=== PATIENT | male | born 2005 | race Caucasian/White ===

== ENCOUNTER 2023-12-01 11:26 | Emergency (ER) | payer OTHER, SELFPAY ==
[2023-12-01 11:35] VITALS: BP 129/97; PULSE 85; TEMP 36.6; O2SAT 100; BMI 23.0
--- NOTE | 2023-12-01 11:38 | ED.EAR1 ---
HPI - Ear Problem General Chief complaint: Ear Stated complaint: HEADACHE Time Seen by Provider: 12/01/23 11:37 Related Data Home Medications ?Medication ?Instructions ?Recorded ?Confirmed No Known Home Medications 12/01/23 12/01/23 Allergies Allergy/AdvReac Type Severity Reaction Status Date / Time No Known Drug Allergies Allergy Verified 12/01/23 11:35 Discharge Plan Discharge Stand Alone Forms: Portal Instructions Chief Complaint: Ear Clinical Impression: Scalp pain Patient Disposition: Home, Self-Care Time of Disposition Decision: 12:09 Prescriptions / Home Meds: No Action No Known Home Medications Print Language: Belarusian Additional Instructions: Follow-up with neurologist if the symptoms persist Referrals: VIVI WEINBERG [Primary Care Provider] - 1 week
--- NOTE | 2023-12-01 12:10 | ED_ITS ---
HPI HPI - General Adult General Chief complaint: Ear Stated complaint: HEADACHE Time Seen by Provider: 12/01/23 11:37 Source: patient History of Present Illness HPI narrative: This patient is here complaining of discomfort behind his ear in the upper temporal scalp area. He says been experiencing this for at least a week or so. It is not a continuous discomfort. It is not a headache he says the discomfort is on the scalp. He says when he gets these attacks when he touches his skin is extremely sensitive. These attacks come and go they last a short time. Sometimes he takes an anti-inflammatory for it. Past medical history he does have migraine headaches and has seen a neurologist for these. He actually has a neurologist at the [facility]. He has had several CT scans of his brain before all of which are normal. He does not notice any of this symptomatology anyplace else on his scalp trunk torso. He does not have any neck pain associated with it no fever. Has no history of diabetes or other neurological disorders. He does indicate that he has had COVID in the past. He also has irritable bowel syndrome. He was worked up for syncopal attacks and was felt to be vasovagal reactions. He is not on any ongoing manage case's. He said he had a lot of earaches when he was a child. Does not have any drainage or discharge from the ear. There is no tinnitus. He has no vertigo. No diplopia dysarthria or dysphagia. Does not actually get a migraine headache with these. Has not noticed any skin lesions in the area. No history of mastoid disease or recent dental problems or procedures. Does not have a sore throat. He is otherwise healthy and not on any medications. Related Data Home Medications ?Medication ?Instructions ?Recorded ?Confirmed No Known Home Medications 12/01/23 12/01/23 Allergies Allergy/AdvReac Type Severity Reaction Status Date / Time No Known Drug Allergies Allergy Verified 12/01/23 11:35 Opioid HPI Opioid Management Most Recent Opioid Data: No Data to Display Exam Narrative Exam Narrative: Awake alert very pleasant no distress whatsoever vital signs are noted and essentially normal. Overall inspection his hygiene is very good skin is warm and dry mucous memories are moist and pink. There is no scleral icterus or evidence of anemia. HEENT examination shows facial skin to be completely normal. There is no conjunctivitis. Oral cavity shows all dentition to be in good repair there is no tenderness to percussion of any of the teeth. The uvula palate and lips and buccal mucosa are all normal. Both ears were carefully examined x 2 both TMs are completely normal. Ear canals are not erythematous warm red swollen or tender. Examination of the mastoid area discloses no sensitivity or tenderness or pain with percussion over the mastoid area. The scalp area and skin were closely examined with good illumination and there is absolutely no skin lesions in the area. There is no hypnesthesia's of the area at this time. There is no evidence of shingles or zoster or vesicles in the ear area or the nasal area. Hearing is intact. Cranial nerves II to XII are carefully examined and are normal. The neck is soft and supple there is no meningeal irritation. Constitutional Vital Signs, click to edit/add: Last Vital Signs Temp 97.9 F 12/01/23 11:35 Pulse 85 12/01/23 11:35 Resp 18 12/01/23 11:35 BP 129/97 H 12/01/23 11:35 Pulse Ox 100 12/01/23 11:35 O2 Del Method Room Air 12/01/23 11:35 Course Vital Signs Vital signs: Vital Signs Temperature 97.9 F 12/01/23 11:35 Pulse Rate 85 12/01/23 11:35 Respiratory Rate 18 12/01/23 11:35 Blood Pressure 129/97 H 12/01/23 11:35 Pulse Oximetry 100 12/01/23 11:35 Oxygen Delivery Method Room Air 12/01/23 11:35 Temperature 97.9 F 12/01/23 11:35 Pulse Rate 85 12/01/23 11:35 Respiratory Rate 18 12/01/23 11:35 Blood Pressure 129/97 H 12/01/23 11:35 Pulse Oximetry 100 12/01/23 11:35 Oxygen Delivery Method Room Air 12/01/23 11:35 Medical Decision Making MDM Narrative Medical decision making narrative: This patient presents with transient brief alternating hypnesthesia's of the scalp area on the right side. He did not does not describe these as a headache. He has no other neurological symptoms. He has had multiple CAT scans of his head done while working him up for other medical problems. He does have a practicing neurologist at the [facility]. Clinical examination is normal. There is no indication of mastoiditis, otitis skin lesions or any type of dermatological disorder. He does not describe any neurological symptoms during these episodes just has skin sensitivity. We talked extensively about possible differential diagnosis but I do not believe there is an emergency medical condition at this time and he has previously been imaged. We agree that he can follow-up with his neurologist as an outpatient Discharge Plan Discharge Stand Alone Forms: Portal Instructions Chief Complaint: Ear Clinical Impression: Scalp pain Patient Disposition: Home, Self-Care Time of Disposition Decision: 12:09 Prescriptions / Home Meds: No Action No Known Home Medications Print Language: Faroese Additional Instructions: Follow-up with neurologist if the symptoms persist Referrals: VIVI WEINBERG [Primary Care Provider] - 1 week
== END 2023-12-01 12:18 | disposition home or self-care (01) ==
PROVIDERS: Emergency Provider Emergency Medicine Emergency Medical Services; PCP Pediatrics
DX: R51.9 Headache, unspecified (principal); Z86.16 Personal history of COVID-19
CPT/HCPCS: 99281

== ENCOUNTER 2024-08-30 23:15 | Emergency (ER) | payer MEDICAID, SELFPAY ==
[2024-08-30 23:31] VITALS: BP 158/89; PULSE 81; TEMP 36.7; O2SAT 98; BMI 23.6
[2024-08-31] MEDS: 0.9 % SODIUM CHLORIDE 1,000 ML 1000 ML IV (00:13)
[2024-08-31 00:14] LABS: Basophils Percent Auto 0.5 % (0.2-2.0); Eosinophils Absolute Auto 0.1 10^3/uL (0.0-0.7); Eosinophils Percent Auto 1.6 % (0.9-7.0); Hematocrit 43.9 % (42.0-54.0); Hemoglobin 15.9 g/dL (14.0-18.0); Immature Granulocytes Abs Auto 0.01 10^3/uL (0.00-0.03); Immature Granulocytes Pct Auto 0.1 % (0.0-0.5); Lymphocytes Absolute Auto 3.5 10^3/uL (1.2-3.8); Mean Corpuscular HGB Conc 36.2 g/dL (29.9-35.2); Mean Corpuscular Hemoglobin 30.1 pg (25.9-34.0); Mean Corpuscular Volume 83.1 fL (80.0-94.0); Mean Platelet Volume 9.4 fL (9.5-13.5); Monocytes Absolute Auto 0.7 10^3/uL (0.3-0.8); Monocytes Percent Auto 9.2 % (1.7-12.0); Neutrophils Absolute Auto 3.5 10^3/uL (1.4-6.5); Neutrophils Percent Auto 44.6 % (43.0-75.0); Platelet Count 340 10^3/uL (150-450); Red Blood Count 5.28 10^6/uL (4.70-6.10); Red Cell Distribution Width 11.9 % (11.0-15.0); White Blood Count 7.9 10^3/uL (4.0-11.0)
[2024-08-31] MEDS: DIPHENHYDRAMINE HCL 50 MG/ML VIAL IVP (00:15)
[2024-08-31] MEDS: METOCLOPRAMIDE HCL 10 MG/2 ML VIAL IVP (00:17)
[2024-08-31] MEDS: KETOROLAC TROMETHAMINE 30 MG/ML VIAL 15 MG IVP (00:19)
[2024-08-31 00:30] LABS: Alanine Aminotransferase 26 U/L (16-63); Albumin Globulin Ratio 1.2; Albumin Level 4.5 g/dL (3.4-5.0); Alkaline Phosphatase 93 U/L (46-116); Anion Gap 11.7; Aspartate Amino Transferase 17 U/L (15-37); BUN Creatinine Ratio 15.7; Bilirubin Total 0.6 mg/dL (0.2-1.0); Calcium 9.4 mg/dL (8.5-10.1); Carbon Dioxide 29.6 mmol/L (21.0-32.0); Chloride 100 mmol/L (98-107); Estimated GFR (African America >60 (>=60 mL/min/1.73m^2); Estimated GFR (Non-African Ame >60 (>=60 mL/min/1.73m^2); Globulin 3.8 g/dL; Glucose 100 mg/dL (74-106); Potassium 3.3 mmol/L (3.5-5.1); Sodium 138 mmol/L (136-145); Total Protein 8.3 g/dL (6.4-8.2)
--- NOTE | 2024-08-31 01:40 | ED_ITS ---
HPI HPI - General Adult General Chief complaint: Headache Stated complaint: HEAD PAIN Time Seen by Provider: 08/30/24 23:43 Source: patient Mode of arrival: walk-in Limitations: no limitations Related Data Previous Rx's ?Medication ?Instructions ?Recorded ondansetron 4 mg disintegrating 4 mg PO Q6H PRN nausea and 08/31/24 tablet vomiting #10 tabs sumatriptan succinate 25 mg tablet See Rx Instructions PO .COMPLEX 08/31/24 (Imitrex) #10 tabs Allergies Allergy/AdvReac Type Severity Reaction Status Date / Time No Known Drug Allergies Allergy Verified 08/30/24 23:35 Opioid HPI Opioid Management Most Recent Opioid Data: Last Pain Scale 2 Today, 02:28 Last ED Pain Assessment 08/30/24, 23:39 Last MAR Pain Assessment Today, 00:19 PFSH PFSH Social History Little interest or pleasure in doing things: not at all Feeling down, depressed, or hopeless: not at all Exam Constitutional Vital Signs, click to edit/add: Last Vital Signs Temp 98.0 F 08/30/24 23:31 Pulse 86 08/31/24 02:29 Resp 16 08/31/24 02:29 BP 145/77 H 08/31/24 02:29 Pulse Ox 98 08/31/24 02:29 O2 Del Method Room Air 08/31/24 02:29 Course Reevaluation(s) Reevaluation #1: Headache reevaluated. Patient states at this time his pain is a 3-4 out of 10. Magnesium 2 g added. Time: 01:40 Reevaluation #2: Patient indicates that the headache is now a 1-2 out of 10. He feels like this is unacceptable little to go home with. He has been on Imitrex in the past and is requesting a prescription. I told them that I would be happy to do that we will give him a referral to primary care physicians. Time: 02:54 Vital Signs Vital signs: Vital Signs Temperature 98.0 F 08/30/24 23:31 Pulse Rate 81 08/30/24 23:31 Respiratory Rate 18 08/30/24 23:31 Blood Pressure 158/89 H 08/30/24 23:31 Pulse Oximetry 98 08/30/24 23:31 Oxygen Delivery Method Room Air 08/30/24 23:31 Temperature 98.0 F 08/30/24 23:31 Pulse Rate 86 08/31/24 02:29 Respiratory Rate 16 08/31/24 02:29 Blood Pressure 145/77 H 08/31/24 02:29 Pulse Oximetry 98 08/31/24 02:29 Oxygen Delivery Method Room Air 08/31/24 02:29 Medical Decision Making MDM Narrative Medical decision making narrative: Patient is a 19-year-old male with an intractable migraine presenting to the emergency department for evaluation. Patient is neurovascularly intact. No neurodeficits. But in intractable pain. Differential Diagnosis Differential Diagnosis: Status migraine, migraine, tension headache, dehydration, electrolyte abnor Medical Records Medical records reviewed: Yes I reviewed the patient's medical records Lab Data Lab results reviewed: Yes I reviewed the patient's lab results Lab results narrative: Patient has no evidence of anemia or leukocytosis. The patient has mild hyponatremia at 3.3. Electrolytes competence of mental panel are otherwise unremarkable. Labs: Lab Results 08/31/24 Range/Units 00:01 WBC 7.9 (4.0-11.0) 10^3/uL RBC 5.28 (4.70-6.10) 10^6/uL Hgb 15.9 (14.0-18.0) g/dL Hct 43.9 (42.0-54.0) % MCV 83.1 (80.0-94.0) fL MCH 30.1 (25.9-34.0) pg MCHC 36.2 H (29.9-35.2) g/dL RDW 11.9 (11.0-15.0) % Plt Count 340 (150-450) 10^3/uL MPV 9.4 L (9.5-13.5) fL Neut % (Auto) 44.6 (43.0-75.0) % Lymph % (Auto) 44.0 (20.5-60.0) % [place] % (Auto) 9.2 (1.7-12.0) % Eos % (Auto) 1.6 (0.9-7.0) % Baso % (Auto) 0.5 (0.2-2.0) % Neut # (Auto) 3.5 (1.4-6.5) 10^3/uL Lymph # (Auto) 3.5 (1.2-3.8) 10^3/uL [place] # (Auto) 0.7 (0.3-0.8) 10^3/uL Eos # (Auto) 0.1 (0.0-0.7) 10^3/uL Baso # (Auto) 0.0 (0.0-0.1) 10^3/uL Abs Immat Gran (auto) 0.01 (0.00-0.03) 10^3/uL Imm/Tot Granulo (auto) 0.1 (0.0-0.5) % Sodium 138 (136-145) mmol/L Potassium 3.3 L (3.5-5.1) mmol/L Chloride 100 (98-107) mmol/L Carbon Dioxide 29.6 (21.0-32.0) mmol/L Anion Gap 11.7 BUN 14.0 (7.0-18.0) mg/dL Creatinine 0.89 (0.70-1.30) mg/dL Est GFR ( Amer) >60 (>=60 mL/min/1.73m^2) Est GFR (Non-Af Amer) >60 (>=60 mL/min/1.73m^2) BUN/Creatinine Ratio 15.7 Glucose 100 (74-106) mg/dL Calcium 9.4 (8.5-10.1) mg/dL Total Bilirubin 0.6 (0.2-1.0) mg/dL AST 17 (15-37) U/L ALT 26 (16-63) U/L Alkaline Phosphatase 93 (46-116) U/L Total Protein 8.3 H (6.4-8.2) g/dL Albumin 4.5 (3.4-5.0) g/dL Globulin 3.8 g/dL Albumin/Globulin Ratio 1.[address] scan - head: Attestation: I have reviewed the pertinent imaging results. Radiologist's impression: CT scan of the brain revealed no acute intracranial process. CTA of the head revealed no hemodynamically significant stenosis or aneurysmal dilation identified within the major vessels of the anterior posterior intracranial circulation. Discharge Plan Discharge Chief Complaint: Headache Clinical Impression: Migraine Patient Disposition: Home, Self-Care Time of Disposition Decision: 02:57 Condition: Good Mode of Transportation: EMS Prescriptions / Home Meds: New ondansetron 4 mg tablet,disintegrating 4 mg PO Q6H PRN (Reason: nausea and vomiting) Qty: 10 0RF sumatriptan succinate [Imitrex] 25 mg tablet See Rx Instructions .ROUTE .COMPLEX Qty: 10 0RF Rx Instructions: take 1 tab at onset of headache; if no relief may repeat 1 tab after at least 2 hrs; max = 4 tabs/24 hr Print Language: Korean Instructions: Migraine Headache (ED) Referrals: Physician,Non-Staff, MD [Primary Care Provider] - 1 week
[2024-08-31] MEDS: MAGNESIUM SULFATE IN WATER 2 GM/50 ML PREMIX IV (02:20)
[2024-08-31 02:29] VITALS: BP 145/77; PULSE 86; O2SAT 98
== END 2024-08-31 03:45 | disposition home or self-care (01) ==
PROVIDERS: Emergency Provider Emergency Medicine
DX: G43.909 Migraine, unspecified, not intractable, without status migrainosus (principal)
CPT/HCPCS: 36415; 70450; 70496; 80053; 85025; 96365; 96375; 99285; J1200; J1885; J2765; J3475; Q9967

== ENCOUNTER 2025-02-03 11:46 | Emergency (ER) | payer MEDICAID, SELFPAY ==
--- OUTSIDE RECORDS SUMMARY | 2025-01-20 08:11 | XMS_ITS | Continuity of Care Document ---
Author Organization [facility] Address [address] [place] [address] Phone Care Team Providers Care Barge Pilot Name Role Phone NO FAMILY, PHYSICIAN Primary Care Provider Unava ilable Rodriguez Lindsey DO Attending Provider [phone] Mary Moise Attending Provider + Care Teams Patient Care Team Team Status: Active Member Role Status Dates Adriana Doherty MD Group Manager Active PHYSICIAN NO FAMILY Primary Care Provider Active Visit Care Team Team Status: Inactive Member Role Status Dates PHYSICIAN NO FAMILY Primary Care Provider Active Start: October 23, 2024 End: October 23, 2024 Rodriguez Lindsey DO Attending Provider Active S tart: October 23, 2024 End: October 23, 2024 Visit Care Team Team Status: Inactive Member Role Status Dates PHYSICIAN NO FAMILY Primary Care Provider Active Start: October 23, 2024 End: October 23, 2024 Rodriguez Lindsey DO Attending Provider Active S tart: October 23, 2024 End: October 23, 2024 Visit Care Team Team Status: Inactive Member Role Status Dates PHYSICIAN NO FAMILY Primary Care Provider Active Start: January 16, 2025 End: January 16, 2025 SUZAN Cali Attending Provider Active Start: January 16, 2025 End: January 16, 2025 Patient Care Team Team Status: Inactive Member Role Status Dates PHYSICIAN NO FAMILY Primary Care Provider Active Start: January 20, 2025 End: January 20, 2025 Mary E Moise , PLANT SENIOR MANAGER-LEATHER COVERER-C Attending Provider Active Start: January 20, 2025 End: January 20, 2025 Chief Complaint and Reason for Visit Chief Complaint Admit Date S52.592A - Other fractures of lower end of left ra October 23, 2024 8:00am XRAYS OUT OF CAST, 3 wks October 23, 2024 12:10pm follow up January 16, 2025 2:30pm ONB INJ PER Giuliana MOISE - [facility] January 20, 2025 11:16am Reason for Visit Admit Date Closed fracture of left distal radius Ju 2024 12:10pm Bilateral occipital neuralgia January 16, 2025 2:30pm Chronic migraine without aur a without status migrainosus, not intractable January 16, 2025 2:30pm Loss of consciousness January 16 2:30pm Bilateral occipital neuralgia January 20, 2025 11:16am Allergies, Adverse Reactions, Alerts Allergen Type Severity Reaction Last Updated Verified Status beef derived (bovine) Allergy Unknown Unknown Reaction January 20, 2025 11:35am Yes Active monosodium glutamate Allergy Unknown migraine January 20, 2025 11:35am Yes Active pork derived (porcine) Allergy Unknown Unknown Reaction January 20, 2025 11:35am Yes Active Milk Containing Products (Dairy) Allergy Unknown Unknown Reaction December 11:35am Yes Active Social History Smoking Status Status Start Date End Date Date of Observa tion Never smoked tobacco (finding) October 02, 2024 1:33pm Observation Status Observation Response Date of Response Legal Sex Male (finding) Sex Assigned At Male 2005 Family History Relationship Condition Age at Onset Recorded Date/T connor mother Aneurysm Unknown family member Adopted Unknown Problems Active Problems Medical Problem Onset Date Status Comments Chronic migraine with aura w ithout status migrainosus, not intractable Unknown Active Chronic migraine without aur a without status migrainosus, not intractable Unknown Active Bilateral occipital neuralgia Unknown Active Palpitations Unknown Active Appetite loss Unknown Active Vasovagal syncope Unknown Active Loss of consciousness Unknown Active Constipation Unknown Active Closed fracture of left distal radius Unknown Act humble Inactive/Resolved Problems Medical Problem Onset Date Status Comments Sprain of shoulder Unknown Resolved Problem L ist clean-up per request of Phys. EHR Cmte Fracture of left wrist Unknown Resolved Closed head injury Unknown Resolved Atypical chest pain Unknown Resolved Viral infection Unknown Resolved Problem List clean-up per request of Phys. EHR Cmte Medications Medication Status Dose Units Route Directions Qty Days St art Date Stop Date End Date Instructions Adherence Sumatriptan Succinate (Imitrex) 25 mg tablet Discont inued 25 MG PO Twice daily as needed for migraine headache 2023 1:00am 2024 1:34p m FreeTextSi tablet at least 2 hours between doses as needed Orally Twice a day; Note: Source Status: Taking; Provider: Bessy Wright ( ) Lactobacill us Combination No.4 (Probiotic) 3 billion cell capsule Discont inued 3000 MMU CELLS PO Daily 2023 1:00am August 17, 2023 1:23p m administer with a meal Lactulose 10 gram/15 mL solution Discont inued 15 ML PO Daily 2023 1:00am 2024 1:33p m FreeTextSi mL as needed Orally Once a day; Note: Source Status: Taking; Refills: 11; Qty: 450 Milliliter; Provider: Rosio Todd Dicyclomine 20 mg tablet Discont inued MG PO 2023 1:00am July 18, 2023 11:38 am FreeTextSi capsules Orally Three times a day; Note: Source Status: Taking; Refills: 3; Qty: 90 Capsule; Provider: Rosio Todd Lubiproston e 8 mcg capsule Discont inued 8 MCG PO Twice daily 2023 1:00am 2023 2:10p m FreeTextSi capsule with food and water Orally Twice a day; Note: Source Status: Taking; Provider: Rosio Todd Pantoprazol e (Protonix) 40 mg tablet,araseli yed release (/EC) Discont inued 40 MG PO Daily 2023 1:00am 2024 1:33p m FreeTextSi tablet 3 MINUETS PRIOR TO FOOD, TWICE A DAY Orally TWICE A DAY; Note: Source Status: Taking; Refills: 5; Provider: Rosio Todd Ondansetron 4 mg tablet,disi ntegrating Discont inued 8 MG PO As Directed as needed for nausea and vomiting 2023 1:00am 2024 1:33p m FreeTextSi tablet on the tongue and allow to dissolve Orally every 8 hours prn nausea; Note: Source Status: Taking; Refills: 0; Qty: 12 tablets; Provider: Sarah Leggett Fluticasone Propionate (Flonase Allergy Relief) 50 mcg/actuati on spray,suspe nsion Discont inued 1 SPRAY INTRAN JAH Daily 2023 1:00am July 18, 2023 11:38 am FreeTextSi spray in each nostril Nasally Once a day; Note: Source Status: Not-Takingund efinedPRN; Refills: 0; Qty: 1 Bottle; Provider: Audra Lane Hyoscyamine Sulfate (Nulev) 0.125 mg tablet,disi ntegrating Discont inued 0.125 MG PO Four times daily as needed for cramping 2023 1:00am 2024 1:33p m Lubiproston e 8 mcg capsule Discont inued 8 MCG PO Twice daily 60 2023 2:09pm August 17, 2023 1:24p m Dicyclomine 20 mg tablet Discont inued 20 MG PO Three times daily July 18, 2023 11:36a m August 17, 2023 1:24p m FreeTextSi capsules Orally Three times a day; Note: Source Status: Taking; Refills: 3; Qty: 90 Capsule; Provider: Rosio Todd Fluticasone Propionate (Flonase Allergy Relief) 50 mcg/actuati on spray,suspe nsion Discont inued 1 SPRAY INTRAN JAH Daily as needed July 18, 2023 11:37a m August 17, 2023 1:24p m FreeTextSi spray in each nostril Nasally Once a day; Note: Source Status: Not-Takingund efinedPRN; Refills: 0; Qty: 1 Bottle; Provider: Audra Lane Dextroamphelida tamine-Amph etamine 10 mg capsule,ext ended release 24hr Discont inued 10 MG PO Daily 2019 1:00am 2023 10:00 am Albuterol Sulfate 90 mcg/actuati on HFA aerosol inhaler Discont inued 2 INH INHALA TION .every 4 hours prn 2019 1:00am 2023 10:01 am administer with spacer Ibuprofen 600 mg tablet Discont inued 600 MG PO Every 6 hours as needed for Pain 2024 1:00am September 30, 2024 4:55p m do not exceed 4 doses in a 24 hour period Hydrocodone -Acetaminop hen 5-325 mg tablet Discont inued 1 TAB PO Q6H as needed for pain 04 02September 30, 2024 October 02, 2024 1:33p m Methocarbam ol 750 mg tablet Discont inued 750 MG PO Three times daily September 30, 2024 12:00a m October 02, 2024 1:33p m Sumatriptan Succinate 50 mg tablet Discont inued 50 MG PO Daily as needed for Migraine Headache 2017 12:00a m [facility] 2023 10:00 am Albuterol Sulfate (Ventolin Hfa) 90 mcg/actuati on HFA aerosol inhaler Discont inued 1 - 2 PUFF INHALA TION EVERY 4-6 HOURS as needed for Shortness Of Breath 2017 12:00a m [facility] 2023 10:01 am Cyclobenzap rine 5 mg tablet Discont inued 5 MG PO Three times daily as needed for muscle spasm 10 2017 12:00a m 2019 7:50p m Diclofenac Sodium (Voltaren) 1 % gel Discont inued 0 .ROUTE .COMPLEX 100 2017 12:00a m 2019 7:50p m 2grams 4 times daily Ibuprofen 800 mg tablet Discont inued 800 MG PO Q6H as needed for pain 2021 1:00am [facility] 2023 10:00 am Dicyclomine 10 mg capsule Discont inued 10 MG PO Three times daily August 17, 2023 12:00a m ry 2024 1:33p m Ondansetron 4 mg tablet,disi ntegrating Active 4 MG PO Every 6 hours as needed October 02, 2024 12:00a m Complies with drug therapy Sumatriptan Succinate 25 mg tablet Active 25 MG PO .COMPLEX October 02, 2024 12:00a m 25 mg orally take 1 tablet by mouth at onset of headache; Complies with drug therapy Procedures Procedure Date Performed Status XR wrist LT min 3V* October 23, 2024 8:00am compl eted Relevant Diagnostic Tests and/or Laboratory Data Diagnostic Imaging Reports Author Tre Morrell [facility] Authored October 23, 2024 4:40 pm Report Dictated Date/Time Dictated By Status Radiology Report October 23, 2024 4:40pm Tre Morrell II MD completed [facility] [address] [place] [address] XRay Report Signed Patient: Greg Moore MR#: [id number] : 2005 Acct:[id number] Age/Sex: 19 / M ADM Date: 5 Loc: [facility] Room: Type: [facility] Attending Dr: Rodriguez Lindsey DO Copies to: Rodriguez Lindsey DO~ Ordering Provider: Rodriguez Lindsey DO Date of Service: 10/23/24 XR/XR wrist LT min 3V*: S52.592A - Other fractures of lower end of left radius, i... XR wrist LT min 3V* 10/23/2024 12:45 PM SIGNS AND SYMPTOMS: ^S52.592A - Other fractures of lower end of left radius, i... ^out of cast PROTOCOL: Frontal, lateral, and oblique radiographs of the left breast COMPARISON: 09/30/2024 FINDINGS: Transversely oriented distal radius and ulna fractures are noted with the ulnar fracture better demonstrated on the current radiographs are presumably secondary to osteopenia and healing response. There is no change in alignment. XR/XR wrist LT min 3V* IMPRESSION: Transversely oriented distal radius and ulna fractures are noted with the ulnar fracture better demonstrated on the current radiographs are presumably secondary to osteopenia and healing response. There is no change in alignment. Impression dictated by: Tre Morrell M.D. 10/23/2024 4:41 PM Dictation Location: [place] [address] Transcribed By: MICHELE 10/23/24 1641 Dictated By: Tre Morrell II, MD 10/23/24 1640 Signed By: <Electronically signed by Tre Morrell II, MD in [place]> 10/23/24 1641 Vital Signs Vital Reading Result Reference Range Collection Date/Time Height 69 [in_i] January 16, 2025 1:16pm Weight 95.25 kg January 16, 2025 1:16pm Heart Rate 104 /min 60-100 January 16, 2025 1:16pm Respiratory rate 16 /min 12-24 December 302024 1:16pm Oxygen saturation by Pulse oximetry 98 % 95-100 January 16, 2025 1:16pm BP Systolic 122 mm[Hg] 100-140 January 16, 2025 1:16pm BP Diastolic 78 mm[Hg] 60-100 January 16, 2025 1:16pm BMI (Body Mass Index) 31.0 kg/m2 2024 1:16pm Height 69 [in_i] January 20, 2025 9:40am Weight 100.35 kg January 20, 2025 9:40am Heart Rate 82 /min 60-100 January 20, 2025 9:40am Oxygen saturation by Pulse oximetry 98 % 95-100 January 20, 2025 9:40am BP Systolic 134 mm[Hg] 100-140 January 20, 2025 9:40am BP Diastolic 88 mm[Hg] 60-100 January 20, 2025 9:40am BMI (Body Mass Index) 32.6 kg/m2 2024 9:40am Advance Directives Advance Directive Response Recorded Date/ Time Advance Directives No May 14, 2024 10:18am Insurance Providers Guarantor Greg Moore Address [address] [place] [phone] Contact Info. Home Phone: Payer Policy Id Subscriber's Name Subscriber Id Effelida ctive Date Expiration Date [facility] Employees [id number] Leesa Moore [id number] Encounters Encounter Location(s) Arrival/Admit Date Discharge/Depart Date Provider(s) Departed Clinical -[facility] Day October 23, 2024 8:00am October 23, 2024 8:01am Rodriguez Lindsey DO Departed Physician/Prov ider Office Visit -[facility] October 23, 2024 12:10pm October 23, 2024 12:52pm Rodriguez Lindsey DO Departed Physician/Prov ider Office Visit -[facility] [place] January 16, 2025 2:30pm January 16, 2025 3:23pm SUZAN Cali Departed Physician/Prov ider Office Visit -[facility] January 20, 2025 11:16am January 20, 2025 12:10pm SUZAN Cali Recent Diagnosis Onset Date Admit Date Closed fracture of left distal radius Unknown October 23, 2024 12:10pm Bilateral occipital neuralgia Unknown Se ptember 2024 2:30pm Chronic migraine without aur a without status migrainosus, not intractable Unknown January 16, 2025 2:30 pm Loss of consciousness Unknown January 16, 2025 2:30pm Bilateral occipital neuralgia Unknown Se ptember 2024 11:16am Assessments Diagnosis Onset Date Resolution Status Admit Date Closed fracture of left dist al radius acute October 23, 2024 12:10pm Bilateral occipital neuralgia acute January 16, 2025 2:30pm Chronic migraine without aur a without status migrainosus, not intractable chronic January 16, 2025 2:30pm Loss of consciousness chronic Sep tember 2024 2:30pm Bilateral occipital neuralgia acute January 20, 2025 11:16am Plan of Treatment Author Rodriguez Lindsey [facility] Authored November 03, 2024 6:45a m Greg returns with left dis roldan radius fracture. At this juncture we have discussed the findings and diagnosis as well as personally reviewed appropriate imaging and performed interpretation of related testing and examination with the patient in office today. Prior medical notes and history have been reviewed. Cast is been removed today. Use of splint. Patient to work on range of motion and increase activities as tolerated. Plan for follow-up in 6 weeks for final check The patient has been involved in our cooperative treatment plan and agrees to move forward with treatment at this time. Cast removed today. Radiographs reviewed with patient and company today. Fracture is showing signs of healing. Patient may progress back to normal activity. Patient has no formal restrictions. Patinet is to follow up in 6 weeks, no xray. Note scribed by VIN Puri, reviewed and amended by myself Rodriguez Lindsey D.O. Author Mary Moise [facility] Authored January 16, 2025 8:28pm The patient reports intermit tent loss of consciousness with loss of postural tone lasting 5-10 seconds on average. His syncopal episodes are not necessarily provoked by orthostatic position changes or exercise. Given the clinical description, I have suspicion for vasovagal syncope. The patient has no definitive family history of epilepsy and no significant risk factors for epilepsy. He denies tongue biting, incontinence, or tonic-clonic activity and denies fatigue/decreased alertness after regaining consciousness. MRI of the brain on 04/18/23 was unremarkable, and routine EEG on 04/10/23 was normal. Ambulatory EEG in May 2023 was normal. Overall, my suspicion for epilepsy is low. The patient states his most recent syncopal episode was on 05/09/24. Before that, it was sometime prior to 05/02/23. PLAN: - Ensure adequate water intake and sodium intake. Try to drink 64 ounces of water per day at minimum - Continue to utilize counterpressure maneuvers such as leg crossing - Avoidance of triggers - If safe to do so, patient to transition to a supine position as soon as feasible should he develop prodromal symptoms of syncope in the future - Follow up with cardiology per their recommendations The patient has a history of migraines. He reports a strong family history of chronic migraine as well. These are very infrequent recently. He states his most recent migraine was in June 2024. PLAN: - Monitor clinically It is my impression that the patient has bilateral occipital neuralgia. He reports symptoms that seem most clinically consistent with this. The patient reports paroxysmal, sharp/shooting pains overlying the greater and lesser occipital nerves recently. Onset was 1 week ago. He has tried [id number] medications and Imitrex without relief. PLAN: - Schedule for bilateral occipital nerve blocks. I counseled the patient on the intended purpose of these and possible adverse effects. He verbalizes understanding wishes to proceed - Consider updated intracranial imaging in the future if symptoms fail to respond to typical treatment options for occipital neuralgia. Deferred today, as the patient's neurologic examination is generally unremarkable Diagnoses and treatment plan discussed. The patient verbalizes understanding and is agreeable to the plan. All questions answered. Future Tests Future scheduled test information is unavailable Pending Tests Pending diagnostic test information is unavailable Future Visits Future appointment information is unavailable Referrals to Other Providers Referral information is unavailable Future Procedures Future procedure information is unavailable Future Medications Future medication information is unavailable Patient Instructions Patient instructions are unavailable
[2025-02-03 11:52] VITALS: BP 160/88; PULSE 85; TEMP 36.6; O2SAT 100; BMI 28.7
--- OUTSIDE RECORDS SUMMARY | 2025-02-03 12:01 | XMS_ITS | Clinical Summary ---
Author Organization [facility] Address [address] [place] [address] Care Team Providers Care Vibration Technician Name Role Phone Jannette Mcdaniel MD Primary Care Provider [phone] Allergies No known active allergies Social History Tobacco Use Types Packs/Day Years Used Date Smoking Tobacco: Never Assessed Sex and Gender Information Value Date Recorded Sex Assigned at Not on file Legal Sex Male 3:26 PM EST Gender Identity Not on file Sexual Orientation Not on file Last Filed Vital Signs Vital Sign Reading Time Taken Comments Blood Pressure 102/64 04/26/2019 3:30 PM EST Pulse 86 04/26/2019 3:30 PM EST Temperature 36.9 C (98.4 F) 04/26/2019 3:30 PM EST Respiratory Rate 16 04/26/2019 3:30 PM EST Oxygen Saturation 99% 04/26/2019 3:30 PM EST Inhaled Oxygen Concentration - - Weight - - Height - - Body Mass Index - - Plan of Treatment Not on file Insurance [facility] SUPERMED PPO [facility] MEDICAID Care Teams Vibration Technician Relationship Specialty Start Date End Date Jannette Mcdaniel MD [address] [place] [address] PCP - General Infectious Diseases 04/26/19
--- OUTSIDE RECORDS SUMMARY | 2025-02-03 12:01 | XMS_ITS | Clinical Summary ---
Author Organization [facility] Address [address] [place] [address] Care Team Providers Care Brand Leader Name Role Phone Rodrigue Kuo MD Primary Care Provider [phone] Allergies No known active allergies Medications Lactobacillus (ACIDOPHILUS PO) Take by mouth Active saccharomyces boulardii (Florastor) 250 MG capsule Take 250 mg by mouth in the morning and 250 mg before bedtime. Active Dermatological Products, Misc. (LEVICYN EX) Apply topically Active pantoprazole (ProtoNix) 40 MG EC tablet Take 40 mg by mouth in the morning. Take before meals. Do not crush, chew, or split.. Active ondansetron ODT (Zofran-ODT) 8 MG disintegrating tablet Take 8 mg by mouth every 8 (eight) hours if needed for nausea or vomiting DISSOLVE 1 TABLET UNDER THE TONGUE EVERY 8 HOURS NEEDED FOR NAUSEA AND VOMITING Active hyoscyamine (Anaspaz,Levsin) 0.125 MG tablet Take 0.125 mg by mouth every 4 (four) hours if needed for cramping DISSOLVE 1 TABLET UNDER THE TONGUE Active dicyclomine (Bentyl) 10 MG capsule Take 10 mg by mouth in the morning and 10 mg in the evening and 10 mg before bedtime. FOR 30 DAYS. Active lubiprostone (Amitiza) 8 MCG capsule Take 8 mcg by mouth in the morning and 8 mcg in the evening. Take with meals. Active Active Problems Problem Noted Date Diagnosed Date Loss of consciousness 01/10/2024 Overview (01/10/2024): The patient reports intermittent loss of consciousness with loss of postural [...] states his most recent syncopal episode was sometime prior to 05/02/23. PLAN: - I educated the patient and his mother on vasovagal syncope in detail - Adequate hydration, avoidance of triggers, and counterpressure maneuvers such as leg crossing discussed - I advised the patient to transition to a supine position as soon as feasible should he develop prodromal symptoms of syncope in the future - Given the recurrent episodes, I counseled the patient on precautions including no driving, no operating heavy machinery, no tub bathing alone and no swimming alone until 3 months episode-free and cleared by neurology AND cardiology. If the patient has no recurrence of syncopal episodes, I would be okay with lifting these restrictions on 08/01/23 from a neurologic standpoint. - I advised the patient that I strongly recommend he refrain from working with heavy machinery, working at heights, or working on ladders in the future due to the potential risk for injury and/or should he experience a syncopal episode while in one of these positions. He verbalizes understanding - Follow up with cardiology per their recommendations Chronic migraine without aur a with status migrainosus, not intractable 01/10/2024 Overview (01/10/2024): It is my impression that the patient has migraines. He reports a strong family history of chronic migraine as well. These are infrequent recently and adequately relieved by Aleve within 1 hour of use. PLAN: - Monitor clinically - Adequate hydration, sleep hygiene, and regular physical activity as tolerated Family history of cerebral aneurysm 01/10/2024 Overview (01/10/2024): Positive family history of ruptured intracranial aneurysm requiring brain surgery in the patient's biological mother. The patient is adopted. MRA of the head on 06/07/23 was unremarkable and identified no aneurysm. Social History Tobacco Use Types Packs/Day Years Used Date Smoking Tobacco: Never Tobacco Cessation:Counseling Given: Not Answered Alcohol Use Standard Drinks/Week Comments Never 0 (1 standard drink = 0.6 oz pur e alcohol) Sex and Gender Information Value Date Recorded Sex Assigned at Not on file Legal Sex Male 8:13 PM EDT Gender Identity Not on file Sexual Orientation Not on file Last Filed Vital Signs Vital Sign Reading Time Taken Comments Blood Pressure 108/66 01/10/2019 12:00 PM EDT Pulse - - Temperature - - Respiratory Rate - - Oxygen Saturation - - Inhaled Oxygen Concentration - - Weight 61.2 kg (135 lb) 01/10/2019 12:00 PM EDT Height 165.1 cm (5' 5 ) 01/10/2019 12:00 PM EDT Body Mass Index 22.47 01/10/2019 12:00 PM EDT Plan of Treatment Health Maintenance Due Date Last Done Comments Influenza Vaccine (#1) 2024 , 02/28/2018, 03/08/2017, Additional history exists Insurance [employer] [place] Member Subscriber Plan / Payer (Ef fective 2022-Present) Name:Greg Moore Relation to Subscriber:Self Name:Greg Moore Payer ID:Not on file Group ID:[id number] Type:Not on file Address: [facility] [address] [place] [id number] Care Teams Brand Leader Relationship Specialty Start Date End Date Rodrigue Kuo MD PCP - General Family Medicine 07/26/23
--- OUTSIDE RECORDS SUMMARY | 2025-02-03 12:01 | XMS_ITS | Clinical Summary ---
Author Organization Verical tem Address [facility] [id number] [address] [place] [address] Care Team Providers Care Computer Discovery Teacher Name Role Phone No Pcp, No Pcp Primary Care Provider Unavailabl e Allergies Active Allergy Reactions Criticality Noted Date Comments Beef Derived (Bovine) Medium 03/08/2018 Other reaction(s): Other: See Comments FROM SKIN TEST. Lactalbumin Other (See Comments) Low 03/08/2018 FROM SKIN TEST. Other reaction(s): Other: See Comments FROM SKIN TEST. Milk Low 03/08/2018 Other reaction(s): Other: See Comments FROM SKIN TEST. Monosodium Glutamate Other (See Comments) High 01/09 MIGRAINES Other reaction(s): Other: See Comments MIGRAINES MIGRAINES Pegademase Bovine Other (See Comments) Medium 03/08/20 18 FROM SKIN TEST. Other reaction(s): Other: See Comments FROM SKIN TEST. Poractant Renaldo Other (See Comments) Medium 03/08/2018 FROM SKIN TEST. Other reaction(s): Other: See Comments FROM SKIN TEST. Pork Derived (Porcine) Medium 03/08/2018 Other reaction(s): Other: See Comments FROM SKIN TEST. Medications ondansetron (ZOFRAN) 8 mg tabletIndications: Gastroesophageal reflux disease, unspecified whether esophagitis present Take 1 tablet (8 mg total) by mouth every 12 (twelve) hours as needed for nausea or vomiting. 20 tablet 1 06/24/19 23 Active Additional Information Patient not taking.Reported on 07/01/2024 hyoscyamine sulfate (LEVSIN) 0.125 mg tablet,disintegrat ingIndications:Irr itable bowel syndrome with diarrhea Place 1 tablet (125 mcg total) under the tongue in the morning and 1 tablet (125 mcg total) at noon and 1 tablet (125 mcg total) in the evening and 1 tablet (125 mcg total) before bedtime. 60 each 1 06/24/19 23 Active Additional Information Patient not taking.Reported on 07/01/2024 lubiprostone (AMITIZA) 8 MCG capsule Take 1 capsule (8 mcg total) by mouth in the morning and 1 capsule (8 mcg total) in the evening. Take with meals. Active naproxen (NAPROSYN) 500 mg tabletIndications: Neck pain Take 1 tablet (500 mg total) by mouth in the morning and 1 tablet (500 mg total) in the evening. Take with meals. 40 tablet 07/02/19 25 Active ondansetron ODT (ZOFRAN ODT) 4 mg disintegrating tablet Dissolve 1 tablet (4 mg total) on tongue every 8 (eight) hours as needed for nausea for up to 10 doses. 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/2019 Overview (12/11/2019): Start Concerta 18mg daily Oppositional defiant disorder 11/05/2019 Overview (12/11/2019): Continue in counseling Other constipation 09/13/2018 Nausea 07/11/2018 Recurrent vomiting 07/11/2018 Chronic generalized abdominal pain 03/21/2018 Abdominal pain, chronic, epigastric 03/07/2018 LVH (left ventricular hypertrophy) 01/09/2018 Palpitation 01/09/2018 De Quervain's tenosynovitis, left 10/09/2017 Chronic wrist pain, left 10/09/2017 Left wrist tendonitis 05/08/2017 Acute post-traumatic headache, not intractable 0 06/23/2016 Migraine without aura and wi thout status migrainosus, not intractable 06/23/2016 Contusion of bone 06/06/2016 Closed fracture of radius 12/02/2015 Immunizations Immunization Administration Dates Next Due DTaP 11/29/2007,09/14/2006 DTaP / Hep B / IPV 03/16/2006,02/02/2004, 004 HPV Quadrivalent 06/10/2015,02/05/2015, 5 Hep A, 2 Dose 10/27/2008,07/17/2008,11/29/2007 Hep B, Adolescent or Pediatric 2003 Hib (PRP-T) 04/03/2006,02/02/2004,01/01/2004 IPV 11/29/2007 Influenza (IM) Preservative Free 016,01/29/2013,03/23/2011,03/08 Influenza Whole 04/03/2006 Influenza, Im Trivalent Preservative 02/05/2015, 07/27/2009 Influenza, Injectable, quadr ivalent (PF) 05/16/2020,02/28/2018,03/08/2017 MMR 11/29/2007 MMRV 04/28/2006 Meningococcal B, Omv 01/13/2020,12/11/2019 Meningococcal Conjugate 12/11/2019,12/04/2014 Meningococcal MCV4P 05/12/2016 Pneumococcal Conjugate 03/16/2006,02/02/2004,06/2003 Tdap 12/04/2014 Varicella 11/29/2007 Family History * Patient is adopted Medical History Relation Name Comments Aneurysm Mother Migraines Mother Relation Name Status Comments Mother Alive Social History Tobacco Use Types Packs/Day Years Used Date Smoking Tobacco: Never Smokeless Tobacco: Former Tobacco Cessation:Counseling Given: Not Answered Comments:vape Alcohol Use Standard Drinks/Week Comments No 0 (1 standard drink = 0.6 oz pur e alcohol) PHQ-2 Answer Date Recorded Total Score 4 12/28/2020 Childcare Answer Date Recorded Childcare Unknown 10/08/2018 Employment Answer Date Recorded Employment Unknown 10/08/2018 Hunger Screening Answer Date Recorded Within the past 12 months we worried whether our food would run out before we got money to buy more. Never True 07/25/2024 Within the past 12 months th e food we bought just didn't last and we didn't have money to get more. Never True 07/25/2024 Purpose - Life Answer Date Recorded Purpose and direction in life Unknown Sex and Gender Information Value Date Recorded Sex Assigned at Not on file Legal Sex Male 1:06 PM EDT Gender Identity Not on file Sexual Orientation Not on file Last Filed Vital Signs Vital Sign Reading Time Taken Comments Blood Pressure 135/88 07/25/2024 9:00 AM EDT Pulse 61 07/25/2024 9:00 AM EDT Temperature 36.6 C (97.9 F) 07/25/2024 7:55 AM EDT Respiratory Rate 16 07/25/2024 9:00 AM EDT Oxygen Saturation 100% 07/25/2024 9:00 AM EDT Inhaled Oxygen Concentration - - Weight 74.8 kg (165 lb) 07/25/2024 7:55 AM EDT Height 175.3 cm (5' 9 ) 07/25/2024 7:55 AM EDT Body Mass Index 24.37 07/25/2024 7:55 AM EDT Plan of Treatment Health Maintenance Due Date Last Done Comments Depression Screening 2015 DTaP,Tdap and Td Vaccines (7 - Td or Tdap) 12/04/2024 12/04/2014, 11/29/2007, 09/14/2006, Additional history exists COVID-19 Vaccine (3 - 2024-2 6 season) 2024 09/21/2020, 08/29/2020 Influenza Vaccine 12/30/2024 05/16/2020, , 03/08/2017, Additional history exists Adult BMI Screening 07/25/2025 07/25/2024 Tobacco Screening 07/25/2025 07/25/2024 Medical Devices Not on file Insurance FOR[facility]LY [facility] MEDICAID FORMERLY [facility] MEDICAID FORMERLY [facility] MEDICAID Care Teams Computer Discovery Teacher Relationship Specialty Start Date End Date No Pcp, [place] [address] PCP - General Family Medicine 07/25/24
--- OUTSIDE RECORDS SUMMARY | 2025-02-03 12:01 | XMS_ITS | Clinical Summary ---
Author Organization [facility] Address [address], [address] [place] [address] Care Team Providers Care Assistant Cook Name Role Phone Jena Marion DO Primary Care Provider + Allergies Active Allergy Reactions Criticality Noted Date Comments Beef-Derived Drug Products Other (See Comments) Medium 03/08/2018 FROM SKIN TEST. Milk-Related Compounds Other (See Comments) Low 11/2017 FROM SKIN TEST. Monosodium Glutamate Other (See Comments) High 01/09 MIGRAINES Pork-Derived Products Other (See Comments) Medium 11/2017 FROM SKIN TEST. Medications omeprazole (PRILOSEC) 20 MG delayed release capsule TAKE 1 TABLET BY MOUTH EVERY DAY 0 8 Active ondansetron (ZOFRAN) 8 MG tablet Take 8 mg by mouth daily PATIENT TO TAKE IN MORNING AFTER BREAKFAST FOR STOMACH UPSET. 8 Active Multiple Vitamin (MVI, CELEBRATE, CHEWABLE TABLET) Take 1 tablet by mouth daily STOPPED TAKING 02/22/2018 APPROXIMATELY. Active NONFORMULARY Take 1 tablet by mouth daily MIGRAVENT. CONTAINS: VITAMIN B2 RIBOFLAVIN 133 MG, MAGNESIUM 57 MG, PROPRIETARY BLEND 101 MG ( PA FREE BUTTERBUR EXTRACT, CQ10, BIOPERINE). Active Active Problems Problem Noted Date Diagnosed Date Abdominal pain, chronic, epigastric 03/07/2018 Chronic generalized abdominal pain Family History * Patient is adopted Medical History Relation Name Comments Other Mother MIGRAINES Relation Name Status Comments Mother Alive Social History Tobacco Use Types Packs/Day Years Used Date Smoking Tobacco: Passive Smo ke Exposure - Never Smoker Smokeless Tobacco: Never Alcohol Use Standard Drinks/Week Comments No 0 (1 standard drink = 0.6 oz pur e alcohol) Sex and Gender Information Value Date Recorded Sex Assigned at Not on file Legal Sex Male 8:27 AM EST Gender Identity Not on file Sexual Orientation Not on file Last Filed Vital Signs Vital Sign Reading Time Taken Comments Blood Pressure 93/40 03/13/2018 8:32 AM EST Pulse 78 03/13/2018 8:32 AM EST Temperature 36 C (96.8 F) 03/13/2018 8:32 AM EST Respiratory Rate 16 03/13/2018 8:32 AM EST Oxygen Saturation 100% 03/13/2018 8:32 AM EST Inhaled Oxygen Concentration - - Weight 61.7 kg (136 lb) 03/13/2018 6:36 AM EST Height 162.6 cm (5' 4 ) 03/13/2018 6:36 AM EST Body Mass Index 23.34 03/13/2018 6:36 AM EST Plan of Treatment Not on file Insurance [employer] Care Teams Assistant Cook Relationship Specialty Start Date End Date Jena Marion DO PCP - General Pediatrics 03/05/18
--- OUTSIDE RECORDS SUMMARY | 2025-02-03 12:01 | XMS_ITS | Encounter Summary ---
Author Organization [employer] s tem Address [facility] [id number] [address] [place] [address] Care Team Providers Care Retention Specialist Name Role Phone No Pcp, No Pcp Primary Care Provider Unavailabl e Encounter Details Date Type Department Care Team (Late st Contact Info) Description 06/28/2022 Telephone [facility] [address] [phone] Aminah Jose, RN Social History Tobacco Use Types Packs/Day Years Used Date Smoking Tobacco: Never Smokeless Tobacco: Current Comments:vape Alcohol Use Standard Drinks/Week Comments No 0 (1 standard drink = 0.6 oz pur e alcohol) PHQ-2 Answer Date Recorded Total Score 4 12/28/2020 Childcare Answer Date Recorded Childcare Unknown 10/08/2018 Employment Answer Date Recorded Employment Unknown 10/08/2018 Purpose - Life Answer Date Recorded Purpose and direction in life Unknown Sex and Gender Information Value Date Recorded Sex Assigned at Not on file Legal Sex Male 1:06 PM EDT Gender Identity Not on file Sexual Orientation Not on file documented as of this encounter Miscellaneous Notes * Telephone Encounter - Aminah Jose RN - 06/28/2022 8:49 AM EST Greg called to say that 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 Also He is still having a lot of abdomen pain. States it made him pass out this morning. I recommended he go to ER if that continued. * Telephone Encounter - Jena So DO - 06/28/2022 8:49 AM EST Patient has been on omeprazole in the past per Peds GI. Please clarify with the pharmacist there level of concern (cross reaction anaphylaxis with PPI and pork allergy is very rare, and patient has never had this while taking omeprazole). * Telephone Encounter - Aminah Jose RN - 06/28/2022 8:49 AM EST Spoke with pharmacist and He states he is not sure what the concerns were with the other pharmacistbut he is going to fill the prescription for Greg and I called Greg to inform him he can go getthat prescription from [facility]. He verb understanding documented in this encounter Plan of Treatment Not on file documented as of this encounter Visit Diagnoses Not on filedocumented in this encounter Additional Health Concerns Assessment Noted Time PHQ-9 Depression Total Score: 4 12/29/19 21 3:07 PM EDT A Body Mass Index follow-up plan has been documented for the patient 12/28/2020 6:01 PM EDT documented as of this encounter Care Teams Retention Specialist Relationship Specialty Start Date End Date No Pcp, [place] [address] PCP - General Family Medicine 07/25/24 documented as of this encounter
--- OUTSIDE RECORDS SUMMARY | 2025-02-03 12:01 | XMS_ITS | Encounter Summary ---
Author Organization [employer] Address [facility] [place]-[id number] [address] [place] [address] Care Team Providers Care Alliances Consultant Name Role Phone No Pcp, No Pcp Primary Care Provider Unavailabl e Reason for Visit * Reason Onset Date Comments NEEDS BRACE FOR WRESTLING 05/11/2020 Encounter Details Date Type Department Care Team (Late st Contact Info) Description 05/11/2020 Telephone [facility] [address] [place] [phone] Jorge Luis Wise DO NEEDS BRACE FOR WRESTLING Social History Tobacco Use Types Packs/Day Years Used Date Smoking Tobacco: Never Smokeless Tobacco: Never Alcohol Use Standard Drinks/Week Comments No 0 (1 standard drink = 0.6 oz pur e alcohol) Childcare Answer Date Recorded Childcare Unknown 10/08/2018 Employment Answer Date Recorded Employment Unknown 10/08/2018 Purpose - Life Answer Date Recorded Purpose and direction in life Unknown Sex and Gender Information Value Date Recorded Sex Assigned at Not on file Legal Sex Male 1:06 PM EDT Gender Identity Not on file Sexual Orientation Not on file COVID-19 Exposure Response Date Recorded In the last month, have you been in contact with someone who was confirmed or suspected to have Coronavirus / COVID-19? No / Unsure 05/11/2020 4:00 PM EST documented as of this encounter Miscellaneous Notes * Telephone Encounter - Dorcas Lima - 05/11/2020 4:36 PM EST Patient's Father walked right back into the office after the visit today and asked for a prescription for a wrestling brace. Please contact the Dad about this. documented in this encounter Plan of Treatment Not on file documented as of this encounter Visit Diagnoses Not on filedocumented in this encounter Additional Health Concerns Infection Onset Date Last Indicated Resolved Time MRSA Comment:MRSE Staph Aureus Forehead wound 05/16/2012 Infection converted via [employer] utility from [employer] system information 05/18/2012 05/18/201211/30 11:13 PM EDT COVID-19 Positive 11/09/2021 11/09/2021 11/30/2021 11:13 PM EDT documented as of this encounter Care Teams Alliances Consultant Relationship Specialty Start Date End Date No Pcp, [place] [address] PCP - General Family Medicine 07/25/24 documented as of this encounter
--- OUTSIDE RECORDS SUMMARY | 2025-02-03 12:01 | XMS_ITS | Encounter Summary ---
Author Organization [facility] [employer] Address [facility] [id number] [address] [place] [address] Care Team Providers Care Carding Machine Operator Name Role Phone No Pcp, No Pcp Primary Care Provider Unavailabl e Reason for Visit * Reason Comments Med Refill Encounter Details Date Type Department Care Team (Late st Contact Info) Description 03/13/2018 Refill [facility] [address] [place] [phone] Jannette Mcdaniel MD [address] [place] [address] Social History Tobacco Use Types Packs/Day Years [...] encounter Miscellaneous Notes * Telephone Encounter - Jannette Mcdaniel MD - 03/13/2018 2:00 AM EST JOSH Schneider documented in this encounter Plan of Treatment Not on file documented as of this encounter Visit Diagnoses Not on filedocumented in this encounter Additional Health Concerns Infection Onset Date Last Indicated Resolved Time MRSA Comment:LUCIANA Staph Aureus Forehead wound 05/16/2012 Infection converted via [employer] utility from [employer] system information 05/18/2012 05/18/201211/30 11:13 PM EDT COVID-19 Positive 11/09/2021 11/09/2021 11/30/2021 11:13 PM EDT documented as of this encounter Care Teams Carding Machine Operator Relationship Specialty Start Date End Date No Pcp, [place] [address] PCP - General Family Medicine 07/25/24 documented as of this encounter
--- OUTSIDE RECORDS SUMMARY | 2025-02-03 12:01 | XMS_ITS | Encounter Summary ---
Author Organization [employer] Address [facility] [id number] [address] [place] [address] Care Team Providers Care Paper Production Engineer Name Role Phone No Pcp, No Pcp Primary Care Provider Unavailabl e Encounter Details Date Type Department Care Team (Late st Contact Info) Description 01/23/2023 Telephone [facility] [place] [facility] [address] [phone] Ceci Davenport CMA Social History Tobacco Use Types Packs/Day Years [...] got money to buy more. Never True 01/23/2023 Within the past 12 months th e food we bought just didn't last and we didn't have money to get more. Never True 01/23/2023 Purpose - Life Answer Date Recorded Purpose and direction in life Unknown Sex and Gender Information Value Date Recorded Sex Assigned at Not on file Legal Sex Male 1:06 PM EDT Gender Identity Not on file Sexual Orientation Not on file documented as of this encounter Miscellaneous Notes * Telephone Encounter - Ceci Davenport CMA - 01/23/2023 11:51 AM EDT [phone] Greg is looking for a recommendation for an adult doctor. Please advise. * Telephone Encounter - Jena So DO - 01/23/2023 11:[address] [place] ([facility]). * Telephone Encounter - Ceci Davenport CMA - 01/23/2023 11:51 AM EDT Left voicemail and relayed message documented in this encounter Plan of Treatment Not on file documented as of this encounter Visit Diagnoses Not on filedocumented in this encounter Additional Health Concerns Assessment Noted Time PHQ-9 Depression Total Score: 4 12/29/19 21 3:07 PM EDT A Body Mass Index follow-up plan has been documented for the patient 12/28/2020 6:01 PM EDT documented as of this encounter Care Teams Paper Production Engineer Relationship Specialty Start Date End Date No Pcp, [place] [address] PCP - General Family Medicine 07/25/24 documented as of this encounter
--- OUTSIDE RECORDS SUMMARY | 2025-02-03 12:01 | XMS_ITS | Encounter Summary ---
Author Organization [employer] tem Address [facility] [place] [id number] [address] [place] [address] Care Team Providers Care Telephonic Nurse Name Role Phone No Pcp, No Pcp Primary Care Provider Unavailabl e Encounter Details Date Type Department Care Team (Late st Contact Info) Description 11/16/2020 Telephone [facility] [address] [place] [phone] Abdiel Welsh, ZAMZAM Social History Tobacco Use Types Packs/Day Years [...] have Coronavirus / COVID-19? No / Unsure 11/09/2020 3:37 PM EDT documented as of this encounter Miscellaneous Notes * Telephone Encounter - Abdiel Welsh CMA - 11/16/2020 9:51 AM EDT Aaron called in reference to his son today. His son is having complaints of pain behind his knee cap. He had an injection last week. Was off work all week but today is his first day back. He works [employer] for the summer. His father reports he is having pain with lifting and pivoting on thatknee. He has been icing and elevating for the past week but since going back to work today he has noticed this pain. Not sure how long he should wait or if he should still be taking it easy for now. Please advise. His father would like a call back. Thank you * Telephone Encounter - Edwar Wynn MD - 11/16/2020 9:51 AM EDT Can have one more week off work. * Telephone Encounter - VIN Dean - 11/16/2020 9:51 AM EDT Spoke with Father and he stated the injection did not help Greg and made it worse and is seeing P/T this Monday. Please advise documented in this encounter Plan of Treatment Not on file documented as of this encounter Visit Diagnoses Not on filedocumented in this encounter Additional Health Concerns Infection Onset Date Last Indicated Resolved Time MRSA Comment:MRSE Staph Aureus Forehead wound 05/16/2012 Infection converted via [employer] from [employer] system information 05/18/2012 05/18/201211/30 11:13 PM EDT COVID-19 Positive 11/09/2021 11/09/2021 11/30/2021 11:13 PM EDT documented as of this encounter Care Teams Telephonic Nurse Relationship Specialty Start Date End Date No Pcp, No Pcp DARIEN Verma [address] PCP - General Family Medicine 07/25/24 documented as of this encounter
--- OUTSIDE RECORDS SUMMARY | 2025-02-03 12:01 | XMS_ITS | Encounter Summary ---
Author Organization [facility] [email or web address] Address [facility] [id number] [address] [place] [address] Care Team Providers Care Turning And Beading Machine Operator Name Role Phone No Pcp, No Pcp Primary Care Provider Unavailabl e Encounter Details Date Type Department Care Team (Late st Contact Info) Description 06/02/2021 Orders Only [facility] [address] [place] [phone] Ref Prov, [place] [address] Social History Tobacco Use Types Packs/Day Years [...] have Coronavirus / COVID-19? No / Unsure 06/02/2021 1:14 PM EST documented as of this encounter Plan of Treatment Not on file documented as of this encounter Procedures Procedure Name Priority Date/Time Associated Diagnosis Comments XR SHOULDER LT MIN 2 VWS Routine 05/28/2021 documented in this encounter Results * X-ray shoulder left minimum 2 views (05/28/2021) Anatomical Region Laterality Modality MSK, Upper Extremities, Shoulder Left Computed Radiography us Not In System Ref Prov IMG DIAGNOSTIC IMAGING OR DERABLES Final Result documented in this encounter Visit Diagnoses Not on filedocumented in this encounter Additional Health Concerns Infection Onset Date Last Indicated Resolved Time COVID-19 Positive 11/09/2021 11/09/2021 11/30/2021 11:13 PM EDT Assessment Noted Time PHQ-9 Depression Total Score: 4 12/29/19 21 3:07 PM EDT A Body Mass Index follow-up plan has been documented for the patient 12/28/2020 6:01 PM EDT documented as of this encounter Care Teams Turning And Beading Machine Operator Relationship Specialty Start Date End Date No Pcp, No Pcp DARIEN Verma [address] PCP - General Family Medicine 07/25/24 documented as of this encounter
--- OUTSIDE RECORDS SUMMARY | 2025-02-03 12:01 | XMS_ITS | Encounter Summary ---
Author Organization [facility] Address [address] [place] [address] Phone Care Team Providers Care Cad Developer Name Role Phone Unavailable Primary Care Provider Unavailabl e Encounter Details Date Type Department Care Team (Late st Contact Info) Description 06/09/2023 Orders Only [facility] [address] [place] [phone] Scanning, Generic Provider Social History Tobacco Use Types Packs/Day Years Used Date Smoking Tobacco: Never Assessed Sex and Gender Information Value Date Recorded Sex Assigned at Not on file Legal Sex Male 12:34 PM EST Gender Identity Not on file Sexual Orientation Not on file documented as of this encounter Plan of Treatment Not on file documented as of this encounter Procedures Procedure Name Priority Date/Time Associated Diagnosis Comments HOLTER AND CARDIAC EVENT MONITOR - ONBASE SCAN 06/09/2023 documented in this encounter Results * HOLTER AND CARDIAC EVENT MONITOR - ONBASE SCAN (06/09/2023) Narrative 06/09/2023 Ordered by an unspecified provider. us Generic Provider Scanning CV CARDIAC SERVICES OR OCEDURES Final Result documented in this encounter Visit Diagnoses Not on filedocumented in this encounter
--- OUTSIDE RECORDS SUMMARY | 2025-02-03 12:01 | XMS_ITS | Clinical Summary ---
Author Organization [facility] Address [address] [place] [address] Care Team Providers Care Travel Rn Name Role Phone Jannette Mcdaniel MD Primary Care Provider [phone] Allergies No known active allergies Medications cyproheptadine (PERIACTIN) 4 mg tablet TAKE 1 TABLET BY MOUTH TWICE A DAY NEEDED FOR HEADACHES 1 7 Active CALCIUM CARBONATE (CALCIUM 300 ORAL) Active multivitamin tablet Take 1 tablet by mouth once daily. Active NAPROXEN SODIUM (ALEVE ORAL) Active Active Problems Problem Noted Date Diagnosed Date Left wrist tendonitis 05/08/2017 Social History Tobacco Use Types Packs/Day Years Used Date Smoking Tobacco: Never Smokeless Tobacco: Never Sex and Gender Information Value Date Recorded Sex Assigned at Not on file Legal Sex Male 9:58 AM EDT Gender Identity Not on file Sexual Orientation Not on file Last Filed Vital Signs Vital Sign Reading Time Taken Comments Blood Pressure 131/62 05/08/2017 8:21 AM EST Pulse 87 05/08/2017 8:21 AM EST Temperature - - Respiratory Rate - - Oxygen Saturation - - Inhaled Oxygen Concentration - - Weight 52.6 kg (116 lb) 05/08/2017 8:21 AM EST Height 154.9 cm (5' 1 ) 05/08/2017 8:21 AM EST Body Mass Index 21.92 05/08/2017 8:21 AM EST Plan of Treatment Health Maintenance Due Date Last Done Comments Hepatitis C Screening 2003 Human Papillomavirus HPV Vac cine (1 - Male 3-dose series) 07/01/2018 DTaP,Tdap,and Td Vaccines (1 - Tdap) 07/01/2022 Hepatitis B Vaccine ages 19 years and older (1 of 3 - 19+ 3-dose series) 07/01/2022 COVID-19 Vaccine (1 - 2024-2 6 season) 2024 Influenza Vaccine (#1) 2024 Respiratory Syncytial Virus (RSV) or ages 60 years and older (1 - 1-dose 75+ series) 07/01/2078 Pneumococcal Combined Aged Out No jez loreta eligible based on patient's age to complete this topic Respiratory Syncytial Virus (RSV) ages 0 thru 19 months Aged Out No longer eligible based on patient's age to complete this topic Insurance [facility] [employer] [place] [employer] Care Teams Travel Rn Relationship Specialty Start Date End Date Jannette Mcdaniel MD [address] [place] [address] PCP - General Internal Medicine/Pediatrics 11/03/16
--- OUTSIDE RECORDS SUMMARY | 2025-02-03 12:01 | XMS_ITS | Clinical Summary ---
Author Organization [facility] Address [address] [place] [address] Care Team Providers Care Foreign Collection Clerk Name Role Phone Jena Marion Primary Care Pr ovider Allergies Active Allergy Reactions Criticality Noted Date Comments Beef Derived (Bovine) Other: See Comments Medium 03/08 FROM SKIN TEST. Lactalbumin Other: See Comments Low 03/08/2018 FROM SKIN TEST. Milk Other: See Comments Low 03/08/2018 FROM SKIN TEST. Monosodium Glutamate Other: See Comments High 2017 MIGRAINES MIGRAINES Pegademase Bovine Other: See Comments Medium 8 FROM SKIN TEST. Poractant Renaldo Other: See Comments Medium 03/08/2018 FROM SKIN TEST. Pork Derived (Porcine) Other: See Comments Medium 11/2017 FROM SKIN TEST. Medications diphenhydrAMINE (BENADRYL) 25 mg capsule Take 1 capsule by mouth daily at bedtime. For nausea/vomiting 20 capsule 07/10/19 Active Additional Information Patient not taking.Reported on 09/12/2022 albuterol HFA (PROVENTIL HFA, VENTOLIN HFA) 90 mcg/actuation inhaler Inhale 2 Puffs as instructed as needed. 06/25/19 Active omeprazole (PRILOSEC) 20 mg capsule Take 1 capsule by mouth twice daily. 07/12/19 Active Additional Information Patient not taking.Reported on 09/12/2022 polyethylene glycol 3350 (MIRALAX, GLYCOLAX) 17 gram/dose powderIndications: Abdominal cramping Take 17 g by mouth once daily. 1 Bottle 2 09/11/19 19 Active diclofenac sodium (VOLTAREN) 1 % topical gel Apply 2 g to affected area. 01/19/20 19 Active hyoscyamine sublingual (LEVSIN/SL) 0.125 mg sublIndications:Ab dominal cramping Dissolve 1 tablet under the tongue every 4 hours as needed (for cramping abdominal pain). Dissolve under tongue. 120 tablet 3 01/26/20 19 Active SUMAtriptan (IMITREX) 50 mg tablet Start at onset of headache. May repeat after 2 hours. 9 tablet 3 01/26/20 19 Active fluticasone (FLONASE) 50 mcg/actuation nasal spray Use 1 [place] in the nose. 01/28/20 21 Active ondansetron (ZOFRAN) 8 mg tablet TAKE 1 TABLET BY MOUTH EVERY 12 HOURS NEEDED FOR NAUSEA OR VOMITING. 06/24/19 23 Active hyoscyamine sulfate 0.[address] 1 TABLET (125 MCG) UNDER THE TONGUE IN THE MORNING, AT NOON, IN THE EVENING, & BEFORE BEDTIME. 06/24/19 23 Active ondansetron orally disintegrating (ZOFRAN ODT) 8 mg disintegrating tabletIndications: Recurrent vomiting Take 1 tablet by mouth every 8 hours as needed for nausea/vomiting . 60 tablet 2 09/03/19 23 Active hyoscyamine sublingual (LEVSIN/SL) 0.125 mgIndications:Diar jose, unspecified type,Abdominal cramping Dissolve 1 tablet under the tongue every 4 hours as needed. 60 tablet 2 09/03/19 23 Active dicyclomine (BENTYL) 20 mg tablet Take 1 tablet by mouth three times daily. 90 tablet 1 10/18/19 23 Active Active Problems Problem Noted Date Diagnosed Date Trauma 03/03/2020 Psychophysiological insomnia 02/04/2020 Overview (02/04/2020): Start melatonin 3mg or 5mg as needed for difficulty falling asleep Attention deficit hyperactiv ity disorder (ADHD), predominantly inattentive type 11/05/2019 Overview (02/04/2020): Continue Concerta 36mg daily Oppositional defiant disorder 11/05/2019 Overview (12/24/2019): Consider restarting counseling Other constipation 09/13/2018 Nausea 07/11/2018 Non-intractable cyclical vomiting with nausea Acute post-traumatic headache, not intractable 0 06/23/2016 Migraine without aura and wi thout status migrainosus, not intractable 06/23/2016 Contusion of bone 06/06/2016 Closed fracture of radius 12/02/2015 Recurrent vomiting Migraines Adopted Family History * Patient is adopted Medical History Relation Comments Migraines Sister Relation Status Comments Sister Alive Social History Tobacco Use Types Packs/Day Years Used Date Smoking Tobacco: Never Smokeless Tobacco: Never Tobacco Cessation:Counseling Given: Not Answered Alcohol Use Standard Drinks/Week Comments Never 0 (1 standard drink = 0.6 oz pur e alcohol) PHQ-2 Answer Date Recorded PHQ-2 score 0 03/25/2020 Area Deprivation Index Answer Date Myles rded National Score (1-100), lower number is lower ri sk 83 09/02/2022 State Score (1-10), lower number is lower risk 7 09/02/2022 Data from: https://www.neighborhoodatlas.medicine.[facility].edu/. Last address used for calculation [address] 09/02/2022 Sex and Gender Information Value Date Recorded Sex Assigned at Not on file Legal Sex Male 10:05 AM EDT Gender Identity Not on file Sexual Orientation Not on file Last Filed Vital Signs Vital Sign Reading Time Taken Comments Blood Pressure 105/64 09/12/2022 7:41 AM EDT Pulse 58 09/12/2022 7:41 AM EDT Temperature 36.6 C (97.8 F) 09/12/2022 7:13 AM EDT Respiratory Rate 18 09/12/2022 7:41 AM EDT Oxygen Saturation 100% 09/12/2022 7:41 AM EDT Inhaled Oxygen Concentration - - Weight 83.9 kg (185 lb) 09/12/2022 6:43 AM EDT Height 177.8 cm (5' 10 ) 09/12/2022 6:43 AM EDT Body Mass Index 26.54 09/12/2022 6:43 AM EDT Plan of Treatment Health Maintenance Due Date Last Done Comments Peds To Adult Transition Ini tial Discussion 2015 Peds To Adult Transition Kathryn ual Assessment 07/01/2017 Anxiety Screening 07/01/2021 Depression Screening 07/01/2021 HIV Screening 07/01/2021 Hepatitis C Screening 07/01/2021 DTaP,Tdap,Td Vaccine (7 - Td or Tdap) 12/04/2024 12/04/2014, 11/29/2007, 09/14/2006, Additional history exists Covid-19 Vaccine (2024-2 6 season) 2024 09/21/2020, 08/29/2020 Influenza Vaccine (#1) 2024 , 02/28/2018, 03/08/2017, Additional history exists Hepatitis B Vaccine Completed 03/16/2006, 02/02/2004, 01/01/2004, Additional history exists HPV Vaccine Completed 06/10/2015, 11/2014, 12/04/2014 Meningococcal B Vaccine Completed 01/13/2020, 12/10 [facility] [employer] MEDICA[place] Care Teams Foreign Collection Clerk Relationship Specialty Start Date End Date Jena Marion DO PCP - General Pediatrics 09/12/22
--- OUTSIDE RECORDS SUMMARY | 2025-02-03 12:01 | XMS_ITS | Encounter Summary ---
Author Organization [facility] Address [id number] [address] [place] [address] Care Team Providers Care Cementer Name Role Phone No Pcp, No Pcp Primary Care Provider Unavailabl e Encounter Details Date Type Department Care Team (Late st Contact Info) Description 12/28/2020 Documentation [facility] [address] [place] [phone] Beth Beach CMA Social History Tobacco Use Types Packs/Day [...] have Coronavirus / COVID-19? No / Unsure 12/28/2020 2:50 PM EDT documented as of this encounter Plan of [...] documented as of this encounter Care Teams Cementer Relationship Specialty Start Date End Date No Pcp, No Pcp DARI[place] [address] PCP - General Family Medicine 07/25/24 documented as of this encounter
--- OUTSIDE RECORDS SUMMARY | 2025-02-03 12:01 | XMS_ITS | Encounter Summary ---
Author Organization [facility] Address [id number] [address] [place] [address] Care Team Providers Care Veneer Redrier Name Role Phone No Pcp, No Pcp Primary Care Provider Unavailabl e Encounter Details Date Type Department Care Team (Late st Contact Info) Description 05/18/2022 [facility] [address] [place] [phone] So Damico CMA Social History Tobacco Use Types Packs/Day [...] have Coronavirus / COVID-19? No / Unsure 05/16/2022 12:22 AM EST documented as of this encounter Miscellaneous Notes * Telephone Encounter - So Damico CMA - 05/18/2022 11:55 AM EST Mom called about seeing if you would see Greg for a physical and stomach issues or if there is a family Dr that you recommend. * Telephone Encounter - Jena Marion DO - 05/18/2022 11:55 AM EST If patient is still in school, I can see him in the office. He has followed with peds GI in the past for chronic abdominal pain, but likely has aged-out. If needed, a new referral can be placed to adult GI. Also, if patient would prefer assessment by an adult doctor, Dr. Kuo is taking new patients. This is an option if patient would like to start the process of transitioning now. * Telephone Encounter - So Damico CMA - 05/18/2022 11:55 AM EST Spoke with foster mom and Greg is still in school. She is going to have him call the office to schedule and appt either with us or Dr Kuo. Gave Dr Kuo's number to foster mom for Greg. documented in this encounter Plan of Treatment Not on file documented as of this encounter Visit Diagnoses Not on filedocumented in this encounter Additional Health Concerns Assessment Noted Time PHQ-9 Depression Total Score: 4 12/29/19 21 3:07 PM EDT A Body Mass Index follow-up plan has been documented for the patient 12/28/2020 6:01 PM EDT documented as of this encounter Care Teams Veneer Redrier Relationship Specialty Start Date End Date No Pcp, [place] [address] PCP - General Family Medicine 07/25/24 documented as of this encounter
--- OUTSIDE RECORDS SUMMARY | 2025-02-03 12:01 | XMS_ITS | Encounter Summary ---
Author Organization [facility] Address [address] [place] [address] Care Team Providers Care Life Care Planner Name Role Phone Jannette Mcdaniel MD Primary Care Provider [phone] Jena Marion DO Primary Care Pr ovider Source Comments In the event this information is protected by the Federal Confidentiality of Alcohol and Drug AbusePatient Records regulations: The Federal rules restrict any use of the information to criminally investigate or prosecute any alcohol or drug abuse patient.[facility] Encounter Details Date Type Department Care Team (Late st Contact Info) Description 07/09/2020 Patient Msg PSYC CHILD [facility] [address] [address] [place] [address] [place] [address] [place] [address] Therapy Options Social History Tobacco Use Types Packs/Day Years Used Date Smoking Tobacco: Never Smokeless Tobacco: Never PHQ-2 Answer Date Recorded PHQ-2 score 0 03/25/2020 Area Deprivation Index Answer Date Myles rded National Score (1-100), lower number is lower ri sk Not on file 04/09/2020 State Score (1-10), lower number is lower risk N ot on file 04/09/2020 Data from: https://www.neighborhoodatlas.medicine.[facility]/. Last address used for calculation Not on file 04/09/2020 Sex and Gender Information Value Date Recorded Sex Assigned at Not on file Legal Sex Male 10:05 AM EDT Gender Identity Not on file Sexual Orientation Not on file COVID-19 Exposure Response Date Recorded In the last month, have you been in contact with someone who was confirmed or suspected to have Coronavirus / COVID-19? No / Unsure 2020 8:52 AM EST documented as of this encounter Functional Status * Are you deaf or do you have serious difficulty hearing? Answer Date of Assessment Author No 03/04/2020 6:43 AM Ngoc Haddad RN * Are you blind or do you have serious difficulty seeing, even when wearing glasses? Answer Date of Assessment Author No 03/04/2020 6:43 AM Ngoc Haddad RN * Do you have serious difficulty walking or climbing stairs? Answer Date of Assessment Author No 03/04/2020 6:43 AM Ngoc Haddad RN * Do you have difficulty dressing or bathing? Answer Date of Assessment Author No 03/04/2020 6:43 AM Ngoc Haddad RN * Because of a physical, mental, or emotional condition, do you have difficulty doing errands alone such as visiting a doctor's office or shopping? Answer Date of Assessment Author No 03/04/2020 6:43 AM Ngoc Haddad RN documented as of this encounter Mental Status * Because of a physical, mental, or emotional condition, do you have serious difficulty concentrating, remembering, or making decisions? Answer Entry Date Author No 03/04/2020 6:43 AM Ngoc Haddad RN documented in this encounter Plan of Treatment Not on file documented as of this encounter Visit Diagnoses Not on filedocumented in this encounter Care Teams Life Care Planner Relationship Specialty Start Date End Date Jannette Mcdaniel MD PCP - General Pediatrics 11/13/15 09/11/22 Jena Marion DO PCP - General Pediatrics 09/12/22 documented as of this encounter
--- OUTSIDE RECORDS SUMMARY | 2025-02-03 12:01 | XMS_ITS | Encounter Summary ---
Author Organization [facility] Address [address] [place] [address] Care Team Providers Care Automobile Body Worker Name Role Phone Jannette Mcdaniel MD Primary Care Provider [phone] Jena Marion DO Primary Care Pr ovider Source Comments In the event this information is protected by the Federal Confidentiality of Alcohol and Drug AbusePatient Records regulations: The Federal rules restrict any use of the information to criminally investigate or prosecute any alcohol or drug abuse patient.[facility] Reason for Visit * Reason Comments Radiology MRI Left wrist MRI Encounter Details Date Type Department Care Team (Late st Contact Info) Description 06/28/2016 Radiology MRI Q [address] [address] Jannette Mcdaniel MD [address] [place] [address] Radiology MRI (Left wrist MRI) Social History Tobacco Use Types Packs/Day Years [...] Onset Date Last Indicated Resolved Time COVID-19 Rule-Out 03/02/2020 03/02/2020 03/03/2020 8:54 PM EST documented as of this encounter Care Teams Automobile Body Worker Relationship Specialty Start Date End Date Jannette Mcdaniel MD PCP - General Pediatrics 11/13/15 09/11/22 Jena Marion DO PCP - General Pediatrics 09/12/22 documented as of this encounter
--- OUTSIDE RECORDS SUMMARY | 2025-02-03 12:01 | XMS_ITS | Encounter Summary ---
Author Organization [facility] Address [address] [place] [address] Phone Care Team Providers Care Medical Assistant Ob Gyn Name Role Phone Unavailable Primary Care Provider Unavailabl e Encounter Details Date Type Department Care Team (Late st Contact Info) Description 06/09/2023 Orders Only [facility] [address] [place] [phone] Scanning, Generic Provider Social History Tobacco Use [...] us Generic Provider Scanning [facility] [place] OCEDURES Final Result documented in this encounter Visit Diagnoses Not on filedocumented in this encounter
--- OUTSIDE RECORDS SUMMARY | 2025-02-03 12:01 | XMS_ITS | Encounter Summary ---
Author Organization [facility] Address [id number] [address] [place] [address] Care Team Providers Care Extension Course Coordinator Name Role Phone No Pcp, No Pcp Primary Care Provider Unavailabl e Reason for Visit * Reason Comments Med Change Request Encounter Details Date Type Department Care Team (Late st Contact Info) Description 09/08/2021 Refill [facility] [address] [place] [phone] Jena So, DO [address] [place] [address] Generalized anxiety disorder Social History Tobacco Use Types Packs/Day Years [...] Exposure Response Date Recorded In the last 10 days, have yo u been in contact with someone who was confirmed or suspected to have Coronavirus/COVID-19? No / Unsure 09/08/2021 3:26 PM EDT documented as of this encounter Plan of Treatment Not on file documented as of this encounter Visit Diagnoses Diagnosis Generalized anxiety disorder documented in this encounter Additional Health Concerns Infection Onset Date Last Indicated Resolved Time COVID-19 Positive 11/09/2021 11/09/2021 11/30/2021 11:13 PM EDT Assessment Noted Time PHQ-9 Depression Total Score: 4 12/29/19 21 3:07 PM EDT A Body Mass Index follow-up plan has been documented for the patient 12/28/2020 6:01 PM EDT documented as of this encounter Care Teams Extension Course Coordinator Relationship Specialty Start Date End Date No Pcp, [place] [address] PCP - General Family Medicine 07/25/24 documented as of this encounter
--- OUTSIDE RECORDS SUMMARY | 2025-02-03 12:01 | XMS_ITS | Clinical Summary ---
Author Organization [facility] Address [address] [place] [address] Phone Care Team Providers Care Worship Director Name Role Phone Unavailable Primary Care Provider Unavailabl e Social History Tobacco Use Types Packs/Day Years Used Date Smoking Tobacco: Never Assessed Sex and Gender Information Value Date Recorded Sex Assigned at Not on file Legal Sex Male 12:34 PM EST Gender Identity Not on file Sexual Orientation Not on file Last Filed Vital Signs Vital Sign Reading Time Taken Comments Blood Pressure 128/55 01/27/2021 5:09 PM EDT Pulse 91 01/27/2021 5:09 PM EDT Temperature 2.5 C (36.5 F) 01/27/2021 5:09 PM EDT Respiratory Rate 20 01/27/2021 5:09 PM EDT Oxygen Saturation 96% 01/27/2021 5:09 PM EDT Inhaled Oxygen Concentration - - Weight 83.3 kg (183 lb 9.6 oz) 01/27/2021 5:09 P M EDT Height - - Body Mass Index - - Plan of Treatment Health Maintenance Due Date Last Done Comments HIV Screening 2003 Lipid Panel 2003 Yearly Adult Physical 2003 MMR Vaccines (1 of 1 - Stand nikki series) 07/01/2004 Hearing Screening (#1) 2007 DTaP/Tdap/Td Vaccines (1 - Tdap) 07/01/2010 HPV Vaccines (1 - Male 3-dos e series) 07/01/2018 Meningococcal B Vaccine (1 o f 2 - Standard) 2019 Hepatitis C Screening 07/01/2021 Hepatitis B Vaccines (1 of 3 - 19+ 3-dose series) 07/01/2022 COVID-19 Vaccine ( - 2023-2 5 season) 2024 Influenza Vaccine (#1) 2024 Zoster Vaccines (1 of 2) 07/01/2053 HIB Vaccines Aged Out No longer eligi ble based on patient's age to complete this topic Hepatitis A Vaccines Aged Out No long er eligible based on patient's age to complete this topic IPV Vaccines Aged Out No longer eligi ble based on patient's age to complete this topic Meningococcal Vaccine Aged Out No jez loreta eligible based on patient's age to complete this topic Pneumococcal Vaccine: Pediat rics and At-Risk Adult Patients Aged Out No longer maddi gible based on patient's age to complete this topic Rotavirus Vaccines Aged Out No longer eligible based on patient's age to complete this topic Insurance [facility] MED [facility] MED Member Subscriber Plan / Payer (Ef fective 2023-Present) Name:Greg Moore Relation to Subscriber:Child Address: [address] [place] [address] Payer ID:Not on file Type:Not on file Address: [address] [place] [id number]
--- OUTSIDE RECORDS SUMMARY | 2025-02-03 12:01 | XMS_ITS | Encounter Summary ---
Author Organization [employer] [facility] tem Address [id number] [address] [place] [address] Care Team Providers Care End User Support Specialist Name Role Phone No Pcp, No Pcp Primary Care Provider Unavailabl e Encounter Details Date Type Department Care Team (Late st Contact Info) Description 03/03/2020 [facility]phone [facility] [address] [place] [phone] Beth Beach CMA Social History Tobacco Use Types Packs/Day Years Used Date Smoking Tobacco: Never Smokeless Tobacco: Never Alcohol Use Standard Drinks/Week Comments No 0 (1 standard drink = 0.6 oz pur e alcohol) Childcare Answer Date Recorded Childcare Unknown 10/08/2018 Employment Answer Date Recorded Employment Unknown 10/08/2018 Sex and Gender Information Value Date Recorded Sex Assigned at Not on file Legal Sex Male 1:06 PM EDT Gender Identity Not on file Sexual Orientation Not on file COVID-19 Exposure Response Date Recorded In the last month, have you been in contact with someone who was confirmed or suspected to have Coronavirus / COVID-19? No / Unsure 03/03/2020 9:06 AM EST documented as of this encounter Miscellaneous Notes * Telephone Encounter - Beth Beach CMA - 03/03/2020 8:58 AM EST [facility] to call office back to schedule an appointment for patient Beth Beach CMA 03/03/20 0859 documented in this encounter Plan of Treatment Not on file documented as of this encounter Visit Diagnoses Not on filedocumented in this encounter Additional Health Concerns Infection Onset Date Last Indicated Resolved Time MRSA Comment:MRSE Staph Aureus Forehead wound 05/16/2012 Infection converted via [employer] from [employer] system information 05/18/2012 05/18/201211/30 11:13 PM EDT COVID-19 Positive 11/09/2021 11/09/2021 11/30/2021 11:13 PM EDT documented as of this encounter Care Teams End User Support Specialist Relationship Specialty Start Date End Date No Pcp, [place] [address] PCP - General Family Medicine 07/25/24 documented as of this encounter
--- OUTSIDE RECORDS SUMMARY | 2025-02-03 12:01 | XMS_ITS | Encounter Summary ---
Author Organization [employer] Sys tem Address [id number] [address] [place] [address] Care Team Providers Care Finishing Room Supervisor Name Role Phone No Pcp, No Pcp Primary Care Provider Unavailabl e Reason for Visit * Reason Comments Med Refill Encounter Details Date Type Department Care Team (Late st Contact Info) Description 02/09/2020 Refill [facility] [address] [place] [address] Jorge Luis Wise DO Subacromial bursitis of right shoulder joint Social History Tobacco Use Types Packs/Day Years [...] have Coronavirus / COVID-19? No / Unsure 01/13/2020 10:56 AM EDT documented as of this encounter Plan of Treatment Not on file documented as of this encounter Visit Diagnoses Diagnosis Subacromial bursitis of right shoulder joint documented in this encounter Additional Health Concerns Infection Onset Date Last Indicated Resolved Time MRSA Comment:MRSE Staph Aureus Forehead wound 05/16/2012 Infection converted via Epic utility from [employer] system information 05/18/2012 05/18/201211/30 11:13 PM EDT COVID-19 Positive 11/09/2021 11/09/2021 11/30/2021 11:13 PM EDT documented as of this encounter Care Teams Finishing Room Supervisor Relationship Specialty Start Date End Date No Pcp, [place] [id number] PCP - General Family Medicine 07/25/24 documented as of this encounter
--- OUTSIDE RECORDS SUMMARY | 2025-02-03 12:01 | XMS_ITS | Encounter Summary ---
Author Organization [employer] s tem Address [id number] [address] [place] [address] Care Team Providers Care Commercial Baking Teacher Name Role Phone No Pcp, No Pcp Primary Care Provider Unavailabl e Encounter Details Date Type Department Care Team (Late st Contact Info) Description 08/16/2019 Telephone [facility] [address] [place] [id number] Lenin Orozco, MANAGER [place] Social History Tobacco Use Types Packs/Day Years [...] Aureus Forehead wound 05/16/2012 Infection converted via [facility] utility from [employer] system information 05/18/2012 05/18/201211/30 11:13 PM EDT COVID-19 Positive 11/09/2021 11/09/2021 11/30/2021 11:13 PM EDT documented as of this encounter Care Teams Commercial Baking Teacher Relationship Specialty Start Date End Date No Pcp, [place] [address] PCP - General Family Medicine 07/25/24 documented as of this encounter
--- OUTSIDE RECORDS SUMMARY | 2025-02-03 12:01 | XMS_ITS | Encounter Summary ---
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 [address] [facility] [address] [place] [address] Nisreen Hamilton Type I or II open fracture of distal end of right radius Social History Tobacco Use Types Packs/Day Years Used Date Smoking Tobacco: Never Assessed Sex and Gender Information Value Date Recorded Sex Assigned at Not on file Legal Sex Male 9:58 AM EDT Gender Identity Not on file Sexual Orientation Not on file documented as of this encounter Plan of Treatment Not on file documented as of this encounter Visit Diagnoses Diagnosis Type I or II open fracture of distal end of right radius documented in this encounter Care Teams Cost And Risk Analysis Manager Relationship Specialty Start Date End Date Phys, Not On File PCP - General 10/31/16 11/02/16 Jannette Mcdaniel MD [address] [place], [place] [id number] PCP - General Internal Medicine/Pediatrics 11/03/16 documented as of this encounter
--- OUTSIDE RECORDS SUMMARY | 2025-02-03 12:01 | XMS_ITS | Encounter Summary ---
Author Organization [facility] [employer] s tem Address [id number] [address] [place] [address] Care Team Providers Care Ethylbenzene Converter Helper Name Role Phone No Pcp, No Pcp Primary Care Provider Unavailabl e Encounter Details Date Type Department Care Team (Late st Contact Info) Description 06/17/2021 Documentation [facility] [address] [place] [phone] Beth Beach CMA Social History Tobacco Use [...] have Coronavirus / COVID-19? No / Unsure 06/14/2021 2:56 PM EST documented as of this encounter [...] documented as of this encounter Care Teams Ethylbenzene Converter Helper Relationship Specialty Start Date End Date No Pcp, No Pcp DARI[place] [id number] PCP - General Family Medicine 07/25/24 documented as of this encounter
--- OUTSIDE RECORDS SUMMARY | 2025-02-03 12:04 | XMS_ITS | CCD ---
Author Organization [facility]ini[facility] Care Team Providers Care Cto Name Role Phone HAN KNOWLES Unavailable Unavailable HAN KNOWLES Unavailable Unavailable CHUDZINSKI, VIVI C Unavailable Unavailabl e Tovar Jannette Primary Care Provider [phone] TOVAR JANNETTE Primary Care Unavailable SANDY PADGETT Attending Unav ailable SANDY PADGETT Admitting Unav ailable Unknown, Referring Provider Unavailable Unav ailable Unavailable Unavailable Tovar Jannette Primary Care Provider Sanam ARMENTA, Vivi C Primary Care Provider JENNIFER TURK Attending Unavailable TOVAR, JANNETTE Primary Care Unavailable JENNIFER TURK Referring Unavailable CHUDZINSKI, VIVI C Primary Care Unavailabl Liban Sigala Attending Unavailable Johan Avelar Unavailable DO Hector Costa Attending Provider [phone] NO FAMILY, PHYSICIAN Primary Care Provider Unava ilable Adriana Doherty Unavailable SUZAN Casiano Attending Provider MD Adriana Doherty Attending Provider [phone] NO FAMILY, PHYSICIAN Primary Care Provider Unava ilSUZAN Moreland Attending Provider MD Adriana Doherty Attending Provider [phone] Sanam ARMENTA Vivi Gerri Primary Care Pr ovider NO FAMILY, PHYSICIAN Primary Care Provider Unava iladriana Romano MD, Stefany Schneider Emergency Provider [phone] KEELY WYNN Attending Unavailable NO PCP, NO PCP Primary Care Unavailable MANI VALDES Referring Unavailable NO PCP, NO PCP Primary Care Unavailable No Pcp, No Pcp Primary Care Provider Unavailaracelis marrero NO PCP, NO PCP Primary Care Unavailable BOO LUND Attending Unavailable NO PCP, NO PCP Primary Care Unavailable JEAN ROMO Attending Unavailable NO FAMILY, PHYSICIAN Primary Care Provider Unava ilEric Holloway PA-C Emergency Provider Rodriguez Lindsey DO Attending Provider [phone] Eric Aguila Admitting Unavailable NO FAMILY, PHYSICIAN Primary Care Unavailable Eric Aguila Attending Unavailable NO FAMILY, PHYSICIAN Primary Care Unavailable Stefany Romano Attending Unavailable Stefany Romano Admitting Unavailable NO FAMILY, PHYSICIAN Primary Care Unavailable Rodriguez Lindsey Attending Unavailable Rodriguez Lindsey Admitting Unavailable NO FAMILY, PHYSICIAN Primary Care Provider Unava ilable Rodriguez Lindsey DO Attending Provider [phone] Mary Reyna Attending Provider Allergies Allergy Classification Reported Allergen(s) Allergy Type Date of Onset Reaction(s) Facility (20 sources) beef allergenic extract; Translations: [BEEF DERIVED (BOVINE)] Drug Allergy 8 Other: See Comments [facility] (11 sources) cow milk allergenic extract; Translations: [MILK] Drug Allergy 8 Other: See Comments [facility] (20 sources) Glutamate; Translations: [MONOSODIUM GLUTAMATE] Drug Allergy 8 Other: See Comments, Other (See Comments) [facility] (11 sources) Lactalbumin; Translations: [LACTALBUMIN] Drug Allergy 8 Other: See Comments, Other (See Comments) [facility] (11 sources) pegademase bovine; Translations: [PEGADEMASE BOVINE] Drug Allergy 8 Other: See Comments, Other (See Comments) [facility] (11 sources) Poractant elena; Translations: [PORACTANT ELENA] Drug Allergy 8 Other: See Comments, Other (See Comments) [facility] (20 sources) pork allergenic extract; Translations: [PORK DERIVED (PORCINE)] Drug Allergy 8 Other: See Comments [facility] (10 sources) MSG Propensity to adverse reactions migraine [place] [employer] Other (4 sources) Porcine derived substance (substance) Drug allergy Unknown [employer] Other (4 sources) Beef derivative (FN) Drug allergy Unknown [facility] [employer] Other (2 sources) Milk Digestant Drug allergy 4 Unknown, Unknown Reaction [facility] (11 sources) Milk Containing Products (Dairy); Translations: [Milk Containing Products (Dairy)] Allergy to substance 4 Unknown Reaction [facility] (1 source) monosodium glutamate Drug allergy (disorder) 5 [facility] (1 source) pork derived (porcine) Drug allergy (disorder) 5 [facility] (1 source) beef derived (bovine) Drug allergy (disorder) 5 [facility] Medications Current Medications Medication Drug Class(es) Dates Sig (Normalized) Sig (Original) diclofenac sodium 0.01 mg/mg topical gel (19 sources) Nonsteroidal Anti-inflammatory Drug Start: 01-18-2019 diclofenac sodium (VOLTAREN) 1 % topical gel Apply 2 g to affected area. 01/18/2019 Active Start: 01-18-2018 End: 2019 Diclofenac Sodium (Voltaren) 1 % gel Discontinued 0 .ROUTE .COMPLEX 100 January 18, 2018 12:00am 2019 7:50pm 2grams 4 times daily Comment on above: Apply 2 g to affecte d area. diphenhydrAMINE hydrochloride 25 mg oral capsule (6 sources) Histamine-1 Receptor Antagonist Start: 019 take 1 capsule by mouth once daily at bedtime for nausea diphenhydrAMINE (BENADRYL) 25 mg capsule Take 1 capsule by mouth daily at bedtime. For nausea/vomiting 20 capsule 07/09/2018 Active Comment on above: Take 1 capsule by mo uth daily at bedtime. For nausea/vomiting famotidine 40 mg oral tablet (3 sources) Histamine-2 Receptor Antagonist Start: 023 Famotidine 40 MG 1 tablet 30min prior to morning and evening meals Orally Twice a day for 30 days Jan, Active naproxen 500 mg oral tablet (1 source) Nonsteroidal Anti-inflammatory Drug Start: 025 take 1 tablet by mouth in the morning, then take 1 tablet by mouth at mealtime naproxen (NAPROSYN) 500 mg tablet Indications: Neck pain Take 1 tablet (500 mg total) by mouth in the morning and 1 tablet (500 mg total) in the evening. Take with meals. 40 tablet 07/01/2024 Active omeprazole 20 mg delayed release oral capsule (8 sources) Proton Pump Inhibitor Start: 019 take 1 capsule by mouth twice daily omeprazole (PRILOSEC) 20 mg capsule Take 1 capsule by mouth twice daily. 07/11/2018 Active Start: 07-04-2018 take 1 capsule by [facility] once daily Omeprazole 20 MG Oral Capsule Delayed Release TAKE 1 CAPSULE Daily Quantity: 30 Refills: 3 Ordered: 04-Jul-2018 Diana Baum MD Start : 04-Jul-2018 Active Comment on above: Take 1 capsule by [facility] twice daily. ondansetron 4 mg disintegrating oral tablet (20 sources) Serotonin-3 Receptor Antagonist Start: take 1 tablet by mouth every six hours as needed Ondansetron 4 mg tablet,disintegrati ng Active 4 MG PO Every 6 hours as needed October 02, 2024 12:00am Complies with drug therapy Start: 06-16-2023 End: 05-17-2024 take 1 tablet by mouth every eight hours as needed for nausea Ondansetron 4 mg tablet,disintegrating Discontinued 8 MG PO As Directed as needed for nausea and vomiting June 16, 2023 1:00am May 17, 2024 1:33pm FreeTextSi tablet on the tongue and allow to dissolve Orally every 8 hours prn nausea; Note: Source Status: Taking; Refills: 0; Qty: 12 tablets; Provider: Sarah Leggett Start: 11-24-2022 take 1 tablet by manju three times daily as needed Zofran ODT 4 MG 1 tablet on the tongue and allow to dissolve Orally THREE TIMES A DAY NEEDED for 30 days Oct, Active Start: 11-21-2022 take 1 tablet by manju th every eight hours as needed for nausea Ondansetron 4 MG 1 tablet on the tongue and allow to dissolve Orally every 8 hours prn nausea for 5 days Oct, Active Start: 09-02-2022 take 1 tablet by manju th every eight hours as needed for vomiting and vomiting ondansetron orally disintegrating (ZOFRAN ODT) 8 mg disintegrating tablet Indications: Recurrent vomiting Take 1 tablet by mouth every 8 hours as needed for nausea/vomiting. 60 tablet 2 09/02/2022 Active Start: 06-24-2022 take 1 tablet by manju th every twelve hours as needed for nausea and vomiting and gastroesophageal reflux disease and gastroesophageal reflux disease ondansetron (ZOFRAN) 8 mg tablet Indications: Gastroesophageal reflux disease, unspecified whether esophagitis present Take 1 tablet (8 mg total) by mouth every 12 (twelve) hours as needed for nausea or vomiting. 20 tablet 1 06/24/2022 Active Start: 06-24-2022 take 1 tablet by manju th every twelve hours as needed for nausea ondansetron (ZOFRAN) 8 mg tablet TAKE 1 TABLET BY MOUTH EVERY 12 HOURS NEEDED FOR NAUSEA OR VOMITING. 06/24/2022 Active Start: 01-27-2021 Ondansetron 4 MG Oral Tablet Disintegrating Take one tablet every 6-8 hours as needed for nausea and vomiting Quantity: 9 Refills: 0 Ordered: 27-Jan-2021 Lisa Monreal Start : 27-Jan-2021 Active Zofran 4 MG 1 ta blet Orally NEEDED Active Zofran prn Activ e Zofran Active Comment on above: TAKE 1 TABLET BY MANJU TH EVERY 12 HOURS NEEDED FOR NAUSEA OR VOMITING. Take 1 tablet by manju th every 8 hours as needed for nausea/vomiting. polyethylene glycol 3350 16609 mg powder for oral solution (6 sources) Osmotic Laxative Start: 09-10-2018 polyethylene glycol 3350 (MIRALAX, GLYCOLAX) 17 gram/dose powder Indications: Abdominal cramping Take 17 g by mouth once daily. 1 Bottle 2 09/10/2018 Active Comment on above: Take 17 g by mouth o nce daily. Probiotic - (1 source) Probiotic - as d irected Orally daily Active SUMAtriptan 25 mg oral tablet (20 sources) Serotonin-1b and Serotonin-1d Receptor Agonist Start: 10-02-2024 Sumatriptan Succinate 25 mg tablet Active 25 MG PO .COMPLEX October 02, 2024 12:00am 25 mg orally take 1 tablet by mouth at onset of headache; Complies with drug therapy Start: 06-16-2023 End: 05-17-2024 take 1 tablet by mouth twice daily as needed for headache, then take 1 tablet by mouth twice daily as needed for headache Sumatriptan Succinate (Imitrex) 25 mg tablet Discontinued 25 MG PO Twice daily as needed for migraine headache June 16, 2023 1:00am May 17, 2024 1:34pm FreeTextSi tablet at least 2 hours between doses as needed Orally Twice a day; Note: Source Status: Taking; Provider: Bessy Wright ( ) Start: 01-25-2019 SUMAtriptan (I MITREX) 50 mg tablet Start at onset of headache. May repeat after 2 hours. 9 tablet 3 01/25/2019 Active Start: 01-18-2018 End: 06-16-2023 take 1 tablet by mouth once daily as needed for headache Sumatriptan Succinate 50 mg tablet Discontinued 50 MG PO Daily as needed for Migraine Headache January 18, 2018 12:00am June 16, 2023 10:00am take 1 tablet by manju th every two hours as needed, then take 1 tablet by mouth twice daily as needed Imitrex 25 MG 1 tablet at least 2 hours between doses as needed Orally Twice a day Active Comment on above: Start at onset of he adache. May repeat after 2 hours. Completed/Discontinued Medications Medication Drug Class(es) Dates Sig (Normalized) Sig (Original) acetaminophen 325 mg / HYDROcodone bitartrate 5 mg oral tablet (6 sources) Opioid Agonist Start: 09-30-2024 End: 10-02-2024 take 1 tablet by mouth every six hours as needed for pain Hydrocodone-Acetam inophen 5-325 mg tablet Discontinued 1 TAB PO Q6H as needed for pain 12 3 September 30, 2024 October 02, 2024 1:33pm [id number] 200 actuat albuterol 0.09 mg/actuat metered dose inhaler (20 sources) beta2-Adrenergic Agonist Start: 2019 End: 06-16-2023 Albuterol Sulfate 90 mcg/actuation HFA aerosol inhaler Discontinued 2 INH INHALATION .every 4 hours prn 2019 1:00am June 16, 2023 10:01am administer with spacer Start: 06-25-2018 albuterol HFA (PROVENTIL HFA, VENTOLIN HFA) 90 mcg/actuation inhaler Inhale 2 Puffs as instructed as needed. 06/25/2018 Active Start: 01-18-2018 End: 06-16-2023 take 1 puff(s) by inhalation every four to six hours as needed Albuterol Sulfate (Ventolin Hfa) 90 mcg/actuation HFA aerosol inhaler Discontinued 1 - 2 PUFF INHALATION EVERY 4-6 HOURS as needed for Shortness Of Breath January 18, 2018 12:00am June 16, 2023 10:01am Comment on above: Inhale 2 Puffs as in structed as needed. Albuterol Sulfate (Ventolin Hfa) 90 mcg/actuation HFA aerosol inhaler (9 sources) Start: End: take 1 puff(s) by inhalation every four to six hours as needed Albuterol Sulfate (Ventolin Hfa) 90 mcg/actuation HFA aerosol inhaler Discontinued 1 - 2 PUFF INHALATION EVERY 4-6 HOURS as needed for Shortness Of Breath January 18, 2018 12:00am June 16, 2023 10:01am Start: 01-18-2018 End: 06-16-2023 take 1 puff(s) by inhalation every four to six hours as needed Albuterol Sulfate (Ventolin Hfa) 90 mcg/actuation HFA aerosol inhaler Discontinued 1 - 2 PUFF INHALATION EVERY 4-6 HOURS as needed for Shortness Of Breath January 17, 2018 11:00pm June 16, 2023 9:01am Start: 01-18-2018 End: 06-16-2023 take 1 puff(s) by inhalation every four to six hours Albuterol Sulfate (Ventolin Hfa) 90 mcg/actuation HFA aerosol inhaler Discontinued 1 - 2 PUFF INHALATION EVERY 4-6 HOURS January 18, 2018 12:00am June 16, 2023 10:01am Start: 01-18-2018 take 1 puff(s) by in halation every four to six hours Albuterol Sulfate (Ventolin Hfa) 90 mcg/actuation HFA aerosol inhaler Active 1 - 2 PUFF INHALATION EVERY 4-6 HOURS January 17, 2018 11:00pm amoxicillin 875 mg oral tablet (10 sources) Penicillin-class Antibacterial Start: 02-26-2019 take 1 tablet by mouth every twelve hours Amoxicillin 875 MG 1 tablet Orally every 12 hrs for 10 day(s) Jan, Not-Taking/PRN 24 hr amphetamine aspartate 2.5 mg / amphetamine sulfate 2.5 mg / dextroamphetamine saccharate 2.5 mg / dextroamphetamine sulfate 2.5 mg extended release oral capsule (13 sources) Central Nervous System Stimulant Start: 2019 End: 06-16-2023 take 1 capsule by mouth once daily Dextroamphetamine-A mphetamine 10 mg capsule,extended release 24hr Discontinued 10 MG PO Daily 2019 1:00am June 16, 2023 10:00am cetirizine hydrochloride 10 mg oral tablet (1 source) Histamine-1 Receptor Antagonist End: 09-02-2022 take 1 tablet by mouth once daily at bedtime cetirizine (ZYRTEC) 10 mg tablet Take 10 mg by mouth daily at bedtime. 0 09/02/2022 Discontinued Comment on above: Take 10 mg by mouth daily at bedtime. COMPOUNDED PRESCRIPTION (1 source) End: 09-02-2022 COMPOUNDED PRESCRIPTION Indications: Migraine without aura and without status migrainosus, not intractable once daily. Migravent 0 09/02/2022 Discontinued Comment on above: once daily. Migraven t cyclobenzaprine hydrochloride 5 mg oral tablet (13 sources) Muscle Relaxant Start: 01-18-2018 End: 2019 take 1 tablet by mouth three times daily as needed for muscle spasms Cyclobenzaprine 5 mg tablet Discontinued 5 MG PO Three times daily as needed for muscle spasm January 18, 2018 12:00am 2019 7:50pm cyproheptadine hydrochloride 4 mg oral tablet (2 sources) Start: 07-04-2018 take 1 tablet by mouth at bedtime Cyproheptadine HCl - 4 MG Oral Tablet TAKE 1 TABLET AT BEDTIME. Quantity: 30 Refills: 3 Ordered: 04-Jul-2018 Diana Baum MD Start : 04-Jul-2018 Active dicyclomine hydrochloride 10 mg oral capsule (20 sources) Anticholinergic Start: 08-17-2023 End: 05-17-2024 take 1 capsule by mouth three times daily Dicyclomine 10 mg capsule Discontinued 10 MG PO Three times daily August 17, 2023 12:00am May 17, 2024 1:33pm Start: 06-16-2023 End: 08-17-2023 take 1 capsule by mouth three times daily Dicyclomine 20 mg tablet Discontinued 20 MG PO Three times daily July 18, 2023 11:36am August 17, 2023 1:24pm FreeText[employer] capsules Orally Three times a day; Note: Source Status: Taking; Refills: 3; Qty: 90 Capsule; Provider: Rosio Todd Start: 12-05-2022 take 1 tablet by manju every eight hours Dicyclomine HCl 20 MG 1 capsules Orally Three times a day for 30 days Nov, Active Start: 12-05-2022 take 1 capsule by mo [facility] every eight hours Dicyclomine HCl 10 MG 1 capsules Orally Three times a day for 30 days Nov, Active Start: 10-17-2022 take 1 tablet by manju three times daily dicyclomine (BENTYL) 20 mg tablet Take 1 tablet by mouth three times daily. 90 tablet 1 10/17/2022 Active Comment on above: Take 1 tablet by manju three times daily. fexofenadine hydrochloride 180 mg oral tablet (12 sources) Histamine-1 Receptor Antagonist Start: take 1 tablet by mouth once daily as needed Fexofenadine HCl - 180 MG Oral Tablet TAKE 1 TABLET DAILY NEEDED. Quantity: 14 Refills: 0 Ordered: 27-Jan-2021 Lisa Monreal Start : 27-Jan-2021 Active Elizabeth Not-Taki ng/PRN Elizabeth Not-Taki ng fluticasone propionate 0.05 mg/actuat metered dose nasal spray (20 sources) Corticosteroid Start: 06-16-2023 End: 08-17-2023 take 1 spray(s) nasal route once daily as needed Fluticasone Propionate (Flonase Allergy Relief) 50 mcg/actuation spray,suspension Discontinued 1 SPRAY INTRANASAL Daily as needed July 18, 2023 11:37am August 17, 2023 1:24pm FreeTextSi spray in each nostril Nasally Once a day; Note: Source Status: Not-TakingundefinedPRN; Refills: 0; Qty: 1 Bottle; Provider: Audra Lane Start: 01-27-2021 fluticasone (F LONASE) 50 mcg/actuation nasal spray Use 1 [place] in the nose. 01/27/2021 Active Start: 01-27-2021 take 2 spray(s) nasa l route once daily Fluticasone Propionate 50 MCG/ACT Nasal Suspension USE 2 SPRAYS IN EACH NOSTRIL ONCE DAILY Quantity: 1 Refills: 0 Ordered: 27-Jan-2021 Mamadou JOEGinaJACQUILisa Start : 27-Jan-2021 Active Start: 02-06-2019 take 1 spray(s) nasa l route once daily as needed Flonase Allergy Relief 50 MCG/ACT 1 spray in each nostril Nasally Once a day for 30 day(s) Jan, Not-Taking/PRN Start: 02-06-2019 take 1 spray(s) nasa l route once daily Flonase Allergy Relief 50 MCG/ACT 1 spray in each nostril Nasally Once a day for 30 day(s) Jan, Not-Taking Comment on above: Use 1 [place] in the n ose. hyoscyamine sulfate 0.125 mg disintegrating oral tablet (20 sources) Start: 06-24-2022 End: 05-17-2024 take 1 tablet by mouth four times daily as needed Hyoscyamine Sulfate (Nulev) 0.125 mg tablet,disintegrating Discontinued 0.125 MG PO Four times daily as needed for cramping June 16, 2023 1:00am May 17, 2024 1:33pm Start: 06-24-2022 hyoscyamine flores lfate (LEVSIN) 0.125 mg tablet,disintegrating Indications: Irritable bowel syndrome with diarrhea Place 1 tablet (125 mcg total) under the tongue in the morning and 1 tablet (125 mcg total) at noon and 1 tablet (125 mcg total) in the evening and 1 tablet (125 mcg total) before bedtime. 60 each 1 06/24/2022 Active Start: 06-24-2022 End: 09-02-2022 hyoscyamine sulfate 0.[address] 1 TABLET (125 MCG) UNDER THE TONGUE IN THE MORNING, AT NOON, IN THE EVENING, & BEFORE BEDTIME. 0 06/24/2022 Active Start: 01-25-2019 take 1 tablet under the tongue every four hours as needed hyoscyamine sublingual (LEVSIN/SL) 0.125 mg Indications: Diarrhea, unspecified type , Abdominal cramping Dissolve 1 tablet under the tongue every 4 hours as needed. 60 tablet 2 09/02/2022 Active take 1 tablet by manju th every four hours Levsin 0.125 MG 1 tablet as needed Orall y every 4 hrs Active Comment on above: Dissolve 1 tablet un estefani the tongue every 4 hours as needed (for cramping abdominal pain). Dissolve under tongue. PLACE 1 TABLET (125 MCG) UNDER THE TONGUE IN THE MORNING, AT NOON, IN THE EVENING, & BEFORE BEDTIME. Dissolve 1 tablet un estefani the tongue every 4 hours as needed. Take 0.125 mg by manju th every 4 hours. ibuprofen 600 mg oral tablet (20 sources) Nonsteroidal Anti-inflammatory Drug Start: End: take 4 tablets by mouth every twenty-four hours for pain Ibuprofen 600 mg tablet Discontinued 600 MG PO Every 6 hours as needed for Pain May 17, 2024 1:00am September 30, 2024 4:55pm do not exceed 4 doses in a 24 hour period Start: 05-28-2021 End: 06-16-2023 take 1 tablet by mouth every six hours as needed for pain Ibuprofen 800 mg tablet Discontinued 800 MG PO Q6H as needed for pain May 28, 2021 1:00am June 16, 2023 10:00am Lactobacillus Combination No.4 (Probiotic) 3 billion cell capsule (10 sources) Start: 06-16-2023 End: 08-17-2023 take 3 capsules by mouth once daily Lactobacillus Combination No.4 (Probiotic) 3 billion cell capsule Discontinued 3000 MMU CELLS PO Daily June 16, 2023 1:00am August 17, 2023 1:23pm administer with a meal Start: 06-16-2023 End: 08-17-2023 take 3 capsules by mouth once daily Lactobacillus Combination No.4 (Probiotic) 3 billion cell capsule Discontinued 3000 MMU CELLS PO Daily June 16, 2023 12:00am August 17, 2023 12:23pm administer with a meal Start: 06-16-2023 take 3 capsules by m outh once daily Lactobacillus Combination No.4 (Probiotic) 3 billion cell capsule Active 3000 MMU CELLS PO Daily June 16, 2023 1:00am administer with a meal lactulose 667 mg/ml oral solution (17 sources) Osmotic Laxative Start: 06-16-2023 End: 05-17-2024 take 15 mL by mouth once daily as needed Lactulose 10 gram/15 mL solution Discontinued 15 ML PO Daily June 16, 2023 1:00am May 17, 2024 1:33pm FreeTextSi mL as needed Orally Once a day; Note: Source Status: Taking; Refills: 11; Qty: 450 Milliliter; Provider: Rosio Todd Start: 12-15-2022 take 15 mL by mouth once daily as needed Lactulose 10 GM/15ML 15 mL as needed Orally Once a day for 30 days Nov, Active Start: 12-15-2022 take 15 mL by mouth once daily as needed Lactulose 10 GM/15ML 15 mL as needed Orally Once a day for 30 days Nov, Active lubiprostone 0.008 mg oral capsule (20 sources) Chloride Channel Activator Start: 06-28-2023 End: 08-17-2023 take 1 capsule by mouth twice daily Lubiprostone 8 mcg capsule Discontinued 8 MCG PO Twice daily 60 June 28, 2023 2:09pm August 17, 2023 1:24pm Start: 06-28-2023 End: 08-17-2023 take 1 capsule by mouth twice daily Lubiprostone 8 mcg capsule Discontinued 8 MCG PO Twice daily 60 June 28, 2023 1:09pm August 17, 2023 12:24pm Start: 06-28-2023 take 8 ug by mouth twice daily Lubiprostone Active 8 MCG PO Twice daily 60 June 28, 2023 2:09pm Start: 06-16-2023 End: 06-28-2023 take 1 capsule by mouth twice daily at mealtime Lubiprostone 8 mcg capsule Discontinued 8 MCG PO Twice daily June 16, 2023 1:00am June 28, 2023 2:10pm FreeTextSi capsule with food and water Orally Twice a day; Note: Source Status: Taking; Provider: Rosio Todd Start: 06-16-2023 End: 06-28-2023 take 1 capsule by mouth twice daily at mealtime Lubiprostone 8 mcg capsule Discontinued 8 MCG PO Twice daily June 16, 2023 12:00am June 28, 2023 1:10pm FreeTextSi capsule with food and water Orally Twice a day; Note: Source Status: Taking; Provider: Rosio Todd Start: 06-16-2023 End: 06-28-2023 take 1 capsule by mouth twice daily at mealtime Lubiprostone Discontinued 8 MCG PO Twice daily June 16, 2023 1:00am June 28, 2023 2:10pm FreeTextSi capsule with food and water Orally Twice a day; Note: Source Status: Taking; Provider: Rosio Todd Start: 11-24-2022 End: 08-17-2023 take 1 capsule by mouth twice daily Lubiprostone 8 mcg capsule Discontinued 8 MCG PO Twice daily 60 June 28, 2023 2:09pm August 17, 2023 1:24pm Start: 11-24-2022 take 1 capsule by mo [facility] twice daily at mealtime Amitiza 8 MCG 1 capsule with food and water Orally Twice a day for 30 day(s) Oct, Active methocarbamol 750 mg oral tablet (6 sources) Muscle Relaxant Start: 09-30-2024 End: 10-02-2024 take 1 tablet by mouth three times daily Methocarbamol 750 mg tablet Discontinued 750 MG PO Three times daily September 30, 2024 12:00am October 02, 2024 1:33pm bx rating 24 hr methylphenidate hydrochloride 54 mg extended release oral tablet (3 sources) Central Nervous System Stimulant Start: 03-29-2021 End: 09-02-2022 take 1 tablet by mouth once daily methylphenidate ER 54 mg tablet Indications: Attention-deficit hyperactivity disorder, predominantly inattentive type Take 1 tablet by mouth once daily for 30 days. Do not start before May 28, 2021. 30 tablet 0 05/28/2021 09/02/2022 Discontinued Comment on above: Take 1 tablet by manju once daily for 30 days. Take 1 tablet by manju once daily for 30 days. Do not start before April 28, 2021. Take 1 tablet by manju th once daily for 30 days. Do not start before May 28, 2021. multivitamin tablet (1 source) End: 09-02-2022 take 1 tablet by mouth once daily multivitamin tablet Take 1 tablet by mouth once daily. 0 09/02/2022 Discontinued Comment on above: Take 1 tablet by manju th once daily. 24 hr nicotine 0.583 mg/hr transdermal system (2 sources) Cholinergic Nicotinic Agonist Start: 08-19-2020 End: 09-02-2022 apply 1 dose transdermal route every twenty-four hours nicotine (NICODERM) 14 mg/24 hr Apply 1 Patch as directed every 24 hours. 28 Patch 11 08/19/2020 09/02/2022 Discontinued Start: 08-19-2020 End: 09-02-2022 take 2 mg by mouth every two hours as needed nicotine polacrilex (NICORETTE) 2 mg gum Take 1 Each by mouth every 2 hours as needed. 100 Each 11 08/19/2020 09/02/2022 Discontinued Comment on above: Apply 1 Patch as dir ected every 24 hours. Take 1 Each by mouth every 2 hours as needed. pantoprazole 40 mg delayed release oral tablet (20 sources) Proton Pump Inhibitor Start: 06-16-2023 End: 05-17-2024 Pantoprazole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 mg/dL Normal 0.3-1.2 [facility] Comment on above: Performed By: #### C BCA, CMP, 5643-2, LIVR, 55069-5 #### [facility] ([id number]) [address] [place] [address] 14678 Calcium [Mass/Vol] 9.3 mg/dL Normal 8.5-10.5 [facility] Comment on above: Performed By: #### C BCA, CMP, 5643-2, LIVR, 11168-4 #### [facility] ([id number]) [address] [place] [address] 93683 Chloride [Moles/Vol] 104 mmol/L Normal 98-109 [facility] Comment on above: Performed By: #### C BCA, CMP, 5643-2, LIVR, #### [facility] ([id number]) [address] [place] [address] 33022 CO2 [Moles/Vol] 25 mmol/L Normal 22-32 [facility] Comment on above: Performed By: #### C BCA, CMP, 5643-2, LIVR, 99956-7 #### [facility] ([id number]) [address] [place] [address] 26675 Creatinine [Mass/Vol] 0.71 mg/dL Normal 0.70-1.20 [facility] Comment on above: Result Comment: METH OD TRACEABLE TO IDMS STANDARD Performed By: #### C BCA, CMP, 5643-2, LIVR, 84188-6 #### [facility] ([id number]) [address] [place] [address] 91897 eGFR (CKD-EPI) NON-RACE DEPENDENT >90 Normal >59 [facility] Comment on above: Result Comment: Reported eGFR is based on the CKD-EPI 2020 equation that does not use a race coefficient. Performed By: #### C BCA, CMP, 5643-2, LIVR, 15858-5 #### [facility] ([id number]) [address] [place] [address] 00221 Glucose [Mass/Vol] 106 mg/dL High 65-99 [facility] Comment on above: Performed By: #### C BCA, CMP, 5643-2, LIVR, 66544-5 #### [facility] ([id number]) [address] [place] [address] 47134 Potassium [Moles/Vol] 3.0 mmol/L Low 3.5-5.0 [facility] Comment on above: Performed By: #### C BCA, CMP, 5643-2, LIVR, 80758-3 #### [facility] ([id number]) [address] [place] [address] 50160 Protein [Mass/Vol] 8.3 g/dL High 6.0-8.0 [facility] Comment on above: Performed By: #### C BCA, CMP, 5643-2, LIVR, 62481-6 #### [facility] ([id number]) [address] [place] [address] [place] [address] Sodium [Moles/Vol] 135 mmol/L Normal 134-146 [facility] Comment on above: Performed By: #### C BCA, CMP, 5643-2, LIVR, 87884-5 #### [facility] ([id number]) [address] [place] [address] 91230 Urea nitrogen [Mass/Vol] 14 mg/dL Normal 5-23 [facility] Comment on above: Performed By: #### C BCA, CMP, 5643-2, LIVR, 31229-3 #### [facility] ([id number]) [address] [place] [address] 06340 LIPASEon 07-25-2024 Lipase [Catalytic activity/Vol] 22 U/L Normal 17-40 [facility] Comment on above: Performed By: #### C BCA, CMP, 5643-2, LIVR, 92522-5 #### [facility] ([id number]) [address] [place] [address] 53456 Troponin I.cardiac High sens itivity method [Mass/Vol]on 07-25-2024 1 HOUR TROP I, HIGH SENSITIVITY 2 ng/L Normal <21 [facility] Comment on above: Performed By: #### C BCA, CMP, 5643-2, LIVR, 03261-7 #### [facility] ([id number]) [address] [place] [address] 18645 TROPONIN I, HIGH SENSITIVITY <2 Normal <21 [facility] Comment on above: Performed By: #### C BCA, CMP, 5643-2, LIVR, 80952-8 #### [facility] ([id number]) [address] [place] [address] 58414 XR CHEST 1 VWon 07-25-2024 XR CHEST 1 VW XR CHEST 1 VW XR CHEST 1 VW HISTORY: Chest pain COMPARISON: Chest radiograph 01/23/2023 TECHNIQUE: Frontal view of the chest obtained. FINDINGS: Trachea is midline. The cardiomediastinal silhouette is within normal limits. Pulmonary vasculature is unremarkable. No focal consolidations. No large pleural effusions. No evidence of pneumothorax. IMPRESSION: * No radiographic evidence of acute cardiopulmonary process. Approved by Resident Joao Garces MD on 07/25/2024 8:42 AM I, Julia España MD have personally reviewed the image(s) and agree with and/or edited the report Finalized by Julia España MD on 07/25/2024 8:54 AM Normal [facility] XR Cervical spine Viewson XR SPINE CERVICAL 3 VWS OR LESS: 07/01/2024 PROVIDED HISTORY: * 19 years old Male * Neck pain COMPARISON: None. TECHNIQUE: Three views of the cervical spine were obtained. Findings: The cervical spine is visualized from the craniocervical junction to the cervicothoracic junction. Vertebral body heights are relatively preserved. The intervertebral disc spaces are relatively preserved. The dens is intact, with limited evaluation of the tip due to superimposition of structures. Alignment of the lateral masses appears to be within normal limits. There is no acute fracture or subluxation. Prevertebral soft tissues are within normal limits. Impression: No acute osseous abnormality. Finalized by Hawa Burr MD on 07/01/2024 9:17 AM [facility] Hawa Burr MD - 07/01/2024 XR SPINE CERVICAL 3 VWS OR LESS: 07/01/2024 PROVIDED HISTORY: * 19 years old Male * Neck pain COMPARISON: None. TECHNIQUE: Three views of the cervical spine were obtained. Findings: The cervical spine is visualized from the craniocervical junction to the cervicothoracic junction. Vertebral body heights are relatively preserved. The intervertebral disc spaces are relatively preserved. The dens is intact, with limited evaluation of the tip due to superimposition of structures. Alignment of the lateral masses appears to be within normal limits. There is no acute fracture or subluxation. Prevertebral soft tissues are within normal limits. Impression: No acute osseous abnormality. Finalized by Hawa Burr MD on 07/01/2024 9:17 AM [facility] Radiology Study observation (narrative) [facility] XR Cervical spine ViewsOrder ed By: Hawa Burr on 07-01-2024 [facility] Work Phone: XR SPINE CERVICAL 3 VWS OR L ESSon 07-01-2024 XR SPINE CERVICAL 3 VWS OR LESS XR SPINE CERVICAL 3 VWS OR LESS XR SPINE CERVICAL 3 VWS OR LESS: 07/01/2024 PROVIDED HISTORY: * 19 years old Male * Neck pain COMPARISON: None. TECHNIQUE: Three views of the cervical spine were obtained. Findings: The cervical spine is visualized from the craniocervical junction to the cervicothoracic junction. Vertebral body heights are relatively preserved. The intervertebral disc spaces are relatively preserved. The dens is intact, with limited evaluation of the tip due to superimposition of structures. Alignment of the lateral masses appears to be within normal limits. There is no acute fracture or subluxation. Prevertebral soft tissues are within normal limits. Impression: No acute osseous abnormality. Finalized by Hawa Burr MD on 07/01/2024 9:17 AM Normal [facility] Basic Metabolic Panelon 05-01 Anion gap [Moles/Vol] 12.7 mmol/L Normal 6.0-15.0 e [facility] Comment on above: Performed By: #### C BC, CK, BMP, HS TROP #### [facility] [address] [place] [address] [place] Calcium [Mass/Vol] 10.6 mg/dL High 8.6-10.3 [facility] Comment on above: Performed By: #### C BC, CK, BMP, HS TROP #### [facility] [address] [place] [id number] [place] Chloride [Moles/Vol] 100 mmol/L Normal 98-107 [facility] Comment on above: Performed By: #### C BC, CK, BMP, HS TROP #### [facility] [address] [place] [id number] [place] CO2 [Moles/Vol] 28.8 mmol/L Normal 21.0-31.0 [facility] Comment on above: Performed By: #### C BC, CK, BMP, HS TROP #### [address] Creatinine [Mass/Vol] 0.85 mg/dL Normal 0.70-1.30 [facility] Comment on above: Performed By: #### C BC, CK, BMP, HS TROP #### [address] Creatinine Clr Calc Pharmacy 143.14 Normal [facility] Comment on above: Result Comment: PERF ORMED BY: [place] [address] PATHOLOGIST [employer]SEM[employer]Y LEADER BETITO MEDINA M.D. Performed By: #### C BC, CK, BMP, HS TROP #### [address] GFR/1.73 sq M.predicted MDRD (S/P/Bld) [Vol rate/Area] mL/min/{1.73_m2} Normal [facility] Comment on above: Performed By: #### C BC, CK, BMP, HS TROP #### [address] Glucose [Mass/Vol] 102 mg/dL High 70-100 [facility] Comment on above: Result Comment: [place] Glucose Reference Range is dependent on time and content of last meal. Glucose of more than 200 mg/dL in a nonstressed, ambulatory subject supports the diagnosis of Diabetes Mellitus. ADA recommended reference range Performed By: #### C BC, CK, BMP, HS TROP #### [address] Potassium [Moles/Vol] 3.5 mmol/L Normal 3.5-5.1 [facility] Comment on above: Performed By: #### C BC, CK, BMP, HS TROP #### [address] Sodium [Moles/Vol] 138 mmol/L Normal 136-145 [facility] Comment on above: Performed By: #### C BC, CK, BMP, HS TROP #### [address] Urea nitrogen [Mass/Vol] 12 mg/dL Normal 7-25 [facility] Comment on above: Performed By: #### C BC, CK, BMP, HS TROP #### [facility] [address] Basophils Auto (Bld) [#/Vol] Ordered By: Stefany Romano on 05-17-2024 Basophils (Bld) [#/Vol] Automated basophil count 0.0-0.2 [facility] Basophils/100 WBC Auto (Bld) Ordered By: Stefany Romano on 05-17-2024 Basophils/100 WBC (Bld) Automated basophil % . [facility] Calcium [Mass/volume] in Ser um or PlasmaOrdered By: Stefany Romano on 05-17-2024 Calcium [Mass/Vol] Calcium [Mass/volume ] in Serum or Plasma High 8.6-10.3 [facility] Carbon dioxide, total [Moles /volume] in Serum or PlasmaOrdered By: Stefany Romano on 05-17-2024 CO2 [Moles/Vol] Carbon dioxide, tota l [Moles/volume] in Serum or Plasma 21.0-31.0 [facility] Chloride [Moles/volume] in S ayaz or PlasmaOrdered By: Stefany Romano on 05-17-2024 Chloride [Moles/Vol] Chloride [Moles/vol ume] in Serum or Plasma 98-107 [facility] Complete Blood Count Auto Di ffon 05-17-2024 Basophils (Bld) [#/Vol] 0.0 10*3/uL Normal 0.0-0.2 [facility] Comment on above: Result Comment: PERF ORMED BY: [place] [address] PATHOLOGIST ASSEMBLY LEADER BETITO MEDINA M.D. Performed By: #### C BC, CK, BMP, HS TROP #### [address] Basophils/100 WBC (Bld) 0.5 % Normal . [facility] Comment on above: Performed By: #### C BC, CK, BMP, HS TROP #### [address] Eosinophils (Bld) [#/Vol] 0.1 10*3/uL Normal 0.0-0.45 [facility] Comment on above: Performed By: #### C BC, CK, BMP, HS TROP #### [address] Eosinophils/100 WBC (Bld) 1.1 % Normal . [facility] Comment on above: Performed By: #### C BC, CK, BMP, HS TROP #### [address] Erythrocyte distribution width (RBC) [Ratio] 13.5 % Normal 12.0-14.8 [facility] Comment on above: Performed By: #### C BC, CK, BMP, HS TROP #### [address] Hematocrit (Bld) [Volume fraction] 45.6 % Normal 38.8-50.0 [facility] Comment on above: Performed By: #### C BC, CK, BMP, HS TROP #### [address] Hemoglobin (Bld) [Mass/Vol] 15.7 g/dL Normal 13.0-17.0 [facility] Comment on above: Performed By: #### C BC, CK, BMP, HS TROP #### [place] [address] [place] Lymphocytes (Bld) [#/Vol] 2.0 10*3/uL Normal 1.00-4.8 [facility] Comment on above: Performed By: #### C BC, CK, BMP, HS TROP #### [place] [address] [place] Lymphocytes/100 WBC (Bld) 29.9 % Normal . [facility] Comment on above: Performed By: #### C BC, CK, BMP, HS TROP #### [address] MCH (RBC) [Entitic mass] 29.3 pg Normal 27.5-35.2 [facility] Comment on above: Performed By: #### C BC, CK, BMP, HS TROP #### [address] MCV (RBC) [Entitic vol] 84.8 fL Normal 83.5-101 [facility] Comment on above: Performed By: #### C BC, CK, BMP, HS TROP #### [address] Mean Corpuscular HGB Conc 34.5 g/dL Normal 32.5-35.6 [facility] Comment on above: Performed By: #### C BC, CK, BMP, HS TROP #### [address] Monocytes (Bld) [#/Vol] 0.5 10*3/uL Normal 0.0-0.8 [facility] Comment on above: Performed By: #### C BC, CK, BMP, HS TROP #### [address] Monocytes/100 WBC (Bld) 15.21 % Normal 0.00-20.00 [facility] Comment on above: Performed By: #### C BC, CK, BMP, HS TROP #### [address] Monocytes/100 WBC (Bld) 7.7 % Normal . [facility] Comment on above: Performed By: #### C BC, CK, BMP, HS TROP #### [address] Neutrophils (Bld) [#/Vol] 4.0 10*3/uL Normal 1.8-7.7 [facility] Comment on above: Performed By: #### C BC, CK, BMP, HS TROP #### [address] Neutrophils/100 WBC (Bld) 60.8 % Normal . [facility] Comment on above: Performed By: #### C BC, CK, BMP, HS TROP #### [address] [place] [address] [place] NRBC% 0.1 /100{WBC} Normal 0-0.5 [facility] Comment on above: Performed By: #### C BC, CK, BMP, HS TROP #### [address] Platelet mean volume (Bld) [Entitic vol] 7.6 fL Normal 6.6-10.1 [facility] Comment on above: Performed By: #### C BC, CK, BMP, HS TROP #### [address] Platelets (Bld) [#/Vol] 366 10*3/uL Normal 150-450 [facility] Comment on above: Performed By: #### C BC, CK, BMP, HS TROP #### [address] RBC (Bld) [#/Vol] 5.37 10*6/uL Normal 3.90-5.60 [facility] Comment on above: Performed By: #### C BC, CK, BMP, HS TROP #### [address] WBC (Bld) [#/Vol] 6.6 10*3/uL Normal 4.1-10.5 [facility] Comment on above: Performed By: #### C BC, CK, BMP, HS TROP #### [address] Creatine Kinaseon 05-17-2024 CK [Catalytic activity/Vol] 104 U/L Normal 30-223 [facility] Comment on above: Performed By: #### C BC, CK, BMP, HS TROP #### [address] Creatine kinase [Enzymatic a ctivity/volume] in Serum or PlasmaOrdered By: Stefany Romano on 05-17-2024 CK [Catalytic activity/Vol] Creatine kinase [Enzymatic activity/volume] in Serum or Plasma 30-223 [facility] Creatinine [Mass/volume] in Serum or PlasmaOrdered By: Stefany Romano on 05-17-2024 Creatinine [Mass/Vol] Creatinine [Mass/v olume] in Serum or Plasma 0.70-1.30 [facility] ECG 12 lead ECGon 05-17-2024 [address] [facility] Main [place] [id number] Electrocardiograph Report Signed Patient: Neftaly Morales MR#: [id number] [id number] : 2005 Acct:[id number] Age/Sex: 18 / M ADM Date: 05/17/24 Loc: ER Room: Type: [facility] ER Attending Dr: Ordering Provider: Stefany Romano MD Date of Service: 05/17/24 ECG/ECG 12 lead ECG: Chest Pain Copies to: Test Reason : Blood Pressure : 145/81 mmHG Vent. Rate : 75 BPM Atrial Rate : 75 BPM P-R Int : 156 ms QRS Dur : 80 ms QT Int : 356 ms P-R-T Axes : 81 74 63 degrees QTcB Int : 397 ms Sinus rhythm with marked sinus arrhythmia Otherwise normal ECG No previous ECGs available Confirmed by STEFNAY ROMANO MD ([id number]) on 05/17/2024 7:26:53 PM Referred By: Electronically Signed By: STEFANY ROMANO MD Transcribed By: MUS Signed By Stefany Romano MD 05/17/241926 Normal [facility] Eosinophils Auto (Bld) [#/Vo l]Ordered By: Stefany Romano on 05-17-2024 Eosinophils (Bld) [#/Vol] Automated eosinophil count 0.0-0.45 [facility] Eosinophils/100 WBC Auto (Bl d)Ordered By: Stefany Romano on 05-17-2024 Eosinophils/100 WBC (Bld) Automated eosinophil % . [facility] Erythrocyte distribution wid th Auto (RBC) [Ratio]Ordered By: Stefany Romano on 05-17-2024 Erythrocyte distribution width (RBC) [Ratio] Erythrocyte distribution width [Ratio] by Automated count 12.0-14.8 [facility] Glucose [Mass/volume] in Ser um or PlasmaOrdered By: Stefany Romano on 05-17-2024 Glucose [Mass/Vol] Glucose [Mass/volume ] in Serum or Plasma High 70-100 [facility] Comment on above: ADA recommended refe rence rangeRandom Glucose Reference Range is dependent on time and content of last meal. Glucose of more than 200 mg/dL in a nonstressed, ambulatory subject supports the diagnosis of Diabetes Mellitus. Hematocrit Auto (Bld) [Volum e fraction]Ordered By: Stefany Romano on 05-17-2024 Hematocrit (Bld) [Volume fraction] Hematocrit [Volume Fraction] of Blood by Automated count 38.8-50.0 [facility] Hemoglobin [Mass/volume] in BloodOrdered By: Stefany Romano on 05-17-2024 Hemoglobin (Bld) [Mass/Vol] Hemoglobin [Mass/volume] in Blood 13.0-17.0 [facility] Leukocytes [#/volume] correc ricky for nucleated erythrocytes in Blood by Automated counOrdered By: Stefany Romano on 05-17-2024 WBC corrected for nucl RBC Auto (Bld) [#/Vol] Leukocytes [#/volume] corrected for nucleated erythrocytes in Blood by Automated coun 4.1-10.5 [facility] Lymphocytes Auto (Bld) [#/Vo l]Ordered By: Stefany Romano on 05-17-2024 Lymphocytes (Bld) [#/Vol] Lymphocytes [#/volume] in Blood by Automated count 1.00-4.8 [facility] Lymphocytes/100 WBC Auto (Bl d)Ordered By: Stefany Romano on 05-17-2024 Lymphocytes/100 WBC (Bld) Lymphocytes/100 leukocytes in Blood by Automated count . [facility] MCH Auto (RBC) [Entitic mass ]Ordered By: Stefany Romano on 05-17-2024 MCH (RBC) [Entitic mass] MCH [Entitic mass] by Automated count 27.5-35.2 [facility] MCHC Auto (RBC) [Mass/Vol]Or dered By: Stefany Romano on 05-17-2024 MCHC (RBC) [Mass/Vol] MCHC [Mass/volume] by Automated count 32.5-35.6 [facility] MCV Auto (RBC) [Entitic vol] Ordered By: Stefany Romano on 05-17-2024 MCV (RBC) [Entitic vol] MCV [Entitic volume] by Automated count 83.5-101 [facility] Monocyte distribution width [Entitic volume] in Blood by AutomatedOrdered By: Stefany Romano on 05-17-2024 Monocyte distribution width Auto (Bld) [Entitic vol] Monocyte distribution width [Entitic volume] in Blood by Automated 0.00-20.00 [facility] Monocytes Auto (Bld) [#/Vol] Ordered By: Stefany Romano on 05-17-2024 Monocytes (Bld) [#/Vol] Automated blood monocyte count 0.0-0.8 [facility] Monocytes/100 WBC Auto (Bld) Ordered By: Stefany Romano on 05-17-2024 Monocytes/100 WBC (Bld) Automated monocyte % . [facility] Neutrophils Auto (Bld) [#/Vo l]Ordered By: Stefany Romano on 05-17-2024 Neutrophils (Bld) [#/Vol] Neutrophils [#/volume] in Blood by Automated count 1.8-7.7 [facility] Neutrophils/100 WBC Auto (Bl d)Ordered By: Stefany Romano on 05-17-2024 Neutrophils/100 WBC (Bld) Automated neutrophil % . [facility] No Panel InformationOrdered By: Stefany Romano on 05-17-2024 Estimated GFR (CKD-EPI) > 60.0 mL/Min [facility] Creatinine Clearance (Chem 143.14 [facility] Nucleated erythrocytes [Pres ence] in Blood by Automated countOrdered By: Stefany Romano on 05-17-2024 Nucleated RBC Auto Ql (Bld) Nucleated erythrocytes [Presence] in Blood by Automated count 0-0.5 [facility] Platelet mean volume Auto (B ld) [Entitic vol]Ordered By: Stefany Romano on 05-17-2024 Platelet mean volume (Bld) [Entitic vol] Platelet mean volume [Entitic volume] in Blood by Automated count 6.6-10.1 [facility] Platelets Auto (Bld) [#/Vol] Ordered By: Stefany Romano on 05-17-2024 Platelets (Bld) [#/Vol] Platelets [#/volume] in Blood by Automated count 150-450 [facility] Potassium [Moles/volume] in Serum or PlasmaOrdered By: Stefany Romano on 05-17-2024 Potassium [Moles/Vol] Potassium [Moles/v olume] in Serum or Plasma 3.5-5.1 [facility] RBC Auto (Bld) [#/Vol]Ordere d By: Stefany Romano on 05-17-2024 RBC (Bld) [#/Vol] Erythrocytes [#/volu me] in Blood by Automated count 3.90-5.60 [facility] Serum or plasma anion gap de terminationOrdered By: Stefany Romano on 05-17-2024 Anion gap [Moles/Vol] Serum or plasma an ion gap determination 6.0-15.0 [facility] Sodium [Moles/volume] in Ser um or PlasmaOrdered By: Stefany Romano on 05-17-2024 Sodium [Moles/Vol] Sodium [Moles/volume ] in Serum or Plasma 136-145 [facility] Troponin I High Sensitivityo n 05-17-2024 Troponin I High Sensitivity <3 Normal 0-20 [facility] Comment on above: Result Comment: The Troponin units of report have been changed to meet the Chest Pain Accreditation requirement, element EC5.M1l2. Troponin units are changed from pg/ml to ng/L. Also, the decimal is removed and results are in whole numbers. PERFORMED BY: [place] [address] PATHOLOGIST ASSEMBLY LEADER BETITO MEDINA M.D. Performed By: #### C BC, CK, BMP, HS TROP #### [address] Troponin I.cardiac [Mass/vol ume] in Serum or Plasma by Detection limit <= 0.01 ng/Ordered By: Stefany Romano on 05-17-2024 Troponin I.cardiac DL <= 0.01 ng/mL [Mass/Vol] Troponin I.cardiac [Mass/volume] in Serum or Plasma by Detection limit <= 0.01 ng/ 0-20 [facility] Comment on above: The Troponin units o f report have been changed to meet the Chest Pain Accreditation requirement, element EC5.M1l2. Troponin units are changed from pg/ml to ng/L. Also, the decimal is removed and results are in whole numbers. Urea nitrogen [Mass/volume] in Serum or PlasmaOrdered By: Stefany Romano on 05-17-2024 Urea nitrogen [Mass/Vol] Urea nitrogen [Mass/volume] in Serum or Plasma 7-25 [facility] WBC Auto (Bld) [#/Vol]Ordere d By: Stefany Romano on 05-17-2024 WBC (Bld) [#/Vol] Leukocytes [#/volume ] in Blood by Automated count 4.1-10.5 [facility] X-ray reportOrdered By: Vicente Vale on 05-17-[address] [facility] Main [place] [id number] XRay Report Signed Patient: Neftaly Morales MR#: [id number] : 2005 Acct:[id number] Age/Sex: 18 / M ADM Date: 5 Loc: ER Room: Type: PRE ER Attending Dr: Copies to: Stefany Romano MD~ Ordering Provider: Stefany Romano MD Date of Service: 05/17/24 XR/XR chest 1V portable: Chest Pain SINGLE VIEW CHEST CLINICAL HISTORY: Left-sided chest pain. COMPARISON: Chest 2019 FINDINGS: Heart normal in size. Lungs are clear. No free air. Holter monitor is in place. XR/XR chest 1V portable IMPRESSION: NO ACUTE FINDINGS Impression dictated by: Rob Vale Jr., DJerardoOJerardo05/17/2024 12:43 PM Dictation Location: [place] [address] Transcribed By: [facility] 05/17/24 1243 Dictated By: Rob Vale Jr, DO 05/17/24 1243 Signed By: 05/17/24 1243 [facility] XR chest 1V portableon 05-[address] [facility] Main [address] [address] XRay Report Signed Patient: Neftaly Morales MR#: [id number] : 2005 Acct:[id number] Age/Sex: 18 / M ADM Date: 05/17/24 Loc: ER Room: Type: PRE ER Attending Dr: Copies to: Stefany Romano MD Ordering Provider: Stefany Romano MD Date of Service: 05/17/24 XR/XR chest 1V portable: Chest Pain SINGLE VIEW CHEST CLINICAL HISTORY: Left-sided chest pain. COMPARISON: Chest 2019 FINDINGS: Heart normal in size. Lungs are clear. No free air. Holter monitor is in place. XR/XR chest 1V portable IMPRESSION: NO ACUTE FINDINGS Impression dictated by: Rob Vale Jr., D.O.05/17/2024 12:43 PM Dictation Location: [facility]- Transcribed By: [facility] 05/17/24 1243 Dictated By: Rob Vale Jr, DO 05/17/24 1243 Signed By: 05/17/24 1243 Normal [facility] CBC AND AUTO DIFFon 05-09-19 ABSOLUTE BASOPHIL 0.0 X10E9/L Normal 0.0-0.2 [facility] Comment on above: Performed By: #### C CLEMENTINA CMP, 5643-2, LIVR, 51542-5 #### [facility] ([id number]) [address] [place] [address] 64189 ABSOLUTE NEUTROPHIL 5.4 X10E9/L Normal 1.5-6.6 [facility] Comment on above: Performed By: #### C CLEMENTINA CMP, 5643-2, LIVR, 86416-1 #### [facility] ([id number]) [address] [place] [address] 12653 Basophils/100 WBC (Bld) 0.6 % Normal [facility] Comment on above: Performed By: #### Leonid BCA, CMP, 5643-2, LIVR, 15919-1 #### [facility] ([id number]) [address] [place] [address] 66799 Eosinophils (Bld) [#/Vol] 0.1 10*3/uL Normal 0.0-0.4 [facility] Comment on above: Performed By: #### C BCA, CMP, 5643-2, LIVR, 14648-7 #### [facility] ([id number]) [address] [place] [address] 24163 Eosinophils/100 WBC (Bld) 1.2 % Normal [facility] Comment on above: Performed By: #### Leonid MCRAE CMP, 5643-2, LIVR, 63572-0 #### [facility] ([id number]) [address] [place] [address] 44687 Erythrocyte distribution width (RBC) [Ratio] 13.3 % Normal 11.5-15.0 [facility] Comment on above: Performed By: #### Leonid MCRAE CMP, 5643-2, LIVR, #### [facility] ([id number]) [address] [place] [address] 47435 Hematocrit (Bld) [Volume fraction] 41.8 % Normal 39-49 [facility] Comment on above: Performed By: #### Leonid MCRAE CMP, 5643-2, LIVR, #### [facility] ([id number]) [address] [place] [address] 09064 Hemoglobin (Bld) [Mass/Vol] 15.0 g/dL Normal 13.0-17.0 [facility] Comment on above: Performed By: #### Leonid MCRAE CMP, 5643-2, LIVR, 08408-8 #### [facility] ([id number]) [address] [place] [address] 28852 Lymphocytes (Bld) [#/Vol] 1.8 10*3/uL Normal 1.0-3.5 [facility] Comment on above: Performed By: #### Leonid MCRAE, CMP, 5643-2, LIVR, 55435-8 #### [facility] ([id number]) [address] [place] [address] 46092 Lymphocytes/100 WBC (Bld) 22.8 % Normal [facility] Comment on above: Performed By: #### Leonid MCRAE CMP, 5643-2, LIVR, #### [facility] ([id number]) [address] [place] [address] 08221 MCH (RBC) [Entitic mass] 29.9 pg Normal 27-34 [facility] Comment on above: Performed By: #### C BCA, CMP, 5643-2, LIVR, #### [facility] ([id number]) [address] [place] [address] 75666 MCHC (RBC) [Mass/Vol] 35.8 g/dL Normal 32-36 [facility] Comment on above: Performed By: #### Leonid BCA, CMP, 5643-2, LIVR, #### [facility] ([id number]) [address] [place] [address] 77788 MCV (RBC) [Entitic vol] 84 fL Normal 80-100 [facility] Comment on above: Performed By: #### Leonid BCA, CMP, 5643-2, LIVR, #### [facility] ([id number]) [address] [place] [address] 78749 Monocytes (Bld) [#/Vol] 0.6 10*3/uL Normal 0-0.9 [facility] Comment on above: Performed By: #### Leonid BCA, CMP, 5643-2, LIVR, #### [facility] ([id number]) [address] [place] [address] 73080 Monocytes/100 WBC (Bld) 7.4 % Normal [facility] Comment on above: Performed By: #### Leonid BCA, CMP, 5643-2, LIVR, #### [facility] ([id number]) [address] [place] [address] 18332 Neutrophils/100 WBC (Bld) 68.0 % Normal [facility] Comment on above: Performed By: #### Leonid BCA, CMP, 5643-2, LIVR, #### [facility] ([id number]) [address] [place] [address] 20478 Platelet mean volume (Bld) [Entitic vol] 7.2 fL Normal 7-12 [facility] Comment on above: Performed By: #### C BCA, CMP, 5643-2, LIVR, 33574-7 #### [facility] ([id number]) [address] [place] [address] 19814 Platelets (Bld) [#/Vol] 376 10*3/uL Normal 150-450 [facility] Comment on above: Performed By: #### C BCA, CMP, 5643-2, LIVR, 30285-8 #### [facility] ([id number]) [address] [place] [address] 04236 RBC COUNT 5.01 X10E12/L Normal 4.10-5.70 [facility] Comment on above: Performed By: #### C BCA, CMP, 5643-2, LIVR, 35917-7 #### [facility] ([id number]) [address] [place] [address] 43684 WBC (Bld) [#/Vol] 7.9 10*3/uL Normal 4.0-11.0 [facility] Comment on above: Performed By: #### C BCA, CMP, 5643-2, LIVR, 07569-6 #### [facility] ([id number]) [address] [place] [address] 73647 COMPREHENSIVE METABOLIC PANE Boaz 05-09-2024 Albumin [Mass/Vol] 4.8 g/dL Normal 3.2-5.3 [facility] Comment on above: Performed By: #### C BCA, CMP, 5643-2, LIVR, 46374-9 #### [facility] ([id number]) [address] [place] [address] 05112 ALP [Catalytic activity/Vol] 66 U/L Normal 39-130 [facility] Comment on above: Performed By: #### C BCA, CMP, 5643-2, LIVR, 98224-7 #### [facility] ([id number]) [address] [place] [address] 25080 ALT [Catalytic activity/Vol] 24 U/L Normal 0-40 [facility] Comment on above: Performed By: #### C BCA, CMP, 5643-2, LIVR, #### [facility] ([id number]) [address] [place] [address] 13618 Anion gap [Moles/Vol] 8 mmol/L Normal 5-15 [facility] Comment on above: Performed By: #### C BCA, CMP, 5643-2, LIVR, #### [facility] ([id number]) [address] [place] [address] 47859 AST [Catalytic activity/Vol] 22 U/L Normal 0-41 [facility] Comment on above: Performed By: #### C BCA, CMP, 5643-2, LIVR, 55422-8 #### [facility] ([id number]) [address] [place] [address] 87082 Bilirubin [Mass/Vol] 0.9 mg/dL Normal 0.3-1.2 [facility] Comment on above: Performed By: #### C BCA, CMP, 5643-2, LIVR, #### [facility] ([id number]) [address] [place] [address] 45616 Calcium [Mass/Vol] 9.6 mg/dL Normal 8.5-10.5 [facility] Comment on above: Performed By: #### C BCA, CMP, 5643-2, LIVR, #### [facility] ([id number]) [address] [place] [address] 58157 Chloride [Moles/Vol] 101 mmol/L Normal 98-109 [facility] Comment on above: Performed By: #### C LORNA MCRAE, 5643-2, LIVR, 35820-9 #### [facility] ([id number]) [address] [place] [address] 37978 CO2 [Moles/Vol] 28 mmol/L Normal 22-32 [facility] Comment on above: Performed By: #### C CLEMENTINA CMP, 5643-2, LIVR, 67621-1 #### [facility] ([id number]) [address] [place] [address] 51757 Creatinine [Mass/Vol] 0.94 mg/dL Normal 0.70-1.20 [facility] Comment on above: Result Comment: METH OD TRACEABLE TO IDMS STANDARD Performed By: #### C LORNA MCRAE, 5643-2, LIVR, 54905-6 #### [facility] ([id number]) [address] [place] [address] 19441 eGFR (CKD-EPI) NON-RACE DEPENDENT >90 Normal >59 [facility] Comment on above: Result Comment: Reported eGFR is based on the CKD-EPI 2020 equation that does not use a race coefficient. Performed By: #### C LORNA MCRAE, 5643-2, LIVR, 22343-8 #### [facility] ([id number]) [address] [place] [address] 82693 Glucose [Mass/Vol] 124 mg/dL High 65-99 [facility] Comment on above: Performed By: #### C CLEMENTINA, CMP, 5643-2, LIVR, 07292-6 #### [facility] ([id number]) [address] [place] [address] 80012 Potassium [Moles/Vol] 3.9 mmol/L Normal 3.5-5.0 [facility] Comment on above: Performed By: #### C BCA, CMP, 5643-2, LIVR, 86230-1 #### [facility] ([id number]) [address] [place] [address] Protein [Mass/Vol] 7.5 g/dL Normal 6.0-8.0 [facility] Comment on above: Performed By: #### C BCA, CMP, 5643-2, LIVR, 55704-1 #### [facility] ([id number]) [address] [place] [address] 03547 Sodium [Moles/Vol] 137 mmol/L Normal 134-146 [facility] Comment on above: Performed By: #### C BCA, CMP, 5643-2, LIVR, 10953-2 #### [facility] ([id number]) [address] [place] [address] 18865 Urea nitrogen [Mass/Vol] 16 mg/dL Normal 5-23 [facility] Comment on above: Performed By: #### C BCA, CMP, 5643-2, LIVR, 77188-3 #### [facility] ([id number]) [address] [place] [address] BRAIN WO CONTon CT BRAIN WO CONT CT BRAIN WO CONT STUDY: CT HEAD WITHOUT CONTRAST CLINICAL HISTORY: Pt states he felt a pop behind his right ear and then passed out. States he was told he hit the back of his head and had a seizure. Pt states he has a slight headache now. Denies dizziness and blurred vision. COMPARISON: Head CT dated 01/23/2023. TECHNIQUE: Multidetector axial images are obtained through the head. Automated exposure control was utilized. FINDINGS: No acute intracranial hemorrhage, midline shift or mass effect. Ventricular and cistern spaces are normal and symmetric. Wallace and white matter differentiation is well preserved. No intra or extra-axial fluid collections or mass occupying lesions. Bilateral cerebellopontine angles are grossly unremarkable. Visualized orbital contents are normal. Study reviewed in bone windows shows no abnormalities. All visualized sinuses are normally aerated. Bilateral temporomandibular joints are normally aligned. IMPRESSION: No evidence of an acute intracranial process. All CT scans at this facility use dose modulation, iterative reconstruction, and/or weight based dosing when appropriate to reduce radiation dose to as low as reasonably achievable. Finalized by Allyssa Calvin MD on 05/09/2024 10:50 PM Normal [facility] DRUG SCREEN, URINEon 025 AMPHETAMINE/METHAMP Negative Normal NEG [facility] Comment on above: Result Comment: AMPH /METH screening cut off = 1000 ng/mL Performed By: #### D FLORES #### [facility] ([id number]) [address] [place] [address] 23438 BARBITURATES Negative Normal NEG [facility] Comment on above: Result Comment: Rossy iturates screening cut off value = 200 ng/mL Performed By: #### D FLORES #### [facility] ([id number]) [address] [place] [address] 04879 BENZODIAZEPINES Negative Normal NEG [facility] Comment on above: Result Comment: Alexander odiazepines screening cut off value = 200 ng/mL Performed By: #### D FLORES #### [facility] ([id number]) [address] [place] [address] 97119 CANNABINOIDS Positive Abnormal NEG [facility] Comment on above: Result Comment: Conf irmation available upon request. Cannabinoids/THC screening cut off value = 50 ng/mL Performed By: #### D FLORES #### [facility] ([id number]) [address] [place] [address] 18565 COCAINE METABOLITE Negative Normal NEG [facility] Comment on above: Result Comment: Coca ine screening cut off value = 300 ng/mL Performed By: #### D FLORES #### [facility] ([id number]) [address] [place] [address] 34318 ECSTASY Negative Normal NEG [facility] Comment on above: Result Comment: Ecst asy screening cut off value = 500 ng/mL This report is intended for use in clinical monitoring or management of patients. Performed By: #### D FLORES #### [facility] ([id number]) [address] [place] [address] 29525 METHADONE Negative Normal NEG [facility] Comment on above: Result Comment: Meth adone screening cut off value = 300 ng/mL. Performed By: #### D FLORES #### [facility] ([id number]) [address] [place] [address] 96620 OPIATES Negative Normal NEG [facility] Comment on above: Result Comment: Opia abimbola screening cut off value = 300 ng/mL NOTE: This test is used for the detection of codeine, hydrocodone (>1000 ng/mL), morphine and hydromorphone (>900 ng/mL) in urine. Performed By: #### D FLORES #### [facility] ([id number]) [address] [place] [address] 87165 OXYCODONE Negative Normal NEG [facility] Comment on above: Result Comment: Oxyc odone screening cut off value = 300 ng/mL NOTE: This test is used for the detection of oxycodone and oxymorphone in urine. Performed By: #### D FLORES #### [facility] ([id number]) [address] [place] [address] 14643 PHENCYCLIDINE Negative Normal NEG [facility] Comment on above: Result Comment: Phen cyclidine screening cut off value = 25 ng/mL Performed By: #### D FLORES #### [facility] ([id number]) [address] [place] [address] 66712 ETHANOLon 05-09-2024 Ethanol [Mass/Vol] mg/dL Normal 0.00-0.08 [facility] Comment on above: Result Comment: This report is intended for use in clinical monitoring or management of patients. Performed By: #### C BCA, CMP, 5643-2, LIVR, 55509-8 #### [facility] ([id number]) [address] [place] [address] 88942 LIVER PANELon 05-09-2024 Bilirubin.indirect [Mass/Vol] mg/dL Normal 0.0-0.4 [facility] Comment on above: Performed By: #### C CLEMENTINA, LORNA, 5643-2, LIVR, 47890-0 #### [facility] ([id number]) [address] [place] [address] 58292 MAGNESIUMon 05-09-2024 Magnesium [Mass/Vol] 2.2 mg/dL Normal 1.8-2.6 [facility] Comment on above: Performed By: #### C CLEMENTINA, LORNA, 5643-2, LIVR, 83769-5 #### [facility] ([id number]) [address] [place] [address] 43121 URN MACROSCOPIC NURon 2024 BILIRUBIN MERRY Small Abnormal NEG [facility] Comment on above: Performed By: #### N UM #### [facility] ([id number]) [address] [place] [address] 65687 BLOOD/HGB MERRY Trace Abnormal NEG [facility] Comment on above: Performed By: #### N UM #### [facility] ([id number]) [address] [place] [address] 13553 GLUCOSE MERRY Negative Normal NEG [facility] Comment on above: Performed By: #### N UM #### [facility] ([id number]) [address] [place] [address] [place] [address] KETONES MERRY 15 mg/dL Abnormal NEG [facility] Comment on above: Performed By: #### N UM #### [facility] ([id number]) [address] [place] [address] [place] [address] LEUKOCYTE ESTERASE MERRY Negative Normal NEG [facility] Comment on above: Performed By: #### N UM #### [facility] ([id number]) [address] [place] [address] 88400 NITRITE MERRY Negative Normal NEG [facility] Comment on above: Performed By: #### N UM #### [facility] ([id number]) [address] [place] [address] 54498 PH MERRY 7.5 Normal 5.0-8.5 [facility] Comment on above: Performed By: #### N UM #### [facility] ([id number]) [address] [place] [address] 61813 PROTEIN MERRY 100 mg/dL Abnormal NEG [facility] Comment on above: Performed By: #### N UM #### [facility] ([id number]) [address] [place] [address] 51150 SPECIFIC GRAVITY MERRY >=1.030 Normal 1.003-1.035 [facility] Comment on above: Performed By: #### N UM #### [facility] ([id number]) [address] [place] [address] 95673 UROBILINOGEN MERRY 0.2 eu/dL Normal <1.1 [facility] Comment on above: Performed By: #### N UM #### [facility] ([id number]) [address] [place] [address] 22813 Sherry 11-03-2022 SEVERO Telephone (GSTNOR) ----- NEFTALY MORALES ([id number]) 1 M Date Time Provider Department 11/03/22 JENNIFER TURK During your visit today, we recorded the following information about you: Shraddha Serna Sec 11/03/2022 9:41 AM Signed Results of 11/02/ abdominal x-ray you ordered on patient can be found in Care Everywhere. It was performed at [facility]. Shraddha Turk PA-C 11/03/2022 9:47 AM Signed Please let patient know his abdominal x-ray is showing moderate stool within colon consistent with constipation. Recommend continuing with Miralax and can add a stool softener nightly. Recommend high fiber diet, 64 oz of water daily Monica Gomez Ma 11/03/2022 10:27 AM Signed Pt notified Monica Gomez Ma Allergies As of Date: 11/03/2022 Noted Allergy Reaction MONOSODIUM GLUTAMATE 01/09/2018 14 - Other: See Comments Comments: MIGRAINES MIGRAINES BEEF DERIVED (BOVINE) 03/08/2018 14 - Other: See Comments Comments: FROM SKIN TEST. PEGADEMASE BOVINE 03/08/2018 14 - Other: See Comments Comments: FROM SKIN TEST. PORACTANT ELENA 03/08/2018 14 - Other: See Comments Comments: FROM SKIN TEST. PORK DERIVED (PORCINE) 03/08/2018 14 - Other: See Comments Comments: FROM SKIN TEST. LACTALBUMIN 03/08/2018 14 - Other: See Comments Comments: FROM SKIN TEST. MILK 03/08/2018 14 - Other: See Comments Comments: FROM SKIN TEST. Date Reviewed: 09/12/2022 Reviewed by: Casandra Reyes RN - Fully Assessed Reason for Visit: Results [95] Prescriptions as of 11/03/2022 - dicyclomine (BENTYL) 20 mg tablet Take 1 tablet by mouth three times daily. - fluticasone (FLONASE) 50 mcg/actuation nasal spray Use 1 [place] in the nose. - ondansetron (ZOFRAN) 8 mg tablet TAKE 1 TABLET BY MOUTH EVERY 12 HOURS NEEDED FOR NAUSEA OR VOMITING. - hyoscyamine sulfate 0.[address] 1 TABLET (125 MCG) UNDER THE TONGUE IN THE MORNING, AT NOON, IN THE EVENING, AND BEFORE BEDTIME. - ondansetron orally disintegrating (ZOFRAN ODT) 8 mg disintegrating tablet Take 1 tablet by mouth every 8 hours as needed for nausea/vomiting. - hyoscyamine sublingual (LEVSIN/SL) 0.125 mg Dissolve 1 tablet under the tongue every 4 hours as needed. - diclofenac sodium (VOLTAREN) 1 % topical gel Apply 2 g to affected area. - hyoscyamine sublingual (LEVSIN/SL) 0.125 mg subl Dissolve 1 tablet under the tongue every 4 hours as needed (for cramping abdominal pain). Dissolve under tongue. - SUMAtriptan (IMITREX) 50 mg tablet Start at onset of headache. May repeat after 2 hours. - polyethylene glycol 3350 (MIRALAX, GLYCOLAX) 17 gram/dose powder Take 17 g by mouth once daily. - albuterol HFA (PROVENTIL HFA, VENTOLIN HFA) 90 mcg/actuation inhaler Inhale 2 Puffs as instructed as needed. - omeprazole (PRILOSEC) 20 mg capsule Take 1 capsule by mouth twice daily. - diphenhydrAMINE (BENADRYL) 25 mg capsule Take 1 capsule by mouth daily at bedtime. For nausea/vomiting Facility-Administered Medications as of 11/03/2022 - lidocaine (PF) 10 mg/mL (1 %) 1-2 mg injection (XYLOCAINE) - NaCl 0.9% iv infusion Problem List As Of Date 11/03/2022 Noted Resolved Closed fracture of radius [S52.90XA] 12/02/2015 Contusion of bone [T14.8XXA] 06/06/2016 Acute post-traumatic headache, not intractable *06/23/2016 Migraine without aura and without status migrai*06/23/2016 Nausea [R11.0] 07/11/2018 Non-intractable cyclical vomiting with nausea [*07/11/2018 Recurrent vomiting [R11.10] Migraines [G43.909] Adopted [Z02.82] Other constipation [K59.09] 09/13/2018 Attention deficit hyperactivity disorder (ADHD)*11/05/2019 Oppositional defiant disorder [F91.3] 11/05/2019 Psychophysiological insomnia [F51.04] 02/04/2020 Trauma [T14.90XA] 03/03/2020 Encounter Status:Closed by JENNIFER TURK on 11/03/22 [facility] Sherry 10-25-2022 SEVERO Telephone (GSTNOR) ----- KEENANRONALD MultaniCHAVA Rothman ([id number]) 1 M Date Time Provider Department 10/25/22 JENNIFER TURK During your visit today, we recorded the following information about you: Monica Todd Richardmanpreetjacqui Latif 10/25/2022 4:01 PM Signed Pt left a message wanting his XR order sent to somewhere closer to him. [facility] advised to let us know where he wants to go so we can fax the order. Monica Gomez Ma Monica Todd Richardmanpreetjacqui Latif 10/25/2022 4:14 PM Signed Per pt request faxed XR order to [facility] [phone] and [phone] Monica Salvador Peyton Bernadette Latif 10/27/2022 2:12 PM Signed Pt called back and stated that the XR order needs faxed to [phone]. Faxed order Monica Gomez Ma Allergies As of Date: 10/25/2022 Noted Allergy Reaction MONOSODIUM GLUTAMATE 01/09/2018 14 - Other: See Comments Comments: MIGRAINES MIGRAINES BEEF DERIVED (BOVINE) 03/08/2018 14 - Other: See Comments Comments: FROM SKIN TEST. PEGADEMASE BOVINE 03/08/2018 14 - Other: See Comments Comments: FROM SKIN TEST. PORACTANT ELENA 03/08/2018 14 - Other: See Comments Comments: FROM SKIN TEST. PORK DERIVED (PORCINE) 03/08/2018 14 - Other: See Comments Comments: FROM SKIN TEST. LACTALBUMIN 03/08/2018 14 - Other: See Comments Comments: FROM SKIN TEST. MILK 03/08/2018 14 - Other: See Comments Comments: FROM SKIN TEST. Date Reviewed: 09/12/2022 Reviewed by: Casandra Reyes RN - Fully Assessed Reason for Visit: Orders [[id number]] Prescriptions as of 10/27/2022 - dicyclomine (BENTYL) 20 mg tablet Take 1 tablet by mouth three times daily. - fluticasone (FLONASE) 50 mcg/actuation nasal spray Use 1 [place] in the nose. - ondansetron (ZOFRAN) 8 mg tablet TAKE 1 TABLET BY MOUTH EVERY 12 HOURS NEEDED FOR NAUSEA OR VOMITING. - hyoscyamine sulfate 0.[address] 1 TABLET (125 MCG) UNDER THE TONGUE IN THE MORNING, AT NOON, IN THE EVENING, AND BEFORE BEDTIME. - ondansetron orally disintegrating (ZOFRAN ODT) 8 mg disintegrating tablet Take 1 tablet by mouth every 8 hours as needed for nausea/vomiting. - hyoscyamine sublingual (LEVSIN/SL) 0.125 mg Dissolve 1 tablet under the tongue every 4 hours as needed. - diclofenac sodium (VOLTAREN) 1 % topical gel Apply 2 g to affected area. - hyoscyamine sublingual (LEVSIN/SL) 0.125 mg subl Dissolve 1 tablet under the tongue every 4 hours as needed (for cramping abdominal pain). Dissolve under tongue. - SUMAtriptan (IMITREX) 50 mg tablet Start at onset of headache. May repeat after 2 hours. - polyethylene glycol 3350 (MIRALAX, GLYCOLAX) 17 gram/dose powder Take 17 g by mouth once daily. - albuterol HFA (PROVENTIL HFA, VENTOLIN HFA) 90 mcg/actuation inhaler Inhale 2 Puffs as instructed as needed. - omeprazole (PRILOSEC) 20 mg capsule Take 1 capsule by mouth twice daily. - diphenhydrAMINE (BENADRYL) 25 mg capsule Take 1 capsule by mouth daily at bedtime. For nausea/vomiting Facility-Administered Medications as of 10/27/2022 - lidocaine (PF) 10 mg/mL (1 %) 1-2 mg injection (XYLOCAINE) - NaCl 0.9% iv infusion Problem List As Of Date 10/25/2022 Noted Resolved Closed fracture of radius [S52.90XA] 12/02/2015 Contusion of bone [T14.8XXA] 06/06/2016 Acute post-traumatic headache, not intractable *06/23/2016 Migraine without aura and without status migrai*06/23/2016 Nausea [R11.0] 07/11/2018 Non-intractable cyclical vomiting with nausea [*07/11/2018 Recurrent vomiting [R11.10] Migraines [G43.909] Adopted [Z02.82] Other constipation [K59.09] 09/13/2018 Attention deficit hyperactivity disorder (ADHD)*11/05/2019 Oppositional defiant disorder [F91.3] 11/05/2019 Psychophysiological insomnia [F51.04] 02/04/2020 Trauma [T14.90XA] 03/03/2020 Encounter Status:Closed by MONICA GOMEZ MA on 10/25/22 [facility] Tele[facility] (GST[facility]) ----- NEFTALY MORALES ([id number]) 1 Date Time Provider Department 10/17/22 JENNIFER TURK During your visit today, we recorded the following information about you: Monica Gomez Ma 10/17/2022 11:55 AM Signed Pt states his abdominal cramping is getting worse. Medication is not helping. He scheduled a follow up but it's not until 12/27/22. Monica Turk PA-C 10/17/2022 12:46 PM Signed Will try Bentyl 20 mg PRN TID. Script sent. Patient needs to keep close food diary to pinpoint triggers. Monica Gomez Ma 10/17/2022 1:09 PM Signed LMTRC Monica Gomez Ma 10/17/2022 1:31 PM Signed Pt notified. He also stated that when he vomits it's white and foamy. And he doesn't have BM's daily but when he does it's sometimes hard and sometimes loose. He doesn't think his bowels are moving well and that's what causes the cramping and then he vomits. He was taking Miralax once daily but wasn't helping. Should he take Miralax BID? Monica Turk PA-C 10/17/2022 1:34 PM Signed We can get an x-ray of his belly to look for a stool burden. We may need to switch him entirely to something else besides Miralax. X-ray ordered. Jennifer Turk PA-C 10/17/2022 1:35 PM Signed Addended by: JENNIFER TURK on: 10/17/2022 01:35 PM Modules accepted: Orders Monica Gomez Ma 10/17/2022 2:00 PM Signed Pt notified Monica Gomez Ma Allergies As of Date: 10/17/2022 Noted Allergy Reaction MONOSODIUM GLUTAMATE 01/09/2018 14 - Other: See Comments Comments: MIGRAINES MIGRAINES BEEF DERIVED (BOVINE) 03/08/2018 14 - Other: See Comments Comments: FROM SKIN TEST. PEGADEMASE BOVINE 03/08/2018 14 - Other: See Comments Comments: FROM SKIN TEST. PORACTANT ELENA 03/08/2018 14 - Other: See Comments Comments: FROM SKIN TEST. PORK DERIVED (PORCINE) 03/08/2018 14 - Other: See Comments Comments: FROM SKIN TEST. LACTALBUMIN 03/08/2018 14 - Other: See Comments Comments: FROM SKIN TEST. MILK 03/08/2018 14 - Other: See Comments Comments: FROM SKIN TEST. Date Reviewed: 09/12/2022 Reviewed by: Casandra Reyes RN - Fully Assessed Reason for Visit: Patient Update [1234] Primary Visit Diagnosis:Alternating constipation and diarrhea [R19.8] Other Visit Diagnosis:Abdominal cramping [R10.9] Order(s):dicyclomine (BENTYL) 20 mg tabletTake 1 tablet by mouth three times daily.Disp: 90 tabletRfl: 1 XR ABDOMEN 2V ROUTINE SUPINE W UPRIGHT/DECUB/CTL [[id number]] Order #: [id number] FUTURE Prescriptions as of 10/17/2022 - dicyclomine (BENTYL) 20 mg tablet Take 1 tablet by mouth three times daily. - fluticasone (FLONASE) 50 mcg/actuation nasal spray Use 1 [place] in the nose. - ondansetron (ZOFRAN) 8 mg tablet TAKE 1 TABLET BY MOUTH EVERY 12 HOURS NEEDED FOR NAUSEA OR VOMITING. - hyoscyamine sulfate 0.[address] 1 TABLET (125 MCG) UNDER THE TONGUE IN THE MORNING, AT NOON, IN THE EVENING, AND BEFORE BEDTIME. - ondansetron orally disintegrating (ZOFRAN ODT) 8 mg disintegrating tablet Take 1 tablet by mouth every 8 hours as needed for nausea/vomiting. - hyoscyamine sublingual (LEVSIN/SL) 0.125 mg Dissolve 1 tablet under the tongue every 4 hours as needed. - diclofenac sodium (VOLTAREN) 1 % topical gel Apply 2 g to affected area. - hyoscyamine sublingual (LEVSIN/SL) 0.125 mg subl Dissolve 1 tablet under the tongue every 4 hours as needed (for cramping abdominal pain). Dissolve under tongue. - SUMAtriptan (IMITREX) 50 mg tablet Start at onset of headache. May repeat after 2 hours. - polyethylene glycol 3350 (MIRALAX, GLYCOLAX) 17 gram/dose powder Take 17 g by mouth once daily. - albuterol HFA (PROVENTIL HFA, VENTOLIN HFA) 90 mcg/actuation inhaler Inhale 2 Puffs as instructed as needed. - omeprazole (PRILOSEC) 20 mg capsule Take 1 capsule by mouth twice daily. - diphenhydrAMINE (BENADRYL) 25 mg capsule Take 1 capsule by mouth daily at bedtime. For nausea/vomiting Facility-Administered Medications as of 10/17/2022 - lidocaine (PF) 10 mg/mL (1 %) 1-2 mg injection (XYLOCAINE) - NaCl 0.9% iv infusion Problem List As Of Date 10/17/2022 Noted Resolved Closed fracture of radius [S52.90XA] 12/02/2015 Contusion of bone [T14.8XXA] 06/06/2016 Acute post-traumatic headache, not intractable *06/23/2016 Migraine without aura and without status migrai*06/23/2016 Nausea [R11.0] 07/11/2018 Non-intractable cyclical vomiting with nausea [*07/11/2018 Recurrent vomiting [R11.10] Migraines [G43.909] Adopted [Z02.82] Other constipation [K59.09] 09/13/2018 Attention deficit hyperactivity disorder (ADHD)*11/05/2019 Oppositional defiant disorder [F91.3] 11/05/2019 Psychophysiological insomnia [F51.04] 02/04/2020 Trauma [T14.90XA] 03/03/2020 Prescriptions ordered this encounter Disp Refills Start End DICYCLOMINE 20 MG TABLET 90 t* 1 10/17/2022 Route: (more content not included)... [facility]GST[facility] ----- NEFTALY MORALES ([id number]) 1 M Date Time Provider Department 10/12/22 JENNIFER TURK During your visit today, we recorded the following information about you: Monica Todd Richardmanpreetjacqui Latif 10/12/2022 1:59 PM Signed Pt states that he is still vomiting at least 1-2 times a week. He has been sick the past couple of days. He states he is on the verge of losing his job. His employer stated that he would have to have a form filled out (90 day medical form) by his doctor in order to not receive any points at work. Asked pt to fax the form over to us and we would let him know. Monica Turk PA-C 10/12/2022 2:05 PM Signed He should also have a follow up, I do not see anything in the system. Monica Gomez Ma 10/12/2022 4:05 PM Signed Pt notified he needs a follow up appt. Transferred to scheduling Monica Gomez Ma Monica Todd Bernadette Latif 10/12/2022 4:21 PM Signed Pt scheduled a follow up appt. He is also asking if he can have a work excuse for being sick on Monday, Monday and today. Pt states if he can't get an excuse for these days he is fired from his job. He is also having the 90 day medical form faxed to us tomorrow to look over and fill out if possible. Monica Peyton Bernadette Turk PA-C 10/13/2022 6:55 AM Signed Yes, that is fine. Monica Howardjacqui Latif 10/13/2022 8:27 AM Signed Letter ready. Waiting on patient to call with the fax number to send to his employer. Monica Todd Bernadette Latif Allergies As of Date: 10/12/2022 Noted Allergy Reaction MONOSODIUM GLUTAMATE 01/09/2018 14 - Other: See Comments Comments: MIGRAINES MIGRAINES BEEF DERIVED (BOVINE) 03/08/2018 14 - Other: See Comments Comments: FROM SKIN TEST. PEGADEMASE BOVINE 03/08/2018 14 - Other: See Comments Comments: FROM SKIN TEST. PORACTANT ELENA 03/08/2018 14 - Other: See Comments Comments: FROM SKIN TEST. PORK DERIVED (PORCINE) 03/08/2018 14 - Other: See Comments Comments: FROM SKIN TEST. LACTALBUMIN 03/08/2018 14 - Other: See Comments Comments: FROM SKIN TEST. MILK 03/08/2018 14 - Other: See Comments Comments: FROM SKIN TEST. Date Reviewed: 09/12/2022 Reviewed by: Casandra Reyes RN - Fully Assessed Reason for Visit: Patient Question [1827] Prescriptions as of 10/13/2022 - fluticasone (FLONASE) 50 mcg/actuation nasal spray Use 1 [place] in the nose. - ondansetron (ZOFRAN) 8 mg tablet TAKE 1 TABLET BY MOUTH EVERY 12 HOURS NEEDED FOR NAUSEA OR VOMITING. - hyoscyamine sulfate 0.[address] 1 TABLET (125 MCG) UNDER THE TONGUE IN THE MORNING, AT NOON, IN THE EVENING, AND BEFORE BEDTIME. - ondansetron orally disintegrating (ZOFRAN ODT) 8 mg disintegrating tablet Take 1 tablet by mouth every 8 hours as needed for nausea/vomiting. - hyoscyamine sublingual (LEVSIN/SL) 0.125 mg Dissolve 1 tablet under the tongue every 4 hours as needed. - diclofenac sodium (VOLTAREN) 1 % topical gel Apply 2 g to affected area. - hyoscyamine sublingual (LEVSIN/SL) 0.125 mg subl Dissolve 1 tablet under the tongue every 4 hours as needed (for cramping abdominal pain). Dissolve under tongue. - SUMAtriptan (IMITREX) 50 mg tablet Start at onset of headache. May repeat after 2 hours. - polyethylene glycol 3350 (MIRALAX, GLYCOLAX) 17 gram/dose powder Take 17 g by mouth once daily. - albuterol HFA (PROVENTIL HFA, VENTOLIN HFA) 90 mcg/actuation inhaler Inhale 2 Puffs as instructed as needed. - omeprazole (PRILOSEC) 20 mg capsule Take 1 capsule by mouth twice daily. - diphenhydrAMINE (BENADRYL) 25 mg capsule Take 1 capsule by mouth daily at bedtime. For nausea/vomiting Facility-Administered Medications as of 10/13/2022 - lidocaine (PF) 10 mg/mL (1 %) 1-2 mg injection (XYLOCAINE) - NaCl 0.9% iv infusion Problem List As Of Date 10/12/2022 Noted Resolved Closed fracture of radius [S52.90XA] 12/02/2015 Contusion of bone [T14.8XXA] 06/06/2016 Acute post-traumatic headache, not intractable *06/23/2016 Migraine without aura and without status migrai*06/23/2016 Nausea [R11.0] 07/11/2018 Non-intractable cyclical vomiting with nausea [*07/11/2018 Recurrent vomiting [R11.10] Migraines [G43.909] Adopted [Z02.82] Other constipation [K59.09] 09/13/2018 Attention deficit hyperactivity disorder (ADHD)*11/05/2019 Oppositional defiant disorder [F91.3] 11/05/2019 Psychophysiological insomnia [F51.04] 02/04/2020 Trauma [T14.90XA] 03/03/2020 Letter Text Encounter Status:Closed by MONICA GOMEZ MA on 10/12/22 [facility] 09-14-2022 JACQUI Telephone (GSTNOR) ----- NEFTALY MORALES ([id number]) 1 M Date Time Provider Department 09/14/22 JENNIFER TURK During your visit today, we recorded the following information about you: Monica Gomez Salomon 09/14/2022 9:51 AM Signed ----- Message from Jennifer Turk PA-C sent at 09/14/2022 9:42 AM EDT ----- Please let patient know that his EGD biopsies are negative. Would like him to continue on his Omeprazole and Zofran. Monica Howardjacqui Latif 09/14/2022 9:52 AM Signed LMTRC Monica M Richardmanpreetjacqui Latif Monica Gomez Salomon 09/14/2022 9:59 AM Signed Pt notified Monica Todd Richardmanpreetjacqui Latif Allergies As of Date: 09/14/2022 Noted Allergy Reaction MONOSODIUM GLUTAMATE 01/09/2018 14 - Other: See Comments Comments: MIGRAINES MIGRAINES BEEF DERIVED (BOVINE) 03/08/2018 14 - Other: See Comments Comments: FROM SKIN TEST. PEGADEMASE BOVINE 03/08/2018 14 - Other: See Comments Comments: FROM SKIN TEST. PORACTANT ELENA 03/08/2018 14 - Other: See Comments Comments: FROM SKIN TEST. PORK DERIVED (PORCINE) 03/08/2018 14 - Other: See Comments Comments: FROM SKIN TEST. LACTALBUMIN 03/08/2018 14 - Other: See Comments Comments: FROM SKIN TEST. MILK 03/08/2018 14 - Other: See Comments Comments: FROM SKIN TEST. Date Reviewed: 09/12/2022 Reviewed by: Casandra Reyes RN - Fully Assessed Reason for Visit: Results [95] Prescriptions as of 09/14/2022 - fluticasone (FLONASE) 50 mcg/actuation nasal spray Use 1 [place] in the nose. - ondansetron (ZOFRAN) 8 mg tablet TAKE 1 TABLET BY MOUTH EVERY 12 HOURS NEEDED FOR NAUSEA OR VOMITING. - hyoscyamine sulfate 0.[address] 1 TABLET (125 MCG) UNDER THE TONGUE IN THE MORNING, AT NOON, IN THE EVENING, AND BEFORE BEDTIME. - ondansetron orally disintegrating (ZOFRAN ODT) 8 mg disintegrating tablet Take 1 tablet by mouth every 8 hours as needed for nausea/vomiting. - hyoscyamine sublingual (LEVSIN/SL) 0.125 mg Dissolve 1 tablet under the tongue every 4 hours as needed. - diclofenac sodium (VOLTAREN) 1 % topical gel Apply 2 g to affected area. - hyoscyamine sublingual (LEVSIN/SL) 0.125 mg subl Dissolve 1 tablet under the tongue every 4 hours as needed (for cramping abdominal pain). Dissolve under tongue. - SUMAtriptan (IMITREX) 50 mg tablet Start at onset of headache. May repeat after 2 hours. - polyethylene glycol 3350 (MIRALAX, GLYCOLAX) 17 gram/dose powder Take 17 g by mouth once daily. - albuterol HFA (PROVENTIL HFA, VENTOLIN HFA) 90 mcg/actuation inhaler Inhale 2 Puffs as instructed as needed. - omeprazole (PRILOSEC) 20 mg capsule Take 1 capsule by mouth twice daily. - diphenhydrAMINE (BENADRYL) 25 mg capsule Take 1 capsule by mouth daily at bedtime. For nausea/vomiting Facility-Administered Medications as of 09/14/2022 - lidocaine (PF) 10 mg/mL (1 %) 1-2 mg injection (XYLOCAINE) - NaCl 0.9% iv infusion Problem List As Of Date 09/14/2022 Noted Resolved Closed fracture of radius [S52.90XA] 12/02/2015 Contusion of bone [T14.8XXA] 06/06/2016 Acute post-traumatic headache, not intractable *06/23/2016 Migraine without aura and without status migrai*06/23/2016 Nausea [R11.0] 07/11/2018 Non-intractable cyclical vomiting with nausea [*07/11/2018 Recurrent vomiting [R11.10] Migraines [G43.909] Adopted [Z02.82] Other constipation [K59.09] 09/13/2018 Attention deficit hyperactivity disorder (ADHD)*11/05/2019 Oppositional defiant disorder [F91.3] 11/05/2019 Psychophysiological insomnia [F51.04] 02/04/2020 Trauma [T14.90XA] 03/03/2020 Encounter Status:Closed by MONICA GOMEZ MA on 09/14/22 Normal [facility] EGD Study observation Lashell bustamante 09-14-2022 [facility] Patient Name: Neftaly Morales Procedure Date: 09/12/2022 6:56 AM Date of : 2005 Admit Type: Outpatient Age: 17 Room: [place] [address] Gender: Male Note Status: [place] Hand Override Attending MD: Liban Simpson MD Procedure: Upper GI endoscopy Indications: Abdominal pain, Dysphagia, Diarrhea Providers: Liban Simpson MD Patient Profile: This is a 17 year old male. Refer to note in patient chart for documentation of history and physical. Referring Physician: Jennifer Turk (Referring MD) Medicines: Monitored Anesthesia Care Complications: No immediate complications. Estimated blood loss: Minimal. Requesting Provider: Procedure: Pre-Anesthesia Assessment: - Prior to the procedure, a History and Physical was performed, and patient medications and allergies were reviewed. The patient's tolerance of previous anesthesia was also reviewed. The risks and benefits of the procedure and the sedation options and risks were discussed with the patient. All questions were answered, and informed consent was obtained. Prior Anticoagulants: The patient has taken no anticoagulant or antiplatelet agents. ASA Grade Assessment: II - A patient with mild systemic disease. After reviewing the risks and benefits, the patient was deemed in satisfactory condition to undergo the procedure. After obtaining informed consent, the endoscope was passed under direct vision. Throughout the procedure, the patient's blood pressure, pulse, and oxygen saturations were monitored continuously. The Endoscope was introduced through the mouth, and advanced to the second part of duodenum. I was present and participated during the entire procedure, including non-barry portions, and during the administration and monitoring of Moderate Sedation. The upper GI endoscopy was accomplished without difficulty. The patient tolerated the procedure well. Moderate Sedation: MAC anesthesia was administered by the anesthesia team. Findings: The Z-line was regular and was found 41 cm from the incisors. Minimal residual food contents in the stomach. The exam of the stomach was otherwise normal. Biopsies were taken with a cold forceps in the stomach for Helicobacter pylori testing. Verification of patient identification for the specimen was done. Estimated blood loss was minimal. A few localized erosions without bleeding were found in the duodenal bulb. Biopsies were taken with a cold forceps for histology. Verification of patient identification for the specimen was done. Estimated blood loss was minimal. The exam of the duodenum was otherwise normal. Biopsies were taken with a cold forceps in the upper third of the esophagus and in the lower third of the esophagus for histology. Verification of patient identification for the specimen was done. Estimated blood loss was minimal. A guidewire was placed and the scope was withdrawn. Dilation was performed in the entire esophagus with a Savary dilator with mild resistance at 18 mm. Impression: - Z-line regular, 41 cm from the incisors. - Minimal residual food contents in the stomach. - Duodenal erosions without bleeding. Biopsied. Rule out celiac, peptic duodenitis - Biopsies were taken with a cold forceps for Helicobacter pylori testing. - Biopsies were taken with a cold forceps for histology in the upper third of the esophagus and in the lower third of the esophagus. Rule out EoE - Dilation performed in the entire esophagus. No disruption with savary 18 mm. Recommendation: - Discharge patient to home (ambulatory). - Advance diet as tolerated. - Continue present medications. - Await pathology r (more content not included)... PROVATION [facility] SURGICAL PATHOLOGYOrdered By : Talat Kam on 09-14-2022 Case Report Surgical Pathology R eport Case: [id number] Authorizing Provider: Liban Simpson MD Collected: 09/12/2022 07:01 AM Ordering Location: Ambulatory Surgery Received: 09/12/2022 10:39 PM Pathologist: Talat Kam MD Specimens: A) - DUODENUM BIOPSY, r/o celiac disease, hx of diarrhea B) - STOMACH BIOPSY, hx. of stomach pain C) - ESOPHAGUS BIOPSY, distal D) - ESOPHAGUS PROXIMAL BIOPSY [facility] FINAL DIAGNOSIS z5lmaYXlAXNwrQXeBTGi NVxhb rVjNBBqrKOyK9BagtowOHkuWZ 3jNS2xrGrdiMMavVBhTWNqLyI wb3ira322iFVdq2iqEHTVaira rMt7aXdsK51qe2C6KgfpT03ru LHoRZV6VBTdDXNiaXFxGKCtOE H2CMMopYPwX6agHPWiFD9ojkt qCSoaQBnmGUFswMK0HYDkaZMv F8EnSLQgEVvfYQDmnkl4KfZbL o7tqGYxtUsjBCzwZJGkHMOhHW ffQULuVpLjMZ9vDXZ2e8BcmsE xNBCfoX4fx4p2QKWcazrnziXo w0jiYDPqMXqwTIHum3CoGM92O 65cVEW3oDQmXD3kLKKsY51dYs lvMZ74JWVqyVoinZ7qqOYaJ4c throsvi0lrGCwOOKgSTQgrZDa Wa3iHDRiMKDaH6Mfw7KgM0Lhl WFjIHNwcnVlLlxwYXJccGFyIE MwDVMJhH5tSCYxPNZttW5yw5s 3KGThgmieeyDby1ydLCD7wpLq SjEmhDWla3Rfh7v4zGNncjKbc SjxbTBnQ9UaiZTxWQYum0ejQ1 rkILOuBM4uKWHnKHRexbloszN uw8tjRN1iDJL7pMKpsmVoNK6k DMtgVIW2wI5kdD6hqHDcZKMcd jDMEbCuUOlurSWpZDJkh5JlTQ j1glkpUjnexDD7VejqEEPbWO1 zAIByQYQKnGJipM30cuKphRSf o1Yrs5r1yCLgweUutQxsoUNrT 2UajLRiSCPgz7fbY8reMNVoMW 4uRENyXKFwnpnxatYgp9etNR7 oWET2tDKycbXbYC0oKLOvq1iz g9VdxVvoHrAxf38zmMDiaHDdf h4yxFMiAFQkziAGKeQnIQQntS blUDaoUQYhiPzlA4RiZTIcnL5 tp7e2RELogrtkqsUwf3tvALNr wXNxp7DcGY29J48dXID2mFUpZ C0lKIJvI84aWnnsYQ65GEVdxN crgL6pzDUzA2mnzostgi9vzTP gVNPfRIWriPFkTx9yMVZsGNYp Y1Hoy3ZfSL7pqE8dnPwpxWwlG POwq3OeLProzUupWttbKIY7 [facility] Description e9xohVGaDASkaPWVEDYc MDRcY H7onQswqTr2yXbtLGSghpS3qG AsBEhoh0trCOR0h5asnsCEFnj eSXCmDXdxWZStmgimAjD5FXtr DYClxbvaKOg0YOleFCWnlIB6X QOjdOMbC1NlEJGyGY3sjpd1BB B6QCriMVHkDvP7CNWnTwXfUtp uPMf7BFGlupP5Yww8TEBmXZNu zKYzt2E0TXqprcoiJPUqfPTbD 666KVfpm6JyyHXlYYivbEIjSR YHKagdUkgajOwpw3HwiOXvVPa lFCEkHOLjTLrghvzuLAb6LKIi JZdfdSKkEC6kaLlaNlxzpMpam 2VjdCBcXGlkIDUxMDAyIFxcZG NpUA6DAnYhFOOpLMr7LHMeFmS 3CXv5OOJNYqKyJgSzAqLbHcIe SMHzCUw4UGv2WKkPWvCyERU0U Md4MhF6PiM1PZpuAuMuKUUvZb BcXGYgQXJpYWwgXFxmbCBcXG5 ttLjveHOcshPQFwPIIG3TNI6T MGFNDV9VR9zmfEJbIT2TTJWuy UIOHLO7BB8qMQYPHjrasKRaJE BtjFykLUiplX1eAH5CKZh7xyA wRJCcCfFdTpMlIVr4BZQpmQ2k Mf6awRCqnD0pZHPfMN15lVTfj RfoHUWzECSzdiAiGaQ7DJ0bAV TjTyDgoEjzv2WkMSTbX9OkV1S 1oV8xBUQmHNNbNCY8AXEaFdA2 CYSeBgIibN2wCR99XFeqeOIxw XKehHU6HIQhzX5nx03eQROdb3 CnqRUmPv5BWLByoDZWWMR7LZ2 gVDa4UGmiOOLvC7WtG7MpgcCo rXRnSJZsajFus7hcRUH1AFJdn DZwgJBgXpMrIqlyEUY8YICgBP usNL1Ta9wxRXDjbHQoCYH5DNu ngVQsYMYiJBUlLTzqSgNwH8IQ QWNaNhO1IHvfHAIoUHf0SHp2Q X9SHcHpMXFoBBKyNcHdPCJwEX x8EGrnZZ6XDRNjSfY9LmjaSRm 5WAR2JLNhWJqziRAeZKmxXvRR vhdqlRPiWVGfYKwwzrZ4NYAvV CmgETLkOUStxNkmpE9fRs8mK6 KRIYSVZCQBPZ1MF8xppVEdFN3 ZCJLmoGQIJXB2AS0sHYIHApvm hLOdFNIphRymQHjbwN3yAU6KM Tj2tkTuTZLkAiZbLkHhYVt3VM SmiB7aXx2qzCUbfT2bGOQdMB5 6qQRhaPloASOuEHLihlZsZcJ6 GA9jCIZoOtRfjKqng7EvBTPuP 0IvL7D8kS8vOSOyMORgDFQ3ES ZpKeN5NITeGdKyeD4hUX29CHp kqNAoqOKbyYL0CVSwgW4ym49z DLAhr6JpyIHyIf2KDNOtkACNQ IZ0TH2wMWm5DHwgQBKmS3DpV1 HeqkGypSBeRYIlurHbu2ggVGV 0AXVvdYQiqTQhQkRvRwleIPH2 JPUmYGhvDJ2Hc4dgVRPvyWEkC JG2NWxazAImCXWiWMBmBBexAr IhB3SJTXBlAaH2WMnmTAOiQYt 9NRw9GY5NKvQpYWAzWOKbCvIe KlAoPQc1DEkzXQ6PBWJdDrN4S hb7FwF7FYN8UXOqSAxpmXWaIO xcZiBBcmlhbCBcXGZsIFxcbmN 8HXHrFNvjYMHmHYKfiEgucF5b Uf4lRRJVSJbGT4YBTCJLC9DVG VfaZCOcFGooPPHhL25su1STm5 OlEG3PKTi3fdRssafriL8bHAH vivRyZNmabVArV1thBuLiVXXP XKIvhPNnYIZdhrRtc7WpEQfcq jKjtrBbfcVzyVihU1Nnc2NipU NaPSJit0V7YXCbr8H9AHKxDVW cnFZvhoguWR8iLTcxCL0qOPjk FW2qQVHyZgVDw7XxgDc4ZJH5E a7qoIWlCMFyqrLjntRyN3Gcw5 X4cZRvJBesONQcH12wj3QGq9D eZQHwu1syxYgvh5UxfMXxJFgv TVNeqQPrSDeawC2oGdNxs4sey Om8HOwdhnP9DMPpvl2hkGdoyS 9eJKi4QKyzOMOhW7CqY2BsNRz kDVY6JQYgVgQvPCWoHOOSTcIv JzWkBZw3SQFtQJAaMFu6YOgmL 0JBPONaYQTqBnSuUdS4YbW4TC v1YJJKHi7zRVHeTGg2FvH5CYC eOVF3SyDhEZw6FWBzNUcdDCAt iHZuMAhvXfoeXXulU30jeYpva F2wDmWpXzrreWTknfBGDyENE4 9QSEFHVVMgUFJPWElNQUwgQkl PUFNZXHBhciANClxlcGljTmVz dERvYzEgDQpcbHRycGFyXGxpb jBccmluMCANClxsdHJjaFxmcz LwDLZlL2QxkuIuGYqlEUSyoy2 yyFpiDQLfIKXcyLe7lZPwKNGd iIVoOSChs7XqgRAbEIMud5F4X LTzq3T8NNHyX8jlKAxpeUjcVp J7hsCmEoQloWKlIeXsyMAtAgT gY28nRDLhrLBduRfga6ApsSr1 tWDlYCswUF1tNPKeTUDvBWV5V O4cSAObcgTWAtsaGDMnVGjATi fhGEC4XRN9OVSjCTCwDWm9ZUO pBH6vhXBfIE7RABLhviPMKncd y8VsAJI3RY9iziX3iQ3yLXGja wRmjp2wYFLtyQUVjAK6PKocyb RcJ9vhxdfjYGD7AMXeKMZ3E6d dAVXPfmWxATJQlBN1FQncycEm QC7IGKG2GDb2KEIhkeDEGsekp IgzVpYfvANdPzFqpbA7ULEzdP TvEEX6RZ6hJAQkkapbLHNqSSC hALQ7HMjipC67lGUkAPEdUWLl sFLknHbxaRRusaSLVolisH0fC lRfy1vvfUg8OTZKJfjigKDlxs zciaP7VQLpb7otrHofd4ZbmSC gXW2deSjxjU5oEoEfRmWKXu9= [facility] p8qxkSSpEIUioFQxSqGp MDAwX DXnq1gaDGKxjZEjTvKjKwVjSa LuYzqdxZZrWMDqZjVyl0mse22 1aLQrn2isALTlMfE5dSPkGMWk mIZcX767MURrBPhpm5tbj7OfI FGxaZXgq1M5VNLRgbfxcHk5jP duN36bh8R1MszdS5kcKEDiZJZ uI0RmUF8oHNMkSjj1RPI7XND9 WCAsCWCyT5ArCQ8rUBWxqCPoR Rl7g6teeSxyLCLdEKJ5g6jyJD lctrYcKT0huu7uvUs0b0diupD uWMBuVASlmWDGRTUgS2TngBuw Bc5vuIo7lPscSekdVMO7Hnb3S A7yug39pek5bRbaTJUqtysyJa F5JTabSNJhctlzXAe4NDsqIJL yfWO8GOZbwGUrC6UnDMBkCW0w bnb6VDP7SMxgKVZhKeM7HTUyy HAaQBVuaGqiHXmbl653EMR2Uv DvJI1bD0Qgw1C4iX0bmJWkZHM oxAQqOlOcCEDgpw5txWFiQMqu d3QjXXB3xsK0fAYkcHJsZIZcK T10Qknxe7NoDjdws1WqY62iiZ Q1SKene8zsIJ9dGgB9tiRnKTn ox3lyfJ9ySqH7LKhdYJ4oZX7a AZEyhP9tuevtAKNhArBuxqwlF UPakQozziZsXe6ezDmqKVJ6GT yeT5acsI6jQxM1IAhmM3vepI2 eFXo5KZuhcRW6RHXwzN3sLW1a saxrb2zdTPxhCDbfHLFyshF5c bD1NOAlqJKeU6WyiV6rOOQfFP 3osnmad4jsLCW9XIqqKBIyOZG 2MlAoDGAxl4Upjev7RuPgr4Bp eOZlXZjuU97tk398TFZpqlCkM 1xwbGFpblxwbGFpblxmMFxmcz U0SXVpJUNuUJuhWFCcDOGiUzG cbGFuZzEwMzNcaGljaFxmMVxk TsRoUXQmVVtsH6rfYlBoZvBnB iHLsKJfjg7wyDmbHFakrQFuaI IvwSW1aA6kVVHiyiSpdb0oLUA otNBDaEJ5IJoyxuVwO5pocgcm GCtumFxokmIkfNLKz7XcrGFbn DdjZsw9FOMSSRnduZBvBOANML vpEPE3JxcuuWSvPTJsFTDBQOS 0NDEyNCAgICBDTElBIyAzNkQw IbX1XIMbMTAtvvyrKIOlnGNjD ZfylTKbumniZLjzytP9XRBzKI luXGYxXGZzMjJcbGFuZzEwMzN caGljaFxmMVxkYmNoXGYxXGxv Y2geTpHzO0JqQTOxKyIdtTBaF 7ggTJXvi7IyeT6mpTBqcEqvyT 3sMlGdPjHcVclfGG0kEZLmB8q qnJKqOSXkBKIsY3nzSmIpwJ2e jYnfAGdlboRtTGThupUxxT3kM lYPkVAmvyODWlGCz9R3VVUgPU 2vQC6foOEaeZ== [facility] ANES POSTPROC EVALon 023 ANES POSTPROC EVAL HNO ID: [id number] Author: Citlali Simental APRN.MATERIAL STRESS TESTER Service: ? Author Type: Nurse Freight Coordinator Type: Anesthesia Postprocedure Evaluation Filed: 09/12/2022 7:16 AM Note Text: POST ANESTHESIA EVALUATION NOTE : 2005 Procedure Summary Date: 09/12/22 Room / Location: Ambulatory Surgery Anesthesia Start: 656 Anesthesia Stop: 715 Procedure: EGD DIAGNOSTIC Diagnosis: Dysphagia, unspecified type Recurrent vomiting (Abdominal pain) (Dysphagia) (OTHER) Scheduled Providers: Liban Simpson MD Responsible Provider: Citlali Simental APRN.MATERIAL STRESS TESTER Anesthesia Type: MAC ASA Status: 1 Anesthesia Type: MAC Last Vitals Vitals Value Taken Time BP 118/63 09/12/22 0713 Temp 36.6 ?C (97.8 ?F) 09/12/22 0713 Pulse 68 09/12/22 0713 Resp 16 09/12/22 0713 SpO2 97 % 09/12/22712 Post Anesthesia Patient Status Patient Evaluation: PACU. PACU/ICU Patient Condition: stable. Anticipated Disposition: phase 2 then home. Neurological Status: sleepy but arousable. Pulmonary Status: breathing comfortably on room air Airway Control: returned to baseline unsupported. Cardiovascular Status: stable. Pain Management: clinically adequate - multimodal analgesia pain management approach Postoperative Hydration: acceptable. Intraoperative Events: no significant anesthesia events Post Operative Nausea/Vomiting Status: no significant post operative nausea or vomiting Recommendation: continue current plan of care. Anesthesia Observations No Documentation SIGNATURE: Citlali Simental APRN.MATERIAL STRESS TESTER PATIENT NAME: Neftaly Morales DATE: September 12, 2022 TIME: 7:16 AM CSN: [id number] [facility] ANES PRE-OPon 09-12-2022 ANES PRE-OP HNO ID: [id number] Author: Citlali Simental APRN.MATERIAL STRESS TESTER Service: ? Author Type: Nurse Freight Coordinator Type: Anesthesia Preprocedure Evaluation Filed: 09/12/2022 6:56 AM Note Text: ANESTHESIOLOGY DAY OF SURGERY NOTE : 2005 Procedure Information Date/Time: 09/12/22 0700 Scheduled providers: Liban Simpson MD Procedure: EGD DIAGNOSTIC Location: Ambulatory Surgery Estimated body mass index is 26.54 kg/m? as calculated from the following: Height as of this encounter: 177.8 cm (5' 10 ). Weight as of this encounter: 83.9 kg (185 lb). Most recent hematocrit and potassium results: Hematocrit 43.9 03/03/2020 Potassium 4.1 03/03/2020 Relevant Problems CARDIO (+) Migraine without aura and without status migrainosus, not intractable (+) Migraines NEURO-PSYCH (+) Acute post-traumatic headache, not intractable (+) Migraine without aura and without status migrainosus, not intractable (+) Migraines I - PHYSICAL EVALUATION AIRWAY Patient intubated: No. Tracheostomy tube not present Mallampati: I. TM distance: >3 FB. Neck ROM: full ROM without neurological symptoms. Mouth opening: adequate. Short neck: no. Thick neck: no Neal present: no DENTAL Dental findings: teeth intact. Additional exam findings: no II - ANESTHESIA PLAN ASA Score: 1 Anesthetic Plan: MAC The patient is not a current smoker. NPO Status: adequate Beta [place] Monitoring Plan Monitoring plan: standard ASA. Post Procedure Analgesic Plan Postoperative analgesic plan: parenteral or oral opioids and multimodal analgesia. Informed Consent Anesthetic risks, benefits, alternatives, personnel and consent discussed: yes. Patient / Responsible Constitution Party agrees to proceed: yes Patient / Surrogate agrees to blood products: blood products not planned Significant changes in the patient condition since the History and Physical, not otherwise documented in primary service progress note: no. Vitals Value Taken Time BP 139/85 09/12/22 0643 Pulse 71 09/12/22 0643 Resp 18 09/12/2243 Temp 36.3 ?C (97.3 ?F) 09/12/22 0643 SpO2 100 % 09/12/22642 Outpatient Medications as of 09/12/2022 Medication Sig - fluticasone (FLONASE) 50 mcg/actuation nasal spray Use 1 [place] in the nose. - ondansetron (ZOFRAN) 8 mg tablet TAKE 1 TABLET BY MOUTH EVERY 12 HOURS NEEDED FOR NAUSEA OR VOMITING. - hyoscyamine sulfate 0.[address] 1 TABLET (125 MCG) UNDER THE TONGUE IN THE MORNING, AT NOON, IN THE EVENING, AND BEFORE BEDTIME. - ondansetron orally disintegrating (ZOFRAN ODT) 8 mg disintegrating tablet Take 1 tablet by mouth every 8 hours as needed for nausea/vomiting. - hyoscyamine sublingual (LEVSIN/SL) 0.125 mg Dissolve 1 tablet under the tongue every 4 hours as needed. - diclofenac sodium (VOLTAREN) 1 % topical gel Apply 2 g to affected area. (Patient not taking: Reported on 09/02/2022) - hyoscyamine sublingual (LEVSIN/SL) 0.125 mg subl Dissolve 1 tablet under the tongue every 4 hours as needed (for cramping abdominal pain). Dissolve under tongue. - SUMAtriptan (IMITREX) 50 mg tablet Start at onset of headache. May repeat after 2 hours. - polyethylene glycol 3350 (MIRALAX, GLYCOLAX) 17 gram/dose powder Take 17 g by mouth once daily. - albuterol HFA (PROVENTIL HFA, VENTOLIN HFA) 90 mcg/actuation inhaler Inhale 2 Puffs as instructed as needed. - omeprazole (PRILOSEC) 20 mg capsule Take 1 capsule by mouth twice daily. (Patient not taking: No sig reported) - diphenhydrAMINE (BENADRYL) 25 mg capsule Take 1 capsule by mouth daily at bedtime. For nausea/vomiting (Patient not taking: No sig reported) Facility-Administered Medications as of 09/12/2022 Medication Dose Route Frequency - lidocaine (PF) 10 mg/mL (1 %) 1-2 mg injection (XYLOCAINE) 0.1-0.2 mL INTRADERMAL PRN - NaCl 0.9% iv infusion 30 mL/hr INTRAVENOUS CONTINUOUS I have interviewed and examined the patient. I have reviewed the medical record and/or the pre-anesthesia evaluation, pertinent labs, and test results. This contains updated information obtained within 48 hours of Surgery/Procedure. SIGNATURE: Citlali Simental APRN.MATERIAL STRESS TESTER PATIENT NAME: Neftaly Morales DATE: September 12, 2022 TIME: 6:56 AM CSN: [id number] Normal [facility] EGD Study observation Narrat iveon 09-12-2022 Radiology Study observation (narrative) [facility] HISTORY PHYSICALon HISTORY PHYSICAL HNO ID: [id number] Author: Liban Simpson MD Service: Gastroenterology Author Type: Physician Type: HANDP Filed: 09/12/2022 9:07 AM Note Text: HISTORY AND PHYSICAL Neftaly Morales, 17 year old male Current history and physical on file: Yes Is a new History and Physical required for today's visit? Yes Indication for procedure: Abdominal pain, dysphagia, diarrhea PROCEDURE(S) SCHEDULED FOR: EGD (Esophagogastroduodenosco py) with or without biopsies, removal of polyps or lesions, dilation ( any means), treatment of bleeding ( any means), Barrx treatment of Dario's Esophagus, image tube placement or cryo therapy treatment based on clinical findings. BASELINE BEHAVIOR: Calm BASELINE ORIENTATION: A AND O x3 All medications and allergies reviewed: Yes Skin Assessment: Warm dry mucus membranes pink Airway/Respiratory Assessment: Airway: visualization of the uvula- Yes Mouth: opening greater than 2 fingerbreadths- Yes Neck: full range of motion- Yes Breath sounds clear/equal- Yes Cardiac Assessment: Regular rate and rhythm without murmur Abdominal Assessment: Abdomen soft, non-tender, no masses or organomegaly. Sedation Plan: MAC Additional Comments: None Liban Simpson MD [facility] SURGICAL PATHOLOGYon 023 CASE REPORT [facility] Comment on above: Order Comment: Speci anand Type: TISSUE SPECIMENOrdering Facility: [facility] Address: [address] [place] [address] Result Comment: Surg ical Pathology Report Case: [id number] Authorizing Provider: Liban Simpson MD Collected: 09/12/2022 07:01 AM Ordering Location: Ambulatory Surgery Received: 09/12/2022 10:39 PM Pathologist: Talat Kam MD Specimens: A) - DUODENUM BIOPSY, r/o celiac disease, hx of diarrhea B) - STOMACH BIOPSY, hx. of stomach pain C) - ESOPHAGUS BIOPSY, distal D) - ESOPHAGUS PROXIMAL BIOPSY Performed By: #### S ####[facility]ORATORYCLIA [id number] [address] LABCLIA [id number] [address] FINAL DIAGNOSIS Normal [facility] Comment on above: Order Comment: Abhilash michel Type: TISSUE SPECIMENOrdering Facility: [facility] Address: [address] [place], [place] [id number] Result Comment: A. D uodenum, biopsy: - Small bowel mucosa with no significant pathologic changes. - No evidence of celiac sprue. B. Stomach, biopsy: - Fundic mucosa with no significant pathologic changes. - No evidence of H. pylori. C. Distal esophagus, biopsy: - Squamous mucosa with no significant pathologic changes. - No evidence of eosinophilic esophagitis. D. Proximal esophagus, biopsy: - Squamous mucosa with no significant pathologic changes. - No evidence of eosinophilic esophagitis. Performed By: #### S ####[facility] LABORATORYCLIA [id number] [address] LABCLIA [id number] [address] FINAL PERFORMING LAB Normal [facility] Comment on above: Order Comment: Speci men Type: TISSUE SPECIMENOrdering Facility: [facility] Address: [address] [id number] Result Comment: Diag nostic interpretation performed at [facility], [address] [facility], [place] [address] CLIA# [id number] Hasher Operator: Emy Emanuel M.D. Performed By: #### S ####[facility] LABORATORYCLIA [id number] [address] LABCLIA [id number] [place] [address] [place] GROSS DESCRIPTION Normal [facility] Comment on above: Order Comment: Speci men Type: TISSUE SPECIMENOrdering Facility: [facility] Address: [address] [address] Result Comment: A. D UODENUM BIOPSY Received in formalin are multiple pieces of pacheco, soft tissue aggregating to 1.0 x 0.2 x 0.2 cm. Totally submitted in one cassette. B. STOMACH BIOPSY Received in formalin are multiple pieces of pacheco, soft tissue aggregating to 0.9 x 0.2 x 0.2 cm. Totally submitted in one cassette. C. ESOPHAGUS BIOPSY Received in formalin is one piece of pacheco, soft tissue measuring 0.3 x 0.2 x 0.2 cm. Totally submitted in one cassette. D. ESOPHAGUS PROXIMAL BIOPSY Received in formalin are multiple pieces of pacheco, soft tissue aggregating to 0.5 x 0.2 x 0.2 cm. Totally submitted in one cassette. EJL September 13, 2022 9:50 AM Gross examination performed at [facility], [address] [place] [address] Performed By: #### S ####[facility] LABORATORYCLIA [id number] [address] LABCLIA [id number] [place] [address] [place] Upper GI endoscopyon 05-15-2 023 Upper GI endoscopy [facility] Patient Name: Neftaly Morales Procedure Date: 09/12/2022 6:56 AM Date of : 2005 Admit Type: Outpatient Age: 17 Room: [facility] 1 Gender: Male Note Status: [place] Hand Override Attending MD: Liban Simpson MD Procedure: Upper GI endoscopy Indications: Abdominal pain, Dysphagia, Diarrhea Providers: Liban Simpson MD Patient Profile: This is a 17 year old male. Refer to note in patient chart for documentation of history and physical. Referring Physician: Jennifer Turk (Referring MD) Medicines: Monitored Anesthesia Care Complications: No immediate complications. Estimated blood loss: Minimal. Requesting Provider: Procedure: Pre-Anesthesia Assessment: - Prior to the procedure, a History and Physical was performed, and patient medications and allergies were reviewed. The patient's tolerance of previous anesthesia was also reviewed. The risks and benefits of the procedure and the sedation options and risks were discussed with the patient. All questions were answered, and informed consent was obtained. Prior Anticoagulants: The patient has taken no anticoagulant or antiplatelet agents. ASA Grade Assessment: II - A patient with mild systemic disease. After reviewing the risks and benefits, the patient was deemed in satisfactory condition to undergo the procedure. After obtaining informed consent, the endoscope was passed under direct vision. Throughout the procedure, the patient's blood pressure, pulse, and oxygen saturations were monitored continuously. The Endoscope was introduced through the mouth, and advanced to the second part of duodenum. I was present and participated during the entire procedure, including non-barry portions, and during the administration and monitoring of Moderate Sedation. The upper GI endoscopy was accomplished without difficulty. The patient tolerated the procedure well. Moderate Sedation: MAC anesthesia was administered by the anesthesia team. Findings: The Z-line was regular and was found 41 cm from the incisors. Minimal residual food contents in the stomach. The exam of the stomach was otherwise normal. Biopsies were taken with a cold forceps in the stomach for Helicobacter pylori testing. Verification of patient identification for the specimen was done. Estimated blood loss was minimal. A few localized erosions without bleeding were found in the duodenal bulb. Biopsies were taken with a cold forceps for histology. Verification of patient identification for the specimen was done. Estimated blood loss was minimal. The exam of the duodenum was otherwise normal. Biopsies were taken with a cold forceps in the upper third of the esophagus and in the lower third of the esophagus for histology. Verification of patient identification for the specimen was done. Estimated blood loss was minimal. A guidewire was placed and the scope was withdrawn. Dilation was performed in the entire esophagus with a Savary dilator with mild resistance at 18 mm. Impression: - Z-line regular, 41 cm from the incisors. - Minimal residual food contents in the stomach. - Duodenal erosions without bleeding. Biopsied. Rule out celiac, peptic duodenitis - Biopsies were taken with a cold forceps for Helicobacter pylori testing. - Biopsies were taken with a cold forceps for histology in the upper third of the esophagus and in the lower third of the esophagus. Rule out EoE - Dilation performed in the entire esophagus. No disruption with savary 18 mm. Recommendation: - Discharge patient to home (ambulatory). - Advance diet as tolerated. - Continue present medications. - Await pathology results. - Avoid NSAIDs - Return to referring physician. - Patient has a contact number available for emergencies. The signs and symptoms of potential delayed complications were discussed with the patient. Return to normal activities tomorrow. Written discharge instructions were provided to the patient. Procedure Code(s): --- Professional --- 57495, Esophagogastroduodenoscop y, flexible, transoral; with insertion of guide wire followed by passage of dilator(s) through esophagus over guide wire 15221, 59, Esophagogastroduodenoscop y, flexible, transoral; with biopsy, single or multiple CPT copyright 2020 [employer]. All rights reserved. The codes documented in this report are preliminary and upon summer nanny review may be revised to meet current compliance requirements. Attending Participation: I personally performed the entire procedure. Scope In: 7:00:15 AM Scope Out: 7:08:09 AM MD Liban Ferro MD 09/12/2022 7:15:51 AM This report has been signed electronically by Liban Simpson MD Number of Addenda: 0 Note Initiated On: 09/12/2022 6:56 AM Estimated Blood Loss: Estimated blood loss was minimal. Normal [facility] CNCOon 09-02-2022 CNCO Letter Text Normal [facility] CNOVon 09-02-2022 CNOV Office Visit ([facility] ) ----- NEFTALY MORALES ([id number]) 1 M Date Time Provider Department 09/02/22 3:00 PM JENNIFER TURK During your visit today, we recorded the following information about you: Pulse Blood pressure Weight Height 67/minute 120/78 85.5 kg 1.778 m Jennifer Turk PA-C 09/02/2022 3:41 PM Signed CHIEF COMPLAINT: Patient presents with: Nausea AND Vomiting This consult was requested by No ref. provider found for an opinion regarding nausea, vomiting. My final recommendations will be communicated to the requesting health care provider by way of the shared medical record for internal providers or letter via the [employer] for external providers. HPI: Neftaly Morales is a 17 year old male who presents for Nausea AND Vomiting. PMHx of asthma, migraines Patient tells me that he has been dealing with vomiting for about once a week. Feels like MSG and cheese trigger symptoms. Tries to avoid these. Had EGD/colonoscopy in 2018. Was given Levsin which some relief. Trying to eat small meals. He is missing work because of the vomiting. Getting abdominal cramping after vomiting. Notes that he is having some trouble swallowing with solid foods. Feels it sticking in his chest. Weight is down. Was recommended to take allergy medications daily. Has had significant joint pains, rashes. No smoking or alcohol use. Adopted. Record Review: [facility] / Outside records reviewed. PAST MEDICAL HISTORY Diagnosis Date Adopted Asthma Lead poisoning resolved Migraines Recurrent vomiting PAST SURGICAL HISTORY Procedure Laterality Date COLONOSCOPY 03/13/2018 EGD W/O BRSH SPEC VARICIES INJ 03/13/2018 Allergies: ALLERGIES Allergen Reactions Monosodium Glutamate Other: See Comments MIGRAINES MIGRAINES Beef Derived (Bovin* Other: See Comments FROM SKIN TEST. Pegademase Bovine Other: See Comments FROM SKIN TEST. Poractant Elena Other: See Comments FROM SKIN TEST. Pork Derived (Porci* Other: See Comments FROM SKIN TEST. Lactalbumin Other: See Comments FROM SKIN TEST. Milk Other: See Comments FROM SKIN TEST. Medications: fluticasone (FLONASE) 50 mcg/actuation nasal spray Use 1 [place] in the nose. ondansetron (ZOFRAN) 8 mg tablet TAKE 1 TABLET BY MOUTH EVERY 12 HOURS NEEDED FOR NAUSEA OR VOMITING. hyoscyamine sulfate 0.[address] 1 TABLET (125 MCG) UNDER THE TONGUE IN THE MORNING, AT NOON, IN THE EVENING, AND BEFORE BEDTIME. hyoscyamine sublingual (LEVSIN/SL) 0.125 mg subl Dissolve 1 tablet under the tongue every 4 hours as needed (for cramping abdominal pain). Dissolve under tongue. SUMAtriptan (IMITREX) 50 mg tablet Start at onset of headache. May repeat after 2 hours. polyethylene glycol 3350 (MIRALAX, GLYCOLAX) 17 gram/dose powder Take 17 g by mouth once daily. albuterol HFA (PROVENTIL HFA, VENTOLIN HFA) 90 mcg/actuation inhaler Inhale 2 Puffs as instructed as needed. diclofenac sodium (VOLTAREN) 1 % topical gel Apply 2 g to affected area. (Patient not taking: Reported on 09/02/2022) omeprazole (PRILOSEC) 20 mg capsule Take 1 capsule by mouth twice daily. (Patient not taking: Reported on 09/02/2022) diphenhydrAMINE (BENADRYL) 25 mg capsule Take 1 capsule by mouth daily at bedtime. For nausea/vomiting (Patient not taking: Reported on 09/02/2022) FAMILY HISTORY Adopted: Yes Problem Relation Age of Onset Migraines Sister Employer And Job Title: None on file Years Of Education Completed: Not specified Marital Status: Single Social History Tobacco Use Smoking status: Never Smokeless tobacco: Never Vaping Use Vaping Use: Never used Substance Use Topics Alcohol use: Never Drug use: Never Review of Systems: Review of Systems Constitutional: Positive for fatigue and unexpected weight change. HENT: Positive for sore throat. Respiratory: Positive for choking. Gastrointestinal: Positive for abdominal pain, diarrhea, nausea and vomiting. All other systems reviewed and are negative. Are you taking any blood thinners? No Physical Examination: BP 120/78 Pulse 67 Ht 5' 10 (1.78m) Wt 188 lb 9.6 oz (85.5kg) BMI 27.06 kg/(m2). Physical Exam Constitutional: Appearance: Normal appearance. HENT: Head: Normocephalic and atraumatic. Eyes: General: No scleral icterus. Extraocular Movements: Extraocular movements intact. Conjunctiva/sclera: Conjunctivae normal. Pupils: Pupils are equal, round, and reactive to light. Cardiovascular: Rate and Rhythm: Normal rate and regular rhythm. Pulses: Normal pulses. Heart sounds: Normal heart sounds. Pulmonary: Effort: Pulmonary effort is normal. Breath sounds: Normal breath sounds. Abdominal: General: Abdomen is flat. Bowel sounds are normal. Palpations: Abdomen is soft. Tenderness: There is no abdominal tenderness. Musculoskeletal: General: Normal range of baldomero (more content not included)... Normal [facility] CORONAVIRUS 2019 BY PCRon SARS-CoV-2 (COVID-19) RNA SALLY+probe Ql (Unsp spec) Not detected Normal Not Detected [facility] Comment on above: Result Comment: . This assay is designed to detect the N, ORF1ab and/or S genes of SARS-CoV-2 via nucleic acid amplification. A Negative (NOT DETECTED) result does not preclude 2019-nCoV infection since the adequacy of sample collection and/or low viral burden may result in presence of viral nucleic acids below the clinical sensitivity of this test method. Negative (NOT DETECTED) result should not be used as the sole basis for treatment or other patient management decisions. Rather negative results should be combined with clinical observations, patient history, and epidemiological information to make patient management decisions. Fact sheet for providers: https://www.fda.gov/media/521283/download Fact sheet for patients: https://www.fda.gov/media/483193/download This test has received FDA Emergency Use Authorization (EUA) and has been verified by [facility] ([facility]). This test is only authorized for the duration of time that circumstances exist to justify the authorization of the emergency use of in vitro diagnostic tests for the detection of SARS-CoV-2 virus and/or diagnosis of COVID-19 infection under section 564(b)(1) of the Act, 21 U.S.C. 360bbb-3(b)(1), unless the authorization is terminated or revoked sooner. [facility] is certified under CLIA-88 as qualified to perform high complexity testing. Testing is performed in the [facility] laboratories [place] [address] [place] [address]. Performed By: #### C OV19 #### [address] [place] [address] Covid 19 Resultson 1 SARS-CoV-2 (COVID-19) RNA SALLY+probe Ql (Unsp spec) Pediatric NEGATIVE COVID-19 Test COVID-19 is a virus. It has been estimated that four out of five patients with COVID-19 will get better at home without the need for medical care. While fewer children/teens have been sick with COVID-19, they can get sick from COVID-19 and give the virus to others. Children/teens who are COVID-19 positive with no symptoms (asymptomatic) can still spread the virus to others. Most children/teens have mild to no symptoms at all. Symptoms of COVID-19 may include cough, fever, nasal congestion, runny nose, shortness of breath, loss of taste or smell, and other flu-like symptoms including chills, body aches, vomiting, diarrhea, sore throat, headache, or poor appetite/feeding. Severe illness is more common in older people and children/teens with other health conditions. These conditions include: Babies less than 1 year of age Asthma Diabetes Metabolic conditions Heart disease Weak immune system Children/teens who have many chronic conditions Dependent on technology support If your child/teens test is negative, they likely do not have COVID-19 at the time of testing. They may still have an illness that can spread to other people (like Flu) and could still be at risk for getting COVID-19. Your child/teen should stay away from other people to limit the spread of illness until their symptoms are improved, and they are fever free for 24 hours without the use of fever reducing medication such as acetaminophen or ibuprofen. If your child/teen isnt feeling better following a negative test result, consult your healthcare provider. No test is 100% accurate, so if your child/teen has been exposed or you are concerned they may have COVID-19, talk to their healthcare provider. Follow any quarantine (HOME ISOLATION) guidelines that have been given by the healthcare provider, school, or health department. Warning Signs! If your child/teen is having any of the following: Trouble breathing Develops new confusion Cannot stay awake Bluish lips or face Severe stomach pain Pain or pressure in the chest that doesnt go away These warning signs are a medical emergency. Call 911 or take your child/teen to the nearest emergency room immediately. Follow Up Follow up with your child/teens healthcare provider by calling the office or scheduling a virtual visit. Basic Needs If your child/teen has a fever, they can be given Acetaminophen (Tylenol), or for children over 6 months of age Ibuprofen (Motrin, Advil), based on recommended dosing. Encourage your child/teen to drink a lot of fluids and rest. Adults can increase a child/teens feeling of safety and comfort by staying calm. Allow child/teen to share their feelings by talking or in different ways such as drawing or writing. Listen to your child/teen to understand their concerns and share ways to keep the child/teen and family safe. Assist your child/teen with staying connected to friends and family virtually. Explain that the current focus is on the health and safety of the child/teen and the family. Let your child/teen know that you will work with the school about school work and any missed activities. Personal Hygiene: Have child/teen wear a mask whenever they are with other people or out in public. According to the CDC, children should mask if they are over 2 years of age, can remove the mask on their own, and do not have medical reasons that they cannot wear a mask. Remind your child/teen that it is very important to cover their mouth and nose with a tissue when coughing or sneezing. Immediately wash hands with soap and water for at least 20 seconds or use an alcohol-based hand covering machine tender that contains at least 60% alcohol. Remind your child/teen to clean their hands often. Additional Resources: [place] Department of Health COVID Hotline: 8-210-2WJPDUG ( ) or www.coronavirus.[place].gov Websites: www.[facility].org or www.cdc.gov Follow My Health/ My UHCARE: For test results, login or sign up at [email or web address] For customer support, call or email [email or web address] m Letter revised 07/21/2020 Electronic Signatures: [employer], [employer] (ADMIN) (Signature pending) Authored Last Updated: 28-Jan-2021 03:26 by Zachary Toledoices (ADMIN) Normal [facility] CORONAVIRUS 2019 BY PCRon DATE OF SYMPTOM ONSET [YYYYMMDD]? 20210126 Normal [facility] Comment on above: Performed By: #### C OV19 #### [facility] [address] [place] [address] Lab Specimen Source Nasal, Nasopharyngeal Normal [facility] Comment on above: Performed By: #### C OV19 #### [facility] [address] [place] [address] Coronavirus 2019 RNA by PCR, Symptomaticon 01-27-2021 Date and time of symptom onset 20210126 1 [facility] Work Phone: Coronavirus 2019 RNA by PCR, Symptomatic Not detected Normal See Below [facility] Work Phone: Comment on above: SOURCE: Nasal, Nasop haryngealReference Range: Not Detected.This assay is designed to detect the N, ORF1ab and/or S genes of SARS-CoV-2 via nucleic acid amplification. A Negative (NOT DETECTED) result does not preclude 2019-nCoV infection since the adequacy of sample collection and/or low viral burden may result in presence of viral nucleic acids below the clinical sensitivity of this test method. Negative (NOT DETECTED) result should not be used as the sole basis for treatment or other patient management decisions. Rather negative results should be combined with clinical observations, patient history, and epidemiological information to make patient management decisions.Fact sheet for providers: https://www.fda.gov/media/338583/downloadFact sheet for patients: https://www.fda.gov/media/716143/downloadThis test has received FDA Emergency Use Authorization (EUA) and has been verified by [facility] ([facility]). This test is only authorized for the duration of time that circumstances exist to justify the authorization of the emergency use of in vitro diagnostic tests for the detection of SARS-CoV-2 virus and/or diagnosis of COVID-19 infection under section 564(b)(1) of the Act, 21 U.S.C. 360bbb-3(b)(1), unless the authorization is terminated or revoked sooner. [facility] is certified under CLIA-88 as qualified to perform high complexity testing. Testing is performed in the [facility] laboratories located at [address] [place] [address]. Office Visit (Urgent Care)on 01-27-2021 Follow-up visit Diagnoses/Problems Assessed Nausea and/or vomiting (787.01) (R11.2) Nasal congestion (478.19) (R09.81) Orders Nasal congestion Start: Fexofenadine HCl - 180 MG Oral Tablet; TAKE 1 TABLET DAILY NEEDED Rx By: Lisa Cedillo; Dispense: 14 Days ; #:14 Tablet; Refill: 0;For: Nasal congestion; PETERSON = N; Sent To: [facility] Start: Fluticasone Propionate 50 MCG/ACT Nasal Suspension; USE 2 SPRAYS IN EACH NOSTRIL ONCE DAILY Rx By: Lisa Cedillo; Dispense: 0 Days ; #:1 X 15.8 ML Bottle; Refill: 0;For: Nasal congestion; PETERSON = N; Sent To: [facility] Start: Ondansetron 4 MG Oral Tablet Disintegrating; Take one tablet every 6-8 hours as needed for nausea and vomiting Rx By: Lisa Cedillo; Dispense: 0 Days ; #:9 Tablet; Refill: 0;For: Nasal congestion; PETERSON = N; Sent To: [facility] Nausea and/or vomiting Coronavirus 2019 RNA by PCR, Symptomatic; Status:In Progress - Specimen/Data Collected; Done: 27Jan2021 Perform:Lab Services - Lab To Draw (Non-Blood Test); Due:[id number];Ordered; For:Nausea and/or vomiting; Ordered By:Lisa Cedillo; RESIDENT IN CONGREGATE CARE SETTING? : No ICU? : No HOSPITALIZED (OR PLANNED TO BE ADMITTED)? : No EMPLOYED IN HEALTHCARE? : No FIRST COVID NASAL SWAB TEST? : Yes Symptom 1 : Nausea/Vomiting DATE OF SYMPTOM ONSET? : [id number] IS THE PATIENT SYMPTOMATIC DEFINED BY THE CDC (FEVER>100, NEW WORSENING COUGH OR SHORTNESS OF BREATH, NEW LOSS OF TASTE OR SMELL, SORE THROAT, DIARRHEA, BODY ACHES/MALAISE, HEADACHE, NAUSEA/VOMITING, OR RUNNY NOSE/CONGESTION)? : Yes Patient Discussion/Summary You were seen today for congestion and nausea. Drink plenty of fluids to avoid dehydration. Drink fluids with electrolytes like Gatorade or Pedialyte. Follow a bland diet for the next 24-48 hours. The BRAT diet: bananas, rice, applesauce, and toast. If you are tolerating a bland diet for 24 hours, you can advance your diet as tolerated. Avoid fatty, greasy and spicy foods. Take the anti nausea medication as prescribed. Start using a humidifier in your bedroom at night when sleeping. This helps with coughing and congestion. Drink lots of fluids. Warm tea with honey is soothing to the throat and helps with coughing. They'll help thin the mucus, reducing the blockage in your sinuses. Rest. Elevate your head with an extra pillow while sleeping to prevent mucus from blocking your throat. Tylenol or ibuprofen as needed for fever or pain. Please follow up with your doctor if you are not feeling better in 4-5 days. Now that you have been tested, please stay at your home until your results are released. You are considered positive until you get your Covid test results. Please continue to wear your mask at all times including while at home around your family. If your test for COVID-19 is positive, you will be contacted directly and will be notified of the next steps. All negative results will be released to your Personal Health Record. For additional questions or concerns regarding testing or results, please contact your provider. Your results will also be released within 48 - 72 hours to your [facility] Personal Health Record (PHR), our secure online health management tool. If you already have a PHR, log in at Talknote. For instructions to sign up online, visit [email or web address]. Unfortunately we are unable to help with the Follow [employer] application so please call or email Follow [employer] at: For questions, please call , Monday - Monday, 8 a.m. - 8 p.m., or email [email or web address]. Additional information about COVID-19: [facility]: [email or web address] [facility] Department of Health: Coronavirus.[place].gov or 8-727-3SZN-ODH Centers for Disease Control and Prevention: CDC.gov/Coronavirus/2019- nCoV According to CDC guidelines you should self-quarantine at home. This means yourself from other people at home and no going out in public. Do not go to work or school. If you must be in the same vehicle or room as another person, you MUST wear a mask and try to maintain a 6 foot distance. Use a separate bedroom and bathroom if possible. Wash your hands frequently and do not share dishes, drinking glasses, utensils, towels, bedding or any other items with anyone in the house. Treatment of Symptoms: Tylenol or Motrin for fevers and pain. Drink plenty of fluids to stay well hydrated and rest. You can self-prone (lay on your stomach) if you are having shortness of breath and/or coughing. You may have been prescribed a medicine to help with your coughing or you can take over the counter Robitussin DM). If you need to use a nebulizer for asthma treatments, please do it in an area where the air will not be recycled back into the house such as a porch, patio or garage. When to go to the ER: New onset of shortness of breath, worsening shortness of breath, change in mental status and/or confusion and dizziness. Disinfecting: Make sure (more content not included)... Normal [facility] Tobacco Screening.on 021 Fall risk assessment a) No falls within the last year [facility] Work Phone: Heart Rate Normal [facility] Work Phone: Tobacco use status [facility] b) No [facility] Work Phone: Tobacco Screening. Normal [facility] Work Phone: Tobacco Screening. Adult [facility] Work Phone: ALLIED HEALTHon 03-25-2020 [facility] HNO ID: [id number] Author: Ally MelendezRtKristal Araujo Service: Radiology Author Type: Athletics Teacher Type: Allied Health Filed: 03/25/2020 8:46 AM Note Text: Radiology Service Progress Note PATIENT NAME: Neftaly Morales DATE OF SERVICE: March 25, 2020 TIME: 8:45 AM PATIENT IDENTITY VERIFICATION COMPLETED USING TWO (2) IDENTIFIERS: Name and Date of confirmed by patient verbally. FALL SCREENING: Has the patient had 2 falls in the last year or 1 fall with injury or currently using an Ambulatory Assistive Device (Walker, Cane, Wheelchair, Crutches, etc.)? Inpatient: Screened on floor PATIENT GENDER DATA: Male PATIENT RELEVANT IMPLANT DATA REVIEWED: Not Applicable RADIOLOGY DEPARTMENT: General X-ray: Exam(s) Completed: Spine X-Ray(s): Cervical AP / LAT / FLEX-EXT PERIPHERAL IV DATA: Not applicable SIGNED BY: RT Jamar March 25, 2020 8:45 AM [facility] 03-25-2020 [facility] Office Visit (NSFRVW ) ----- NEFTALY MORALES ([id number]) 1 M Date Time Provider Department 03/25/20 8:00 AM SUMEET PATEL NSFRVW During your visit today, we recorded the following information about you: Temperature Pulse Blood pressure Weight 97 degrees 83/minute 108/60 72.1 kg Height 1.676 m Sumeet Patel MD 03/25/2020 8:18 AM Signed SPINE SURGERY ESTABLISHED DATE OF SERVICE: 03/25/2020 DATE OF LAST VISIT: Visit date not found SUBJECTIVE: HPI:Neftaly Morales is a 14 year old male presenting with father. Mr. Morales was evaluated as a hospital inpatient on 03/02/2020. He was admitted due to a flexion injury sustained while wrestling where he said he felt a pop with subsequent numbness and weakness to his left side. On admission to the hospital, his weakness was improving. An MRI of the cervical spine was completed showing potential interspinous ligament strain. Exam at this time noted some slight weakness (4+/5) in dorsiflexion, plantarflexion, music coordinator strength and hand intrinsics. He was treated with methylprednisolone and kept in a collar when out of bed. Today, he has discontinued his cervical collar. He is currently not in school, they return on 03/31/2020. He denies pain with range of motion, denies numbness or tingling in the hands or upper extremities. PAIN EVALUATION No data found in the last 1 encounters. AMBULATORY STATUS: Independent Community Distances ANTIPLATELET OR ANTICOAGULATION STATUS: No PREVIOUS CONSERVATIVE TREATMENTS: Lisandra Rothman REVIEW OF SYSTEMS: GENERAL: No weight loss or malaise MUSCULOSKELETAL: Negative for joint pain, swelling or muscle pain NEURO: No history of headaches, syncope, paralysis, seizures or tremors MEDICATIONS: methylphenidate ER 36 mg tablet Take 1 tablet by mouth once daily for 30 days. [START ON 04/17/2020] methylphenidate ER 36 mg tablet Take 1 tablet by mouth once daily for 30 days. Do not start before April 17, 2020. [START ON 05/17/2020] methylphenidate ER 36 mg tablet Take 1 tablet by mouth once daily for 30 days. Do not start before May 17, 2020. diclofenac sodium (VOLTAREN) 1 % topical gel Apply 2 g to affected area. hyoscyamine sublingual (LEVSIN/SL) 0.125 mg subl Dissolve 1 tablet under the tongue every 4 hours as needed (for cramping abdominal pain). Dissolve under tongue. SUMAtriptan (IMITREX) 50 mg tablet Start at onset of headache. May repeat after 2 hours. cetirizine (ZYRTEC) 10 mg tablet Take 10 mg by mouth daily at bedtime. polyethylene glycol 3350 (MIRALAX, GLYCOLAX) 17 gram/dose powder Take 17 g by mouth once daily. multivitamin tablet Take 1 tablet by mouth once daily. albuterol HFA (VENTOLIN HFA) 90 mcg/actuation inhaler Inhale 2 Puffs as instructed as needed. omeprazole (PRILOSEC) 20 mg capsule Take 1 capsule by mouth twice daily. diphenhydrAMINE (BENADRYL) 25 mg capsule Take 1 capsule by mouth daily at bedtime. For nausea/vomiting COMPOUNDED PRESCRIPTION once daily. Migravent VENTOLIN HFA 90 mcg/actuation inhaler INHALE 2 PUFFS EVERY 4 HOURS NEEDED FOR COUGH/WHEEZING Patient Entered Questionnaires Spine Questions 03/25/2020 Pain Location: Neck Pain Duration: 1-3 months Symptoms from neck/cervical spine: Yes Employment Status: Student Involved in law suit/legal claim: No Neck Questionnaires 03/25/2020 Benzel Modified FLORENCIA Score 18 (A lower score indicates increased pain and issues.) PROMIS Score Percentiles Physical Health 03/25/2020 Physical Function Percentile 97 Sleep Percentile 92 Fatigue Percentile 73 Pain Interference Percentile 50 Social Health 03/25/2020 Social Role Satisfaction Percentile 50 Percentiles provide an indication of how the patient's score ranks in relation to the general population. Higher percentile rankings indicate better function/quality of life. 50th percentile is the average of the general population and indicates half of respondents had a worse score. Depression Screening: PHQ-9 03/25/2020 Score 0 PHQ-9 Self-harm Question 03/25/2020 Thoughts that you would be better off , or of hurting yourself in some way 0 PHQ-9 Self-Harm (Item 9) response options: 0 Not at all 1 Several days 2 More than half the days 3 Nearly every day PHQ-9 Levels: 0-4 No to mild depression 5-9 Mild depression 10-14 Moderate depression 15-19 Moderately severe depression 20-27 Severe depression OBJECTIVE: PHYSICAL EXAM: BP 108/60 Pulse 83 Temp 97 Ht 5' 6 (1.68m) Wt 159 lb (72.1kg) SpO2 93% BMI 25.68 kg/(m2). GENERAL APPEARANCE: Well nourished, well developed, and no apparent distress. NEURO PSYCH: Patient oriented to person, place, and time. Mood pleasant. Benign affect. MUSCULOSKELETAL VISUAL INSPECTION CERVICAL: WNL THORACIC: WNL LUMBAR: WNL MOTOR: 5/5 in all muscle groups. SENSORY: Normal sensory exam GAIT: Normal. NEURO TESTS: Cranial Nerves: Normal mood and affect. CNII-XII grossly intact. DATA REVIEW:Diagnostic tests reviewed for today's visit, films/specimens were personally reviewed by me: [facility] records reviewed Imaging and outside records reviewed ASSESSMENT/PLAN (S14.109D) Spinal cord injury to cervical region without bone injury, subsequent encounter ([facility]) (primary encounter diagnosis) Mr. Morales is asymptomatic at this time. He denies pain in the neck, denies numbness or weakness in the upper or lower extremities. He has no difficulty with ambulation. We will get a flexion/extension x-ray today. He can continue to stay out of the [place] collar. He is planning on going ahead with wrestling. He has been doing some isometric exercises without pain. Some mild pain in the piriformis with bench pressing. Advised to continue building activity slowly. Neftaly Morales will continue with medical management of his/her condition. 1. Imaging: Cervical X-Ray 2. Follow up: PRN I reviewed the information obtained and documented by the physician sales operations assistant. I examined the patient and evaluated all available films and pertinent documents. We discussed the case and I agree with the plans as outlined in this note. Gina Landers PA-C SIGNATURE: Sumeet Patel MD PATIENT NAME: Neftaly Morales DATE: March 25, 2020 TIME: 7:23 AM PAGER: Referring Provider: JANNETTE TOVAR [[id number]] Allergies As of Date: 03/25/2020 Noted Allergy Reaction MONOSODIUM GLUTAMATE 01/09/2018 14 - Other: See Comments Comments: MIGRAINES MIGRAINES BEEF DERIVED (BOVINE) 03/08/2018 14 - Other: See Comments Comments: FROM SKIN TEST. PEGADEMASE BOVINE 03/08/2018 14 - Other: See Comments Comments: FROM SKIN TEST. PORACTANT ELENA 03/08/2018 14 - Other: See Comments Comments: FROM SKIN TEST. PORK DERIVED (PORCINE) 03/08/2018 14 - Other: See Comments Comments: FROM SKIN TEST. LACTALBUMIN 03/08/2018 14 - Other: See Comments Comments: FROM SKIN TEST. MILK 03/08/2018 14 - Other: See Comments Comments: FROM SKIN TEST. Date Reviewed: 03/25/2020 Reviewed by: Gina Agustin - Fully Assessed Reason for Visit: Post Op [174] Primary Visit Diagnosis:Spinal cord injury to cervical region without bone injury, subsequent encounter ([facility]) [S14.109D] Order(s):XR CERV OTHER 4V AP/LAT/FLX/EXT [[id number]] Order #: [id number] FUTURE Prescriptions as of 03/25/2020 Sig: METHYLPHENIDATE ER 36 MG TABL* Take 1 tablet by mouth once d* METHYLPHENIDATE ER 36 MG TABL* Take 1 tablet by mouth once d* METHYLPHENIDATE ER 36 MG TABL* Take 1 tablet by mouth once d* DICLOFENAC 1 % TOPICAL GEL Apply 2 g to affected area. HYOSCYAMINE 0.125 MG SUBLINGU* Dissolve 1 tablet under the t* SUMATRIPTAN 50 MG TABLET Start at onset of headache. * CETIRIZINE 10 MG TABLET Take 10 mg by mouth daily at * POLYETHYLENE GLYCOL 3350 17 G* Take 17 g by mouth once daily. MULTIVITAMIN TABLET Take 1 tablet by mouth once d* ALBUTEROL SULFATE HFA 90 MCG/* Inhale 2 Puffs as instructed * OMEPRAZOLE 20 MG CAPSULE,JOAN* Take 1 capsule by mouth twice* DIPHENHYDRAMINE 25 MG CAPSULE Take 1 capsule by mouth daily* COMPOUNDED PRESCRIPTION once daily. Migravent VENTOLIN HFA 90 MCG/ACTUATION* INHALE 2 PUFFS EVERY 4 HOURS * Problem List As Of Date 03/25/2020 Noted Resolved Closed fracture of radius [S52.90XA] 12/02/2015 Contusion of bone [T14.8XXA] 06/06/2016 Acute post-traumatic headache, not intractable *06/23/2016 Migraine without aura and without status migrai*06/23/2016 Nausea [R11.0] 07/11/2018 Non-intractable cyclical vomiting with nausea [*07/11/2018 Recurrent vomiting [R11.10] Migraines [G43.909] Adopted [Z02.82] Other constipation [K59.09] 09/13/2018 Attention deficit hyperactivity disorder (ADHD)*11/05/2019 More... Oppositional defiant disorder [F91.3] 11/05/2019 More... Psychophysiological insomnia [F51.04] 02/04/2020 More... Trauma [T14.90XA] 03/03/2020 Encounter Status:Closed by SUMEET PATEL MD on 03/25/20 [facility] PROGRESSon 03-25-2020 PROGRESS HNO ID: [id number] Author: Sumeet Patel MD Service: ? Author Type: Physician Type: Progress Notes Filed: 03/25/2020 8:18 AM Note Text: SPINE SURGERY ESTABLISHED DATE OF SERVICE: 03/25/2020 DATE OF LAST VISIT: Visit date not found SUBJECTIVE: HPI:Neftaly Morales is a 14 year old male presenting with father. Mr. Morales was evaluated as a hospital inpatient on 03/02/2020. He was admitted due to a flexion injury sustained while wrestling where he said he felt a pop with subsequent numbness and weakness to his left side. On admission to the hospital, his weakness was improving. An MRI of the cervical spine was completed showing potential interspinous ligament strain. Exam at this time noted some slight weakness (4+/5) in dorsiflexion, plantarflexion, music coordinator strength and hand intrinsics. He was treated with methylprednisolone and kept in a collar when out of bed. Today, he has discontinued his cervical collar. He is currently not in school, they return on 03/31/2020. He denies pain with range of motion, denies numbness or tingling in the hands or upper extremities. PAIN EVALUATION No data found in the last 1 encounters. AMBULATORY STATUS: Independent Community Distances ANTIPLATELET OR ANTICOAGULATION STATUS: No PREVIOUS CONSERVATIVE TREATMENTS: Lisandra Rothman REVIEW OF SYSTEMS: GENERAL: No weight loss or malaise MUSCULOSKELETAL: Negative for joint pain, swelling or muscle pain NEURO: No history of headaches, syncope, paralysis, seizures or tremors MEDICATIONS: methylphenidate ER 36 mg tablet Take 1 tablet by mouth once daily for 30 days. [START ON 04/17/2020] methylphenidate ER 36 mg tablet Take 1 tablet by mouth once daily for 30 days. Do not start before April 17, 2020. [START ON 05/17/2020] methylphenidate ER 36 mg tablet Take 1 tablet by mouth once daily for 30 days. Do not start before May 17, 2020. diclofenac sodium (VOLTAREN) 1 % topical gel Apply 2 g to affected area. hyoscyamine sublingual (LEVSIN/SL) 0.125 mg subl Dissolve 1 tablet under the tongue every 4 hours as needed (for cramping abdominal pain). Dissolve under tongue. SUMAtriptan (IMITREX) 50 mg tablet Start at onset of headache. May repeat after 2 hours. cetirizine (ZYRTEC) 10 mg tablet Take 10 mg by mouth daily at bedtime. polyethylene glycol 3350 (MIRALAX, GLYCOLAX) 17 gram/dose powder Take 17 g by mouth once daily. multivitamin tablet Take 1 tablet by mouth once daily. albuterol HFA (VENTOLIN HFA) 90 mcg/actuation inhaler Inhale 2 Puffs as instructed as needed. omeprazole (PRILOSEC) 20 mg capsule Take 1 capsule by mouth twice daily. diphenhydrAMINE (BENADRYL) 25 mg capsule Take 1 capsule by mouth daily at bedtime. For nausea/vomiting COMPOUNDED PRESCRIPTION once daily. Migravent VENTOLIN HFA 90 mcg/actuation inhaler INHALE 2 PUFFS EVERY 4 HOURS NEEDED FOR COUGH/WHEEZING Patient Entered Questionnaires Spine Questions 03/25/2020 Pain Location: Neck Pain Duration: 1-3 months Symptoms from neck/cervical spine: Yes Employment Status: Student Involved in law suit/legal claim: No Neck Questionnaires 03/25/2020 Benzel Modified FLORENCIA Score 18 (A lower score indicates increased pain and issues.) PROMIS Score Percentiles Physical Health 03/25/2020 Physical Function Percentile 97 Sleep Percentile 92 Fatigue Percentile 73 Pain Interference Percentile 50 Social Health 03/25/2020 Social Role Satisfaction Percentile 50 Percentiles provide an indication of how the patient's score ranks in relation to the general population. Higher percentile rankings indicate better function/quality of life. 50th percentile is the average of the general population and indicates half of respondents had a worse score. Depression Screening: PHQ-9 03/25/2020 Score 0 PHQ-9 Self-harm Question 03/25/2020 Thoughts that you would be better off , or of hurting yourself in some way 0 PHQ-9 Self-Harm (Item 9) response options: 0 Not at all 1 Several days 2 More than half the days 3 Nearly every day PHQ-9 Levels: 0-4 No to mild depression 5-9 Mild depression 10-14 Moderate depression 15-19 Moderately severe depression 20-27 Severe depression OBJECTIVE: PHYSICAL EXAM: BP 108/60 Pulse 83 Temp 97 Ht 5' 6 (1.68m) Wt 159 lb (72.1kg) SpO2 93% BMI 25.68 kg/(m2). GENERAL APPEARANCE: Well nourished, well developed, and no apparent distress. NEURO PSYCH: Patient oriented to person, place, and time. Mood pleasant. Benign affect. MUSCULOSKELETAL VISUAL INSPECTION CERVICAL: WNL THORACIC: WNL LUMBAR: WNL MOTOR: 5/5 in all muscle groups. SENSORY: Normal sensory exam GAIT: Normal. NEURO TESTS: Cranial Nerves: Normal mood and affect. CNII-XII grossly intact. DATA REVIEW:Diagnostic tests reviewed for today's visit, films/specimens were personally reviewed by me: [facility] records reviewed Imaging and outside records reviewed ASSESSMENT/PLAN (S14.109D) Spinal cord injury to cervical region without bone injury, subsequent encounter ([facility]) (primary encounter diagnosis) Mr. Morales is asymptomatic at this time. He denies pain in the neck, denies numbness or weakness in the upper or lower extremities. He has no difficulty with ambulation. We will get a flexion/extension x-ray today. He can continue to stay out of the [place] J collar. He is planning on going ahead with wrestling. He has been doing some isometric exercises without pain. Some mild pain in the piriformis with bench pressing. Advised to continue building activity slowly. Neftaly Morales will continue with medical management of his/her condition. 1. Imaging: Cervical X-Ray 2. Follow up: PRN I reviewed the information obtained and documented by the physician sales operations assistant. I examined the patient and evaluated all available films and pertinent documents. We discussed the case and I agree with the plans as outlined in this note. Gina Landers PA-C SIGNATURE: Sumeet Patel MD PATIENT NAME: Neftaly Morales DATE: March 25, 2020 TIME: 7:23 AM PAGER: [facility] XR CERVICAL 4V AP/LAT/FLX/EX Ton 03-25-2020 XR CERVICAL 4V AP/LAT/FLX/EXT * * *Final Report* * * DATE OF EXAM: Mar 25 2020 8:41AM FVX [id number] - XR CERVICAL 4V AP/LAT/FLX/EXT / PROCEDURE REASON: * * * * Physician Interpretation * * * * TECHNIQUE: XR CERVICAL 4V AP/LAT/FLX/EXT HISTORY: 14 years Male with neck pain COMPARISON: None RESULT: Counting reference: Craniocervical junction. Anatomic Variants: None. There is straightening of the cervical lordosis, likely due to muscle spasm. The vertebral body heights and intervertebral disc spaces are normal. Normal atlantoaxial interval on the lateral view. No instability on flexion and extension views. No abnormal paraspinal soft tissue masses. The visualized ribs and lungs are unremarkable. IMPRESSION: Straightening of cervical lordosis. No acute osseous abnormality. Battery Vent Plug Inserter: SAROJ Transcribe Date/Time: Mar 25 2020 9:03A Dictated by : BRIA BANGURA MD This examination was interpreted and the report reviewed and electronically signed by: BRIA BANGURA MD on Mar 25 2020 9:05AM EST [id number] Normal [facility] PROGRESSon 03-04-2020 PROGRESS HNO ID: [id number] Author: Jason Padilla Service: Trauma Author Type: Resident Type: Progress Notes Filed: 03/04/2020 6:22 PM Note Text: TRAUMA PROGRESS NOTE SERVICE DATE: 03/04/2020 SERVICE TIME: 5:41 AM Subjective HISTORY (LAST 24 HOURS): no issues overnight, regaining sensation and strength PERTINENT ROS: Neck tenderness, loss of sensation mostly LUE but improving Current Facility-Administered Medications Medication Dose Route Frequency - lidocaine 4 % topical cream (LMX) TOPICAL PRN - acetaminophen 1,000 mg tab(s) (TYLENOL) 15 mg/kg/dose ORAL q 6 H PRN Objective ASSESSMENT: BP 129/51 Pulse 86 Temp (Src) 97.7 (Oral) Resp 16 Ht 5' 8 (1.73m) Wt 149 lb 14.6 oz (68.0kg) SpO2 99% BMI 22.80 kg/(m2). O2 Therapy: Room Air Neuro: Alert AND Oriented x 3, GCS 15, Cranial Nerves II-XII Intact, Moves All Extremities, Strength Symmetrical, decreased sensation L upper extremity HEENT: Head: No lacerations or abrasions, no bony step offs, midface stable to palpation, Eyes: PERRL, conjunctiva/corneas without lesions, EOM intact, Ears: Canals without blood or CSF drainage, TMs clear, external ears without lacerations, Nose: Septum midline, no crepitus with motion, Throat: Oral mucosa without lacerations, teeth in place, tongue without lacerations, united ke[place]ow[place]-j collar present Neck: No lacerations/wounds, No JVD, Trachea midline Repiratory:No abrasions or contusions, No crepitus, No TTP, Equal Excursion Cardiovascular: hemodynamically stable Abdomen: Non-distended, Non-tenderness or peritoneal signs Pelvic/Perineal: Pelvis stable to palpation Back/Spine: No external injury noted Extremities: Arm/Shoulder normal bilaterally, Forearm/Elbow right normal and left decreased sensation but improving, Hand/Wrist right normal and left decreased sensation but improving, Thigh/Hip normal bilaterally, Leg/Knee normal bilaterally, Foot/Ankle normal bilaterally DATA: CXR:no new imaging Labs: Recent Labs 03/03/20 0839 03/02/20 1715 WBC 5.32 8.51 HB 15.1 15.5 HCT 43.9 45.1 PLT 370 421* NA 138 139 K 4.1 3.9 CHLOR 102 99 CO2 22* 26 CREAT 0.85 1.22 BUN 14 14 GLUC 145* 97 TPROT 7.6 8.3 ALB 4.3 4.9 CA 9.6 10.6* ALKPHOS 182 192 TBILI 1.1 0.4 AST 25 28 ALT 22 25 LIPASE -- 11* APTT -- 23.3 INR -- 1.0 Assessment/Plan ACTIVE PROBLEM LIST Closed Fracture of Radius Contusion of Bone Acute Post-Traumatic Headache, Not Intractable Migraine Without Aura and Without Status Migrainosus, Not Intractable Nausea Non-Intractable Cyclical Vomiting With Nausea Recurrent Vomiting Migraines Adopted Other Constipation Attention Deficit Hyperactivity Disorder (Adhd), Predominantly Inattentive Type Oppositional Defiant Disorder Psychophysiological Insomnia Trauma Medication and Non-Pharmacologic VTE Prophylaxis/Anticoagulant s 03/03/20 0045 activity - mobilize patient (sd,ne) VTE Prophylaxis: VTE prophylaxis appropriate SIGNATURE: Jason Padilla MD, PhD PATIENT NAME: Neftaly Moarles DATE: March 04, 2020 TIME: 5:41 AM PAGER/CONTACT #: Normal [facility] CBC and Differentialon 03-03 Abs Baso 0.00 k/uL Normal <0.11 [facility] Comment on above: Performed By: #### C VARINDER CBCDIF ####[facility] [place], [place] [phone] Abs Alger 0.00 k/uL Normal <0.87 [facility] Comment on above: Performed By: #### C VARINDER CBCDIF ####[place] [id number] [place], [place] [phone] Abs Neut 4.36 k/uL Normal 1.45-7.50 [facility] Comment on above: Performed By: #### C MP, CBCDIF ####[place] [phone] ANC(includeSEG+BAND) 4.36 k/uL Normal [facility] Comment on above: Performed By: #### C MP, CBCDIF ####[place] [phone] Basophils/100 WBC (Bld) 0.0 % Normal [facility] Comment on above: Performed By: #### C MP, CBCDIF ####[place] [phone] DTYPE Manual Diff Normal [facility] Comment on above: Performed By: #### C MP, CBCDIF ####[place] [phone] Eosinophils (Bld) [#/Vol] 0.00 10*3/uL Normal <0.46 [facility] Comment on above: Performed By: #### C MP, CBCDIF ####[place] [phone] Eosinophils/100 WBC (Bld) 0.0 % Normal [facility] Comment on above: Performed By: #### C MP, CBCDIF ####[place] [phone] Erythrocyte distribution width (RBC) [Ratio] 12.9 % Normal 11.5-15.0 [facility] Comment on above: Performed By: #### C MP, CBCDIF ####[place] [phone] Hematocrit (Bld) [Volume fraction] 43.9 % Normal 39.0-51.0 [facility] Comment on above: Performed By: #### C MP, CBCDIF ####[place] [phone] Hemoglobin (Bld) [Mass/Vol] 15.1 g/dL Normal 13.0-17.0 [facility] Comment on above: Performed By: #### C MP, CBCDIF ####[address] [phone] Lymphocytes (Bld) [#/Vol] 0.96 10*3/uL Low 1.00-4.00 [facility] Comment on above: Performed By: #### C MP, CBCDIF ####[place] [phone] Lymphocytes/100 WBC (Bld) 18.0 % Normal [facility] Comment on above: Performed By: #### C MP, CBCDIF ####[place] [phone] MCH (RBC) [Entitic mass] 28.9 pG Normal 26.0-34.0 [facility] Comment on above: Performed By: #### C MP, CBCDIF ####[place] [phone] MCHC (RBC) [Mass/Vol] 34.4 g/dL Normal 30.5-36.0 [facility] Comment on above: Performed By: #### C MP, CBCDIF ####[place] [phone] MCV (RBC) [Entitic vol] 83.9 fL Normal 80.0-100.0 [facility] Comment on above: Performed By: #### C MP, CBCDIF ####[place] [phone] Monocytes/100 WBC (Bld) 0.0 % Normal [facility] Comment on above: Performed By: #### C MP, CBCDIF ####[place] [phone] Neutrophils/100 WBC (Bld) 82.0 % Normal [facility] Comment on above: Performed By: #### C MP, CBCDIF ####[place] [phone] Platelet mean volume (Bld) [Entitic vol] 9.0 fL Normal 9.0-12.7 [facility] Comment on above: Performed By: #### C MP, CBCDIF ####[place] [phone] Platelets (Bld) [#/Vol] Platelet estimate adequate Normal [facility] Comment on above: Performed By: #### C MP, CBCDIF ####[place] [phone] Platelets (Bld) [#/Vol] 370 10*3/uL Normal 150-400 [facility] Comment on above: Performed By: #### C MP, CBCDIF ####[place] [phone] RBC (Bld) [#/Vol] 5.23 10*6/uL Normal 4.20-6.00 [facility] Comment on above: Performed By: #### C MP, CBCDIF ####[place] [phone] Red Cell Morph SEE COMMENT Normal [facility] Comment on above: Result Comment: Unre markable Performed By: #### C MP, CBCDIF ####[place] [phone] WBC (Bld) [#/Vol] 5.32 10*3/uL Normal 3.70-11.00 [facility] Comment on above: Performed By: #### C MP, CBCDIF ####[place] [phone] CONSULTon 03-03-2020 CONSULT HNO ID: [id number] Author: Sumeet Patel MD Service: Neurosurgery Author Type: Physician Type: Consults Filed: 03/02/2020 11:29 PM Note Text: Neurosurgery Consult Note 03/02/2020 11:22 PM Primary Care Physician: Sam Strauss MD Reason of The Consult: Numbness and weakness after trauma ------ Chief Complaint: Trauma History of present illness: This is a 14 year old M with pmh of asthma who presents with after a wrestling where he had his head flexed and felt a pop and soon after numbness and weakness mostly on left. He feels strength improving. CT negative for fracture, MRI spine showing potential interspinous ligament strain. ASA/Plavix/Coumadin: None Objective: Awake and oriented x3 PERRL EOMI FS Motor: UE D 5/5, B 5/5, T 5/5, G 4+/5, HI 4+/5 LE HF 5/5, KE 5/5, DF 4+/5, PF 4+/5 Reflexes 2+ 03/02/20 2030 03/02/20 2227 03/02/20 2230 03/02/20 2300 BP: 125/54 127/61 127/65 Pulse: 77 76 78 Resp: 20 18 18 Temp: SpO2: 100% 98% 97% 98% Weight: Height: ------- Significant labs: BMP: Na: 139, K: 3.9, BUN: 14, Cr: 1.22, Gluc: 97 CBC: WBC: 8.5, HANDH: 15.5AND45.1, Plt: 421 Imaging: CT negative for fracture, MRI spine showing potential interspinous ligament strain. Past Medical History PAST MEDICAL HISTORY Diagnosis Date - Adopted - Asthma - Lead poisoning resolved - Migraines - Recurrent vomiting Past Surgical History No past surgical history on file. Social History: Social History Tobacco Use - Smoking status: Never Smoker - Smokeless tobacco: Never Used Substance Use Topics - Alcohol use: Not on file - Drug use: Not on file Medications: Prior to Admission: (Not in a hospital admission) Inpatient Medications Current Facility-Administered Medications Medication Dose Route Frequency - methylPREDNISolone sodium succinate 2,000 mg in NaCl 0.9% 100 mL (SOLU-Medrol) 2,000 mg INTRAVENOUS ONCE - melatonin 10 mg tab(s) 10 mg ORAL ONCE - [START ON 03/03/2020] methylPREDNISolone sodium succinate 8,445.6 mg in NaCl 0.9% 1,000 mL (SOLU-Medrol) 5.4 mg/kg/hr INTRAVENOUS CONTINUOUS Current Allergies: Allergies As of Date: 03/02/2020 Allergen Noted Reaction MONOSODIUM GLUTAMATE 01/09/2018 Other: See Comments BEEF DERIVED (BOVINE) 03/08/2018 Other: See Comments PEGADEMASE BOVINE 03/08/2018 Other: See Comments PORACTANT ELENA 03/08/2018 Other: See Comments PORK DERIVED (PORCINE) 03/08/2018 Other: See Comments LACTALBUMIN 03/08/2018 Other: See Comments MILK 03/08/2018 Other: See Comments Fully Assessed 02/04/2020 ASSESSMENT AND PLAN This is a 14 year old M who presents with Spinal cord injury without radiographic abnormality (SCIWORA) Symptoms mostly numbness and slight weakness (ZOIE D) Plan: 1. Since he is young without other trauma and within 8 hours from injury will do NASCIS protocol steroid administration 2. Admit for observation 3. No surgical intervention 4. Keep in collar for now 03/02/2020 11:22 PM Sumeet Patel MD Neurosurgery [facility] CONSULT [place] 03-03-2020 CONSULT THOM[place]ON PUTNAMO ID: [id number] Author: Cyn (Pa) Strine Service: Neurosurgery Author Type: Physician Blind Aide Type: Consult Progress Note Filed: 03/03/2020 11:06 AM Note Text: PROGRESS NOTE NEUROSURGERY SERVICE DATE: 03/03/2020 SERVICE TIME: 0850 Subjective INTERVAL HPI Weakness and numbness improving, but still has some numbness. Denies any neck or upper extremity pain. Current Facility-Administered Medications Medication Dose Route Frequency - methylPREDNISolone sodium succinate 8,445.6 mg in NaCl 0.9% 1,000 mL (SOLU-Medrol) 5.4 mg/kg/hr INTRAVENOUS CONTINUOUS - lidocaine 4 % topical cream (LMX) TOPICAL PRN - NaCl 0.9% iv infusion 75 mL/hr INTRAVENOUS CONTINUOUS - acetaminophen 1,000 mg tab(s) (TYLENOL) 15 mg/kg/dose ORAL q 6 H PRN Objective Well developed, well nourished Appears comfortable AANDOx3 Cervical collar in place Sensation decreased in LUE diffusely to LT compared to RUE Strength 5/5 except left triceps 4/5 VITAL SIGNS 24 HOUR REVIEW: Patient Vitals for the past 24 hrs: BP Temp Temp src Pulse Resp SpO2 Height Weight 03/03/20 0813 133/63 36.6 ?C (97.9 ?F) Oral 73 20 99 % ? ? 03/03/20 0415 132/50 36.6 ?C (97.8 ?F) Oral 68 16 98 % ? ? 03/03/20 0210 ? ? ? 72 16 97 % ? ? 03/03/20 0006 134/75 36.4 ?C (97.6 ?F) Oral 70 16 99 % 172.7 cm (5' 8 ) 68 kg (149 lb 14.6 oz) 03/02/20 2330 127/62 ? ? 76 18 99 % ? ? 03/02/20 2300 127/65 ? 98 % ? ? 03/02/200 127/61 ? ? 78 18 97 % ? ? 03/02/202226 125/54 ? ? 76 18 98 % ? ? 03/02/202029 ? ? ? 77 20 100 % ? ? 03/02/201999 129/58 ? ? 85 18 100 % ? ? 03/02/20 1930 128/50 ? ? 81 21 100 % ? ? 03/02/20 1845 138/59 ? ? 90 19 ? ? ? 03/02/20 1830 138/72 ? ? (!) 94 19 100 % ? ? 03/02/20 1815 144/68 ? ? (!) 98 23 100 % ? ? 03/02/20 1800 147/72 ? ? (!) 100 22 ? ? ? 03/02/20 1749 146/76 ? ? (!) 103 23 100 % ? ? 03/02/20 1718 158/78 ? ? (!) 110 19 100 % ? ? 03/02/20 1712 ? 172.7 cm (5' 8 ) 68 kg (150 lb) 03/02/20 171 158/86 ? ? (!) 123 (!) 25 96 % ? ? 03/02/20 170 ? 36.6 ?C (97.9 ?F) ? 03/02/201708 158/86 ? ? (!) 121 21 100 % ? ? LABS: CBC, Coags, BMP, Mg, Phos Recent Labs 03/03/20 0839 03/02/20 1715 WBC 5.32 8.51 HB 15.1 15.5 HCT 43.9 45.1 PLT 370 421* INR -- 1.0 APTT -- 23.3 NA 138 139 K 4.1 3.9 CHLOR 102 99 CO2 22* 26 BUN 14 14 CREAT 0.85 1.22 GLUC 145* 97 CA 9.6 10.6* DATA: Diagnostic tests reviewed for today's visit: Most recent labs and imaging results. Assessment/Plan Active Problems: Trauma POA: Yes MRI c/s with ligamentous strain On NASCIS steroid protocol Plan to continue cervical collar when OOB until follow up with Dr. Patel in 2 weeks-appt requested Avoid contact sports until discussed at followup Medication and Non-Pharmacologic VTE Prophylaxis/Anticoagulant s 03/03/20 0045 activity - mobilize patient (sd,oh) SIGNATURE: Cyn Murphy PA-C PATIENT NAME: Neftaly Morales DATE: March 03, 2020 TIME: 10:55 AM PAGER/CONTACT #: [phone] Normal [facility] Comp Metabolic Panelon 03-03 Albumin [Mass/Vol] 4.3 g/dL Normal 3.5-5.0 [facility] Comment on above: Performed By: #### C MP, CBCDIF ####[address] [phone] ALP [Catalytic activity/Vol] 182 U/L Normal 82-331 [facility] Comment on above: Result Comment: Refe rence ranges were not locally established for this patient's age group. The normal values are based on the following source: [place] REEDER, [place] GARCIA, et al. CLSI based transference of the CALIPER database of pediatric reference intervals from [place] to [place], Ortho, Robin, and Siemens Clinical Chemistry Assays: Direct validation using reference samples from the [facility] cohort. Clin Biochem. Performed By: #### C MP, CBCDIF ####[address] [phone] ALT [Catalytic activity/Vol] 22 U/L Normal 5-50 [facility] Comment on above: Performed By: #### C MP, CBCDIF ####[address] [phone] Anion gap [Moles/Vol] 14 mmol/L Normal 9-18 [facility] Comment on above: Performed By: #### C MP, CBCDIF ####[address] [phone] AST [Catalytic activity/Vol] 25 U/L Normal 7-40 [facility] Comment on above: Performed By: #### C MP, CBCDIF ####[address] [phone] Bilirubin [Mass/Vol] 1.1 mg/dL Normal 0.2-1.3 [facility] Comment on above: Result Comment: (NOT E) Reference ranges for this patient's age group have not been established. These reference ranges reflect verified or established ranges for the adult population. Interpret these ranges with caution using the clinical context and additional reference resources. Performed By: #### C MP, CBCDIF ####[address] [phone] Calcium [Mass/Vol] 9.6 mg/dL Normal 8.5-10.5 [facility] Comment on above: Performed By: #### C MP, CBCDIF ####[place] [phone] Chloride [Moles/Vol] 102 mmol/L Normal 98-110 [facility] Comment on above: Performed By: #### C MP, CBCDIF ####[place] [phone] CO2 [Moles/Vol] 22 mmol/L Low 23-32 [facility] Comment on above: Performed By: #### C MP, CBCDIF ####[place] [phone] Creatinine [Mass/Vol] 0.85 mg/dL Normal 0.40-1.30 [facility] Comment on above: Result Comment: Revi ewed Performed By: #### C MP, CBCDIF ####[place] [phone] Glucose [Mass/Vol] 145 mg/dL High 65-100 [facility] Comment on above: Performed By: #### C MP, CBCDIF ####[place] [phone] Potassium [Moles/Vol] 4.1 mmol/L Normal 3.5-5.0 [facility] Comment on above: Performed By: #### C MP, CBCDIF ####[place] [phone] Protein [Mass/Vol] 7.6 g/dL Normal 6.0-8.4 [facility] Comment on above: Performed By: #### C MP, CBCDIF ####[place] [phone] Sodium [Moles/Vol] 138 mmol/L Normal 135-146 [facility] Comment on above: Performed By: #### C MP, CBCDIF ####[facility] [place], [place] [phone] Urea nitrogen [Mass/Vol] 14 mg/dL Normal 5-20 [facility] Comment on above: Performed By: #### C MP, CBCDIF ####[place] [id number] [place] [phone] Coronavirus 2019on 0 COVID 19 Result GENERATOR REBUILDER Negative Normal Negative for COVID19 (SARS CoV2) by PCR. [facility] Comment on above: Result Comment: This test was developed and its performance characteristics determined by [facility] [place]. This test has been authorized by FDA under an Emergency Use Authorization (EUA). This test has been validated in accordance with the FDA's Guidance Document Policy for Diagnostics Testing in Laboratories Certified to Perform High Complexity Testing under CLIA prior to Emergency use Authorization for Coronavirus Disease 2019 during the Public Health Emergency issued on June 29, 2019. Performed By: #### C OVID #### [place] [phone] [place] [address] COVID 19 Source GENERATOR REBUILDER Nasopharyngeal Swab Normal [facility] Comment on above: Performed By: #### C OVID #### [place] [phone] [place] [address] ED NOTEon 03-03-2020 ED NOTE HNO ID: [id number] Author: Delphine MelendezRnShannan Young RN Service: ? Author Type: Registered Nurse Type: ED Notes Filed: 03/02/2020 10:48 PM Note Text: [place] obtain and walked to lab Normal [facility] NURSING PROGon 03-03-2020 NURSING PROG HNO ID: [id number] Author: Gail MelendezRn) ZAMZAM [place] Service: Pediatrics Author Type: Registered Nurse Type: Nursing Progress Note Filed: 03/03/2020 3:07 AM Note Text: Nursing Progress Note Patient Name: Neftaly Morales Patient Location: [place] [id number] - Transfer Note: Patient transferred into room/unit PEDS 445-03 from ED in stable condition. Actions taken: No futher actions taken at this time. Will continue to monitor and check with patient. This note was completed by: Gail [place] RN [facility] PROGRESSon 03-03-2020 PROGRESS HNO ID: [id number] Author: Jason Padilla Service: Trauma Author Type: Resident Type: Progress Notes Filed: 03/03/2020 11:00 AM Note Text: TRAUMA TERTIARY SURVEY SERVICE DATE: 03/03/2020 SERVICE TIME: 10:54 AM ASSESSMENT/PLAN: 14yo otherwise healthy male who underwent a wrestling injury on 03/02/2020 with decreased sensation in his LLE and LUE with weakness. Imaging was consistent with ligamentous edema of his C4-6. Currently receiving 24h IV steroids per neurosurgery recommendations -likely ok to d/c home tomorrow -will need recs for homegoing collar and when he can return to school and sports -continue IV steroids, appreciate neurosurgery help -mIVF NS 75cc/hr -regular diet -tylenol and lidocaine cream for pain Plan to be discussed with Dr. Austin TERTIARY SURVEY SUBJECTIVE: improving neck and shoulder pain. ?Improving sensation BP 132/50 Pulse 68 Temp (Src) 97.8 (Oral) Resp 16 Ht 5' 8 (1.73m) Wt 149 lb 14.6 oz (68.0kg) SpO2 98% BMI 22.80 kg/(m2). O2 Therapy: Room Air GCS: 15 NEURO: 5/5 strength dorsi/plantarflexion. Symmetric sensation in lower extremities. 4/5 music coordinator strength L hand, 5/5 right hand. Decreased sensation LUE to mid-arm HEENT: In c-collar, otherwise normal, no c-spine tenderness NECK: as above RESPIRATORY: Negative CARDIOVASCULAR: Negative ABDOMEN: Negative PELVIC/PERINEAL: Negative BACK/SPINE: Negative EXTREMITIES: Negative except as above MEDICATIONS: Current Facility-Administered Medications Medication Dose Route Frequency - methylPREDNISolone sodium succinate 8,445.6 mg in NaCl 0.9% 1,000 mL (SOLU-Medrol) 5.4 mg/kg/hr INTRAVENOUS CONTINUOUS - lidocaine 4 % topical cream (LMX) TOPICAL PRN - NaCl 0.9% iv infusion 75 mL/hr INTRAVENOUS CONTINUOUS - acetaminophen 1,000 mg tab(s) (TYLENOL) 15 mg/kg/dose ORAL q 6 H PRN SIGNATURE: Jason Padilla MD PATIENT NAME: Neftaly Morales DATE: March 03, 2020 TIME: 5:37 AM PAGER/CONTACT #: [facility] 03-02-2020 [facility] HNO ID: [id number] Author: Kristal Oliva (Tech) Service: Radiology Author Type: Athletics Teacher Type: [facility] Filed: 03/02/2020 9:56 PM Note Text: Radiology Service Progress Note PATIENT NAME: Neftaly Morales DATE OF SERVICE: March 02, 2020 TIME: 9:56 PM PATIENT IDENTITY VERIFICATION COMPLETED USING TWO (2) IDENTIFIERS: Name and Date of confirmed by patient verbally and Name and Date of confirmed by identification band. FALL SCREENING: Has the patient had 2 falls in the last year or 1 fall with injury or currently using an Ambulatory Assistive Device (Walker, Cane, Wheelchair, Crutches, etc.)? Emergency Room Patient: Screened in ED PATIENT GENDER DATA: Male PATIENT RELEVANT IMPLANT DATA REVIEWED: Yes RADIOLOGY DEPARTMENT: MR; Exam(s) Completed: Spine: Cervical spine and Thoracic spine PERIPHERAL IV DATA: Not applicable SIGNED BY: Kristal Oliva March 02, 2020 9:56 PM [facility] HNO ID: [id number] Author: Kristal Villarreal (Rt) Service: Radiology Author Type: Athletics Teacher Type: [facility] [email or web address] Filed: 03/02/2020 5:32 PM Note Text: Radiology Service Progress Note PATIENT NAME: Neftaly Morales DATE OF SERVICE: March 02, 2020 TIME: 5:32 PM PATIENT IDENTITY VERIFICATION COMPLETED USING TWO (2) IDENTIFIERS: Name and Date of confirmed by patient verbally and Name and Date of confirmed by identification band. FALL SCREENING: Has the patient had 2 falls in the last year or 1 fall with injury or currently using an Ambulatory Assistive Device (Walker, Cane, Wheelchair, Crutches, etc.)? Emergency Room Patient: Screened in ED PATIENT GENDER DATA: Male PATIENT RELEVANT IMPLANT DATA REVIEWED: Not Applicable RADIOLOGY DEPARTMENT: General X-ray: Exam(s) Completed: Chest X-Ray PERIPHERAL IV DATA: Not applicable SIGNED BY: Jese Pacheco, RT March 02, 2020 5:32 PM Normal [facility] APTTon 03-02-2020 aPTT Coag (Bld) [Time] 23.3 s Normal 23.0-32.4 [facility] Comment on above: Result Comment: Unfr actionated Heparin Therapeutic Ranges: Standard Heparin Nomogram: 53 to 78 seconds (anti-Xa level of 0.3 to 0.7 U/ml) Low Dose/ACS Nomogram: 49 to 67 seconds (anti-Xa level of 0.2 to 0.5 U/ml) Stroke Treatment Nomogram: 49 to 67 seconds (anti-Xa level of 0.2 to 0.5 U/ml) Note: The APTT therapeutic range has been determined for the current lot of laboratory APTT reagent in use throughout the [facility]. Performed By: #### C BC, ALCO, PT, PTT, CMP, LIPA ####[place] [phone] CBCon 03-02-2020 Absolute nRBC <0.01 Normal <0.01 [facility] Comment on above: Performed By: #### C BC, ALCO, PT, PTT, CMP, LIPA #### [place] [phone] Erythrocyte distribution width (RBC) [Ratio] 13.0 % Normal 11.5-15.0 [facility] Comment on above: Performed By: #### C BC, ALCO, PT, PTT, CMP, LIPA #### [place] [phone] Hematocrit (Bld) [Volume fraction] 45.1 % Normal 39.0-51.0 [facility] Comment on above: Performed By: #### C BC, ALCO, PT, PTT, CMP, LIPA #### [place] [phone] Hemoglobin (Bld) [Mass/Vol] 15.5 g/dL Normal 13.0-17.0 [facility] Comment on above: Performed By: #### C BC, ALCO, PT, PTT, CMP, LIPA #### [place] [phone] MCH (RBC) [Entitic mass] 28.8 pG Normal 26.0-34.0 [facility] Comment on above: Performed By: #### C BC, ALCO, PT, PTT, CMP, LIPA #### [place] [phone] MCHC (RBC) [Mass/Vol] 34.4 g/dL Normal 30.5-36.0 [facility] Comment on above: Performed By: #### C BC, ALCO, PT, PTT, CMP, LIPA #### [place] [phone] MCV (RBC) [Entitic vol] 83.8 fL Normal 80.0-100.0 [facility] Comment on above: Performed By: #### C BC, ALCO, PT, PTT, CMP, LIPA #### [place] [phone] Platelet mean volume (Bld) [Entitic vol] 9.0 fL Normal 9.0-12.7 [facility] Comment on above: Performed By: #### C BC, ALCO, PT, PTT, CMP, LIPA #### [place] [phone] Platelets (Bld) [#/Vol] 421 10*3/uL High 150-400 [facility] Comment on above: Performed By: #### C BC, ALCO, PT, PTT, CMP, LIPA #### [place] [phone] RBC (Bld) [#/Vol] 5.38 10*6/uL Normal 4.20-6.00 [facility] Comment on above: Performed By: #### C BC, ALCO, PT, PTT, CMP, LIPA #### [address] [place] [address] WBC (Bld) [#/Vol] 8.51 10*3/uL Normal 3.70-11.00 [facility] Comment on above: Performed By: #### C BC, ALCO, PT, PTT, CMP, LIPA #### [facility] [address] [place] [address] CT BRAIN WO IVCONon 03-02-[address] BRAIN WO IVCON * * *Final Report* * * * * * SEE BOTTOM OF REPORT FOR ADDENDED TEXT * * * DATE OF EXAM: Mar 02 2020 5:42PM [facility] 0504 - CT BRAIN WO IVCON / PROCEDURE REASON: Head trauma, headache * * * * Physician Interpretation * * * * * * * * * * * * ORIGINAL REPORT * * * * * * * * CT BRAIN WO IVCON, CT T-SPINE W RECON DATA -NB, CT CERVICAL SPINE WO IVCON HISTORY: Head trauma, headache (accession [id number]), T-spine fx, traumatic (accession [id number]), C-spine fx, traumatic (accession [id number]) TECHNIQUE: CT head and cervical spine without contrast, and multiplanar reformatted images of the thoracic spine from the concurrent CT chest data set. M: CTBWO_3 MQ: CTCTWO_3 CT Dose-Length Product (DLP): 1333 mGy*cm CT Dose Reduction Employed: No dose reduction techniques were required COMPARISON: CT chest 03/02/2020 RESULT: BRAIN: Post-operative change: None. Acute change: No evidence of an acute intracranial process. Hemorrhage: No evidence of acute intracranial hemorrhage. Mass Lesion / Mass Effect: No evidence of an intracranial mass or extraaxial fluid collection. No significant mass effect. Chronic change: None apparent. Parenchyma: No significant parenchymal volume loss. Ventricles: Normal caliber and morphology. Other: The calvarium, skull base, imaged paranasal sinuses, mastoids, orbits and extracranial soft tissues are unremarkable. CERVICAL SPINE: Counting reference: Craniocervical junction. Anatomic Variants: None. Alignment: Straightening of the cervical lordosis, a component of which is likely positional. Craniocervical junction: Craniocervical junction is normal. Bone marrow / fracture: No evidence of a lytic or blastic process in the visualized spine. No evidence of acute or chronic fracture. Cervical soft tissues: The cervical prevertebral and paraspinal soft tissues planes are maintained. Canal and foramina: No significant canal or foraminal stenosis. THORACIC SPINE: Counting reference: Lumbosacral junction. For the purposes of this report, L4-5 is considered the level of the iliac crest and there are 5 lumbar-type vertebrae. Anatomic Variants: None. Alignment: Alignment is anatomic. Bone marrow / fracture: No evidence of a lytic or blastic process in the visualized spine. No evidence of acute or chronic fracture. Thoracic soft tissues: The thoracic paraspinal soft tissues planes are maintained. See separately dictated report for detailed intrathoracic findings. Thoracic canal and foramina: No significant canal or foraminal stenosis. Filling Separator (topogram) images: No additional findings. IMPRESSION: No acute intracranial findings. No acute cervicothoracic spine fracture, traumatic malalignment, or significant degenerative changes. See separately dictated report for detailed intrathoracic findings. Cervical Anatomic Variant: None. Assume 7 cervical vertebrae with counting from the craniocervical junction. Thoracic/Lumbar Anatomic Variant: None. L4-5 is considered the level of the iliac crest and assume there are 5 lumbar-type vertebrae. * * * * * * * * ADDENDUM #1 * * * * * * * * On further review, note of multilevel subtle irregularity including the anterior superior endplates of C3, C4, C5 and C6, and minimal irregularity along the anterior inferior endplates of C3 and C4. Findings are of uncertain significance and acuity. If there is concern for tiny avulsion fracture (in view of the reported history of trauma), findings may be further evaluated with MRI to assess for associated osseous and/or soft tissue edema. Additionally, shallow disc bulging noted at C4-5. Findings were discussed with Dr. Strauss at 1815. Battery Vent Plug Inserter: PSCB Transcribe Date/Time: Mar 02 2020 6:12P Dictated by : BROCK HAYS MD This examination was interpreted and the report reviewed and electronically signed by: BROCK HAYS MD on Mar 02 2020 5:50PM EST This document has been addended by: BROCK HAYS MD on Mar 02 2020 6:16PM EST [id number] [facility] CT CERVICAL SPINE WO IVCONon 03-02-2020 CT CERVICAL SPINE WO IVCON * * *Final Report* * * * * * SEE BOTTOM OF REPORT FOR ADDENDED TEXT * * * DATE OF EXAM: Mar 02 2020 5:42PM [facility] 0505 - CT CERVICAL SPINE WO IVCON / PROCEDURE REASON: C-spine fx, traumatic * * * * Physician Interpretation * * * * * * * * * * * * ORIGINAL REPORT * * * * * * * * CT BRAIN WO IVCON, CT T-SPINE W RECON DATA -NB, CT CERVICAL SPINE WO IVCON HISTORY: Head trauma, headache (accession [id number]), T-spine fx, traumatic (accession [id number]), C-spine fx, traumatic (accession [id number]) TECHNIQUE: CT head and cervical spine without contrast, and multiplanar reformatted images of the thoracic spine from the concurrent CT chest data set. M: CTBWO_3 MQ: CTCTWO_3 CT Dose-Length Product (DLP): 1333 mGy*cm CT Dose Reduction Employed: No dose reduction techniques were required COMPARISON: CT chest 03/02/2020 RESULT: BRAIN: Post-operative change: None. Acute change: No evidence of an acute intracranial process. Hemorrhage: No evidence of acute intracranial hemorrhage. Mass Lesion / Mass Effect: No evidence of an intracranial mass or extraaxial fluid collection. No significant mass effect. Chronic change: None apparent. Parenchyma: No significant parenchymal volume loss. Ventricles: Normal caliber and morphology. Other: The calvarium, skull base, imaged paranasal sinuses, mastoids, orbits and extracranial soft tissues are unremarkable. CERVICAL SPINE: Counting reference: Craniocervical junction. Anatomic Variants: None. Alignment: Straightening of the cervical lordosis, a component of which is likely positional. Craniocervical junction: Craniocervical junction is normal. Bone marrow / fracture: No evidence of a lytic or blastic process in the visualized spine. No evidence of acute or chronic fracture. Cervical soft tissues: The cervical prevertebral and paraspinal soft tissues planes are maintained. Canal and foramina: No significant canal or foraminal stenosis. THORACIC SPINE: Counting reference: Lumbosacral junction. For the purposes of this report, L4-5 is considered the level of the iliac crest and there are 5 lumbar-type vertebrae. Anatomic Variants: None. Alignment: Alignment is anatomic. Bone marrow / fracture: No evidence of a lytic or blastic process in the visualized spine. No evidence of acute or chronic fracture. Thoracic soft tissues: The thoracic paraspinal soft tissues planes are maintained. See separately dictated report for detailed intrathoracic findings. Thoracic canal and foramina: No significant canal or foraminal stenosis. Filling Separator (topogram) images: No additional findings. IMPRESSION: No acute intracranial findings. No acute cervicothoracic spine fracture, traumatic malalignment, or significant degenerative changes. See separately dictated report for detailed intrathoracic findings. Cervical Anatomic Variant: None. Assume 7 cervical vertebrae with counting from the craniocervical junction. Thoracic/Lumbar Anatomic Variant: None. L4-5 is considered the level of the iliac crest and assume there are 5 lumbar-type vertebrae. * * * * * * * * ADDENDUM #1 * * * * * * * * On further review, note of multilevel subtle irregularity including the anterior superior endplates of C3, C4, C5 and C6, and minimal irregularity along the anterior inferior endplates of C3 and C4. Findings are of uncertain significance and acuity. If there is concern for tiny avulsion fracture (in view of the reported history of trauma), findings may be further evaluated with MRI to assess for associated osseous and/or soft tissue edema. Additionally, shallow disc bulging noted at C4-5. Findings were discussed with Dr. Strauss at 1815. Battery Vent Plug Inserter: SAROJ Transcribe Date/Time: Mar 02 2020 6:12P Dictated by : BROCK HAYS MD This examination was interpreted and the report reviewed and electronically signed by: BROCK HAYS MD on Mar 02 2020 5:50PM EST This document has been addended by: BROCK HAYS MD on Mar 02 2020 6:16PM EST [id number] Normal [facility] CT CHEST WO IVCONon 03-02-20 CT CHEST WO IVCON * * *Final Report* * * DATE OF EXAM: Mar 02 2020 5:42PM [facility]VC 0541 - CT CHEST WO IVCON / PROCEDURE REASON: Chest trauma, blunt * * * * Physician Interpretation * * * * EXAMINATION: CHEST CT WITHOUT CONTRAST CLINICAL HISTORY: Chest trauma, blunt Technique: Spiral CT acquisition of the chest from the thoracic inlet to the upper abdomen without contrast. MQ: CTCWO_6 CT Dose-Length Product: 1333 mGy*cm for CT chest, cervical spine, dorsal spine and brain CT Dose Reduction Employed: No dose reduction techniques were required Comparison: Same day chest radiograph RESULT: Limitations: None. Lines, tubes, and devices: None. Lung parenchyma and airways: No consolidation. No suspicious pulmonary nodule. The central airways are patent. Pleural space: No pleural effusion. No pleural thickening. Lower neck, lymph nodes, and mediastinum: The imaged thyroid gland is normal. There are calcified left hilar, periaortic and retrocaval lymph nodes. No lymphadenopathy in the supraclavicular, axillary, mediastinal, or hilar regions. Heart, pericardium, and thoracic vessels: The thoracic aorta and main pulmonary artery are normal in caliber. The cardiac chambers are normal in size. Small elliptical area of air density is seen in the left lower neck, measures 0.8 cm (3:8). No subcutaneous emphysema. Bones and soft tissues: No destructive bone lesion. Chest wall is unremarkable. Schmorl's nodules are present in the mid and lower thoracic vertebrae. Upper abdomen: Tiny calcification in the retroperitoneal region likely due to partially calcified lymph node (3:103). Filling Separator (topogram) images: Unremarkable. IMPRESSION: Small elliptical area of gas in the left lower neck. Etiology is uncertain, might be related to gas in the small amount of air in the left internal jugular vein. No acute intrathoracic findings. Multiple calcified mediastinal, hilar and possibly retroperitoneal lymph nodes, likely related to previous granulomatous disease. Battery Vent Plug Inserter: SAROJ Transcribe Date/Time: Mar 02 2020 5:53P Dictated by : BRIA BANGURA MD This examination was interpreted and the report reviewed and electronically signed by: BRIA BANGURA MD on Mar 02 2020 6:06PM EST [id number] Normal [facility] CT T-SPINE W RECON DATA -NBo n 03-02-2020 CT T-SPINE W RECON DATA -NB * * *Final Report* * * * * * SEE BOTTOM OF REPORT FOR ADDENDED TEXT * * * DATE OF EXAM: Mar 02 2020 5:42PM [facility]VC 0485 - CT T-SPINE W RECON DATA -NB / PROCEDURE REASON: T-spine fx, traumatic * * * * Physician Interpretation * * * * * * * * * * * * ORIGINAL REPORT * * * * * * * * CT BRAIN WO IVCON, CT T-SPINE W RECON DATA -NB, CT CERVICAL SPINE WO IVCON HISTORY: Head trauma, headache (accession [id number]), T-spine fx, traumatic (accession [id number]), C-spine fx, traumatic (accession [id number]) TECHNIQUE: CT head and cervical spine without contrast, and multiplanar reformatted images of the thoracic spine from the concurrent CT chest data set. M: CTBWO_3 MQ: CTCTWO_3 CT Dose-Length Product (DLP): 1333 mGy*cm CT Dose Reduction Employed: No dose reduction techniques were required COMPARISON: CT chest 03/02/2020 RESULT: BRAIN: Post-operative change: None. Acute change: No evidence of an acute intracranial process. Hemorrhage: No evidence of acute intracranial hemorrhage. Mass Lesion / Mass Effect: No evidence of an intracranial mass or extraaxial fluid collection. No significant mass effect. Chronic change: None apparent. Parenchyma: No significant parenchymal volume loss. Ventricles: Normal caliber and morphology. Other: The calvarium, skull base, imaged paranasal sinuses, mastoids, orbits and extracranial soft tissues are unremarkable. CERVICAL SPINE: Counting reference: Craniocervical junction. Anatomic Variants: None. Alignment: Straightening of the cervical lordosis, a component of which is likely positional. Craniocervical junction: Craniocervical junction is normal. Bone marrow / fracture: No evidence of a lytic or blastic process in the visualized spine. No evidence of acute or chronic fracture. Cervical soft tissues: The cervical prevertebral and paraspinal soft tissues planes are maintained. Canal and foramina: No significant canal or foraminal stenosis. THORACIC SPINE: Counting reference: Lumbosacral junction. For the purposes of this report, L4-5 is considered the level of the iliac crest and there are 5 lumbar-type vertebrae. Anatomic Variants: None. Alignment: Alignment is anatomic. Bone marrow / fracture: No evidence of a lytic or blastic process in the visualized spine. No evidence of acute or chronic fracture. Thoracic soft tissues: The thoracic paraspinal soft tissues planes are maintained. See separately dictated report for detailed intrathoracic findings. Thoracic canal and foramina: No significant canal or foraminal stenosis. Filling Separator (topogram) images: No additional findings. IMPRESSION: No acute intracranial findings. No acute cervicothoracic spine fracture, traumatic malalignment, or significant degenerative changes. See separately dictated report for detailed intrathoracic findings. Cervical Anatomic Variant: None. Assume 7 cervical vertebrae with counting from the craniocervical junction. Thoracic/Lumbar Anatomic Variant: None. L4-5 is considered the level of the iliac crest and assume there are 5 lumbar-type vertebrae. * * * * * * * * ADDENDUM #1 * * * * * * * * On further review, note of multilevel subtle irregularity including the anterior superior endplates of C3, C4, C5 and C6, and minimal irregularity along the anterior inferior endplates of C3 and C4. Findings are of uncertain significance and acuity. If there is concern for tiny avulsion fracture (in view of the reported history of trauma), findings may be further evaluated with MRI to assess for associated osseous and/or soft tissue edema. Additionally, shallow disc bulging noted at C4-5. Findings were discussed with Dr. Strauss at 1815. Battery Vent Plug Inserter: SAROJ Transcribe Date/Time: Mar 02 2020 6:12P Dictated by : BROCK HAYS MD This examination was interpreted and the report reviewed and electronically signed by: BROCK HAYS MD on Mar 02 2020 5:50PM EST This document has been addended by: BROCK HAYS MD on Mar 02 2020 6:16PM EST [id number] Normal [facility] Comp Metabolic Panelon 03-02 Albumin [Mass/Vol] 4.9 g/dL Normal 3.5-5.0 [facility] Comment on above: Performed By: #### C BC, ALCO, PT, PTT, CMP, LIPA ####[facility] [place], [place] [phone] ALP [Catalytic activity/Vol] 192 U/L Normal 82-331 [facility] Comment on above: Result Comment: Refe rence ranges were not locally established for this patient's age group. The normal values are based on the following source: [place] MP, Robles GARCIA, et al. CLSI based transference of the CALIPER database of pediatric reference intervals from [place] to [place], Ortho, Robin, and Siemens Clinical Chemistry Assays: Direct validation using reference samples from the [facility] cohort. Clin Biochem. Performed By: #### C BC, ALCO, PT, PTT, CMP, LIPA ####[address] [phone] ALT [Catalytic activity/Vol] 25 U/L Normal 5-50 [facility] Comment on above: Performed By: #### C BC, ALCO, PT, PTT, CMP, LIPA ####[address] [phone] Anion gap [Moles/Vol] 14 mmol/L Normal 9-18 [facility] Comment on above: Performed By: #### C BC, ALCO, PT, PTT, CMP, LIPA ####[address] [phone] AST [Catalytic activity/Vol] 28 U/L Normal 7-40 [facility] Comment on above: Performed By: #### C BC, ALCO, PT, PTT, CMP, LIPA ####[place] [phone] Bilirubin [Mass/Vol] 0.4 mg/dL Normal 0.2-1.3 [facility] Comment on above: Result Comment: (NOT E) Reference ranges for this patient's age group have not been established. These reference ranges reflect verified or established ranges for the adult population. Interpret these ranges with caution using the clinical context and additional reference resources. Performed By: #### C BC, ALCO, PT, PTT, CMP, LIPA ####[address] [phone] Calcium [Mass/Vol] 10.6 mg/dL High 8.5-10.5 [facility] Comment on above: Performed By: #### C BC, ALCO, PT, PTT, CMP, LIPA ####[address] [phone] Chloride [Moles/Vol] 99 mmol/L Normal 98-110 [facility] Comment on above: Performed By: #### C BC, ALCO, PT, PTT, CMP, LIPA ####[place] [phone] CO2 [Moles/Vol] 26 mmol/L Normal 23-32 [facility] Comment on above: Performed By: #### C BC, ALCO, PT, PTT, CMP, LIPA ####[place] [phone] Creatinine [Mass/Vol] 1.22 mg/dL Normal 0.40-1.30 [facility] Comment on above: Performed By: #### C BC, ALCO, PT, PTT, CMP, LIPA ####[place] [phone] Glucose [Mass/Vol] 97 mg/dL Normal 65-100 [facility] Comment on above: Performed By: #### C BC, ALCO, PT, PTT, CMP, LIPA ####[place] [phone] Potassium [Moles/Vol] 3.9 mmol/L Normal 3.5-5.0 [facility] Comment on above: Performed By: #### C BC, ALCO, PT, PTT, CMP, LIPA ####[place] [phone] Protein [Mass/Vol] 8.3 g/dL Normal 6.0-8.4 [facility] Comment on above: Performed By: #### C BC, ALCO, PT, PTT, CMP, LIPA ####[place] [phone] Sodium [Moles/Vol] 139 mmol/L Normal 135-146 [facility] Comment on above: Performed By: #### C BC, ALCO, PT, PTT, CMP, LIPA ####[place] [phone] Urea nitrogen [Mass/Vol] 14 mg/dL Normal 5-20 [facility] Comment on above: Performed By: #### C BC, ALCO, PT, PTT, CMP, LIPA ####[facility] [place], [place] [phone] ED NOTEon 03-02-2020 ED NOTE HNO ID: [id number] Author: Rob MelendezRn) ZAMZAM Kurtz Service: ? Author Type: Registered Nurse Type: ED Notes Filed: 03/02/2020 6:22 PM Note Text: Spoke with MRI. Pt on table. Pt to be next. [facility] ED NOTE HNO ID: [id number] Author: Rob MelendezRn) ZAMZAM Kurtz Service: ? Author Type: Registered Nurse Type: ED Notes Filed: 03/02/2020 6:21 PM Note Text: [facility] ED NOTE HNO ID: [id number] Author: Rob Costello) ZAMZAM Kurtz Service: ? Author Type: Registered Nurse Type: ED Notes Filed: 03/02/2020 6:19 PM Note Text: MRI questionaire completed and faxed. [facility] ED NOTE HNO ID: [id number] Author: Rob MelendezRn) ZAMZAM Kurtz Service: ? Author Type: Registered Nurse Type: ED Notes Filed: 03/02/2020 5:55 PM Note Text: Pt aware of POC. Urinal provided. [facility] ED NOTE HNO ID: [id number] Author: Rob MelendezRnShannan Kurtz RN Service: ? Author Type: Registered Nurse Type: ED Notes Filed: 03/02/2020 5:53 PM Note Text: Father at bedside. [facility] ED NOTE HNO ID: [id number] Author: Rob Costello) ZAMZAM Kurtz Service: ? Author Type: Registered Nurse Type: ED Notes Filed: 03/02/2020 5:48 PM Note Text: Assumed care of pt. [facility] ED NOTE HNO ID: [id number] Author: Callie MelendezRnShannan Walton RN Service: ? Author Type: Registered Nurse Type: ED Notes Filed: 03/02/2020 5:35 PM Note Text: Bed: 55-ED Expected date: Expected time: Means of arrival: Comments: Hold for trauma [facility] ED NOTE HNO ID: [id number] Author: Dorcas MelendezRnShannan Palacios RN Service: ? Author Type: Registered Nurse Type: ED Notes Filed: 03/02/2020 5:24 PM Note Text: ECG complete. [facility] ED NOTE HNO ID: [id number] Author: Dorcas MelendezRnShannan Palacios RN Service: ? Author Type: Registered Nurse Type: ED Notes Filed: 03/02/2020 5:18 PM Note Text: Labs collected and walked. [facility] ED NOTE HNO ID: [id number] Author: Dorcas Palacios RN Service: ? Author Type: Registered Nurse Type: ED Notes Filed: 03/02/2020 5:17 PM Note Text: X ray at bedside. [facility] ED NOTE HNO ID: [id number] Author: Callie MelendezRnShannan Walton RN Service: ? Author Type: Registered Nurse Type: ED Notes Filed: 03/02/2020 5:05 PM Note Text: Bed: 01-ED Expected date: Expected time: Means of arrival: Comments: trauma [facility] ED PROV NOTEon 03-02-2020 ED PROV NOTE HNO ID: [id number] Author: Sam Strauss MD Service: Emergency Medicine Author Type: Physician Type: ED Provider Notes Filed: 03/02/2020 10:55 PM Note Text: ED Provider Note Patient Name: Neftaly Morales SERVICE DATE: 03/02/20 History Patient presents with: Trauma II: Wrestling accident today. Hip to posterior neck. Patient presents as a level 2 trauma. Patient was wrestling this afternoon. He lunged for the opponent's legs, he struck the top of his head against the opponent and his neck was flexed forward. Patient states he felt a pop in his neck. Patient was able to continue the match, however afterwards he had pain in his neck and tingling to his arms and legs. Patient states the tingling has slowly been improving since the injury occurred just prior to arrival. EMS placed the patient in a c-collar, they report the patient was holding his head in a flexed position. Patient states pain is mild to moderate constant aching pain to his neck and upper back. Patient states he continues to have tingling to the bilateral upper extremities, left worse than right. Patient denies any chest pain, abdominal pain, headache, facial injury, or lower extremity pain. History provided by: Patient and EMS personnel PAST MEDICAL HISTORY Diagnosis Date - Adopted - Asthma - Lead poisoning resolved - Migraines - Recurrent vomiting No past surgical history on file. FAMILY HISTORY Adopted: Yes Problem Relation Age of Onset - Migraines Sister Social History Tobacco Use - Smoking status: Never Smoker - Smokeless tobacco: Never Used Substance and Sexual Activity - Alcohol use: Not on file - Drug use: Not on file - Sexual activity: Not on file ALLERGIES Allergen Reactions - Monosodium Glutamate Other: See Comments MIGRAINES MIGRAINES - Beef Derived (Bovin* Other: See Comments FROM SKIN TEST. - Pegademase Bovine Other: See Comments FROM SKIN TEST. - Poractant Elena Other: See Comments FROM SKIN TEST. - Pork Derived (Porci* Other: See Comments FROM SKIN TEST. - Lactalbumin Other: See Comments FROM SKIN TEST. - Milk Other: See Comments FROM SKIN TEST. Review of Systems Constitutional: Negative. HENT: Negative. Eyes: Negative. Respiratory: Negative. Cardiovascular: Negative. Gastrointestinal: Negative. Genitourinary: Negative. Musculoskeletal: Positive for back pain and neck pain. Skin: Negative. Neurological: Positive for numbness. Negative for dizziness, weakness and headaches. Physical Exam BP 158/78 Pulse 110 Temp 97.9 Resp 19 Ht 5' 8 (1.73m) Wt 150 lb (68.0kg) SpO2 100% BMI 22.81 kg/(m2). Physical Exam Vitals signs and nursing note reviewed. Constitutional: General: He is not in acute distress. Appearance: He is well-developed. HENT: Head: Normocephalic and atraumatic. Eyes: Conjunctiva/sclera: Conjunctivae normal. Pupils: Pupils are equal, round, and reactive to light. Neck: Comments: Cervical collar in place, patient is holding neck slightly flexed. Patient has folded towel and cervical blocks behind his head to support on arrival. Patient has midline cervical spine tenderness and upper thoracic tenderness Cardiovascular: Rate and Rhythm: Normal rate and regular rhythm. Heart sounds: Normal heart sounds. Pulmonary: Effort: Pulmonary effort is normal. No respiratory distress. Breath sounds: Normal breath sounds. No wheezing or rales. Abdominal: General: There is no distension. Palpations: Abdomen is soft. Tenderness: There is no abdominal tenderness. There is no guarding or rebound. Musculoskeletal: Normal range of motion. General: No tenderness (No calf tenderness). Arms: Skin: General: Skin is warm and dry. Findings: No rash. Neurological: Mental Status: He is alert and oriented to person, place, and time. GCS: GCS eye subscore is 4. GCS verbal subscore is 5. GCS motor subscore is 6. Comments: Patient has diminished sensation to the left upper extremity throughout. Patient reports intact and symmetric sensation of the bilateral lower extremities. Patient has 4/5 bilateral hand grasp strength. Patient has 3/5 strength in plantar and dorsiflexion of the foot Psychiatric: Behavior: Behavior normal. Diagnostic Testing ED Labs Ordered and Reviewed CBC + PLT (AK,AV,EU,FV,HL,SANDI,MM,SP) - Abnormal; Notable for the following components: Result Value Ref Range Platelet Count 421 (*) 150 - 400 k/uL All other components within normal limits COMPREHENSIVE METABOLIC PANEL (AK,AV,EU,FV,HL,SANDI,MM,SP) - Abnormal; Notable for the following components: Calcium 10.6 (*) 8.5 - 10.5 mg/dL All other components within normal limits LIPASE BLOOD (AK,AV,EU,FV,HL,SANDI,MM,SP) - Abnormal; Notable for the following components: Lipase 11 (*) 16 - 61 U/L All other components within normal limits ALCOHOL / ETHANOL BLOOD (AK,AV,EU,FV,HL,SANDI,MM,SP) PROTHROMBIN TIME / PT (AK,AV,EU,FV,HL,SANDI,MM,SP) ACTIVATED PTT (AK,AV,EU,FV,HL,SANDI,MM,SP) URINE DRUG SCREEN (AK,AV,EU,FV,HL,SANDI,MM,SP) TYPE + SCREEN (AK,AV,EU,FV,HL,SANDI,MM,SP) 2019 CORONAVIRUS Procedures ED Course / Clinical Impression ED Course as of Mar 02 2255 Sam Strauss's Documentation Mon Mar 02, [id number] Sinus tachycardia, rate 111, normal axis, normal intervals, benign early repolarization pattern is noted, no other significant ST or T wave abnormalities are noted. No STEMI. EKG Clinical Impressions as of Mar 02 2255 Injury to ligament of cervical spine, initial encounter MDM / Disposition / Plan Course: Vital signs were reviewed. Triage records were reviewed. Medical records were reviewed. Nursing notes were reviewed and incorporated. Intravenous fluids were given. Labs reviewed and interpreted CBC - No evidence of significant anemia, infection, or thrombocytopenia. CMP - No evidence of significant hepatic or biliary dysfunction. No evidence of significant renal dysfunction or significant electrolyte abnormalities. Ordered and reviewed images independently, findings include: CT C-spine - No acute intracranial findings. ? No acute cervicothoracic spine fracture, traumatic malalignment, or significant degenerative changes. ? See separately dictated report for detailed intrathoracic findings. ? Cervical Anatomic Variant: None. Assume 7 cervical vertebrae with counting from the craniocervical junction. ? Thoracic/Lumbar Anatomic Variant: None. L4-5 is considered the level of the iliac crest and assume there are 5 lumbar-type vertebrae. * * * * * * * * ADDENDUM #1 * * * * * * * * On further review, note of multilevel subtle irregularity including the anterior superior endplates of C3, C4, C5 and C6, and minimal irregularity along the anterior inferior endplates of C3 and C4. Findings are of uncertain significance and acuity. If there is concern for tiny avulsion fracture (in view of the reported history of trauma), findings may be further evaluated with MRI to assess for associated osseous and/or soft tissue edema. ? Additionally, shallow disc bulging noted at C4-5. ? Findings were discussed with Dr. Strauss at 1815. ? ? Discussed with neuroradiology MRI cervical/thoracic - Suggestion of trace interspinous edema at C4-5 and C5-6 which may reflect underlying ligamentous strain. No acute cervicothoracic spine findings otherwise. Cervical Anatomic Variant: ?None. Assume 7 cervical vertebrae with counting from the craniocervical junction. Thoracic/Lumbar Anatomic Variant: None. L4-5 is considered the level of the iliac crest and assume there are 5 lumbar-type vertebrae. Patient reevaluated at bedside, he reports that his paresthesias are improving, however he has persistent mild paresthesia of the left upper extremity. Patient has persistent mild diminished sensation to the left upper extremity. Case was discussed with neurosurgery Dr. Patel, recommends high-dose Solu-Medrol regimen, 30 mg/kg bolus over 15 minutes followed by 5.4 mg/kg/h for the next 23 hours starting 1 hour after the initial bolus Case discussed with trauma surgery team, patient will be admitted to the trauma surgery service. Father reports the patient normally takes 10 mg of melatonin at bedtime to help him sleep. This was ordered. Medical Decision Making: Patient presents after he had a hyperflexion injury during wrestling. Patient presents with neck pain, he also reports paresthesias to the bilateral upper and lower extremities, most significant in the left upper extremity. On exam patient has weakness to the bilateral upper extremities and bilateral lower extremities, left upper extremity slightly worse than right. CT imaging demonstrates some abnormalities to the endplates concerning for possible injury, MRI was ordered and demonstrates ligamentous edema, there is no significant edema or change to the spinal cord. Case was discussed with neurosurgery, patient symptoms are improving slightly, however he has persistent paresthesia and persistent weakness, most significant in the left upper extremity and with flexion and extension of the elbows bilaterally. Neurosurgery recommends high-dose steroid regimen (see above), this was initiated, patient will be admitted to the trauma surgery service on the pediatric floor for continued monitoring and further treatment. Patient otherwise remained stable in the ED and is stable for admission to a regular nursing floor. Consent: A procedure or transfusion was performed - No SIGNATURE: MD Sam Frausto MD 03/02/20 2255 Normal [facility] Ethanolon 03-02-2020 Ethanol [Mass/Vol] mg/dL Normal <11 [facility] Comment on above: Performed By: #### C BC, ALCO, PT, PTT, CMP, LIPA ####[facility] [place], [place] [phone] HISTORY PHYSICALon 0 HISTORY PHYSICAL HNO ID: [id number] Author: Cruz (Heidy) Saira Miller Service: Trauma Author Type: Resident Type: HANDP Filed: 03/03/2020 12:03 AM Note Text: ----- Attestation signed by Marlys Austin at 03/03/2020 1:14 PM I have seen and examined the patient with the house staff this AM at 8. Agree with barry components of their note, care plan and decision making for the day discussed. Appreciate NS input and recs. Neuro deficits all resolved per pt and feels better w minimal pain. Dispo planning per neurosurg Marlys Austin MD March 03, 2020 1:13 PM ----- TRAUMA HANDP [facility] ARRIVAL DATE: 03/02/2020 ARRIVAL TIME: 1705 CATEGORY: Level 2 INJURY DATE: 03/02/2020 INJURY TIME: ~1600 Subjective This is a 14 year old White male with no major PMHx. GCS at Scene was 15. He was at wrestling practice today, shot into his partner, hit his head against his partner's hip and felt a pop. Says he has numbness and tingling and decreased sensation bilaterally in his upper extremities. Decreased strength 3/5 in dorsal and plantarflexion, music coordinator strength 4/5. Decreased sensation L>R in upper extremities. HPI/CHIEF COMPLAINT: OTHER MECHANISMS: Sporting Injury wrestling BRIEF DESCRIPTION OF INJURIES: Decreased strength 3/5 in dorsal and plantarflexion, music coordinator strength 4/5. Decreased sensation L>R in upper extremities. LAST FLUIDS/MEAL: 1500 CODE STATUS: Not discussed ALLERGIES Allergen Reactions - Monosodium Glutamate Other: See Comments MIGRAINES MIGRAINES - Beef Derived (Bovin* Other: See Comments FROM SKIN TEST. - Pegademase Bovine Other: See Comments FROM SKIN TEST. - Poractant Elena Other: See Comments FROM SKIN TEST. - Pork Derived (Porci* Other: See Comments FROM SKIN TEST. - Lactalbumin Other: See Comments FROM SKIN TEST. - Milk Other: See Comments FROM SKIN TEST. (Not in a hospital admission) DATE OF LAST TETANUS: unknown There is no immunization history on file for this patient. PAST MEDICAL HISTORY Diagnosis Date - Adopted - Asthma - Lead poisoning resolved - Migraines - Recurrent vomiting No past surgical history on file. Social History Tobacco Use - Smoking status: Never Smoker - Smokeless tobacco: Never Used Substance Use Topics - Alcohol use: Not on file - Drug use: Not on file FAMILY HISTORY Adopted: Yes Problem Relation Age of Onset - Migraines Sister ROS: Is the patient having any pain? Neck, back Constitutional: Negative Eye/Ear/Nose: Negative Respiratory: Negative Cardiovascular: Negative GI/Liver/Biliary: Negative Genitourinary: Negative Psychiatric: Negative Neurologic: decreased sensation upper extremities bilaterally Musculoskeletal: neck/back pain Integument: Negative Endocrine: Negative Heme/Lymph: Negative Objective PRIMARY SURVEY AIRWAY: Patent BREATHING: Breath sounds equal CIRCULATION: PT/DP 2+, Radials 2+, Femoral 2+, Carotid 2+ DISABILITY: Eye: 4=Spontaneous Verbal: 5=Oriented and Converses Motor: 6=Obeys Commands Total GCS: 15=4 Resp Rate: 10 to 29=4 Syst BP: > than 89=4 REVISED TRAUMA SCORE: 12 EXPOSE / ENVIRONMENT: Warm Blankets PROCEDURES: continued c-spine SECONDARY SURVEY VITALS: 03/02/20 1709 03/02/20 1711 03/02/20 1712 03/02/20 1718 BP: 158/86 158/78 Pulse: (!) 123 (!) 110 Resp: (!) 25 19 Temp: 36.6 ?C (97.9 ?F) SpO2: 96% 100% Weight: 68 kg (150 lb) Height: 172.7 cm (5' 8 ) NEURO: Alert AND Oriented x 3, GCS 15, Cranial Nerves II-XII Intact, Moves All Extremities, decreased sensation L>R, dorsiflexion/plantarflexi on 3/5, music coordinator strength 4/5 bilaterally HEENT: Head: No lacerations or abrasions, no bony step offs, midface stable to palpation, Eyes: PERRL, conjunctiva/corneas without lesions, EOM intact, Ears: Canals without blood or CSF drainage, TMs clear, external ears without lacerations, Nose: Septum midline, no crepitus with motion, Throat: Oral mucosa without lacerations, teeth in place, tongue without lacerations NECK: No lacerations/wounds, No JVD, Trachea midline, c-spine tenderness RESPIRATORY: No abrasions or contusions, No crepitus, No TTP, Equal Excursion CARDIOVASCULAR: Heart rate regular ABDOMEN: Non-distended, No scars or lacerations, Non-tenderness or peritoneal signs, No masses or organomegaly PELVIC/PERINEAL: Pelvis stable to palpation BACK/SPINE: No step off or deformity noted, No external injury noted, thoracic spine tenderness EXTREMITIES: Arm/Shoulder normal bilaterally, Forearm/Elbow normal bilaterally, Hand/Wrist bilateral music coordinator strength 4/5, decreased sensation L>R, Thigh/Hip normal bilaterally, Leg/Knee normal bilaterally, Foot/Ankle bilateral dorsiflexion/plantarflexi on 3/5, decreased sensation bilaterally L>R RADIOLOGICAL/OTHER TEST DATA: CT Brain, CT spine, Chest CXR PRIOR TO ARRIVAL: No Loss of Consciousness Cervical Collar IMAGES CXR - no acute imaging CT Brain - no acute abnormalities CT spine - On further review, note of multilevel subtle irregularity including the anterior superior endplates of C3, C4, C5 and C6, and minimal irregularity along the anterior inferior endplates of C3 and C4. Findings are of uncertain significance and acuity. If there is concern for tiny avulsion fracture (in view of the reported history of trauma), findings may be further evaluated with MRI to assess for associated osseous and/or soft tissue edema. Additionally, shallow disc bulging noted at C4-5. CT Chest - no acute imaging MRI spine - Suggestion of trace interspinous edema at C4-5 and C5-6 which may reflect underlying ligamentous strain. LABS: CBC, Coags, BMP, Mg, Phos Recent Labs 03/02/20 1715 WBC 8.51 HB 15.5 HCT 45.1 PLT 421* Assessment/Plan DIAGNOSES: Ligamentous edema Medication and Non-Pharmacologic VTE Prophylaxis/Anticoagulant s VTE Prophylaxis: VTE prophylaxis appropriate TREATMENT/EVALUATION PLANS: Admit to trauma High-dose Solu-Medrol regimen, 30 mg/kg bolus over 15 minutes followed by 5.4 mg/kg/h for the next 23 hours starting 1 hour after the initial bolus ED DISPOSITION: To RNF FINAL INJURIES: New injuries were identified on physical exam and review of radiological studies. The Senior/Chief Resident/Attending Physician have been informed and the above plan made for injury care and disposition. Plan of care discussed with Staff Trauma Surgeon: Dr. Austin SENIOR RESIDENT NOTE: ATTENDING NOTE: SIGNATURE: Jason Padilla MD, PhD PATIENT NAME: Neftaly Morales DATE: March 02, 2020 TIME: 5:46 PM PAGER/CONTACT #: Normal [facility] Lipaseon 03-02-2020 Lipase [Catalytic activity/Vol] 11 U/L Low 16-61 [facility] Comment on above: Performed By: #### C BC, ALCO, PT, PTT, CMP, LIPA ####[facility] [place], [place] [phone] MRI CERVICAL SPINE WO IVCONo n 03-02-2020 MRI CERVICAL SPINE WO IVCON * * *Final Report* * * DATE OF EXAM: Mar 02 2020 9:55PM FVM [id number] - MRI CERVICAL SPINE WO IVCON / PROCEDURE REASON: Spinal cord injury * * * * Physician Interpretation * * * * MRI CERVICAL SPINE WO IVCON, MRI THORACIC SPINE WO IVCON HISTORY: Spinal cord injury - Spinal stenosis, spondylolisthesis, torticollis, radiculopathy, trauma TECHNIQUE: MRI cervicothoracic spine routine protocols without contrast. MQ: MRCTWOW_3 COMPARISON: CT brain and cervicothoracic spine 03/02/2020 RESULT: Counting reference: Craniocervical and lumbosacral junctions. For the purposes of this report, L4-5 is considered the level of the iliac crest and there are 5 lumbar-type vertebrae. Anatomic Variants: None. Alignment: Straightening of the cervical lordosis and thoracic kyphosis. Craniocervical junction: Craniocervical junction is normal. Cord: The cord is within normal limits of signal intensity and morphology. The conus terminates at L1. Bone marrow signal/fracture: No evidence of confluent abnormal marrow replacement or an acute fracture. Soft tissues: Suggestion of trace interspinous edema at C4-5 and C5-6 which may reflect underlying ligamentous strain. Findings may also reflect component of artifact. Canal and foramina: Shallow disc bulging at C4-5, C5-6 and C6-7 with superimposed shallow left paracentral disc protrusion at C5-6, with resultant partial effacement of the ventral thecal sac without cord contact at each level. No significant cervicothoracic canal or foraminal stenosis otherwise. IMPRESSION: Suggestion of trace interspinous edema at C4-5 and C5-6 which may reflect underlying ligamentous strain. No acute cervicothoracic spine findings otherwise. Cervical Anatomic Variant: None. Assume 7 cervical vertebrae with counting from the craniocervical junction. Thoracic/Lumbar Anatomic Variant: None. L4-5 is considered the level of the iliac crest and assume there are 5 lumbar-type vertebrae. Battery Vent Plug Inserter: PSCB Transcribe Date/Time: Mar 02 2020 9:59P Dictated by : BROCK HAYS MD This examination was interpreted and the report reviewed and electronically signed by: BROCK HAYS MD on Mar 02 2020 10:13PM EST [id number] Normal [facility] MRI THORACIC SPINE WO IVCONo n 03-02-2020 MRI THORACIC SPINE WO IVCON * * *Final Report* * * DATE OF EXAM: Mar 02 2020 9:55PM FVM [id number] - MRI THORACIC SPINE WO IVCON / PROCEDURE REASON: Spinal cord injury * * * * Physician Interpretation * * * * MRI CERVICAL SPINE WO IVCON, MRI THORACIC SPINE WO IVCON HISTORY: Spinal cord injury - Spinal stenosis, spondylolisthesis, torticollis, radiculopathy, trauma TECHNIQUE: MRI cervicothoracic spine routine protocols without contrast. MQ: MRCTWOW_3 COMPARISON: CT brain and cervicothoracic spine 03/02/2020 RESULT: Counting reference: Craniocervical and lumbosacral junctions. For the purposes of this report, L4-5 is considered the level of the iliac crest and there are 5 lumbar-type vertebrae. Anatomic Variants: None. Alignment: Straightening of the cervical lordosis and thoracic kyphosis. Craniocervical junction: Craniocervical junction is normal. Cord: The cord is within normal limits of signal intensity and morphology. The conus terminates at L1. Bone marrow signal/fracture: No evidence of confluent abnormal marrow replacement or an acute fracture. Soft tissues: Suggestion of trace interspinous edema at C4-5 and C5-6 which may reflect underlying ligamentous strain. Findings may also reflect component of artifact. Canal and foramina: Shallow disc bulging at C4-5, C5-6 and C6-7 with superimposed shallow left paracentral disc protrusion at C5-6, with resultant partial effacement of the ventral thecal sac without cord contact at each level. No significant cervicothoracic canal or foraminal stenosis otherwise. IMPRESSION: Suggestion of trace interspinous edema at C4-5 and C5-6 which may reflect underlying ligamentous strain. No acute cervicothoracic spine findings otherwise. Cervical Anatomic Variant: None. Assume 7 cervical vertebrae with counting from the craniocervical junction. Thoracic/Lumbar Anatomic Variant: None. L4-5 is considered the level of the iliac crest and assume there are 5 lumbar-type vertebrae. Battery Vent Plug Inserter: PSCJames Transcribe Date/Time: Mar 02 2020 9:59P Dictated by : BROCK HAYS MD This examination was interpreted and the report reviewed and electronically signed by: BROCK HAYS MD on Mar 02 2020 10:13PM EST [id number] Normal [facility] Protimeon 03-02-2020 PT Coag (PPP) [Time] 10.8 s Normal 9.7-13.0 [facility] Comment on above: Performed By: #### C BC, ALCO, PT, PTT, CMP, LIPA ####[facility] [place], [place] [phone] PT Coag (PPP) [Time] 1.0 s Normal 0.9-1.3 [facility] Comment on above: Result Comment: Cece min K Antagonist (VKA) Therapeutic Range: INR 2 to 3 (Target INR of 2.5) Note: For patients treated with VKA drugs, such as warfarin, the [employer] 2012 Guideline recommends a therapeutic INR range of 2 to 3 (target INR of 2.5). This recommendation includes high-risk patients with antiphospholipid syndrome with previous arterial or venous thromboembolism, current-generation mechanical or bioprosthetic aortic heart valve replacement. Note: Patients with mechanical aortic valve replacement and additional risk factors for thromboembolic events (atrial fibrillation, previous thromboembolism, LV dysfunction, hypercoagulable conditions) or an older generation mechanical AVR (i.e., ball in-Cage) or any mechanical MVR should have a INR therapeutic range of 2.5 to 3.5 (target INR of 3). Vasu GH, et al. Chest 2012, 141:7S-47S Rk RA, et al. JAC 2017, 70: 252-289 Performed By: #### C BC, ALCO, PT, PTT, CMP, LIPA ####[facility] [place], [place] [phone] Type and Screenon 03-02-2020 ABO/RH(D) Positive Normal [facility] Comment on above: Performed By: #### T SCR ####[place] [id number] [place], [place] [phone] XR CHEST 1V FRONTAL PORTon 1 05-02-2019 XR CHEST 1V FRONTAL PORT * * *Final Report* * * DATE OF EXAM: Mar 02 2020 5:33PM [id number] - XR CHEST 1V FRONTAL PORT / PROCEDURE REASON: Chest trauma, blunt * * * * Physician Interpretation * * * * EXAMINATION: XR CHEST 1V FRONTAL PORT Clinical History: Trauma II, wrestling accident Chest trauma, blunt M: [id number] Comparison: None RESULT: see impression. IMPRESSION: Lines, tubes, and devices: None. Lungs and pleura: The lungs and pleura are clear. Cardiomediastinal silhouette: The cardiomediastinal contours are within normal limits. Other: The thoracic musculoskeletal structures and upper abdomen are within normal limits. . Battery Vent Plug Inserter: SAROJ Transcribe Date/Time: Mar 02 2020 6:05P Dictated by : ALIYA BRIONES MD This examination was interpreted and the report reviewed and electronically signed by: ALIYA BRIONES MD on Mar 02 2020 6:06PM EST [id number] Normal [facility] LACERATION REPAIRon 04-26-20 19 Daniella sadler CNP 04/26/2019 4:33 PM Wound extent: Lac Repair Date/Time: 04/26/2019 4:32 PM Performed by: Daniella Carlin CNP Authorized by: Sandy Padgett DO Verbal consent: obtained Consent given by: parent Body area: head/neck Location details: right eyebrow Laceration length: 1 cm Foreign bodies: no foreign bodies Tendon involvement: none Nerve involvement: none Vascular damage: no Repair type: simple Amount of cleaning: standard no vascular damage Debridement: none Degree of undermining: none Skin closure: glue Approximation: close Approximation difficulty: simple Patient tolerance: Patient tolerated the procedure well with no immediate complications [facility] BASIC METABOLIC PANELon 03-02 Anion gap [Moles/Vol] 11 mmol/L Normal 10 - 30 [facility] Comment on above: Performed By: #### B #### [address] [address] Calcium [Mass/Vol] 9.3 mg/dL Normal 8.5 - 10.7 [facility] Comment on above: Performed By: #### B MP #### [address] [address] Chloride [Moles/Vol] 102 mmol/L Normal 98 - 107 [facility] Comment on above: Performed By: #### B MP #### [address] [address] Creatinine [Mass/Vol] 0.81 mg/dL Normal 0.60 - 1.10 [facility] Comment on above: Performed By: #### B MP #### [address] [address] Glucose [Mass/Vol] 75 mg/dL Normal 74 - 99 [facility] Comment on above: Performed By: #### B MP #### [address] [address] HCO3 (Bld) [Moles/Vol] 30 mmol/L High 18 - 27 [facility] Comment on above: Performed By: #### B MP #### [address] [address] Potassium [Moles/Vol] 3.8 mmol/L Normal 3.5 - 5.3 [facility] Comment on above: Performed By: #### B MP #### [address] [address] Sodium [Moles/Vol] 139 mmol/L Normal 136 - 145 [facility] Comment on above: Performed By: #### B MP #### [address] [address] Urea nitrogen [Mass/Vol] 13 mg/dL Normal 6 - 23 [facility] Comment on above: Performed By: #### B MP #### [address] [address] CBC AND DIFFERENTIALon 03-25 % AUTOMATED IMMATURE GRAN 0.2 % Normal 0.0 - 1.0 [facility] Comment on above: Result Comment: Perc ent differential counts (%) should be interpreted in the context of the absolute cell counts (cells/L). Performed By: #### C BCDF #### [address] [address] Basophils (Bld) [#/Vol] 0.02 10*3/uL Normal 0.00 - 0.10 [facility] Comment on above: Performed By: #### C BCDF #### [address] [address] Basophils/100 WBC (Bld) 0.4 % Normal 0.0 - 1.0 [facility] Comment on above: Performed By: #### C BCDF #### [address] [address] Eosinophils (Bld) [#/Vol] 0.15 10*3/uL Normal 0.00 - 0.70 [facility] Comment on above: Performed By: #### C BCDF #### [address] [address] Eosinophils/100 WBC (Bld) 3.0 % Normal 0.0 - 5.0 [facility] Comment on above: Performed By: #### C BCDF #### [address] [address] Erythrocyte distribution width (RBC) [Ratio] 12.8 % Normal 11.5 - 14.5 [facility] Comment on above: Performed By: #### C BCDF #### [address] [address] Hematocrit (Bld) [Volume fraction] 44.1 % Normal 37.0 - 49.0 [facility] Comment on above: Performed By: #### C BCDF #### [address] [address] Hemoglobin (Bld) [Mass/Vol] 14.7 g/dL Normal 13.0 - 16.0 [facility] Comment on above: Performed By: #### C BCDF #### [address] [address] Lymphocytes (Bld) [#/Vol] 1.85 10*3/uL Normal 1.80 - 4.80 [facility] Comment on above: Performed By: #### C BCDF #### [address] [address] Lymphocytes/100 WBC (Bld) 37.2 % Normal 28.0 - 48.0 [facility] Comment on above: Performed By: #### C BCDF #### [address] [address] MCHC (RBC) [Mass/Vol] 33.3 g/dL Normal 31.0 - 37.0 [facility] Comment on above: Performed By: #### C BCDF #### [address] [address] MCV (RBC) [Entitic vol] 86 fL Normal 78 - 102 [facility] Comment on above: Performed By: #### C BCDF #### [address] [address] Monocytes (Bld) [#/Vol] 0.33 10*3/uL Normal 0.10 - 1.00 [facility] Comment on above: Performed By: #### C BCDF #### [address] [address] Monocytes/100 WBC (Bld) 6.6 % Normal 3.0 - 9.0 [facility] Comment on above: Performed By: #### C BCDF #### [address] [address] Neutrophils (Bld) [#/Vol] 2.61 10*3/uL Normal 1.20 - 7.70 [facility] Comment on above: Performed By: #### C BCDF #### [address] [address] Neutrophils/100 WBC (Bld) 52.6 % Normal 33.0 - 69.0 [facility] Comment on above: Performed By: #### C BCDF #### [address] [address] Platelets (Bld) [#/Vol] 321 10*3/uL Normal 150 - 400 [facility] Comment on above: Performed By: #### C BCDF #### [address] [address] RBC (Bld) [#/Vol] 5.14 x10E12/L Normal 4.50 - 5.30 [facility] Comment on above: Performed By: #### C BCDF #### [address] [address] WBC (Bld) [#/Vol] 5.0 10*3/uL Normal 4.5 - 13.5 [facility] Comment on above: Performed By: #### C BCDF #### [address] [address] HETEROPHILE ANTIBODYon 03-25 HETEROPHILE ANTIBODY Negative Normal NEGATIVE [facility] Comment on above: Performed By: #### H ETER #### [address] [address] Provider Note - ED v2on 03-02 Provider Note - ED v2 Provider Note - ED v2: Chart Review: ED NOTES ED NOTES: Pt brought in per mother with/ c/o N/V/D x 3 days, vague LUQ pain, + h/o recent Alger infection with/ enlarged spleen. neg fever. HISTORY OF PRESENTING ILLNESS NEFTALY is a 13 year old Male and was seen by me at 25-Mar-2019 12:41 for a chief complaint of vomiting . The historian is the mother. Triage Information: Most recent Vital Sign Value Date Temp (F): 97.5 03-25-2019 12:20 Temp (C): 36.4 03-25-2019 12:20 Heart Rate (beats/min): 68 03-25-2019 12:20 Respirations (breaths/min): 20 03-25-2019 12:20 SpO2 (%): 100 03-25-2019 12:20 Presenting Symptoms: vomiting. Located in the: left upper quadrant area. The quality is aching. The context is Unknown. The duration of the abdominal pain is 3 day(s). The timing is gradual onset. Pertinent History is (recent Alger). PAST MEDICAL HISTORY ATTESTATION: I have reviewed and confirmed nurse's/medic's notes for patient's medications, allergies, medical history, and surgical history ALLERGIES/INTOLERANCES: Allergy Allergen: NKDA Type: Reaction: Allergen: MSG Type: Food Reaction: Other HEALTH HISTORY: No documented data. OUTPATIENT MEDICATIONS: Home Medications Review Status for Reconciliation: Not Done Med Status: Patient Currently Takes Medications Drug Name: Zofran 4 mg oral tablet Instructions: 1 tab(s) orally every 6 hours as needed for nausea and vomiting SIGNIFICANT EVENTS: No documented data. REVIEW OF SYSTEMS CONSTITUTIONAL: Negative for: chills, fever and weakness EYES: Negative for: redness ENMT Nose: Negative for: congestion and discharge Throat/Neck: Negative for: neck pain RESPIRATORY: Negative for: cough and dyspnea GASTROINTESTINAL: POSITIVE for: abdominal pain, diarrhea, nausea and vomiting; GENITOURINARY: Negative for: dysuria; MUSCULOSKELETAL: Negative for: back pain NEUROLOGICAL: Negative for: altered mental status; PSYCHIATRIC: Negative for: anxiety PHYSICAL EXAM CONSTITUTIONAL: Appearance: well appearing Development: well developed Distress: MILD Manner: appropriate for situation Mentation: awake, alert and oriented to person, place, time/situation Mood: appropriate Nourishment: THIN HENMT: Head Examination: atraumatic Face: no signs of abnormality Nose: normal inspection Mouth: normal mouth inspection Throat: normal pharynx EYES: Bilteral Eyes: clear CARDIOVASCULAR: Cardiac Rhythm: regular Cardiac Rate: normal RESPIRATORY: Respiratory Distress: no respiratory distress Breath Sounds: normal breath sounds GASTROINTESTINAL: Abdominal Exam: soft Masses: no mass on examination Bowel Sounds Detail: Bowel Sounds: normal Abdominal Tenderness: LEFT UPPER QUADRANT Abdominal Guarding: no guarding MUSCULOSKELETAL: Musculoskeletal Exam: atraumatic Neck Exam: no deformity, pain or tenderness. no restriction of movement NEUROLOGICAL: Level of Consciousness: alert and follows commands Memory: memory/cognition intact Neck: normal Speech: clear SKIN: Skin Color: normal for race Skin Temperature: warm PSYCHIATRIC: Level of Consciousness: alert and follows commands Mood: appropriate Affect: normal Speech: clear Perception: normal HEME/LYMPH: Cervical Adenopathy: negative RESULTS/VITAL SIGNS RESULTS: Recent Lab Results: I have reviewed these laboratory results: Complete Blood Count + Differential 25-Mar-2019 13:06:00 ResultValue White Blood Cell Count 5.0 Red Blood Cell Count 5.14 HGB 14.7 HCT 44.1 MCV 86 MCHC 33.3 PLT 321 RDW-CV 12.8 Neutrophil % 52.6 Immature Granulocytes % 0.2 Lymphocyte % 37.2 Monocyte % 6.6 Eosinophil % 3.0 Basophil % 0.4 Neutrophil Count 2.61 Lymphocyte Count 1.85 Monocyte Count 0.33 Eosinophil Count 0.15 Basophil Count 0.02 Basic Metabolic Panel 25-Mar-2019 13:06:00 ResultValue Glucose, Serum 75 NA 139 K 3.8 CL 102 Bicarbonate, Serum 30 H Anion Gap, Serum 11 BUN 13 CREAT 0.81 Calcium, Serum 9.3 Heterophile Antibody 25-Mar-2019 13:06:00 ResultValue Heterophile Ab NEGATIVE VITAL SIGNS: T PRBP SpO2O2(LPM) %FiO2 Method 25-Mar-2019 13:33:[id number] 100 room air, no respiratory support 25-Mar-2019 12:20:[id number] 100 room air, no respiratory support MEDICAL DECISION MAKING/ED COURSE MDM/ED COURSE: 1415 Discussed test results with/ pt/mother , advised sx's most likely viral, advised to contact PMD/Milling Supervisor for sports clearance. CLINICAL IMPRESSION Diagnosis/Annotation: ED Dx Name:Viral gastroenteritis Code:A08.4 Dispostion: discharged Type: home ATTESTATION Attestation: This is a shared visit. I have reviewed the LIPs encounter note, approve the LIPs documentation and provide the following additional information from my personal encounter. Shared Visit Documentation: See comments/additional findings below Comments/Additional Findings: This patient was seen by the advanced practice provider. I have seen and examined the patient, agree with the workup, evaluation, management and diagnosis. The care plan has been discussed. CRITICAL CARE TIME Is this a critically ill patient: no Electronic Signatures: Chetan Nixon (PAC) (Signed 25-Mar-2019 14:22) Authored: Provider Note - ED v2 Feng Dumont) (Signed 25-Mar-2019 19:39) Authored: Provider Note - ED v2 Co-Signer: Provider Note - ED v2 Last Updated: 25-Mar-2019 19:39 by Feng Dumont) References: 1. Data Referenced From Triage - ED Peds 25-Mar-2019 12:20 Normal [facility] Risk Screen - PEDS Emergency on 03-25-2019 Risk Screen - PEDS Emergency Preferred Language: Preferred Language: Preferred Language for Discussing Health Care (patient/designee)Divehi Advanced Directives: Advance Directive/DNRnot applicable Learning Assessment (Patient): Patient is Able to be Assessed for Learningyes Educational [id number] grade Factors Influence Readiness to Learnnone, ready to learn Factors Impact Ability to Learnnone Devices/Methods Used to Communicatenone Learning Preferencesskill demonstration, verbal instruction, written material Cultural Considerationsnone Developmental Considerationsnone Confucianism Considerationsnone Learning Assessment (Other Learner): Other learner availableyes Other Learner is Able to be Assessed for Learningyes Learnermother Factors Influencing Readiness to Learnnone, ready to learn Factors that Impact Ability to Learnnone Devices/Methods Used to Communicatenone Learning Preferencesverbal instruction, written material Cultural Considerationsnone Developmental Considerationsnone Confucianism Considerationsnone Family Violence PEDS: Family Violence Screen (Patient < 8 yo, screen parent only. Patient 8 yo and older, screen both parent and child.): Do you feel UNSAFE going back to the place where you liveno Clinician Assessment: Are there any apparent signs of injuries/behaviors that could be related to abuse/neglectno Ask parent or guardian: Are there times when you, your child(dusty), or any member of your household feel unsafe, harmed, or threatened around persons with whom you know or liveno Have YOU threatened or abused anyone physically, emotionally, or sexuallyno Fall: Pediatric Humpty Dumpty: Humpty Dumpty Risk Assessment: Humpty Dumpty Risk Assessment: Falls Precautions per Humpty Dumpty Screening ToolPatient location auto qualifies him/her for HIGH RISK Humpty Dumpty Educationteaching provided Teaching ProvidedAmbulatory Falls Prevention Plan reviewed Respiratory / Cough /TB: ED / TB / Cough / Respiratory Screen: Do you have a coughno Smoking/Social History (Required 13 years or older): Smoking Status: never smoker Admission Risk Screen: Significant IndicatorsComplete Electronic Signatures: Alison Robles (ZAMZAM) (Signed 25-Mar-2019 12:27) Authored: Preferred Language, Advanced Directives, Learning Assessment (Patient), Learning Asessment (Other Learner), Family Violence PEDS, Fall: Pediatric Humpty Dumpty, Respiratory / Cough /TB, Smoking/Social History (Required 13 years or older) Last Updated: 25-Mar-2019 12:27 by Alison Robles (RN) Normal [facility] Triage - ED Pedson 9 Triage - ED Peds Triage: Chart Review: CHIEF COMPLAINT NEFTALY MORALES is a 13 year old Male patient with a chief complaint of vomiting. Onset of the Complaint: 23-Mar-2019 Triage Date/Time: 25-Mar-2019 12:20 Vital Signs: Temperature: 97.5F ( 36.4C) Temperature Location: temporal Heart Rate: 68 Respiratory Rate: 20 Pulse Oximetry: 100% on room air, no respiratory support Weight: 61.818 kilogram(s) Weight Method Used: actual (measured) Pain Scale: VAS (8 yrs & older) Cough Lasting Greater than 2 Weeks: no Patient has Homicidal Thoughts: no Medications Given at Home: Levsin Acuity Level: 3 Primary Medical Doctor: Jannette Uribe Complaint Code ([facility] [place] ONLY): N/A [facility] Symptoms Are POSITIVE For: diarrhea, nausea and vomiting. Symptoms Are Negative For: anorexia, constipation, diaphoresis, distention, fever and rectal blood. RISK SCREEN [place] Suicide Risk Screen Risk Screen Not Applicable/Able to Answer: able to be screened In the Past Month: Have you wished you were or could go to sleep and not wake up no Have you had any actual thoughts of killing yourself no Lifetime: Have you ever done, started to or prepared to do anything to end your life no Past Medical History: Past Medical History Reviewedyes Electronic Signatures: Gina Renee (ZAMZAM) (Signed 25-Mar-2019 13:05) Authored: Triage Alison Robles) (Signed 25-Mar-2019 12:24) Authored: Triage, Past Medical History Last Updated: 25-Mar-2019 13:05 by Gina Renee) Normal [facility] CNOVon 01-25-2019 CNOV Office Visit ([facility] ) ----- NEFTALY MORALES ([id number]) 1 M Date Time Provider Department 01/25/19 8:00 AM [facility] During your visit today, we recorded the following information about you: Temperature Pulse Blood pressure Weight 98.6 degrees 80/minute 110/56 64.7 kg Height 1.66 m Stan Chavez MD 01/25/2019 4:39 PM Signed Prior Clinic Visit: 09/10/18 Background History: Neftaly Morales is a 13 year old male being seen today in pediatric GI clinic secondary to issues with with recurrent emesis, nausea and abdominal pain with previous extensive work up by [facility] bar pilot. He initially had 2 episodes each preceded by a viral infection. His episodes were of director of event management vomiting which resolved by the early afternoon. 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 After the last visit we recommended stopping PPI therapy and using Levsin PRN along with Miralax therapy for constipation. He presents to follow up at this time. He presents to follow up with mother and father who help to provide the history today. Interval History: Since the last visit he is doing very well with no active GI symptoms of concern. He has excellent energy growth and weight. He is wrestling and using NSAID's topical and oral only PRN on rare occassions. He continues on 1 cap Miralax daily with soft semi-formed stools 3 x per day with no red flag symptoms. There are no rashes, joint edema, and pain is only present with overexertion related to wrestling. He is otherwise well and denies abdominal pain, N/V, reflux symptoms. He has not used Levsin since October and has on hand PRN only. He continues to stay off PPI therapy since after the last visit and is doing well with no concerns. He is in 9th grade and likes school. Medications: SUMAtriptan (IMITREX) 50 mg tablet Start at onset of headache. May repeat after 2 hours. polyethylene glycol 3350 (MIRALAX, GLYCOLAX) 17 gram/dose powder Take 17 g by mouth once daily. 1 cap multivitamin tablet Take 1 tablet by mouth once daily. albuterol HFA (VENTOLIN HFA) 90 mcg/actuation inhaler Inhale 2 Puffs as instructed as needed. omeprazole (PRILOSEC) 20 mg capsule Take 1 capsule by mouth twice daily. Off medication since August hyoscyamine sublingual (LEVSIN/SL) 0.125 mg subl Dissolve 1 tablet under the tongue every 4 hours as needed (for cramping abdominal pain). Dissolve under tongue. Not used for some time last possible use was in October. diphenhydrAMINE (BENADRYL) 25 mg capsule Take 1 capsule by mouth daily at bedtime. For nausea/vomiting COMPOUNDED PRESCRIPTION once daily. Migravent VENTOLIN HFA 90 mcg/actuation inhaler INHALE 2 PUFFS EVERY 4 HOURS NEEDED FOR COUGH/WHEEZING Review Of Systems: Constitutional:- No significant change in weight, no fatigue. ENDO:- no diabetes or thyroid disease CVS:- No history of heart disease, No history of heart murmurs RESP:- no wheezing, frequent cough or shortness of breath GI:- per HPI NEURO:-Normal growth and development. :-negative dysuria Integumentary:- Negative for lesions, rash, and itching. Musculoskeletal:- Negative joint pain Psychiatry:-negative for sleep disturbance Hematologic/Lymphatic:-No history of anemia, bruising, bleeding abnormalities. Allergic/Immunologic:-tawana rodriguez allergies REVIEW OF SYSTEMS All other reviewed and negative other than HPI. PAST MEDICAL HISTORY Diagnosis Date - Adopted - Asthma - Lead poisoning resolved - Migraines - Recurrent vomiting Family History Adopted: Yes Problem Relation Age of Onset - Migraines Sister Social , family, surgical, PMH, and allergies reviewed and updated as documented Physical Exam: BP 110/56 (BP Site: Right Arm, BP Position: Sitting, BP Cuff Size: Regular Adult) Pulse 80 Temp 37 ?C (98.6 ?F) (Temporal) Ht 166 cm (5' 5.35 ) Wt 64.7 kg (142 lb 10.2 oz) BMI 23.48 kg/m? General/Constitutional:- alert and active in no apparent distress Head:- Normocephalic Eye:- PERRLA, conjunctiva clear, no icterus Nose/Sinus:- normal MM Oropharynx:- moist mucous membranes and no exudates present Neck/Lymphatic:- supple, no adenopathy Cardiac:- Regular Rate and Rhythm Respiratory:- clear to auscultation Gastrointestinal:- Abdomen is soft, non-tender; BS normal and there are no masses or organomegaly Rectal :- deferred exam Neuro:- Muscle tone normal, Normal age appropriate gait and No involuntary motions. Musculoskeletal :- Extremities with FROM and no problems identified. Extremity:- Normal exam of the extremities. No clubbing, cyanosis, or edema. Skin:-normal color, no jaundice or rash Labs/Radiology: No new Impression: Neftaly Morales is a 13 year old male being seen today in pediatric GI clinic secondary to issues of post-viral gastroparesis and constipation after development of recurrent emesis, nausea and abdominal pain with previous extensive work up by [facility] bar pilot. His initial episodes were of director of event management vomiting which resolved by the early afternoon. As his symptoms had completely resolved by the time of follow up and gastric emptying study performed was normal, his symptoms were consistent with a diagnosis of post viral gastroparesis. After the last visit we recommended stopping PPI therapy and using Levsin PRN along with Miralax therapy for constipation. Since the last visit he is asymptomatic and thriving on 1 cap of Miralax daily for constipation management with no concerns at this time. He has had no return of reflux symptoms since off PPI therapy and only uses Levsin PRN at this time. We are very pleased with Neftaly's progress at this time and would like him to continue Miralax therapy as needed for constipation management, which was reviewed in detail with family. We discussed the importance of continued limiting NSAID exposures. As Neftaly is doing so well we will plan to see him in follow up as needed at this point. Family agrees with plans and all questions answered. Plan: 1. Continue Levsin PRN, refill provided 2. Continue Miralax 1 capful daily PRN and attempt weaning of therapy as tolerated which was reviewed today 3. Follow up as needed Jeanette Cedillo MD Pediatric Gastroenterology Fellow Pager [phone] January 25, 2019 11:05 AM Pediatric GI Staff Addendum History reviewed and patient seen by attending staff physician with the resident/fellow at the time of the appointment. Agree with the findings of history and physical exam as stated in resident/fellow note, as well as the assessment and plan of treatment, which were reviewed with the patient and family by the attending physician at the time of the appointment. The resident/fellow note has been reviewed and amended as necessary to reflect the verification of documentation of the attending staff physician, unless otherwise noted here. I spent 30 minutes in the visit, with more than 50% of the total [id number] time of the visit in counseling / coordination of care. Stan Chavez MD Pediatric Gastroenterology Staff January 25, 2019 4:37 PM Pager Number [phone] CC: Jannette Tovar MD [address] [place] [phone] Jeanette Cedillo MD 01/25/2019 8:57 AM Addendum Please use Miralax as needed for soft daily stooling as discussed today. Example of weaning: Every other day 1 cap for 2 weeks and then continue to wean as discussed over the next month. If you need to resume therapy after this one month trial we reviewed the average ranges of daily stooling and how to use the therapy to achieve this. You can use the LEVSIN as needed. Please follow up as needed as discussed. HIGH FIBER FOODS BREADS AND CEREALS: Choose whole grain flours, breads, crackers, cereals, and pastas. Read labels: Be sure wheat bread is made from whole grain flour and not refined flour with added caramel coloring. EXCELLENT SOURCES: All-Bran, Wheat Germ, Bran Flakes, Shredded Wheat, Shredded Wheat N Bran, Bran Chex, [place] Bran , and Cracklin' Oat Bran. GOOD SOURCES: Whole Wheat Bread, Whole Wheat Pastas, Nutri-Grain Wheat and [place], Cherrios, Wheaties and Total. ---- VEGETABLES: All vegetables are good sources of fiber, especially those with seeds, skins, stalks, and stems. EXCELLENT SOURCES: Baked beans, Split peas (or split pea soup), Fresh or canned peas, Turnip greens, Mustard greens, Boiled yams, Broccoli-raw or boiled, Green beans, and [place]. GOOD SOURCES: Mushrooms, Baked potato (higher if you eat the skin), Cabbage, Carrots, Brussel sprouts, Sweet potatoes, Raw tomatoes, Turnips. - FRUITS: All fruits are good sources, especially dried fruits and those with skins. EXCELLENT SOURCES: Prunes and other dried fruits, Blackberries, Raspberries, Grapes, Bananas, Apples and pears with skin. GOOD SOURCES: Apples and pears without skin, Strawberries, Plums, Oranges, and Cherries. NUTS: Do not give nuts to small children who may choke. EXCELLENT SOURCES: Almonds, Coconut, and Peanut butter. Referring Provider: SELF [[id number]] Allergies As of Date: 01/25/2019 Noted Allergy Reaction MONOSODIUM GLUTAMATE 01/09/2018 14 - Other: See Comments Comments: MIGRAINES MIGRAINES BEEF DERIVED (BOVINE) 03/08/2018 14 - Other: See Comments Comments: FROM SKIN TEST. PEGADEMASE BOVINE 03/08/2018 14 - Other: See Comments Comments: FROM SKIN TEST. PORACTANT ELENA 03/08/2018 14 - Other: See Comments Comments: FROM SKIN TEST. PORK DERIVED (PORCINE) 03/08/2018 14 - Other: See Comments Comments: FROM SKIN TEST. LACTALBUMIN 03/08/2018 14 - Other: See Comments Comments: FROM SKIN TEST. MILK 03/08/2018 14 - Other: See Comments Comments: FROM SKIN TEST. Date Reviewed: 01/25/2019 Reviewed by: Ayleen Austin Ma - Fully Assessed Reason for Visit: Follow Up [171] Primary Visit Diagnosis:Abdominal cramping [R10.9] Other Visit Diagnoses:Other constipation [K59.09] Recurrent vomiting [R11.10] Order(s):hyoscyamine sublingual (LEVSIN/SL) 0.125 mg sublDissolve 1 tablet under the tongue every 4 hours as needed (for cramping abdominal pain). Dissolve under tongue.Disp: 120 tabletRfl: 3 Prescriptions as of 01/25/2019 Sig: DICLOFENAC 1 % TOPICAL GEL Apply 2 g to affected area. HYOSCYAMINE 0.125 MG SUBLINGU* Dissolve 1 tablet under the t* SUMATRIPTAN 50 MG TABLET Start at onset of headache. * POLYETHYLENE GLYCOL 3350 17 G* Take 17 g by mouth once daily. ALBUTEROL SULFATE HFA 90 MCG/* Inhale 2 Puffs as instructed * DIPHENHYDRAMINE 25 MG CAPSULE Take 1 capsule by mouth daily* VENTOLIN HFA 90 MCG/ACTUATION* INHALE 2 PUFFS EVERY 4 HOURS * CETIRIZINE 10 MG TABLET Take 10 mg by mouth daily at * MULTIVITAMIN TABLET Take 1 tablet by mouth once d* OMEPRAZOLE 20 MG CAPSULE,JOAN* Take 1 capsule by mouth twice* COMPOUNDED PRESCRIPTION once daily. Migravent Problem List As Of Date 01/25/2019 Noted Resolved Closed fracture of radius [S52.90XA] INVALID FOR* Contusion of bone [T14.8XXA] INVALID FOR* Acute post-traumatic headache, not intractable *INVALID FOR* Migraine without aura and without status migrai*INVALID FOR* Nausea [R11.0] INVALID FOR* Non-intractable cyclical vomiting with nausea [*INVALID FOR* Recurrent vomiting [R11.10] Migraines [G43.909] Adopted [Z02.82] Other constipation [K59.09] INVALID FOR* Other instructions from your clinician: Please use Miralax as needed for soft daily stooling as discussed today. Example of weaning: Every other day 1 cap for 2 weeks and then continue to wean as discussed over the next month. If you need to resume therapy after this one month trial we reviewed the average ranges of daily stooling and how to use the therapy to achieve this. You can use the LEVSIN as needed. Please follow up as needed as discussed. HIGH FIBER FOODS BREADS AND CEREALS: Choose whole grain flours, breads, crackers, cereals, and pastas. Read labels: Be sure wheat bread is made from whole grain flour and not refined flour with added caramel coloring. EXCELLENT SOURCES: All-Bran, Wheat Germ, Bran Flakes, Shredded Wheat, Shredded Wheat N Bran, Bran Chex, [place] Bran , and Cracklin' Oat Bran. GOOD SOURCES: Whole Wheat Bread, Whole Wheat Pastas, Nutri-Grain Wheat and [place], Cherrios, Wheaties and Total. ---- VEGETABLES: All vegetables are good sources of fiber, especially those with seeds, skins, stalks, and stems. EXCELLENT SOURCES: Baked beans, Split peas (or split pea soup), Fresh or canned peas, Turnip greens, Mustard greens, Boiled yams, Broccoli-raw or boiled, Green beans, and [place]. GOOD SOURCES: Mushrooms, Baked potato (higher if you eat the skin), Cabbage, Carrots, Brussel sprouts, Sweet potatoes, Raw tomatoes, Turnips. - FRUITS: All fruits are good sources, especially dried fruits and those with skins. EXCELLENT SOURCES: Prunes and other dried fruits, Blackberries, Raspberries, Grapes, Bananas, Apples and pears with skin. GOOD SOURCES: Apples and pears without skin, Strawberries, Plums, Oranges, and Cherries. NUTS: Do not give nuts to small children who may choke. EXCELLENT SOURCES: Almonds, Coconut, and Peanut butter. Prescriptions ordered this encounter Disp Refills Start End HYOSCYAMINE 0.125 MG SUBLINGUAL TABL* 120 * 3 01/25/2019 Route: SUBLINGUAL Sig: Dissolve 1 tablet under the tongue every 4 hours as needed (for cramping abdominal pain). Dissolve under tongue. Medications Discontinued During This Encounter hyoscyamine sublingual (LEVSIN/SL) 0* 120 * 2 07/11/2018 01/25/2019 Route: SUBLINGUAL Sig: Dissolve 1 tablet under the tongue every 4 hours as needed (for cramping abdominal pain). Dissolve under tongue. Disc: Reason for discontinue is not on file. Disposition: Return if symptoms worsen or fail to improve, for post-viral gastropathy. Follow-up and Disposition History Recorded Encounter Status:Closed by STAN BARAJAS MD on 01/25/19 [facility] PROGRESSon 01-25-2019 PROGRESS HNO ID: [id number] Author: Stan Chavez Service: ? Author Type: Physician Type: Progress Notes Filed: 01/25/2019 4:39 PM Note Text: Prior Clinic Visit: 09/10/18 Background History: Neftaly Morales is a 13 year old male being seen today in pediatric GI clinic secondary to issues with with recurrent emesis, nausea and abdominal pain with previous extensive work up by [facility] peds bar pilot. He initially had 2 episodes each preceded by a viral infection. His episodes were of director of event management vomiting which resolved by the early afternoon. 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 After the last visit we recommended stopping PPI therapy and using Levsin PRN along with Miralax therapy for constipation. He presents to follow up at this time. He presents to follow up with mother and father who help to provide the history today. Interval History: Since the last visit he is doing very well with no active GI symptoms of concern. He has excellent energy growth and weight. He is wrestling and using NSAID's topical and oral only PRN on rare occassions. He continues on 1 cap Miralax daily with soft semi-formed stools 3 x per day with no red flag symptoms. There are no rashes, joint edema, and pain is only present with overexertion related to wrestling. He is otherwise well and denies abdominal pain, N/V, reflux symptoms. He has not used Levsin since October and has on hand PRN only. He continues to stay off PPI therapy since after the last visit and is doing well with no concerns. He is in 9th grade and likes school. Medications: SUMAtriptan (IMITREX) 50 mg tablet Start at onset of headache. May repeat after 2 hours. polyethylene glycol 3350 (MIRALAX, GLYCOLAX) 17 gram/dose powder Take 17 g by mouth once daily. 1 cap multivitamin tablet Take 1 tablet by mouth once daily. albuterol HFA (VENTOLIN HFA) 90 mcg/actuation inhaler Inhale 2 Puffs as instructed as needed. omeprazole (PRILOSEC) 20 mg capsule Take 1 capsule by mouth twice daily. Off medication since August hyoscyamine sublingual (LEVSIN/SL) 0.125 mg subl Dissolve 1 tablet under the tongue every 4 hours as needed (for cramping abdominal pain). Dissolve under tongue. Not used for some time last possible use was in October. diphenhydrAMINE (BENADRYL) 25 mg capsule Take 1 capsule by mouth daily at bedtime. For nausea/vomiting COMPOUNDED PRESCRIPTION once daily. Migravent VENTOLIN HFA 90 mcg/actuation inhaler INHALE 2 PUFFS EVERY 4 HOURS NEEDED FOR COUGH/WHEEZING Review Of Systems: Constitutional:- No significant change in weight, no fatigue. ENDO:- no diabetes or thyroid disease CVS:- No history of heart disease, No history of heart murmurs RESP:- no wheezing, frequent cough or shortness of breath GI:- per HPI NEURO:-Normal growth and development. :-negative dysuria Integumentary:- Negative for lesions, rash, and itching. Musculoskeletal:- Negative joint pain Psychiatry:-negative for sleep disturbance Hematologic/Lymphatic:-No history of anemia, bruising, bleeding abnormalities. Allergic/Immunologic:-tawana g allergies REVIEW OF SYSTEMS All other reviewed and negative other than HPI. PAST MEDICAL HISTORY Diagnosis Date - Adopted - Asthma - Lead poisoning resolved - Migraines - Recurrent vomiting Family History Adopted: Yes Problem Relation Age of Onset - Migraines Sister Social , family, surgical, PMH, and allergies reviewed and updated as documented Physical Exam: BP 110/56 (BP Site: Right Arm, BP Position: Sitting, BP Cuff Size: Regular Adult) Pulse 80 Temp 37 ?C (98.6 ?F) (Temporal) Ht 166 cm (5' 5.35 ) Wt 64.7 kg (142 lb 10.2 oz) BMI 23.48 kg/m? General/Constitutional:- alert and active in no apparent distress Head:- Normocephalic Eye:- PERRLA, conjunctiva clear, no icterus Nose/Sinus:- normal MM Oropharynx:- moist mucous membranes and no exudates present Neck/Lymphatic:- supple, no adenopathy Cardiac:- Regular Rate and Rhythm Respiratory:- clear to auscultation Gastrointestinal:- Abdomen is soft, non-tender; BS normal and there are no masses or organomegaly Rectal :- deferred exam Neuro:- Muscle tone normal, Normal age appropriate gait and No involuntary motions. Musculoskeletal :- Extremities with FROM and no problems identified. Extremity:- Normal exam of the extremities. No clubbing, cyanosis, or edema. Skin:-normal color, no jaundice or rash Labs/Radiology: No new Impression: Neftaly Morales is a 13 year old male being seen today in pediatric GI clinic secondary to issues of post-viral gastroparesis and constipation after development of recurrent emesis, nausea and abdominal pain with previous extensive work up by [facility] bar pilot. His initial episodes were of director of event management vomiting which resolved by the early afternoon. As his symptoms had completely resolved by the time of follow up and gastric emptying study performed was normal, his symptoms were consistent with a diagnosis of post viral gastroparesis. After the last visit we recommended stopping PPI therapy and using Levsin PRN along with Miralax therapy for constipation. Since the last visit he is asymptomatic and thriving on 1 cap of Miralax daily for constipation management with no concerns at this time. He has had no return of reflux symptoms since off PPI therapy and only uses Levsin PRN at this time. We are very pleased with Neftaly's progress at this time and would like him to continue Miralax therapy as needed for constipation management, which was reviewed in detail with family. We discussed the importance of continued limiting NSAID exposures. As Neftaly is doing so well we will plan to see him in follow up as needed at this point. Family agrees with plans and all questions answered. Plan: 1. Continue Levsin PRN, refill provided 2. Continue Miralax 1 capful daily PRN and attempt weaning of therapy as tolerated which was reviewed today 3. Follow up as needed Jeanette Cedillo MD Pediatric Gastroenterology Fellow Pager [phone] January 25, 2019 11:05 AM Pediatric GI Staff Addendum History reviewed and patient seen by attending staff physician with the resident/fellow at the time of the appointment. Agree with the findings of history and physical exam as stated in resident/fellow note, as well as the assessment and plan of treatment, which were reviewed with the patient and family by the attending physician at the time of the appointment. The resident/fellow note has been reviewed and amended as necessary to reflect the verification of documentation of the attending staff physician, unless otherwise noted here. I spent 30 minutes in the visit, with more than 50% of the total [id number] time of the visit in counseling / coordination of care. Stan Chavez MD Pediatric Gastroenterology Staff January 25, 2019 4:37 PM Pager Number [phone] CC: Jannette Tovar MD [address] [facility] [id number] [facility] Surgical Pathologyon 018 Surgical Pathology (NOTE)[id number] LABORATORIESCONSULTING PATHOLOGISTS [facility] [id number] [place] [address]. [place] [phone] Fax: SURGICAL PATHOLOGY CONSULTATIONPatient Name: NEFTALY MORALES [facility] Rec: [id number] Number: [id number]: 03/13/2018Received: 03/13/2018Reported: 03/14/2018 12:09-- Diagnosis --1. STOMACH, BIOPSY: - MILD CHRONIC GASTRITIS. - NEGATIVE FOR HELICOBACTER PYLORI.2. ESOPHAGUS, BIOPSY (SQUAMOUS MUCOSA): - NO HISTOLOGIC ABNORMALITY.3. TERMINAL ILEUM, BIOPSY: - NO HISTOLOGIC ABNORMALITY.4. COLON, BIOPSY (RECTUM): - NO HISTOLOGIC ABNORMALITY.5. COLON, BIOPSY (RIGHT): - NO HISTOLOGIC ABNORMALITY.6. COLON, BIOPSY (LEFT): - NO HISTOLOGIC ABNORMALITY.7. DUODENUM, BIOPSY: - NO HISTOLOGIC ABNORMALITY.Daniela Macias M.D.Electronically Signed Out [facility]/03/14/2018Clinical InformationPre-op Diagnosis: ABDOMINAL PAINOperative Findings: GASTRIC; ESOPHAGEAL; TERMINAL ILEUM; RECTUM;RIGHT COLON; LEFT COLON; DUODENUMOperation Performed: EGD BIOPSY, COLONOSCOPY WITH BIOPSY Source of Specimen1: GASTRIC2: ESOPHAGEAL3: TERMINAL ILEUM4: RECTUM5: RIGHT COLON6: LEFT COLON7: DUODENUMGross Description1. NEFTALY MORALES GASTRIC Three pacheco-white tissue fragments from 0.3to 0.4 cm and are 1.0 x 0.3 x 0.1 cm in aggregate. Entirely 1cs. 2. NEFTALY MORALES ESOPHAGEAL Eight pacheco-white tissue fragments from0.2 to 0.5 cm and are 2.4 x 0.3 x 0.1 cm in aggregate. Entirely 1cs. 3. NEFTALY MORALES, TERMINAL ILEUM Four pacheco-white tissue fragmentsfrom 0.2 to 0.4 cm and are 1.1 x 0.3 x 0.1 cm in aggregate. [id number]. 4. NEFTALY MORALES, RECTUM Three pacheco-white tissue fragments from 0.3to 0.6 cm and are 1.0 x 0.3 x 0.1 cm in aggregate. Entirely 1cs. 5. NEFTALY MORALES, RIGHT COLON Three pacheco-white tissue fragments from0.3 to 1.2 cm and are 1.8 x 0.3 x 0.1 cm in aggregate. Entirely 1cs. 6. NEFTALY MORALES, LEFT COLON Two pacheco-white tissue fragments from0.5 to 0.6 cm and are 1.1 x 0.2 x 0.1 cm in aggregate. Entirely 1cs. 7. NEFTALY MORALES, DUODENUM Seven pacheco-white tissue fragments from0.3 to 0.4 cm and are 2.3 x 0.3 x 0.1 cm in aggregate. Entirely 1cs. rh tmMicroscopic Description1. Gastric tissues negative for ulcer, intestinal metaplasia,dysplasia and neoplasm. With the type and degree of inflammationpresent and no definite micro-organisms seen by KEL stain,control-reactive immunohistochemical stain is performed for detectionof Helicobacter and the result is given above.2. Squamous and no glandular mucosa is present. No ulcer,intraepithelial eosinophils, intestinal metaplasia, dysplasia orneoplasm is detected.3. Small intestine mucosa present, negative for villous atrophy,intraepithelial lymphocytosis, ulcer, fissure, granuloma and neoplasm.Lamina propria lymphoid aggregates are consistent with terminalileum.4-6. Two levels examined; colon tissues negative for pseudomembrane,ulcer, fissure, granuloma, significant cryptitis, crypt abscess,mucosal necrosis, crypt architectural distortion, fibrosis,intraepithelial lymphocytosis, dysplasia and malignancy. Features ofmicroscopic (lymphocytic) colitis not detected.7. Small intestine mucosa present, negative for villous atrophy,intraepithelial lymphocytosis, ulcer, fissure, granuloma and neoplasm.Microscopic features of celiac disease are not detected. Normal [facility] Comment on above: Performed By: #### P PPVS ####[place] [id number] [place] [id number] Vital Signs Date Time Vital Sign Value Performing Clinician Facility 01-20-2025 09:40-0400 Body height 175.26 cm PHYSICIAN [facility] 01-20-2025 09:40-0400 Body mass index (BMI) [Ratio] 32.6 kg/m2 PHYSICIAN [facility] 01-20-2025 09:40-0400 Body weight 100.35 kg PHYSICIAN [facility] 01-20-2025 09:40-0400 Diastolic blood pressure 88 mm[Hg] PHYSICIAN [facility] 01-20-2025 09:40-0400 Heart rate 82 /min PHYSICIAN NO [facility] 01-20-2025 09:40-0400 SaO2% (BldA) [Mass fraction] 98 % PHYSICIAN NO [facility] 01-20-2025 09:40-0400 Systolic blood pressure 134 mm[Hg] PHYSICIAN NO [facility] 01-16-2025 13:16-0400 Body height 175.26 cm PHYSICIAN NO [facility] 01-16-2025 13:16-0400 Body mass index (BMI) [Ratio] 31 kg/m2 PHYSICIAN NO [facility] 01-16-2025 13:16-0400 Body weight 95.25 kg PHYSICIAN NO [facility] 01-16-2025 13:16-0400 Diastolic blood pressure 78 mm[Hg] PHYSICIAN NO [facility] 01-16-2025 13:16-0400 Heart rate 104 /min PHYSICIAN NO [facility] 01-16-2025 13:16-0400 Respiratory rate 16 /min PHYSICIAN NO [facility] 01-16-2025 13:16-0400 SaO2% (BldA) [Mass fraction] 98 % PHYSICIAN NO [facility] 01-16-2025 13:16-0400 Systolic blood pressure 122 mm[Hg] PHYSICIAN NO [facility] 10-02-2024 13:35-0400 Body height 175.26 cm PHYSICIAN NO [facility] 10-02-2024 13:35-0400 Body mass index (BMI) [Ratio] 24.3 kg/m2 PHYSICIAN NO [facility] 10-02-2024 13:35-0400 Body weight 74.84 kg PHYSICIAN NO [facility] 09-30-2024 19:25-0400 Diastolic blood pressure 75 mm[Hg] PHYSICIAN NO [facility] 09-30-2024 19:25-0400 Heart rate 88 /min PHYSICIAN NO [facility] 09-30-2024 19:25-0400 Respiratory rate 20 /min PHYSICIAN NO [facility] 09-30-2024 19:25-0400 SaO2% (BldA) [Mass fraction] 97 % PHYSICIAN NO [facility] 09-30-2024 19:25-0400 Systolic blood pressure 144 mm[Hg] PHYSICIAN NO [facility] 09-30-2024 17:00-0400 Body height 175.26 cm PHYSICIAN NO [facility] 09-30-2024 17:00-0400 Body weight 72.57 kg PHYSICIAN NO [facility] 09-30-2024 16:59-0400 Body temperature 97.9 [degF] PHYSICIAN NO [facility] 07-01-2024 08:04-0500 Body height 175.3 cm Keely Wynn MD Work Phone: [facility] 07-01-2024 08:04-0500 Body mass index (BMI) [Ratio] 24.07 kg/m2 Keely Wynn MD Work Phone: [facility] 07-01-2024 08:04-0500 Body weight 73.94 kg Keely Wynn MD Work Phone: [facility] 07-01-2024 08:04-0500 Diastolic blood pressure 77 mm[Hg] Keely Wynn MD Work Phone: [facility] 07-01-2024 08:04-0500 Heart rate 60 /min Keely Wynn MD Work Phone: [facility] 07-01-2024 08:04-0500 Systolic blood pressure 128 mm[Hg] Keely Wynn MD Work Phone: [facility] 06-06-2024 14:50-0500 Body height 177.8 cm PHYSICIAN NO [facility] 06-06-2024 14:50-0500 Body mass index (BMI) [Ratio] 24 kg/m2 PHYSICIAN NO [facility] 06-06-2024 14:50-0500 Body weight 76.2 kg PHYSICIAN NO [facility] 06-06-2024 14:50-0500 Diastolic blood pressure 70 mm[Hg] PHYSICIAN NO [facility] 06-06-2024 14:50-0500 Heart rate 82 /min PHYSICIAN NO [facility] 06-06-2024 14:50-0500 Respiratory rate 18 /min PHYSICIAN NO [facility] 06-06-2024 14:50-0500 SaO2% (BldA) [Mass fraction] 97 % PHYSICIAN NO [facility] 06-06-2024 14:50-0500 Systolic blood pressure 104 mm[Hg] PHYSICIAN NO [facility] 05-17-2024 13:26-0500 Diastolic blood pressure 86 mm[Hg] PHYSICIAN NO [facility] 05-17-2024 13:26-0500 Heart rate 74 /min PHYSICIAN NO [facility] 05-17-2024 13:26-0500 Respiratory rate 18 /min PHYSICIAN NO [facility] 05-17-2024 13:26-0500 SaO2% (BldA) [Mass fraction] 98 % PHYSICIAN NO [facility] 05-17-2024 13:26-0500 Systolic blood pressure 140 mm[Hg] PHYSICIAN NO [facility] 05-17-2024 12:22-0500 Body height 177.8 cm PHYSICIAN NO [facility] 05-17-2024 12:22-0500 Body temperature 97.7 [degF] PHYSICIAN NO [facility] 05-17-2024 12:22-0500 Body weight 73 kg PHYSICIAN NO [facility] 07-18-2023 11:43-0400 Body height 177.8 cm PHYSICIAN NO [facility] 07-18-2023 11:43-0400 Diastolic blood pressure 80 mm[Hg] PHYSICIAN NO [facility] 07-18-2023 11:43-0400 Heart rate 76 /min PHYSICIAN NO [facility] 07-18-2023 11:43-0400 Respiratory rate 18 /min PHYSICIAN NO [facility] 07-18-2023 11:43-0400 SaO2% (BldA) [Mass fraction] 98 % PHYSICIAN NO [facility] 07-18-2023 11:43-0400 Systolic blood pressure 120 mm[Hg] PHYSICIAN NO [facility] 06-09-2023 09:43-0500 Diastolic blood pressure 84 mm[Hg] PHYSICIAN NO [facility] 06-09-2023 09:43-0500 Heart rate 69 /min PHYSICIAN NO [facility] 06-09-2023 09:43-0500 Systolic blood pressure 140 mm[Hg] PHYSICIAN NO [facility] 05-08-2023 09:00-0500 Body height 175.26 cm Adriana Bessy Other [facility] 05-08-2023 09:00-0500 Body mass index (BMI) [Ratio] 24.66 kg/m2 Adriana Bessy Other [facility] Other 05-08-2023 09:00-0500 Body weight 75.75 kg Adriana Bessy Other [facility] Other 05-08-2023 09:00-0500 Body weight 75.74 kg PHYSICIAN NO [facility] 05-08-2023 09:00-0500 Diastolic blood pressure 80 mm[Hg] Adriana Bessy Other [facility] 05-08-2023 09:00-0500 Respiratory rate 16 /min Adriana Bessy Other [facility] Other 05-08-2023 09:00-0500 SaO2% (BldA) [Mass fraction] 98 % Adriana Bessy Other [facility] Other 05-08-2023 09:00-0500 Systolic blood pressure 122 mm[Hg] Adriana Bessy Other [facility] 02-21-2023 09:40-0400 Body weight 77.34 kg Johan Avelar Other [facility] Other 02-21-2023 09:40-0400 Diastolic blood pressure 101 mm[Hg] Johan Avelar Other [facility] Other 02-21-2023 09:40-0400 Systolic blood pressure 135 mm[Hg] Johan Scovanner Other [facility] Other 11-24-2022 10:30-0400 Body height 170.18 cm Johan Scovanner Other [facility] Other 11-24-2022 10:30-0400 Body mass index (BMI) [Ratio] 26.62 kg/m2 Johan Scovanner Other [facility] Other 11-24-2022 10:30-0400 Body weight 77.11 kg Johan Scovanner Other [facility] Other 11-24-2022 10:30-0400 Diastolic blood pressure 80 mm[Hg] Johan Scovanner Other [facility] Other 11-24-2022 10:30-0400 Systolic blood pressure 114 mm[Hg] Johan Scovanner Other [facility] Other 09-12-2022 07:41-0400 Diastolic blood pressure 64 mm[Hg] Liban Simpson MD Work Phone: [facility] 09-12-2022 07:41-0400 Heart rate 58 /min Liban Simpson MD Work Phone: [facility] 09-12-2022 07:41-0400 Respiratory rate 18 /min Liban Simpson MD Work Phone: [facility] 09-12-2022 07:41-0400 SaO2% (BldA) [Mass fraction] 100 % Liban Simpson MD Work Phone: [facility] 09-12-2022 07:41-0400 Systolic blood pressure 105 mm[Hg] Liban Simpson MD Work Phone: [facility] 09-12-2022 07:13-0400 Body temperature 97.81 [degF] Liban Simpson MD Work Phone: [facility] 09-12-2022 06:43-0400 Body height 177.8 cm Liban Simpson MD Work Phone: [facility] 09-12-2022 06:43-0400 Body mass index (BMI) [Ratio] 26.54 kg/m2 Liban Simpson MD Work Phone: [facility] 09-12-2022 06:43-0400 Body weight 83.92 kg Liban Simpson MD Work Phone: [facility] 09-02-2022 15:10-0400 Body height 177.8 cm Jennifer Burke PA-C Work Phone: [facility] 09-02-2022 15:10-0400 Body weight 85.55 kg Jennifer Ubrke PA-C Work Phone: [facility] 09-02-2022 15:10-0400 Diastolic blood pressure 78 mm[Hg] Jennifer Burke PA-C Work Phone: [facility] 09-02-2022 15:10-0400 Heart rate 67 /min Jennifer Burke PA-C Work Phone: [facility] 09-02-2022 15:10-0400 Systolic blood pressure 120 mm[Hg] Jennifer Burke PA-C Work Phone: [facility] 01-27-2021 17:09-0400 Body temperature 36.5 [degF] Referring Provider Unknown [facility] Work Phone: 01-27-2021 17:09-0400 Body weight 83.28 kg Referring Provider Unknown [facility] Work Phone: 01-27-2021 17:09-0400 Diastolic blood pressure 55 mm[Hg] Referring Provider Unknown [facility] Work Phone: 01-27-2021 17:09-0400 Heart rate 91 /min Referring Provider Unknown [facility] Work Phone: 01-27-2021 17:09-0400 Respiratory rate 20 /min Referring Provider Unknown [facility] Work Phone: 01-27-2021 17:09-0400 SaO2% (BldA) [Mass fraction] 96 % Referring Provider Unknown [facility] Work Phone: 01-27-2021 17:09-0400 Systolic blood pressure 128 mm[Hg] Referring Provider Unknown [facility] Work Phone: 01-27-2021 17:09-0400 89 1 Referring Provider Unknown [facility] Work Phone: Comment on above: -_[facility] 04-26-2019 15:30-0500 Body Temperature 98.4 [degF] [facility] 04-26-2019 15:30-0500 BP Diastolic 64 mm[Hg] [facility] 04-26-2019 15:30-0500 BP Systolic 102 mm[Hg] [facility] 04-26-2019 15:30-0500 Pulse (Heart Rate) 86 /min [facility] 04-26-2019 15:30-0500 Pulse Oximetry 99 % [facility] 04-26-2019 15:30-0500 Respiratory Rate 16 /min [facility] Encounters Encounter Date Encounter Type Care Provider Facility Start: 01-20-2025 End: 01-20-2025 ambulatory PHYSICIAN NO [facility] Work Phone: Start: 01-20-2025 End: 01-20-2025 Patient encounter procedure Mary Casiano APRN-DENTAL SERVICES DIRECTOR-[facility] Work Phone: Start: 01-16-2025 End: 01-16-2025 ambulatory PHYSICIAN NO [facility] Work Phone: Start: 01-16-2025 End: 01-16-2025 Patient encounter procedure Mary Casiano APRN-DENTAL SERVICES DIRECTOR-C -[facility] Work Phone: Start: 10-23-2024 End: 10-23-2024 ambulatory PHYSICIAN NO [facility] Work Phone: Start: 10-23-2024 End: 10-23-2024 Patient encounter procedure Rodriguez Lindsey [facility] Work Phone: Start: 10-23-2024 End: 10-23-2024 Patient encounter procedure Rodriguez Lindsey DO [facility] Start: 10-23-2024 End: 10-23-2024 ambulatory PHYSICIAN NO [facility] Work Phone: Start: 10-02-2024 End: 10-02-2024 ambulatory PHYSICIAN NO [facility] Work Phone: Start: 10-02-2024 End: 10-02-2024 Patient encounter procedure PHYSICIAN NO [facility] Work Phone: Start: 09-30-2024 End: 09-30-2024 Emergency department patient visit PHYSICIAN NO [facility]Emergency Room Work Phone: Start: 07-25-2024 End: 07-25-2024 Emergency department patient visit NO PCP NO PCP [facility] Start: 07-01-2024 End: 07-01-2024 ambulatory KEELY WYNN [facility] Start: 07-01-2024 End: 07-01-2024 Office outpatient visit 25 minutes Keely Wynn MD Work Phone: [facility] Tianna Masterson Comment on above: Neck pain (Primary D x); Cervical paraspinal muscle spasm; Somatic dysfunction of head region; Somatic dysfunction of spine, cervical; Thoracic region somatic dysfunction; Somatic dysfunction of rib; Upper extremity somatic dysfunction Start: 06-06-2024 End: 06-06-2024 ambulatory PHYSICIAN NO [facility] Work Phone: Start: 06-06-2024 End: 06-06-2024 Patient encounter procedure PHYSICIAN NO [facility] Work Phone: Start: 05-17-2024 End: 05-17-2024 Emergency department patient visit PHYSICIAN NO [facility]-Emergency Room Work Phone: Start: 05-17-2024 End: 05-17-2024 ambulatory [facility] Work Phone: Start: 05-17-2024 End: 05-17-2024 Patient encounter procedure [facility] Work Phone: Start: 05-09-2024 End: 05-09-2024 Emergency department patient visit NO PCP NO PCP [facility] Start: 07-18-2023 End: 07-18-2023 ambulatory PHYSICIAN NO [facility] Work Phone: Start: 07-18-2023 End: 07-18-2023 Patient encounter procedure PHYSICIAN NO [facility] Work Phone: Start: 06-09-2023 End: 06-09-2023 ambulatory PHYSICIAN NO [facility] Work Phone: Start: 06-09-2023 End: 06-09-2023 Patient encounter procedure PHYSICIAN NO [facility]-Electrodiagnostics Work Phone: Start: 06-07-2023 End: 06-07-2023 ambulatory PHYSICIAN NO [facility] Work Phone: Start: 06-07-2023 End: 06-07-2023 Patient encounter procedure PHYSICIAN NO [facility] [place] Work Phone: Start: 05-08-2023 End: 05-08-2023 ambulatory Adriana Doherty Other [facility] Other Start: 05-08-2023 Office outpatient ne w 45 minutes Adriana Bessy [facility] Start: 05-08-2023 End: 05-08-2023 Patient encounter procedure PHYSICIAN NO [facility] Work Phone: Start: 04-18-2023 End: 04-18-2023 ambulatory PHYSICIAN NO [facility] Work Phone: Start: 04-18-2023 End: 04-18-2023 Patient encounter procedure PHYSICIAN NO [facility] [place] Work Phone: Start: 03-01-2023 End: 03-01-2023 ambulatory Johan Avelar Other [facility] Other Start: 03-01-2023 Telephone encounter Johan Khan [facility] Start: 02-21-2023 End: 02-21-2023 ambulatory Johan Avelar Other [facility] Other Start: 02-21-2023 Office outpatient visit 15 minutes Johan Avelar [facility] Start: 02-21-2023 Telephone encounter Johan Rosio [facility] Start: 02-06-2023 End: 02-06-2023 ambulatory Johan Avelar Other [facility] Other Start: 02-06-2023 Telephone encounter Johan Avelar [facility] Start: 12-15-2022 End: 12-15-2022 ambulatory Johan Avelar Other [facility] Other Start: 12-15-2022 Telephone encounter Johan Rosio [facility] Start: 12-08-2022 End: 12-08-2022 ambulatory Johan Avelar Other [facility] Other Start: 12-08-2022 Telephone encounter Johan Avelar [facility] Start: 12-06-2022 End: 12-06-2022 ambulatory Johan Avelar Other [facility] Other Start: 12-06-2022 Telephone encounter Johan Khan [facility] Start: 12-05-2022 End: 12-05-2022 ambulatory Johan Avelar Other [facility] Other Start: 12-05-2022 Telephone encounter Johan Khan [facility] Start: 11-28-2022 End: 11-28-2022 ambulatory Johan Avelar Other [facility] Other Start: 11-28-2022 Telephone encounter Johan Khan [facility] Start: 11-24-2022 End: 11-24-2022 ambulatory Johan Avelar Other [facility] Other Start: 11-24-2022 Office outpatient ne w 30 minutes Johan Avelar [facility] Start: 11-03-2022 Telephone encounter [facility] Burke PA-C [facility] Comment on above: Results Start: 10-17-2022 Telephone encounter Jennifer Burke PA-C [facility] Comment on above: Patient Update Start: 10-12-2022 Telephone encounter Jennifer Burke PA-C [facility] Comment on above: Patient Question Start: 09-12-2022 End: 09-12-2022 ambulatory JENNIFER BURKE Facility:[facility] Start: 09-12-2022 End: 09-12-2022 Subsequent hospital visit by physician Liban Simpson MD Work Phone: Ambulatory Surgery Comment on above: Dysphagia, unspecifi ed type [R13.10] Start: 09-08-2022 ambulatory Liban Simpson MD Work Phone: Ambulatory Surgery Start: 09-02-2022 End: 09-02-2022 ambulatory JENNIFER BURKE Facility:[facility] Start: 09-02-2022 End: 09-02-2022 Patient encounter procedure Jennifer Turk PA-C Work Phone: G[facility]enterology [place] Comment on above: Dysphagia, unspecifi ed type (Primary Dx); Recurrent vomiting; Diarrhea, unspecified type; Abdominal cramping Start: 01-28-2021 Chart Update Referring Prov ider Unknown [facility] Work Phone: Start: 01-27-2021 Office outpatient ne w 20 minutes Referring Provider Unknown [facility] Work Phone: Start: 04-26-2019 End: 04-26-2019 Emergency department patient visit [facility] Start: 04-26-2019 End: 04-26-2019 Emergency department patient visit Sandy Barron Dayron Work Phone: [facility] Comment on above: Laceration of right eyebrow, initial encounter (Primary Dx) Start: 03-13-2018 End: 03-13-2018 Patient encounter procedure HAN KNOWLES [facility] Procedures Date Procedure Procedure Detail Performing Clinician Start: 10-23-2024 Plain X-ray of left wrist PHYSICIAN NO F [facility] Start: 09-30-2024 Plain X-ray of right hand PHYSICIAN NO F [facility] Start: 09-30-2024 CT cervical spine without contrast PHYSI LEE NO FAMILY Start: 09-30-2024 CT of head without contrast PHYSICIAN NO FAMILY Start: 09-30-2024 Plain X-ray of bilateral hands PHYSICIAN NO FAMILY Start: 09-30-2024 Plain X-ray of left hand PHYSICIAN NO FA [facility] Start: 09-30-2024 Plain X-ray of left wrist PHYSICIAN NO F [facility]ILY Start: 05-17-2024 Plain chest X-ray PHYSICIAN NO FAMILY Start: 06-07-2023 Magnetic resonance angiography of head without contrast PHYSICIAN NO FAMILY Start: 04-18-2023 MRI of head PHYSICIAN NO FAMILY Start: 09-12-2022 Level iv surg pathology gross&microscopic exam Liban Simpson MD Work Phone: Start: 09-12-2022 Esophagogastroduodenoscopy transoral diagnostic Jennifer Estes PA-C Work Phone: Start: 03-02-2020 Antibody screen Comment on above: Performed By: #### TSCR ####[facility] [id number] [place], [place] [id number] Start: 04-26-2019 Procedure on wound Daniella Carlin Work Phone: Start: 03-13-2018 INITIATE OXYGEN THERAPY PROTOCOL HAN NA DDAF Start: 03-13-2018 DISCHARGE PATIENT HAN KNOWLES Start: 03-13-2018 ASSESS HAN KNOWLES Start: 03-13-2018 BEDREST HAN KNOWLES Start: 03-13-2018 Continuous pulse oximetry HAN KNOLWES Start: 03-13-2018 NEURO/VASCULAR CHECKS HAN KNOWLES Start: 03-13-2018 NOTIFY PHYSICIAN (SPECIFY) HAN KNOWLES Start: 03-13-2018 NURSING COMMUNICATION HAN KNOWLES Start: 03-13-2018 REMOVE IV HAN KNOWLES Start: 03-13-2018 VITAL SIGNS HAN KNOWLES Start: 03-13-2018 SURGICAL PATHOLOGY HAN KNOWLES Start: 03-13-2018 INITIATE OXYGEN THERAPY PROTOCOL HAN NA DDAF Elective Circumcision Referr ing Provider Unknown Plan of Treatment Date Care Activity Detail Author Start: 07-01-2025 Adult BMI Screening Adult BMI Screen ing [facility] Start: 05-09-2025 Tobacco Screening Tobacco Screening [facility] Start: 12-04-2024 DTaP,Tdap and Td Vaccines (7 - Td or Tdap) DTaP,Tdap and Td Vaccines (7 - Td or Tdap) [facility] Start: 12-04-2024 Urine microalbumin profile DTaP,Tdap,Td Vaccine (7 - Td or Tdap) [facility] Start: 10-23-2024 Plain X-ray of left wrist XR wrist LT min 3V* [facility] Start: 10-23-2024 XR Wrist - left GE 3 Views [facility] Start: 09-30-2024 Plain X-ray of left hand XR hand LT min 3V* [facility] Start: 09-30-2024 XR Hand - left GE 3 Views [facility] Start: 12-31-2023 Covid-19 Vaccine ( season) Covid-19 Vaccine ( season) [facility] Start: 12-31-2023 Influenza vaccination C [facility] Start: 12-30-2022 Influenza vaccination C [facility] Start: 09-02-2022 End: 11-02-2022 CELIAC SCREEN WITH REFLEX CELIAC SCREEN WITH REFLEX Lab Routine Recurrent vomiting Diarrhea, unspecified type Expected: 09/02/2022, Expires: 11/02/2022 [facility] Work Phone: Comment on above: Expected: 09/02/2022 , Expires: 11/02/2022 Start: 07-01-2022 Urine microalbumin profile DTAP,TDAP,TD (1 - Tdap) [facility] Start: 05-01-2022 DEPRESSION ASSESSMENT DEPRESSION ASS ESSMENT [facility] Start: 07-01-2021 Anxiety Screening Anxiety Screening [facility] Start: 07-01-2021 Depression Screening Depression [facility] Start: 07-01-2021 HEPATITIS C SCREENING HEPATITIS C [facility] Start: 07-01-2021 Hepatitis C screening Hepatitis C [facility] Start: 07-01-20[address] HIV [address] [facility] Start: 07-01-2021 HIV screening HIV Screening [facility] Start: 11-16-2020 COVID-19 VACCINE (3 - Booster for Pfizer series) COVID-19 VACCINE (3 - Booster for Pfizer series) [facility] Start: 07-01-2017 PEDS TO ADULT TRANSI TION ANNUAL ASSESSMENT PEDS TO ADULT TRANSITION ANNUAL ASSESSMENT [facility] Start: 2015 Depression Screening Depression Scre [facility] Start: 2015 PEDS TO ADULT TRANSI TION INITIAL DISCUSSION PEDS TO ADULT TRANSITION INITIAL DISCUSSION [facility] Start: 07-01-2014 HPV VACCINE (1 - Mal e 2-dose series) HPV VACCINE (1 - Male 2-dose series) [facility] Start: 07-01-2013 MENINGOCOCCAL B: Consider based on risk (1 of 2 - Risk Bexsero 2-dose series) MENINGOCOCCAL B: Consider based on risk (1 of 2 - Risk Bexsero 2-dose series) [facility] Start: 07-01-2012 HPV VACCINE (1 - Mal e 2-dose series) HPV VACCINE (1 - Male 2-dose series) [facility] Start: 2003 HEPATITIS B (1 of 3 - 3-dose series) HEPATITIS B (1 of 3 - 3-dose series) [facility] End: 09-03-2023 EGD DIAGNOSTIC EGD DIAGNOSTIC Endoscopy Routine Dysphagia, unspecified type Recurrent vomiting 1 Occurrences starting 09/02/2022 until 09/03/2023 [facility] Work Phone: Comment on above: 1 Occurrences starti ng 09/02/2022 until 09/03/2023 Patient Education [facility] Work Phone: Patient referral [facility] Work Phone: End: 11-16-2023 XR ABDOMEN 2V ROUTINE SUPINE W UPRIGHT/DECUB/CTL XR ABDOMEN 2V ROUTINE SUPINE W UPRIGHT/DECUB/CTL Radiology Routine Alternating constipation and diarrhea Abdominal cramping 1 Occurrences starting 10/17/2022 until 11/16/2023 [facility] Work Phone: Comment on above: 1 Occurrences starti ng 10/17/2022 until 11/16/2023 [facility] Immunizations Immunization Date Immunization Notes Care Provider Sergio higuera 05-16-2020 influenza, injectabl e, quadrivalent, preservative free Keely Wynn MD Work Phone: [facility] 05-16-2020 influenza virus vacc ine, unspecified formulation Liban Simpson MD Work Phone: [facility] 01-13-2020 meningococcal B vacc ine, recombinant, OMV, adjuvanted Keely Wynn MD Work Phone: [facility] 12-11-2019 meningococcal B vacc ine, recombinant, OMV, adjuvanted Keely Wynn MD Work Phone: [facility] 12-11-2019 meningococcal oligosaccharide (groups A, C, Y and W-135) diphtheria toxoid conjugate vaccine (MCV4O) Keely Wynn MD Work Phone: [facility] 02-28-2018 influenza, injectabl e, quadrivalent, preservative free Keely Wynn MD Work Phone: [facility] 03-08-2017 influenza, injectabl e, quadrivalent, preservative free Keely Wynn MD Work Phone: [facility] 05-12-2016 meningococcal polysaccharide (groups A, C, Y and W-135) diphtheria toxoid conjugate vaccine (MCV4P) Keely Wynn MD Work Phone: [facility] 01-21-2016 influenza, seasonal, injectable, preservative free Keely Wynn MD Work Phone: [facility] 06-10-2015 human papilloma viru s vaccine, quadrivalent Keely Wynn MD Work Phone: [facility] 02-05-2015 human papilloma viru s vaccine, quadrivalent Keely Wynn MD Work Phone: [facility] 02-05-2015 influenza, seasonal, injectable Keely Wynn MD Work Phone: [facility] 12-04-2014 human papilloma viru s vaccine, quadrivalent Keely Wynn MD Work Phone: [facility] 12-04-2014 meningococcal oligosaccharide (groups A, C, Y and W-135) diphtheria toxoid conjugate vaccine (MCV4O) Keely Wynn MD Work Phone: [facility] 12-04-2014 tetanus toxoid, redu miriam diphtheria toxoid, and acellular pertussis vaccine, adsorbed Keely Wynn MD Work Phone: [facility] 01-29-2013 influenza, seasonal, injectable, preservative free Keely Wynn MD Work Phone: [facility] 03-23-2011 influenza, seasonal, injectable, preservative free Keely Wynn MD Work Phone: [facility] 03-08-2010 influenza, seasonal, injectable, preservative free Keely Wynn MD Work Phone: [facility] 07-27-2009 influenza, seasonal, injectable Keely Wynn MD Work Phone: [facility] 10-27-2008 hepatitis A vaccine, pediatric/adolescent dosage, 2 dose schedule Keely Wynn MD Work Phone: [facility] 07-17-2008 hepatitis A vaccine, pediatric/adolescent dosage, 2 dose schedule Keely Wynn MD Work Phone: [facility] 11-29-2007 diphtheria, tetanus toxoids and acellular pertussis vaccine Keely Wynn MD Work Phone: [facility] 11-29-2007 hepatitis A vaccine, pediatric/adolescent dosage, 2 dose schedule Keely Wynn MD Work Phone: [facility] 11-29-2007 measles, mumps and rubella virus vaccine Keely Wynn MD Work Phone: [facility] 11-29-2007 poliovirus vaccine, inactivated Keely Wynn MD Work Phone: [facility] 11-29-2007 varicella virus vaccine Terrell Wynn MD Work Phone: [facility] 09-14-2006 diphtheria, tetanus toxoids and acellular pertussis vaccine Keely Wynn MD Work Phone: [facility] 04-28-2006 measles, mumps, rube lla, and varicella virus vaccine Keely Wynn MD Work Phone: [facility] 04-03-2006 haemophilus influenz ae type b vaccine, PRP-T conjugate Keely Wynn MD Work Phone: [facility] 04-03-2006 influenza virus vacc ine, whole virus Keely Wynn MD Work Phone: [facility] 03-16-2006 DTaP-hepatitis B and poliovirus vaccine Keely Wynn MD Work Phone: [facility] 03-16-2006 pneumococcal conjuga te vaccine, 7 valent Keely Wynn MD Work Phone: [facility] 02-02-2004 DTaP-hepatitis B and poliovirus vaccine Keely Wynn MD Work Phone: [facility] 02-02-2004 haemophilus influenz ae type b vaccine, PRP-T conjugate Keely Wynn MD Work Phone: [facility] 02-02-2004 pneumococcal conjuga te vaccine, 7 valent Keely Wynn MD Work Phone: [facility] 01-01-2004 DTaP-hepatitis B and poliovirus vaccine Keely Wynn MD Work Phone: [facility] 01-01-2004 haemophilus influenz ae type b vaccine, PRP-T conjugate Keely Wynn MD Work Phone: [facility] 01-01-2004 pneumococcal conjuga te vaccine, 7 valent Keely Wynn MD Work Phone: [facility] 2003 hepatitis B vaccine, pediatric or pediatric/adolescent dosage Keely Wynn MD Work Phone: [facility] Payers Date Payer Category Payer Self-pay [id number] 2022 Medicaid [id number] 2022 Medicaid [id number] 2022 Medicaid [id number] 2022 Unknown 2022 Unknown [id number] 2019 Unknown MMO MED MUTUAL S UPERMED PPO xxxxxxxxxxxx 2019-Present xxxxxxxxxxxx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 Complaint: Laceration History of Present Illness: HPI This is a 13-year-old male who presents the emergency department today for a laceration. He states that he caught an elbow to the eyebrow today while wrestling. He sustained a laceration to the right eyebrow. Dad states that he needs to be wrestling tomorrow and cannot have stitches, he states that it has to he is up-to-date on his childhood immunizations. No loss of conscious. No eye pain no facial pain. Past Medical History: No past medical history on file. Past Surgical History: No past surgical history on file. Family History: No family history on file. Social History: Social History Socioeconomic History Marital status: Single Spouse name: Not on file Number of children: Not on file Years of education: Not on file Highest education level: Not on file Occupational History Not on file Social Needs Financial resource strain: Not on file Food insecurity Worry: Not on file Inability: Not on file Transportation needs Medical: Not on file Non-medical: Not on file Tobacco Use Smoking status: Not on file Substance and Sexual Activity Alcohol use: Not on file Drug use: Not on file Sexual activity: Not on file Lifestyle Physical activity Days per week: Not on file Minutes per session: Not on file Stress: Not on file Relationships Social connections Talks on phone: Not on file Gets together: Not on file Attends synagogue service: Not on file Active member of club or organization: Not on file Attends meetings of clubs or organizations: Not on file Relationship status: Not on file Other Topics Concern Not on file Social History Narrative Not on file Medications: No current outpatient medications on file prior to encounter. Allergies: No Known Allergies Review of Systems: Review of Systems Constitutional: Negative for chills and fever. Respiratory: Negative for cough, shortness of breath and wheezing. Cardiovascular: Negative for chest pain, palpitations and leg swelling. Gastrointestinal: Negative for abdominal pain, constipation, diarrhea, nausea and vomiting. Skin: Positive for wound. Negative for rash. Neurological: Negative for dizziness, syncope, weakness, light-headedness and headaches. All other systems reviewed and are negative. Positives and pertinent negatives as per HPI. All other systems were reviewed and are negative. Physical Exam: Patient Vitals for the past 24 hrs: BP Temp Temp src Pulse Resp SpO2 04/26/19 1530 102/64 98.4 F (36.9 C) Oral 86 16 99 % Physical Exam Vitals signs and nursing note reviewed. Constitutional: General: He is not in acute distress. Appearance: He is well-developed. Cardiovascular: Rate and Rhythm: Normal rate and regular rhythm. Pulmonary: Effort: Pulmonary effort is normal. Breath sounds: Normal breath sounds. Skin: General: Skin is warm and dry. Comments: There is a superficial laceration noted to the right eyebrow with no bleeding noted. Laceration is approximately 1 cm in length. Neurological: Mental Status: He is alert and oriented to person, place, and time. Laboratory & Radiological Imaging (if done): Labs Reviewed - No data to display No orders to display Procedures: Wound extent: Lac Repair Date/Time: 04/26/2019 4:32 PM Performed by: Daniella Carlin CNP Authorized by: Sandy Padgett DO Verbal consent: obtained Consent given by: parent Body area: head/neck Location details: right eyebrow Laceration length: 1 cm Foreign bodies: no foreign bodies Tendon involvement: none Nerve involvement: none Vascular damage: no Repair type: simple Amount of cleaning: standard no vascular damage Debridement: none Degree of undermining: none Skin closure: glue Approximation: close Approximation difficulty: simple Patient tolerance: Patient tolerated the procedure well with no immediate complications Daniella Carlin, MSN, DENTAL SERVICES DIRECTOR-BC, ENP-C Emergency Department Nurse Practitioner [facility] Emergency Department (Please note that portions of this note have been completed with a voice recognition software. Efforts were made to correct any errors, but occasionally words are mis-transcribed.) Daniella Carlin CNP 04/26/19 1633 Mother states patient took an elbow to his right eye and has a laceration above his eyebrow. documented in this encounter Source Comments (unrecognize d section and content) In the event this informatio n is protected by the Federal Confidentiality of Alcohol and Drug Abuse Patient Records regulations: The Federal rules restrict any use of the information to criminally investigate or prosecute any alcohol or drug abuse patient.[facility] Township[facility] the event this information is protected by the Federal Confidentiality of Alcohol and Drug Abuse Patient Records regulations: The Federal rules restrict any use of the information to criminally investigate or prosecute any alcohol or drug abuse patient.[facility] Township[facility] the event this information is protected by the Federal Confidentiality of Alcohol and Drug Abuse Patient Records regulations: The Federal rules restrict any use of the information to criminally investigate or prosecute any alcohol or drug abuse patient.[facility] Township[facility] the event this information is protected by the Federal Confidentiality of Alcohol and Drug Abuse Patient Records regulations: The Federal rules restrict any use of the information to criminally investigate or prosecute any alcohol or drug abuse patient.[facility] Township[facility] the event this information is protected by the Federal Confidentiality of Alcohol and Drug Abuse Patient Records regulations: The Federal rules restrict any use of the information to criminally investigate or prosecute any alcohol or drug abuse patient.[facility] Township[facility] the event this information is protected by the Federal Confidentiality of Alcohol and Drug Abuse Patient Records regulations: The Federal rules restrict any use of the information to criminally investigate or prosecute any alcohol or drug abuse patient.[facility] Care Teams (unrecognized sec tion and content) Cto Relationship Specialty Start Date End Date Jannette Tovar [address] [place] [address] PCP - General Pediatrics 11/13/15 Cto Relationship Specialty Start Date End Date Jannette Tovar [address] [place] [address] PCP - General Pediatrics 11/13/15 Cto Relationship Specialty Start Date End Date Vivi Marion, DO [address] [place] [address] PCP - General Pediatrics 09/12/22 Cto Relationship Specialty Start Date End Date Vivi Marion, DO [address] [place], [place] [id number] PCP - General Pediatrics 09/12/22 Team Status: Active Member Role Status Dates PHYSICIAN NO FAMILY Primary Care Provider Active Team Status: Inactive Member Role Status Dates Hector Costa DO Attending Provider Active PHYSICIAN NO FAMILY Primary Care Provider Active Team Status: Inactive Member Role Status Dates Hector Costa DO Attending Provider Active Start: April 18, 2023 End: April 18, 2023 PHYSICIAN NO FAMILY Primary Care Provider Active Start: April 18, 2023 End: April 18, 2023 Team Status: Inactive Member Role Status Dates Adriana Doherty MD Attending Provider Active Sta rt: May 08, 2023 End: May 08, 2023 Team Status: Inactive Member Role Status Dates PHYSICIAN NO FAMILY Primary Care Provider Active Start: June 07, 2023 End: June 07, 2023 Mary Casiano , [employer] F[employer]ER [employer] CHAIRMAN-DENTAL SERVICES DIRECTOR-C Attending Provider Active Start: June 07, 2023 End: June 07, 2023 Team Status: Inactive Member Role Status Dates PHYSICIAN NO FAMILY Primary Care Provider Active Start: June 09, 2023 End: June 09, 2023 Adriana Doherty MD Attending Provider Active Sta rt: June 09, 2023 End: June 09, 2023 Team Status: Inactive Member Role Status Dates PHYSICIAN NO FAMILY Primary Care Provider Active Start: July 18, 2023 End: July 18, 2023 Adriana Doherty MD Attending Provider Active Sta rt: July 18, 2023 End: July 18, 2023 Cto Relationship Specialty Start Date End Date Inna Marionlisa Talley DO PCP - General Pediatrics 09/12/22 Team Status: Active Member Role Status Dates Adriana Doherty MD Executive Secretary Social Welfare Active PHYSICIAN NO FAMILY Primary Care Provider Active Team Status: Inactive Member Role Status Dates PHYSICIAN NO FAMILY Primary Care Provider Active Start: May 17, 2024 End: May 17, 2024 Adriana Doherty MD Attending Provider Active Sta rt: May 17, 2024 End: May 17, 2024 Team Status: Inactive Member Role Status Dates PHYSICIAN NO FAMILY Primary Care Provider Active Start: May 17, 2024 End: May 17, 2024 Stefany Romano MD Emergency Provider Active Star t: May 17, 2024 End: May 17, 2024 Team Status: Inactive Member Role Status Dates PHYSICIAN NO FAMILY Primary Care Provider Active Start: June 06, 2024 End: June 06, 2024 Adriana Doherty MD Attending Provider Active Sta rt: June 06, 2024 End: June 06, 2024 Cto Relationship Specialty Start Date End Date No P[place] [address] PCP - General Family Medicine 12/14/22 Team Status: Inactive Member Role Status Dates PHYSICIAN NO FAMILY Primary Care Provider Active Start: September 30, 2024 End: September 30, 2024 Eric Aguila PA-C Emergency Provider Active Start: September 30, 2024 End: September 30, 2024 Team Status: Inactive Member Role Status Dates PHYSICIAN NO FAMILY Primary Care Provider Active Start: October 02, 2024 End: October 02, 2024 Rodriguez Lindsey DO Attending Provider Active S tart: October 02, 2024 End: October 02, 2024 Team Status: Active Member Role Status Dates PHYSICIAN NO FAMILY Primary Care Provider Active Start: October 23, 2024 Rodriguez Lindsey DO Attending Provider Active S tart: October 23, 2024 Team Status: Inactive Member Role Status Dates PHYSICIAN NO FAMILY Primary Care Provider Active Start: October 23, 2024 End: October 23, 2024 Rodriguez Lindsey DO Attending Provider Active S tart: October 23, 2024 End: October 23, 2024 Team Status: Inactive Member Role Status Dates PHYSICIAN NO FAMILY Primary Care Provider Active Start: January 16, 2025 End: January 16, 2025 Mary Casiano APRN-DENTAL SERVICES DIRECTOR-C Attending Provider Active Start: January 16, 2025 End: January 16, 2025 Team Status: Inactive Member Role Status Dates PHYSICIAN NO FAMILY Primary Care Provider Active Start: January 20, 2025 End: January 20, 2025 Mary Casiano APRN-DENTAL SERVICES DIRECTOR-C Attending Provider Active Start: January 20, 2025 End: January 20, 2025 Goals (unrecognized section and content) Goals may be documented in a n alternate section FOR RECORDS PERTAINING TO PATIENTS WHO ARE OR HAVE BEEN ENROLLED IN A CHEMICAL DEPENDENCY/SUBSTANCEABUSE PROGRAM, SOME INFORMATION MAY BE OMITTED. This clinical summary was aggregated from multiple sources. Caution should be exercised in using it in the provision of clinical care. This summary normalizes information from multiple sources, and as a consequence, information in this document may materially change the coding, format and clinical context of patient data. In addition, data may be omitted in some cases. CLINICAL DECISIONS SHOULD BE BASED ON THE PRIMARY CLINICAL RECORDS. [employer] provides no warranty or guarantee of the accuracy or completeness of information in this document.
--- NOTE | 2025-02-03 12:07 | ED_ITS ---
HPI HPI - General Adult General Chief complaint: Headache Stated complaint: HEADACHE, DIZZINESS,NAUSEA, CONFUSION Time Seen by Provider: 02/03/25 12:00 Source: patient Mode of arrival: walk-in History of Present Illness HPI narrative: cc - headache Pt reports a bifrontal and bitemporal headache that is typical of his prior migraines - not explosive onset and not the worst of his life. He ran out of his Imitrex. This has been waxing and waning for 2 weeks. He saw the Neurologist in the [place] office and I got injections but the headache returned. No fever or chills. No recent illness. No recent injury to the head or neck. Related Data Previous Rx's ?Medication ?Instructions ?Recorded ondansetron 4 mg disintegrating 4 mg PO Q6H PRN nausea and 08/31/24 tablet vomiting #10 tabs sumatriptan succinate 25 mg tablet See Rx Instructions PO .COMPLEX 08/31/24 (Imitrex) #10 tabs Allergies Allergy/AdvReac Type Severity Reaction Status Date / Time No Known Drug Allergies Allergy Verified 08/30/24 23:35 Opioid HPI Opioid Management Most Recent Opioid Data: Last Pain Scale 2 08/31/24, 02:28 PFSH PFSH Social History Little interest or pleasure in doing things: not at all Feeling down, depressed, or hopeless: not at all Exam Narrative Exam Narrative: Nurses notes and vital signs reviewed and patient is not hypoxic. afebrile General: Well-appearing and in no apparent distress. Skin: Warm, dry, no pallor noted. No rash. Head: Normocephalic, atraumatic. Neck: Supple, non-tender. No meningismus. No lymphadenopathy. Eye: Pupils are equal, round and EOMI. No scleral icterus. Ears, Nose, Mouth, and Throat: TM are clear, no posterior oropharynx erythema or nasal mucosal hypertrophy, uvula is mid-line Oral mucosa is moist Cardiovascular: Regular Rate and Rhythm without murmur, gallop or rub. Respiratory: No accessory muscle use or respiratory distress. Lungs are clear to auscultation, no wheezing, rales or rhonchi Musculoskeletal: normal ROM Neurological: A&O x4. No cranial nerve dysfunction observed. No truncal ataxia. Moves all extremities. Sensation intact. Psychiatric: Cooperative and interactive. Normal mood and affect. Constitutional Vital Signs, click to edit/add: Last Vital Signs Temp 97.9 F 02/03/25 11:52 Pulse 85 02/03/25 11:52 Resp 18 02/03/25 11:52 BP 160/88 H 02/03/25 11:52 Pulse Ox 100 02/03/25 11:52 O2 Del Method Room Air 02/03/25 11:52 Course Vital Signs Vital signs: Vital Signs Temperature 97.9 F 02/03/25 11:52 Pulse Rate 85 02/03/25 11:52 Respiratory Rate 18 02/03/25 11:52 Blood Pressure 160/88 H 02/03/25 11:52 Pulse Oximetry 100 02/03/25 11:52 Oxygen Delivery Method Room Air 02/03/25 11:52 Temperature 97.9 F 02/03/25 11:52 Pulse Rate 85 02/03/25 11:52 Respiratory Rate 18 02/03/25 11:52 Blood Pressure 160/88 H 02/03/25 11:52 Pulse Oximetry 100 02/03/25 11:52 Oxygen Delivery Method Room Air 02/03/25 11:52 Medical Decision Making MDM Narrative Medical decision making narrative: The triage nurse establish a peripheral IV shortly after the patient's arrival. He was given IV Solu-Medrol, IV Toradol and oral dissolvable Zofran. He was discharged home with recommendation to follow-up with his neurologist. He said that he has a prescription for Imitrex but just has not gotten it filled. He did ask for a work excuse. Discharge Plan Discharge Chief Complaint: Headache Clinical Impression: Migraine Patient Disposition: Home, Self-Care Time of Disposition Decision: 12:10 Prescriptions / Home Meds: No Action ondansetron 4 mg tablet,disintegrating 4 mg PO Q6H PRN (Reason: nausea and vomiting) Qty: 10 0RF sumatriptan succinate [Imitrex] 25 mg tablet See Rx Instructions .ROUTE .COMPLEX Qty: 10 0RF Rx Instructions: take 1 tab at onset of headache; if no relief may repeat 1 tab after at least 2 hrs; max = 4 tabs/24 hr Print Language: Turkmen Instructions: Migraine Headache (ED) Referrals: Physician,Non-Staff, MD [Primary Care Provider] - 1 week
[2025-02-03] MEDS: KETOROLAC TROMETHAMINE 30 MG/ML VIAL IVP (12:26)
[2025-02-03] MEDS: METHYLPREDNISOLONE SOD SUCC PF 125 MG/2 ML VIAL IVP (12:27)
[2025-02-03] MEDS: ONDANSETRON 4 MG RAPDIS TABLET SL (12:27)
== END 2025-02-03 12:35 | disposition home or self-care (01) ==
PROVIDERS: Emergency Provider Emergency Medicine
DX: G43.909 Migraine, unspecified, not intractable, without status migrainosus (principal)
CPT/HCPCS: 96374; 96375; 99284; J1885; J2919; Q0162